=== PATIENT | female | born 1935 | race Caucasian/White ===

== ENCOUNTER → 2016-08-16 | Outpatient (CLI) | payer OTHER, MEDICARE ==
[~2016-08-16] MED LIST: ACT/30 PO; ADVIN10/60 INH; ASPI81TA80 PO; BENZ-57 PO; DXY100 PO; FLEC50TA20 PO; IPRASOL4 INH; LEVO50TA6 PO; LOSA100T2 PO; METF500T PO; PRD20 PO; SIMV40TA2 PO; TMF75 PO; TPRSR/50 PO; TRAM-10 PO
--- NOTE | 2016-08-16 12:32 | MAMMOGRAPHY REPORT ---
BILATERAL DIGITAL SCREENING MAMMOGRAM TOMOSYNTHESIS WITH CAD: 08/16/2016 CLINICAL HISTORY: Asymptomatic. Personal history of breast cancer. TECHNIQUE: Breast tomosynthesis in addition to standard 2D mammography was performed. Current study was also evaluated with a Computer Aided Detection (CAD) system. COMPARISON: Comparison is made to exams dated: 08/12/2015 mammogram, 12/10/2014 ultrasound, 12/10/2014 ma mmogram, 12/05/2013 ultrasound, 12/05/2013 mammogram, and 04/29/2013 mammogram - [facility]. BREAST COMPOSITION: There are scattered areas of fibroglandular density in both breasts. FINDINGS: 3 linear scar markers overlie the left breast. There are stable surgical clips in the 11: 00 posterior left breast. There is left breast skin irregularity and asymmetry of the size of the b reast compared to the right breast. There are rodlike secretory calcifications and benign rim calci fications bilaterally. No new suspicious mass, architectural distortion or cluster of microcalcific ations is seen. IMPRESSION: ACR BI-RADS CATEGORY 1: NEGATIVE There is no mammographic evidence of malignancy. A 1 year screening mammogram is recommended. The p atient will receive written notification of the results. Approximately 10% of breast cancers are not detected with mammography. A negative mammographic repor t should not delay biopsy if a clinically suggestive mass is present. Radha Barnes M.D. ay/:08/16/2016 08:25:18 Wind Turbine Erector: Mary Major, [facility] letter sent: Normal 1/2 BI-RADS Code: ACR BI-RADS Category 1: Negative
== END | disposition home or self-care (01) ==
LOC: C.MAMM 07:13
PROVIDERS: ATTEND Family Medicine
DX: Z12.31 Encounter for screening mammogram for malignant neoplasm of breast (principal); Z85.3 Personal history of malignant neoplasm of breast; Z08 Encounter for follow-up examination after completed treatment for malignant neoplasm

== ENCOUNTER → 2016-12-28 | Outpatient (CLI) | payer OTHER, MEDICARE ==
[~2016-12-28] MED LIST changes: -BENZ-57 PO; +BENZ200C59 PO; +LVQ750 PO
--- NOTE | 2016-12-29 05:33 | PAP/PSG TECHNICIAN REPORT ---
[facility] College And Career Counselor Polysomnogram Report Study name: None Report date: 12/29/2016 Study date: 12/28/2016 Referring Physician: KRISH DWYER DO, DO Name: JESUS MELENDREZRED Interpreting Physician: Krish Dwyer D.O. Date of : 1935 College And Career Counselor: LAZ Long. Sex: Female Age: 81 StudyType: PSG Weight: 294 lbs Height: 81 years, Height 5' 3" Neck Circum:14.25inches BMI: 52.07 Medications: Actos 30mg, Advair 100-50mcg/dose, ASA 81mg, Duoneb, Flecainide Acetate 100mg, Glucophage 500mg, Losartan Potassium -HCTZ 100-25mg, Metoprolol 25mg, Mobic , ProAir, Simvastatin 40mg, Synthroid 50mcg, Tramadol 50mg Patient History Study started on room air with no ETCO2 monitoring in room 36. 81 yr old female here tonight for a possible split psg. She has a history of snoring. She wakes up twice to use the restroom. She had a overnight pulse oximetry done that had abnormal results. Her daughter dropped her off tonight. Her neck circ =14.25inches. Parameters Monitored NPSG: E1-M2, E2-M1, Fp1-M2, Fp2-M1, F3-M2, F4-M2, F4-M1, C3-M2, C4-M2, C4-M1, O1-M2, O2-M2, O2-M1, T3-M2, T4-M1, P3-M2, P4-M1, CHIN1, CHIN2, HR, EKG, Legs, PFLOW, SNOR, FLOW, CFLOW, Tidal Volume, THOR, ABDO, SpO2, PLTH, CPRESS, ETCO2 Wave, ETCO2, pH Sleep Architecture Sleep Stages Time at Lights Off 9:47:09 PM STAGES Time (min.) TST (%) Time at Lights On 5:26:09 AM Wake 119.5 -- Total Recording Time (TRT) 458.00 min. N1 15.5 5 Total Sleep Period (TSP) 426.0 min. N2 176.5 52 Total Sleep Time (TST) 338.5min. N3 93.0 27 Awake Time 119.5 min. REM 53.5 16 Wake after Sleep Onset 87.5 min. Sleep Efficiency (SE) 74 % Sleep Onset Latency (MYRTEL) 33.0 min. Number of Stage 1 Shifts None Awakenings 18 Stage Changes 66 Number of REM periods 3 REM 53.5 16 REM Latency 89.5 min. NREM 285.0 84 Body Position Analysis Supine Right Left Side Prone Vertical Total Sleep Time (min.) 7.8 220.5 118.0 338.50 0.0 0.0 Total Sleep Time (%) 0% 65% 35% 100 0% N/A% Total Sleep Time REM (min.) 0.0 17.0 36.5 None 0.0 0.0 Total Sleep Time NREM (min.) 0.0 203.5 81.5 None 0.0 0.0 Intermittent Wake (min.) 7.8 50.5 61.3 None 0.0 0.0 Total Sleep Period (%) 0% None None None None None Arousals Myoclonus (PLM) * Events Count Index Events Count Index Spontaneous 9 2 Events Awake (PLMW) 40 20.1 Respiratory 1 0.4 Events Asleep w/ Arousal (PLMA) 1 0.2 PLM 1 0 Events Asleep w/o Arousal (PLMS) 71 12.6 Snoring 1 0 Total Asleep 72 12.8 Total 12 2 Total 112 15 Respiratory Analysis * CA OA MA CH H RERA Total Count 0 8 0 0 24 0 32 Index 0.0 1.4 0.0 0 4.3 0 5.7 Mean Duration 0.0 23.9 0.0 0.00 20.5 0.0 21.4 Longest Duration 0.0 55.3 0.0 0.00 0.0 0.0 55.3 Respiratory Event Summary Total Supine ~Supine Right Left Prone REM NREM Apneas Count 8 N/A 8 0 8 N/A 7 1 Index 1.4 N/A 1 0.0 4.1 N/A 8 0 Hypopneas (4% Desat) Count 24 N/A 24 7 17 N/A 24 0 Index 4.3 N/A 4 1.9 8.6 N/A 26.9 0.0 Apneas & All Hypopneas Count 32 N/A 32 7 25 N/A 31 1 Index 5.7 N/A 6 2 13 N/A 34.8 0.2 Respiratory Events (Import/Export Specialist+All Hyp+RERA) Count 32 N/A 32 7 25 N/A 31 1 Index 5.7 N/A 6 1.9 12.7 N/A 34.8 0.2 Respiratory Related Arousal Count 1 N/A 2 0 2 N/A 1 1 Index 0.4 N/A 0 0 1 N/A 1 0 Snoring Analysis Supine Right Left Prone REM NREM Total Snore duration 32.0 min Snores count N/A 948 618 N/A 588 978 1,566 Snore mean duration 1.2 Sec Snores index N/A 258 314 N/A 659.4 205.9 277.6 TST with snoring (%) 9.5% Desaturation Event Summary: Minimum %SpO2 Event Count Mean/Min/Max Duration(sec.) Desaturation Index % Time In Bed > 90 11 32.0 / 14.3 / 49.5 48.5 3.0 86 - 90 25 34.8 / 13.0 / 54.5 4.2 80.0 81 - 85 5 28.3 / 14.3 / 53.5 4.1 16.4 76 - 80 0 N/A 0.0 0.5 71 - 75 0 N/A 0.0 0.0 66 - 70 0 N/A 0.0 0.0 61 - 65 0 N/A 0.0 0.0 56 - 60 0 N/A 0.0 0.0 51 - 55 0 N/A 0.0 0.0 < 50 0 N/A 0.0 0.0 Total REM NREM Awake <50% 0.0 min. 0.0 min. 0.0 min. 0.0 min. 51 - 60% 0.0 min. 0.0 min. 0.0 min. 0.0 min. 61 - 70% 0.0 min. 0.0 min. 0.0 min. 0.0 min. 71 - 80% 2.3 min. 1.7 min. 0.1 min. 0.5 min. 81 - 90% 434.9 min. 49.9 min. 281.4 min. 103.5 min. 91 - 100% 13.6 min. 1.9 min. 3.4 min. 8.3 min. Average 87 86 87 87 Minimum SpO2 76 76 76 76 Desaturation Event Index 3.8 26.9 0.6 1.0 # Desat. Events below 89% 29 24 3 2 Time(%) with Saturation below 89% 83.2 9.6 55.3 18.2 Time(min.) with Saturation below 89% 375.1 43.4 249.5 82.2 Time (mins) REM (mins) NREM (mins) % of TST SpO2 Below 90% 27 24 N3 96.5 SpO2 Below 88% 14 0 0 60 Heart Rate Analysis Min (bpm) Max (bpm) Average (bpm) Awake 56 69 60 NREM 55 65 60 REM 57 68 63 Overall 55 68 60 Supplemental O2 Values Minimum O2 level: None Value Start Time End Time College And Career Counselor Comments Mrs. Melendrez slept in the right and left positions. No cardiac arrhythmia noted. Some leg movements were noted. No bruxism noted. Snoring was noted and scored as a 3 on a scale of 1 through 5. (0=no snoring, 5=snoring loud enough to be heard through a closed door or down the re[address] way) She awoke to use the restroom one time during the night. She stated that she slept a little worse than usual. The final report will be interpreted and signed by a sleep physician. The completed physician report will then be placed in the patient medical record. Therapy (cm H2O) 0 TIB (min.) 458.0 TST (min.) 338.5 Sleep Onset (min.) 33.0 REM Onset From Sleep (min.) 89.5 Sleep Efficiency % 74 Wakefulness (%) 26 Wakefulness (min.) 119.5 NREM 1 (%) 5 NREM 1 (min.) 15.5 NREM 2 (%) 52 NREM 2 (min.) 176.5 NREM 3 (%) 27 NREM 3 (min.) 93.0 REM (%) 16 REM (min.) 53.5 # Arousals 12 Arousal Index 2 # Snore 1,566 Snore Index 277.6 AHI 5.7 AHI Supine N/A AHI Non-Supine 6 NREM AHI 0.2 REM AHI 34.8 RDI 5.7 # Obstructive Apnea 8 # Central Apnea 0 # Mixed Apnea 0 # Hypopneas 24 RERAs 0 Total Respiratory Events 35 Time Below SpO2 89% (min.) 292.9 Mean NREM SpO2 (%) 87 Mean REM SpO2 (%) 86 Mean Sleep SpO2 (%) 87 Min NREM SpO2 (%) 76 Min REM SpO2 (%) 76 Position Supine (min.) 7.8 Position Non-supine (min.) 338.5 LM Index Sleep 12.8 LM Index NREM 13.5 LM Index REM 9.0 Mean Heart Rate (bpm) 60 Min Heart Rate (bpm) 55
--- NOTE | 2017-01-06 07:34 | Sleep Study ---
Sleep Study Report Date of Service: 12/28/2016 Sleep Study Report Clinical data: The patient is a 81-year-old female with a BMI of 52. She has a history of snoring, disturbed nocturnal sleep, daytime tiredness, and nocturnal hypoxia. This study was an in-lab diagnostic polysomnogram. Sleep architecture: The total sleep. Was 426.0 minutes. The total sleep time was 338.5 minutes. The sleep efficiency was moderately reduced to 74 percent. The sleep latency was prolonged to 33 minutes. Wake after sleep onset was elevated at 87.5 minutes. The REM latency was normal at 89.5 minutes. Sleep consisted of stage N1 5 percent, stage N2 52 percent, stage N3 27 percent, and stage REM 16 percent. Arousal data: the patient had a total of 12 arousals including 9 spontaneous arousals, 1 respiratory arousal, 1 PLM arousal, and 1 snoring arousal. The arousal index was 2. PLM data: The patient had a total of 72 periodic limb movements of sleep for an index of 12.8. There was only 1 arousal for a PLM arousal index of 0.2. EKG: The cardiac rates ranged from 55 to 69 beats per minute. The rhythm was normal sinus. Respiratory data: the patient had a total of 32 respiratory events including 8 obstructive apneas and 24 hypopneas. The hypopneas were scored by the 4 percent desaturation rule. The longest apnea was 55.3 seconds. The mean duration of the hypopneas was 20.5 seconds. The apnea-hypopnea index is mildly elevated at 5.7 events per hour. This represents mild sleep apnea. Oximetry data: The average saturation for the night was 87 percent. The minimum saturation was 76 percent. Was a total of 375 minutes with saturations less than 89 percent. Splicing Supervisor comments the patient slept on the right and left positions. No cardiac arrhythmia noted. Some leg movements noted. No bruxism noted. Snoring was noted and scored as a 3 on a scale of 1 through 5. Impressions: 1. obstructive sleep apnea-mild 2. Nocturnal hypoxia Comments: The patient has mild sleep apnea as assessed by the apnea-hypopnea index of 5.7. However she did have an event lasting 55 seconds. She also had significant hypoxemia throughout the night. She also has significant symptoms. Comorbidities include hypertension and chronic asthmatic bronchitis and diabetes mellitus and a history of cardiac arrhythmia. Thus treatment would be advised. Recommendations colon 1. It is advised that the patient be given a trial of nasal CPAP. This could be accomplished by an in-lab sleep study with titration or by auto CPAP. 2. Weight loss is advised in light of the elevation of body mass index at 52. 3. It is advised that the patient avoid sleeping in the supine position as they are typically more respiratory events while supine. Copies To 1: Ermias Rizo M.D.; Krish Saleem,
== END | disposition home or self-care (01) ==
LOC: C.NEUR 21:00
PROVIDERS: ATTEND Internal Medicine Pulmonary Disease
DX: G47.33 Obstructive sleep apnea (adult) (pediatric) (principal); R53.83 Other fatigue

== ENCOUNTER → 2017-02-17 | Outpatient (CLI) | payer OTHER, MEDICARE ==
[~2017-02-17] MED LIST changes: +BENZ-57 PO; -BENZ200C59 PO; -LVQ750 PO
[2017-02-17 09:00] LABS: BASO % 0.7 %; BASO ABS # 0.04 K/uL (0-0.2); COMPLETE YES; EOS % 4.1 %; HEMATOCRIT 40.3 % (37-47); IG% 0.3 %; LYMPH ABS # 1.83 K/uL (1.2-3.4); MEAN CORPUSCULAR HEMOGLOBIN 29.4 pg (25-34); MEAN PLATELET VOLUME 9.5 fL (7.4-10.4); MONO % 7.2 %; NEUT % 57.7 %; PLATELET COUNT 249 K/uL (130-400); RED BLOOD COUNT 4.53 M/uL (4.2-5.4); WHITE BLOOD COUNT 6.11 K/uL (4.8-10.8)
[2017-02-17 09:35] LABS: ALT/SGPT 19 U/L (12-78); AST/SGOT 16 U/L (15-37); BLOOD UREA NITROGEN 27 mg/dl (7-18); BUN/CREATININE RATIO 26.8 (10-20); CALCIUM 9.1 mg/dl (8.5-10.1); CARBON DIOXIDE 30 mmol/L (21-32); CHLORIDE 103 mmol/L (98-107); GLUCOSE 90 mg/dl (70-99); SODIUM 139 mmol/L (136-145)
[2017-02-17 09:38] LABS: ALB/GLOB RATIO 1.1 (0.9-2); ALKALINE PHOSPHATASE 46 U/L (45-117)
== END | disposition home or self-care (01) ==
LOC: C.LAB 07:25
PROVIDERS: ATTEND Internal Medicine Hematology & Oncology
DX: C50.919 Malignant neoplasm of unspecified site of unspecified female breast (principal)

== ENCOUNTER → 2017-03-01 | Outpatient (CLI) | payer OTHER, MEDICARE ==
--- NOTE | 2017-03-02 06:30 | PAP/PSG TECHNICIAN REPORT ---
[facility] Special Events Director Polysomnogram Report Study name: None Report date: 03/02/2017 Study date: 03/01/2017 Referring Physician: KRISH SALEEM DO, DO Name: TAWANNALEX Interpreting Physician: Krish Saleem D.O. Date of : 1935 Special Events Director: Briana Stanford RPS. Sex: Female Age: 82 Study Type: PSG PAP Weight: 294 lbs 14.25 in Height: 82 years, Height 5' 3" Neck Circum: BMI: 52.07 Medications: ACTOS 30 MG, ADVAIR DISKUS 100-50 MCG/DOSE, ASPIRIN 81 MG, CALCIUM, DUONEB SOLN, FLECAINIDE ACETATE 100 MG, GLUCOPHANGE 500 MG, LOSARTAN-HCTZ 100-25 MG, METOPROLOL 25 MG, MOBIC, MULTI VIT, PROAIR HFA, SIMVASTATIN 40 MG, SYNTHROID 50 MCG, TRAMADOL 50 MG Patient History 82 yr-old female here for a new CPAP treatment study. She was found to be positive for KINGSLEY with an AHI of 5.7. Her diagnostic study was on 12/28/16. She chose an Eson nasal mask size small from [employer]. The test was started on room air and 4 CMH2O. ETCO2 testing was not utilized during this study. Room 6 Parameters Monitored NPSG: E1-M2, E2-M1, Fp1-M2, Fp2-M1, F3-M2, F4-M2, F4-M1, C3-M2, C4-M2, C4-M1, O1-M2, O2-M2, O2-M1, T3-M2, T4-M1, P3-M2, P4-M1, CHIN1, CHIN2, HR, EKG, Legs, PFLOW, SNOR, FLOW, CFLOW, Tidal Volume, THOR, ABDO, SpO2, PLTH, CPRESS, ETCO2 Wave, ETCO2, pH Sleep Architecture Sleep Stages Time at Lights Off 10:14:46 PM STAGES Time (min.) TST (%) Time at Lights On 5:39:16 AM Wake 107.0 -- Total Recording Time (TRT) 444.50 min. N1 76.5 23 Total Sleep Period (TSP) 411.5 min. N2 216.5 64 Total Sleep Time (TST) 337.5min. N3 7.5 2 Awake Time 107.0 min. REM 37.0 11 Wake after Sleep Onset 74.0 min. Sleep Efficiency (SE) 76 % Sleep Onset Latency (MYRTLE) 33.0 min. Number of Stage 1 Shifts None Awakenings 46 Stage Changes 143 Number of REM periods 3 REM 37.0 11 REM Latency 150.0 min. NREM 300.5 89 Body Position Analysis Supine Right Left Side Prone Vertical Total Sleep Time (min.) 437.2 0.0 0.0 0.00 0.0 0.2 Total Sleep Time (%) 100% 0% 0% 0 0% N/A% Total Sleep Time REM (min.) 37.0 0.0 0.0 None 0.0 0.0 Total Sleep Time NREM (min.) 300.5 0.0 0.0 None 0.0 0.0 Intermittent Wake (min.) 99.7 7.1 0.0 None 0.0 0.2 Total Sleep Period (%) 100% None None None None None Arousals Myoclonus (PLM) * Events Count Index Events Count Index Spontaneous 88 16 Events Awake (PLMW) 29 16.3 Respiratory 23 4.3 Events Asleep w/ Arousal (PLMA) 0 0.0 PLM 0 0 Events Asleep w/o Arousal (PLMS) 7 1.2 Snoring 13 2 Total Asleep 7 1.2 Total 124 22 Total 36 5 Respiratory Analysis * CA OA MA CH H RERA Total Count 0 1 0 0 38 3 39 Index 0.0 0.2 0.0 0 6.8 1 7.5 Mean Duration 0.0 15.1 0.0 0.00 17.7 16.5 17.6 Longest Duration 0.0 15.1 0.0 0.00 0.0 17.3 26.9 Respiratory Event Summary Total Supine ~Supine Right Left Prone REM NREM Apneas Count 1 1 N/A N/A N/A N/A 0 1 Index 0.2 0 N/A N/A N/A N/A 0 0 Hypopneas (4% Desat) Count 38 38 N/A N/A N/A N/A 3 35 Index 6.8 6.8 N/A N/A N/A N/A 4.9 7.0 Apneas & All Hypopneas Count 39 39 N/A N/A N/A N/A 3 36 Index 6.9 7 N/A N/A N/A N/A 4.9 7.2 Respiratory Events (Manager Van+All Hyp+RERA) Count 39 42 N/A N/A N/A N/A 3 36 Index 7.5 7 N/A N/A N/A N/A 8.1 7.4 Respiratory Related Arousal Count 23 42 N/A N/A N/A N/A 2 22 Index 4.3 4 N/A N/A N/A N/A 3 4 Snoring Analysis Supine Right Left Prone REM NREM Total Snore duration 4.5 min Snores count 242 N/A N/A N/A 29 213 242 Snore mean duration 1.1 Sec Snores index 43 N/A N/A N/A 47.0 42.5 43.0 TST with snoring (%) 1.3% Desaturation Event Summary: Minimum %SpO2 Event Count Mean/Min/Max Duration(sec.) Desaturation Index % Time In Bed > 90 72 29.6 / 11.5 / 60.0 72.5 13.4 86 - 90 45 25.9 / 11.5 / 58.8 8.7 69.7 81 - 85 3 12.4 / 10.0 / 14.3 2.4 16.8 76 - 80 0 N/A 0.0 0.1 71 - 75 0 N/A 0.0 0.0 66 - 70 0 N/A 0.0 0.0 61 - 65 0 N/A 0.0 0.0 56 - 60 0 N/A 0.0 0.0 51 - 55 0 N/A 0.0 0.0 < 50 0 N/A 0.0 0.0 Total REM NREM Awake <50% 0.0 min. 0.0 min. 0.0 min. 0.0 min. 51 - 60% 0.0 min. 0.0 min. 0.0 min. 0.0 min. 61 - 70% 0.0 min. 0.0 min. 0.0 min. 0.0 min. 71 - 80% 0.3 min. 0.0 min. 0.3 min. 0.0 min. 81 - 90% 384.1 min. 36.2 min. 276.0 min. 71.9 min. 91 - 100% 59.6 min. 0.8 min. 24.2 min. 34.6 min. Average 88 87 87 90 Minimum SpO2 80 83 80 83 Desaturation Event Index 12.6 6.5 12.6 17.9 # Desat. Events below 89% 75 4 48 23 Time(%) with Saturation below 89% 71.9 6.7 56.1 9.0 Time(min.) with Saturation below 89% 319.0 29.7 249.2 40.2 Time (mins) REM (mins) NREM (mins) % of TST SpO2 Below 90% 63 4 N59 89.0 SpO2 Below 88% 22 0 0 68 Heart Rate Analysis Min (bpm) Max (bpm) Average (bpm) Awake 54 127 56 NREM 52 61 56 REM 55 60 58 Overall 52 61 56 Supplemental O2 Values Minimum O2 level: None Value Start Time End Time Special Events Director Comments Ms. Melendrez slept in the right and supine positions. No cardiac arrhythmias or PLMs noted. No bruxism noted. CPAP was initiated at +4 CMH2O and up-titrated to a level of +10 CMH2O. An Eson nasal mask size small from [employer] was used during titration She did not wake up to use the restroom during the night. Ms. Melendrez stated that she did not sleep as well as usual. The final report will be interpreted and signed by a sleep physician. The completed physician report will then be placed in the patient medical record. Therapy Event: Therapy (cm H20) 4 5 7 8 9 10 Total Time at Pressure (min.) 158.5 31.4 109.6 46.8 37.6 60.7 TST at Pressure (min.) 122.0 29.9 59.6 44.3 30.1 51.7 # Periods 1 1 1 1 1 1 Sleep Onset (min.) 33.0 0.0 0.0 0.0 0.0 0.0 REM Onset (min.) N/A 24.5 0.6 N/A 5.2 N/A Sleep Efficiency % 77 95 54 94 80 85 Wakefulness (%) 23.0 4.8 45.6 5.3 20.0 14.8 Wakefulness (min.) 36.5 1.5 50.0 2.5 7.5 9.0 NREM 1 (%) 9.1 26.8 17.0 24.6 34.6 17.3 NREM 1 (min.) 14.5 8.4 18.6 11.5 13.0 10.5 NREM 2 (%) 67.8 60.5 14.1 54.0 21.5 67.9 NREM 2 (min.) 107.5 19.0 15.5 25.3 8.1 41.2 NREM 3 (%) 0.0 0.0 0.0 16.0 0.0 0.0 NREM 3 (min.) 0.0 0.0 0.0 7.5 0.0 0.0 REM (%) 0.0 8.0 23.3 0.0 24.0 0.0 REM (min.) 0.0 2.5 25.5 0.0 9.0 0.0 # Arousals 24 9 29 24 20 18 Arousal Index 11.8 18.0 29.2 32.5 39.9 20.9 # Snore 169 21 32 9 7 4 Snore Index 83.1 42.1 32.2 12.2 14.0 4.6 AHI 1.5 10.0 8.1 16.3 12.0 5.8 AHI Supine 1.5 10.0 8.1 16.3 12.0 5.8 AHI Non-Supine N/A N/A N/A N/A N/A N/A NREM AHI 1.5 10.9 8.8 16.3 17.1 5.8 REM AHI N/A 0.0 7.1 N/A 0.0 N/A RDI 1.5 12.0 9.1 17.6 12.0 5.8 # Obstructive 0 1 0 0 0 0 # Central Ap 0 0 0 0 0 0 # Mixed 0 0 0 0 0 0 # Hypopneas 3 4 8 12 6 5 RERAS 0 1 1 1 0 0 Total Respiratory Events 3 6 9 13 6 5 Time Below SpO2 89.00% (min.) 116.2 27.8 39.8 32.7 20.2 42.2 Mean NREM SpO2 (%) 87 87 88 87 89 87 Mean REM SpO2 (%) N/A 86 88 N/A 84 N/A Mean Sleep SpO2 (%) 87 87 88 87 87 87 Min NREM SpO2 (%) 85 80 80 83 82 84 Min REM SpO2 (%) N/A 85 83 N/A 83 N/A Position Supine (min.) 122.0 29.9 59.6 44.3 30.1 51.7 Position Non-supine (min.) 0.0 0.0 0.0 0.0 0.0 0.0 LM Index Sleep 1.0 2.0 3.0 1.4 0.0 0.0 LM Index NREM 1.0 0.0 0.0 1.4 0.0 0.0 LM Index REM N/A 24.0 7.1 N/A 0.0 N/A Mean Heart Rate (bpm) 57 57 56 55 56 54 Min Heart Rate (bpm) 54 55 54 52 53 53 Special Events Director Comments and User Events: Comment/Event Page Number Time of Day PT CALS 92 10:11:12 PM Look Right 93 10:11:33 PM Look Left 93 10:11:34 PM Look Up 93 10:11:43 PM Look Down 93 10:11:45 PM Eyes Closed 94 10:11:57 PM Bite down on Jaw 95 10:12:19 PM Flex foot 95 10:12:25 PM Hold Breath 95 10:12:38 PM Snore sound 96 10:13:02 PM PT IS NOW TRYING TO SLEEP. THE TV IS TURNED OFF 100 10:14:56 PM
--- NOTE | 2017-03-07 16:46 | Sleep Study ---
Sleep Study Report Date of Service: 03/01/2017 Sleep Study Report Clinical data: The patient is an 82-year-old female with symptoms including snoring, disturbed nocturnal sleep, daytime tiredness, and she has nocturnal hypoxia. A diagnostic sleep study was done 12/28/2016. This showed mild sleep apnea with an apnea-hypopnea index of 5.7. However her oxygen saturations were as low as 76 percent and she had a total of 375 minutes with saturations less than 89 percent. She also has a history of chronic asthmatic bronchitis. There is a history of hypertension and hypothyroidism and obesity. [facility]. Her BMI is 52.07. Sleep architecture: The total sleep period was 411.5 minutes. The total sleep time was 337.5 minutes. Sleep efficiency was moderately reduced to 76 percent. The sleep latency was prolonged to 33 minutes. Wake after sleep onset was increased to 74 minutes. REM latency was prolonged to 150 minutes. Sleep consisted of stage N1 23 percent, stage N2 64 percent, stage N3 2 percent , and stage REM 11 percent. Arousal data: The patient had a total of 124 arousals including 88 spontaneous arousals, 23 respiratory arousals, and 13 snoring arousals. The arousal index was 22. PLM data: The patient had a total of 7 periodic limb movements of sleep for an index of 1.2. There were 0 arousals associated with limb movements. EKG: The underlying cardiac rhythm was normal sinus. The cardiac rates ranged from 52 to 61 beats per minute. The average heart rate was 56 beats per minute. Respiratory data: The patient's respiratory events were treated with nasal CPAP up to a final pressure of 10 centimeters. She had a total of 39 respiratory events including 1 obstructive apnea and 38 hypopneas. Hypopneas were scored according to the 4 percent desaturation rule. There were also 3 RERAs. The apnea-hypopnea index was 6.9. At the final pressure of 10 centimeters her apnea-hypopnea index was 5.8. She was at that pressure for 60.7 minutes. Oximetry data: Patient's oxygen saturations averaged 88 percent. The minimum was 80 percent. There was 319 minutes with saturations less than 89 percent. Fire Systems Inspector comments: The patient slept on the right and supine positions. No cardiac arrhythmia is noted. No bruxism noted. CPAP was initiated at 4 centimeters and up titrated to a level of 10 centimeters. An Eson nasal mask size small from [employer] was utilized. The patient reported she did not sleep as well as usual. Impressions: 1. Obstructive sleep apnea 2. Nocturnal hypoxia Comments: The patient was treated with nasal CPAP. She tolerated the CPAP reasonably well. She actually did better in the 1st half of the night than the 2nd half. Her sleep was well consolidated until approximately 2 a.m. and was less well consolidated thereafter. She persisted with respiratory events as noted above. Oxygenation was still abnormal. In light of the above I think it would be appropriate to order an auto CPAP. She also needs an overnight pulse oximetry study done after she is on the CPAP for approximately 1 week. This would be required to arrange for her to have oxygen instilled into the CPAP if appropriate. The hope would be that CPAP treatment would improve her breathing and also improve her daytime alertness. She has comorbidities as noted above. Recommendations: 1. It is advised that the patient be started on auto CPAP with a minimum pressure of 5 and maximum pressure of 15. 2. She should have an overnight pulse oximetry study done with nasal CPAP in place in approximately 1 week. 3. If possible the patient should avoid sleeping in the supine position. 4. The patient has a severe elevation of body mass index at 52.07. A weight reduction program is advised. 5. Patient should be seen in follow-up between day 31 day 90 after receiving CPAP. Copies To 1: Ermias Rizo M.D.; Krish Saleem,
== END | disposition home or self-care (01) ==
LOC: C.NEUR 21:00
PROVIDERS: ATTEND Internal Medicine Pulmonary Disease
DX: G47.33 Obstructive sleep apnea (adult) (pediatric) (principal)

== ENCOUNTER → 2017-03-27 | Outpatient (CLI) | payer OTHER, MEDICARE ==
--- NOTE | 2017-04-11 09:40 | CODING QUERY MEDICAL NECESSITY ---
CQSUPPORTING DIAGNOSIS NEEDED A supporting diagnosis is required for the test/procedure performed on this patient in order for us to be reimbursed by the patient's insurance. Please provide a supporting diagnosis for the following test/procedure listed below next to the test name along with your signature. *If there is no additional diagnosis for this patient that would support the following test/procedure please document that below next to the test/procedure. Test(s)/Procedure(s) that require a supporting diagnosis: DOS 03/27/17 BONE MINERAL DENSITY TEST Provider Signature: Date: Thank you Kamala [facility] Information Management Once completed, please kindly fax back to [phone] For questions please call [phone]
== END | disposition home or self-care (01) ==
LOC: C.MAMM 12:31
PROVIDERS: ATTEND Internal Medicine Hematology & Oncology
DX: Z85.3 Personal history of malignant neoplasm of breast (principal); Z13.820 Encounter for screening for osteoporosis

== ENCOUNTER → 2017-05-05 | Outpatient (CLI) | payer OTHER, MEDICARE ==
[~2017-05-05] MED LIST changes: -BENZ-57 PO; +BENZ200C59 PO
== END | disposition home or self-care (01) ==
LOC: C.RC 05-03 16:05
PROVIDERS: ATTEND Internal Medicine Pulmonary Disease
DX: E66.9 Obesity, unspecified (principal); G47.33 Obstructive sleep apnea (adult) (pediatric); R53.83 Other fatigue

== ENCOUNTER 2017-05-22 21:51 | Inpatient (IN) | payer OTHER, MEDICARE ==
[~2017-05-22] VITALS: Ht 157.5 cm; Wt 141.1 kg
--- NOTE | 2017-05-22 22:22 | EMERGENCY ROOM VISIT NOTE ---
History Report prepared by Ashtynibtrudi: Gayle Snyder Under the Supervision of: Dr. Andrew Baker M.D. First contact with patient: 22:15 Chief Complaint: RESPIRATORY PROBLEMS Stated Complaint: TROUBLE BREATHING, HEART PATIENT History of Present Illness The patient is a 82 year old female who presents to the Emergency Room with complaints of a difficulty breathing beginning yesterday. The patient notes coughing up a small amount of blood, a headache, and a sore throat. She denies any abdominal pain. She has a rescue inhaler and a nebulizer. The patient is on metoprolol and aspirin. The patient has a history of an extra heart beat, diabetes, and breast cancer. Source of History: patient Onset: yesterday Position: other (global) Quality: other (difficulty breathing) Associated Symptoms: + headache, + sorethroat, No abdominal pain Review of Systems See HPI for pertinent positives & negatives. A total of 10 systems reviewed and were otherwise negative. Past Medical & Surgical Medical Problems: (1) Arthritis of foot, left (2) Arthritis of foot, right (3) Benign essential hypertension (4) Bradycardia (5) Breast cancer (6) Cellulitis of breast (7) Community acquired bacterial pneumonia (8) COPD exacerbation (9) Demand ischemia of myocardium (10) Diabetes mellitus type 2 (11) Diabetic neuropathy (12) Hyperlipidemia (13) Influenza A (14) Obstructive sleep apnea (15) Open wound of anterior abdominal wall (16) Restrictive lung disease (17) Sprain of left foot Family History Cancer Diabetes mellitus Heart disease Hypertension Social History Smoking Status: Never Smoker Alcohol Use: none Drug Use: none Marital Status: single Housing Status: lives with family Occupation Status: retired Current/Historical Medications Scheduled Aspirin (Adult Aspirin Ec Low Stre), 81 MG PO 3XWK Flecainide (Tambocor), 100 MG PO AMPM Fluticasone Prop/Salmeterol (Advair Diskus 100/50 60 Dose), 1 PUFF INH BID Levofloxacin (Levofloxacin), 750 MG PO DAILY Levothyroxine Sodium (Levothyroxine Sodium), 50 MCG PO DAILY Losartan Potassium & Hydrochlo (Hyzaar), 1 TAB PO QAM Metformin Hcl (Glucophage), 500 MG PO BID Metoprolol Succinate (Metoprolol Succinate ER), 25 MG PO QAM Pioglitazone Hcl (Actos), 30 MG PO QAM Simvastatin (Zocor), 40 MG PO QPM Scheduled PRN Ipratropium-Albuterol (Duoneb), 1 TREATMENT INH Q6 PRN for cough/wheezing Tramadol (Ultram), 50 MG PO Q4H PRN for Pain Allergies Coded Allergies: Penicillins (Verified Allergy, Intermediate, SEVERE RASH, 05/22/17) SEVERE RASH Sulfa Drugs (Verified Allergy, Unknown, 05/22/17) Physical Exam Vital Signs Date Time Temp Pulse Resp B/P (MAP) Pulse Ox O2 Delivery O2 Flow Rate FiO2 05/22/17 23:36 81 28 154/72 97 Nebulizer 7.0 05/22/17 22:51 98 Room Air 05/22/17 22:39 68 16 98 Room Air 05/22/17 22:22 65 05/22/17 22:18 Room Air 05/22/17 21:58 37.1 69 20 125/64 92 Room Air Physical Exam GENERAL: Patient is a morbidly obese female HEAD: Normocephalic atraumatic EYES: Ocular movements intact pupils equal and react to light OROPHARYNX mucous membranes are moist no exudates present no erythema or edema present NECK: Supple no nuchal rigidity CHEST: Good equal expansion LUNGS: Clear and equal to auscultation CARDIAC: Normal S1 and S2 ABDOMEN: Soft nontender no guarding BACK: No CVA tenderness EXTREMITIES: No pain upon palpation normal muscle strength in all groups no clubbing cyanosis or edema NEURO: Patient is following commands and answering questions appropriately. Alert and oriented x3 Cranial Nerves 2-12 grossly intact Medical Decision & Procedures ER Provider Diagnostic Interpretation: Radiology results as stated below per my review and radiologist interpretation: CHEST ONE VIEW PORTABLE FINDINGS: Atherosclerosis of aortic arch. Prominence of the aortic contour. Cardiac silhouette mildly enlarged, unchanged. Linear opacities in the mid lung bilaterally, not significantly changed from prior. Mildly increased opacity suggested in the right mid to upper lung no large effusion or pneumothorax. Osseous structures normal. Upper abdomen normal. IMPRESSION: 1. Persistent areas of atelectasis and/or scarring with apparent increased opacity in the right mid to upper lung, which raises concern for pneumonia. Electronically signed by: Eugenio Reyes M.D. Laboratory Results Test 05/22/17 22:30 05/22/17 22:56 Influenza Type A Antigen Neg for Influ A (NEG) Influenza Type B Antigen Neg for Influ B (NEG) Prothrombin Time 12.0 SECONDS (9.0-12.0) Prothromb Time International Ratio 1.1 (0.9-1.1) Total Bilirubin 0.7 mg/dl (0.2-1) Aspartate Amino Transf (AST/SGOT) 14 U/L (15-37) Alanine Aminotransferase (ALT/SGPT) 16 U/L (12-78) Alkaline Phosphatase 51 U/L (45-117) Total Creatine Kinase 34 U/L (26-192) Creatine Kinase MB < 0.5 ng/ml (0.5-3.6) Creatine Kinase MB Ratio (0-3.0) Troponin I < 0.015 ng/ml (0-0.045) Pro-B-Type Natriuretic Peptide 1482 pg/ml (0-1800) Total Protein 6.0 gm/dl (6.4-8.2) Albumin 2.9 gm/dl (3.4-5.0) Globulin 3.1 gm/dl (2.5-4.0) Albumin/Globulin Ratio 0.9 (0.9-2) Labs reviewed by ED physician. Medications Administered Medications (Trade) Dose Ordered Sig/Augusto Route Start Time Stop Time Status Last Admin Dose Admin Albuterol/ Ipratropium (Duoneb) 12 ml ONE ONCE INH 05/22/17 22:30 05/22/17 22:31 DC 05/22/17 22:38 12 ML Ketorolac Tromethamine (Toradol Inj) 30 mg NOW STAT IV 05/22/17 22:25 05/22/17 22:27 DC 05/22/17 22:50 30 MG Ondansetron HCl (Zofran Inj) 4 mg NOW STAT IV 05/22/17 22:25 05/22/17 22:27 DC 05/22/17 22:49 4 MG Aztreonam/ Dextrose 2000 mg/ Prmx 100 ml @ 100 mls/hr NOW STAT IV 05/22/17 23:01 05/23/17 00:00 DC 05/22/17 23:34 100 MLS/HR Levofloxacin (Levaquin / D5W) 750 mg NOW STAT IV 05/22/17 23:01 05/22/17 23:03 DC 05/23/17 00:39 750 MG Tramadol HCl (Ultram Tab) 50 mg Q12H PRN PO 05/23/17 00:00 05/24/17 14:59 DC 05/24/17 08:55 50 MG ECG Indication: SOB/dyspnea Rate (beats per minute): 67 Rhythm: sinus rhythm Findings: 1st degree AV block, LBBB, no acute ischemic change, no ectopy ED Course 2215: Past medical records reviewed. The patient was evaluated in room B4B. A complete history and physical examination was performed. 2225: Zofran Inj 4 mg IV, Toradol Inj 30 mg IV. 2230: Duoneb 12 ml INH. 2301: Levofloxacin 750 mg IV, Aztreonam/Dextrose 2000 mg Prmx 100 ml @ 100 mls/ hr IV. 2342: I discussed the patient's case with Dr. Velasco, he has agreed to evaluate the patient for further management and care. Medical Decision Differential diagnosis: Etiologies such as infections, reactive airway disease, pneumonia, pneumothorax , COPD, CHF, cardiac ischemia, pulmonary embolism, musculoskeletal, gastrointestinal, as well as others were entertained. This is an 82-year-old female who presents emergency department complaining of generalized weakness that has been ongoing for the past week. Patient is also complaining of wheezing and is not normally on oxygen at home. She was given an hour-long breathing treatment and appears to have pneumonia on her chest x- ray. She was started on antibiotics and pancultured up. I gave the patient the option of being discharged or staying in the hospital however the patient wishes to stay. I did discuss the case with the hospitalist service who agreed to admit the patient. Patient was in agreement with treatment plan. Blood Pressure Screening Patient's blood pressure: Elevated blood pressure Blood pressure disposition: Referred to PCP (will be evaluated by hopsitalist) Consults Time Called: [id number] Consulting Physician: Dr. Velasco Returned Call: [phone] I discussed the patient's case with Dr. Velasco, he has agreed to evaluate the patient for further management and care. Impression Primary Impression: Pneumonia Scribe Attestation The scribe's documentation has been prepared under my direction and personally reviewed by me in its entirety. I confirm that the note above accurately reflects all work, treatment, procedures, and medical decision making performed by me. Departure Information Dispostion Being Evaluated By Hospitalist Prescriptions Levofloxacin (Levofloxacin) 750 Mg Tab 750 MG PO DAILY, #5 TAB next dose on 05/25 Prov: Oleg Estrada D.O. 05/24/17 Referrals Ermias Rizo M.D. (PCP) Patient Instructions [facility] Problem Qualifiers Primary Impression: Pneumonia Pneumonia type: due to unspecified organism Laterality: unspecified laterality Lung location: unspecified part of lung Qualified Codes: J18.9 - Pneumonia, unspecified organism
[2017-05-22] MEDS ORDERED: ONDANSETRON INJ 2 MG/ML 2 ML VIAL IV STA (22:25)
[2017-05-22] MEDS ORDERED: KETOROLAC TROMETHAMINE 30 MG/ML VIAL IV STA (22:25)
[2017-05-22] MEDS ORDERED: ALBUT/IPRATROP 3MG/0.5MG NEB 3 ML VIAL INH ONE (22:30)
[2017-05-22 22:39] VITALS: PULSE 68; O2SAT 98
--- NOTE | 2017-05-22 22:47 | DIAGNOSTIC IMAGING REPORT ---
CHEST ONE VIEW PORTABLE CLINICAL HISTORY: 82 years-old Female presenting with Pt c/o SOB. TECHNIQUE: Portable upright AP view of the chest was obtained. COMPARISON: 06/26/2016. FINDINGS: Atherosclerosis of aortic arch. Prominence of the aortic contour. Cardiac silhouette mildly enlarged, unchanged. Linear opacities in the mid lung bilaterally, not significantly changed from prior. Mildly increased opacity suggested in the right mid to upper lung no large effusion or pneumothorax. Osseous structures normal. Upper abdomen normal. IMPRESSION: 1. Persistent areas of atelectasis and/or scarring with apparent increased opacity in the right mid to upper lung, which raises concern for pneumonia. Electronically signed by: Eugenio Reyes M.D. 05/22/2017 10:46 PM Dictated Date/Time: 05/22/2017 10:44 PM
[2017-05-22] MEDS ORDERED: PREMIXED IV STA (23:01)
[2017-05-22] MEDS ORDERED: AZTREONAM IV STA (23:01)
[2017-05-22] MEDS ORDERED: LEVAQUIN 750MG / 150ML D5W IV STA (23:01)
[2017-05-22] MEDS ORDERED: D5W IV STA (23:01)
[2017-05-22 23:05] LABS: BASO % 0.4 %; BASO ABS # 0.04 K/uL (0-0.2); COMPLETE YES; EOS % 2.1 %; HEMATOCRIT 37.4 % (37-47); IG% 0.6 %; LYMPH % 11.1 %; LYMPH ABS # 1.21 K/uL (1.2-3.4); MEAN CELL VOLUME 88.8 fL (80-100); MEAN CORPUSCULAR HGB CONC 32.6 g/dl (32-36); MEAN PLATELET VOLUME 9.4 fL (7.4-10.4); MONO % 10.1 %; NEUT % 75.7 %; PLATELET COUNT 175 K/uL (130-400); RED BLOOD COUNT 4.21 M/uL (4.2-5.4); WHITE BLOOD COUNT 10.87 K/uL (4.8-10.8)
[2017-05-22] MEDS ORDERED: IPRASOL4 INH (23:11)
[2017-05-22 23:25] LABS: ALT/SGPT 16 U/L (12-78); BLOOD UREA NITROGEN 25 mg/dl (7-18); BUN/CREATININE RATIO 20.7 (10-20); CALCIUM 8.4 mg/dl (8.5-10.1); CARBON DIOXIDE 28 mmol/L (21-32); CHLORIDE 103 mmol/L (98-107); CREATININE 1.22 mg/dl (0.60-1.20); GLUCOSE 112 mg/dl (70-99); POTASSIUM 4.4 mmol/L (3.5-5.1); SODIUM 138 mmol/L (136-145)
[2017-05-22 23:30] LABS: ALB/GLOB RATIO 0.9 (0.9-2); ALKALINE PHOSPHATASE 51 U/L (45-117); AST/SGOT 14 U/L (15-37)
--- NOTE | 2017-05-22 23:50 | History and Physical ---
History & Physical Date & Time of Service: May 22, 2017 at 23:49 Chief Complaint: Trouble Breathing, Heart Patient Primary Care Physician: Ermias Rizo M.D. History of Present Illness Source: patient, hospital records Mrs. Melendrez is an 82 year old female with obstructive sleep apnea, previous radiation therapy to her breast and COPD who presents to the ER with 2 days of fever, chills, shortness of breath, nasal congestion and cough. She has been getting worse over the past couple of days but has not sought medical attention until tonight. She woke up from her sleep feeling very short of breath and coughing. She was unable to tolerate her home CPAP therefore decided to come to the ER. She also notes coughing up a small amount of blood once this evening. Past Medical/Surgical History Medical Problems: (1) Arthritis of foot, left Status: Chronic (2) Arthritis of foot, right Status: Chronic (3) Benign essential hypertension Status: Chronic (4) Bradycardia Status: Chronic (5) Breast cancer Status: Resolved (6) Cellulitis of breast Status: Resolved (7) Diabetes mellitus type 2 Status: Chronic (8) Diabetic neuropathy Status: Chronic (9) Hyperlipidemia Status: Chronic (10) Open wound of anterior abdominal wall Status: Chronic (11) Restrictive lung disease Status: Chronic (12) Sprain of left foot Status: Resolved Family History Cancer Diabetes mellitus Heart disease Hypertension Social History Smoking Status: Never Smoker (but heavy smoke exposure from ) Smokeless Tobacco Use: No Alcohol Use: none Drug Use: none Marital Status: single Housing status: lives with family (daughter) Occupational Status: retired Immunizations History of Influenza Vaccine: Yes Influenza Vaccine Date: Apr 24, 2012 History of Tetanus Vaccine?: No Tetanus Immunization Date: Jun 14, 2003 History of Pneumococcal: Yes Pneumococcal Date: Jun 25, 2012 History of Hepatitis B Vaccine: No Multi-Drug Resistant Organisms History of MDRO: No Allergies Coded Allergies: Penicillins (Verified Allergy, Intermediate, SEVERE RASH, 05/22/17) SEVERE RASH Sulfa Drugs (Verified Allergy, Unknown, 05/22/17) Home Medications Scheduled Aspirin (Adult Aspirin Ec Low Stre), 81 MG PO 3XWK Flecainide (Tambocor), 100 MG PO AMPM Fluticasone Prop/Salmeterol (Advair Diskus 100/50 60 Dose), 1 PUFF INH BID Levothyroxine Sodium (Levothyroxine Sodium), 50 MCG PO DAILY Losartan Potassium & Hydrochlo (Hyzaar), 1 TAB PO QAM Metformin Hcl (Glucophage), 500 MG PO BID Metoprolol Succinate (Metoprolol Succinate ER), 25 MG PO QAM Pioglitazone Hcl (Actos), 30 MG PO QAM Simvastatin (Zocor), 40 MG PO QPM Scheduled PRN Ipratropium-Albuterol (Duoneb), 1 TREATMENT INH Q6 PRN for cough/wheezing Tramadol (Ultram), 50 MG PO Q4H PRN for Pain Review of Systems Constitutional: + fever, + chills Eyes: No worsening of vision ENT: + sore throat, No hearing loss Respiratory: + cough, + sputum, + shortness of breath, + dyspnea at rest, + hemoptysis, No wheezing Cardiovascular: + chest pain, + orthopnea, No PND, No edema, No claudication, No palpitations Abdomen: + constipation, No pain, No nausea, No vomiting, No diarrhea, No GI bleeding Musculoskeletal: No joint pain, No muscle pain Genitourinary - Female: No dysuria, No urinary frequency, No urinary urgency, No urinary incontinence, No urinary retention, No hematuria Hematologic / Lymphatic: No abnormal bleeding/bruising Integumentary: No rash, No itch Physical Exam Vital Signs Date Time Temp Pulse Resp B/P (MAP) Pulse Ox O2 Delivery O2 Flow Rate FiO2 05/22/17 23:36 81 28 154/72 97 Nebulizer 7.0 05/22/17 22:51 98 Room Air 05/22/17 22:39 68 16 98 Room Air 05/22/17 22:22 65 05/22/17 22:18 Room Air 05/22/17 21:58 37.1 69 20 125/64 92 Room Air General Appearance: no apparent distress, + obese Head: normocephalic, atraumatic Eyes: normal inspection, PERRL, EOMI ENT: normal ENT inspection (external), + pertinent finding (dry mucus membranes ) Neck: supple, no JVD (unable to assess adequately due to neck size) Respiratory/Chest: + decreased breath sounds (throughout), + crackles (coarse, mild bilateral posteriorly, worse midzone on left side) Cardiovascular: regular rate, rhythm (quiet), no murmur, normal peripheral pulses Abdomen/GI: normal bowel sounds, non tender, soft Extremities/Musculoskelatal: no calf tenderness, normal capillary refill, + pedal edema (trace bilaterally) 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 (no facial droop), no motor/sensory deficits (grossly), alert, oriented x 3 Skin: normal color, warm/dry, no rash Diagnostics Laboratory Results Results Past 24 Hours Test 05/22/17 22:30 05/22/17 22:56 Range/Units Influenza Type A Antigen Neg for Influ A NEG Influenza Type B Antigen Neg for Influ B NEG White Blood Count 10.87 4.8-10.8 K/uL Red Blood Count 4.21 4.2-5.4 M/uL Hemoglobin 12.2 12.0-16.0 g/dL Hematocrit 37.4 37-47 % Mean Corpuscular Volume 88.8 80-100 fL Mean Corpuscular Hemoglobin 29.0 25-34 pg Mean Corpuscular Hemoglobin Concent 32.6 32-36 g/dl Platelet Count 175 130-400 K/uL Mean Platelet Volume 9.4 7.4-10.4 fL Neutrophils (%) (Auto) 75.7 % Lymphocytes (%) (Auto) 11.1 % Monocytes (%) (Auto) 10.1 % Eosinophils (%) (Auto) 2.1 % Basophils (%) (Auto) 0.4 % Neutrophils # (Auto) 8.23 1.4-6.5 K/uL Lymphocytes # (Auto) 1.21 1.2-3.4 K/uL Monocytes # (Auto) 1.10 0.11-0.59 K/uL Eosinophils # (Auto) 0.23 0-0.5 K/uL Basophils # (Auto) 0.04 0-0.2 K/uL RDW Standard Deviation 54.7 36.4-46.3 fL RDW Coefficient of Variation 17.0 11.5-14.5 % Immature Granulocyte % (Auto) 0.6 % Immature Granulocyte # (Auto) 0.06 0.00-0.02 K/uL Sodium Level 138 136-145 mmol/L Potassium Level 4.4 3.5-5.1 mmol/L Chloride Level 103 98-107 mmol/L Carbon Dioxide Level 28 21-32 mmol/L Anion Gap 7.0 3-11 mmol/L Blood Urea Nitrogen 25 7-18 mg/dl Creatinine 1.22 0.60-1.20 mg/dl Est Creatinine Clear Calc Drug Dose 52.3 ml/min Estimated GFR () 48.5 Estimated GFR (Non- 41.8 BUN/Creatinine Ratio 20.7 10-20 Random Glucose 112 70-99 mg/dl Calcium Level 8.4 8.5-10.1 mg/dl Total Bilirubin 0.7 0.2-1 mg/dl Aspartate Amino Transf (AST/SGOT) 14 15-37 U/L Alanine Aminotransferase (ALT/SGPT) 16 12-78 U/L Alkaline Phosphatase 51 45-117 U/L Total Creatine Kinase 34 26-192 U/L Creatine Kinase MB < 0.5 0.5-3.6 ng/ml Creatine Kinase MB Ratio 0-3.0 Troponin I < 0.015 0-0.045 ng/ml Pro-B-Type Natriuretic Peptide 1482 0-1800 pg/ml Total Protein 6.0 6.4-8.2 gm/dl Albumin 2.9 3.4-5.0 gm/dl Globulin 3.1 2.5-4.0 gm/dl Albumin/Globulin Ratio 0.9 0.9-2 Microbiology Results 05/22/17 Blood Culture, Received Pending 05/22/17 Blood Culture, Received Pending Diagnostic Radiology CHEST ONE VIEW PORTABLE CLINICAL HISTORY: 82 years-old Female presenting with Pt c/o SOB. TECHNIQUE: Portable upright AP view of the chest was obtained. COMPARISON: 06/26/2016. FINDINGS: Atherosclerosis of aortic arch. Prominence of the aortic contour. Cardiac silhouette mildly enlarged, unchanged. Linear opacities in the mid lung bilaterally, not significantly changed from prior. Mildly increased opacity suggested in the right mid to upper lung no large effusion or pneumothorax. Osseous structures normal. Upper abdomen normal. IMPRESSION: 1. Persistent areas of atelectasis and/or scarring with apparent increased opacity in the right mid to upper lung, which raises concern for pneumonia. Electronically signed by: Eugenio Reyes M.D. 05/22/2017 10:46 PM Dictated Date/Time: 05/22/2017 10:44 PM EKG Sinus rhythm with 1st degree A-V block Rate 67 bpm When compared with ECG of 24-JUN-2016 13:11, T wave inversion no longer evident in Anterior leads Impression Assessment and Plan 82 year old female with KINGSLEY and COPD admission for community acquired pneumonia Community acquired pneumonia - treat with Levaquin IV 750mg daily - incentive spirometry and flutter valve Dehydration - Elevated Cr and BUN - IVF overnight - repeat labs in morning COPD/Asthma - duonebs Q6H CLAUDINE + Q2H PRN - Add Pulmicort BID, given no wheezing and T2DM will initially try to not give systemic steroids - Continue Advair BID KINGSLEY - CPAP Constipation - start Miarlax daily Hypothyroidism - continue 50 mcg levothyroxine Hypertension / unspecified cardiac arrhythmia - hold losartan given elevation in Cr, continue flecainide + metoprolol T2DM - hold metformin and pioglitazone - insulin sliding scale with BSG ACHS Hyperlipidemia - continue simvastatin Attending Addendum: I have physically seen and examined this patient, have directed the resident's medical activities, and agree with the H&P as noted above with the following exceptions as noted. The patient is awake, alert and oriented 3, well-developed and well-nourished , normocephalic and atraumatic, lying in bed and in no acute distress. HEENT--PERRL, EOMI, mucous membranes and oropharynx dry. Neck--supple, no JVD or bruits, thyroid normal, trachea midline, no adenopathy. Heart--normal S1 and S2, no extra beats, no murmurs, rubs or gallops. Lungs--crackles at the bases bilaterally , but overall decreased throughout, no respiratory distress, no accessory muscle use. Abdomen--normal bowel sounds and soft, nontender and nondistended, no hernias or masses, and obese. Extremities--no cyanosis or clubbing. Trace bilateral pretibial and pedal Edema. There are good distal pulses b/l. Dermatologic--normal skin turgor, normal color, warm and dry, no abnormal lymph nodes, no rash. Neurologic--cranial nerves II through XII grossly intact. Rheumatologic--normal range of motion. Psychiatric--normal affect. Assessment and Plan: Bilateral pneumonia/COPD exacerbation/obstructive sleep apnea-- Levaquin 750 mg IV daily. Pulmicort Respules 0.5 mg inhaled twice a day Duonebs every 6 hours while awake and every 2 hours when necessary Guaifenesin extended release 600 mg by mouth twice a day Hold CPAP at bedtime. Hypertension/cardiac dysrhythmia-- Continue flecainide and metoprolol. Hold losartan. Gentle IV fluids overnight. Diabetes mellitus-- Hold metformin and pioglitazone Place on Accu-Cheks before meals and at bedtime with NovoLog coverage per scale. Hyperlipidemia-- continue simvastatin Hypothyroidism-- Continue levothyroxine sodium 50 g daily Level of Care Med/Surg Advanced Directives Existing Advance Directive: No Existing Living Will: No Existing Power of Cma: No Resuscitation Status FULL RESUSCITATION VTE Prophylaxis VTE Risk Assessment Done? Y/N: Yes Risk Level: High Given or contraindicated: Unfractionated heparin SQ, T.E.D. Stockings, SCD's Additional Copies To Ermias Rizo M.D. Resident Tracking Resident Involvement: Resident Care Provided Care Provided: Adult Hospital Medicine
[2017-05-23] VITALS (9 sets, daily range): BP systolic 109–156; BP diastolic 64–81; PULSE 59–78; TEMP 36.6–37.1; O2SAT 92–98; Ht 157.5 cm; Wt 141.1 kg
[2017-05-23] MEDS ORDERED: TRAMADOL HCL 50 MG TAB PO PRN
[2017-05-23] MEDS ORDERED: ONDANSETRON INJ 2 MG/ML 2 ML VIAL IV PRN
[2017-05-23] MEDS ORDERED: ACETAMINOPHEN 325 MG TAB PO PRN
[2017-05-23] MEDS ORDERED: IV FLUIDS COMPLETED PRN (00:30)
[2017-05-23] MEDS ORDERED: BUDESONIDE 0.5 MG/2 ML VIAL (PULMICORT) INH STA (00:36)
[2017-05-23] MEDS ORDERED: DOCUSATE SODIUM 100 MG CAP PO STA (00:40)
[2017-05-23 01:13] LABS: INFLUENZA A PCR Neg for Influ A (NEG); INFLUENZA B PCR Neg for Influ B (NEG)
[2017-05-23] MEDS: LACTATED RINGER'S 1000ML 1,000 ML IV SCH ×3 (02:40→18:16)
[2017-05-23] MEDS: LEVOTHYROXINE 50 MCG TAB PO SCH (06:25)
[2017-05-23 06:54] LABS: BASO % 0.2 %; BASO ABS # 0.02 K/uL (0-0.2); COMPLETE YES; EOS % 0.9 %; HEMATOCRIT 35.5 % (37-47); IG% 0.3 %; LYMPH % 9.3 %; LYMPH ABS # 0.96 K/uL (1.2-3.4); MEAN CELL VOLUME 88.3 fL (80-100); MEAN CORPUSCULAR HEMOGLOBIN 28.9 pg (25-34); MEAN CORPUSCULAR HGB CONC 32.7 g/dl (32-36); MEAN PLATELET VOLUME 9.4 fL (7.4-10.4); MONO % 12.1 %; NEUT % 77.2 %; PLATELET COUNT 182 K/uL (130-400); RED BLOOD COUNT 4.02 M/uL (4.2-5.4); WHITE BLOOD COUNT 10.32 K/uL (4.8-10.8)
[2017-05-23 06:56] LABS: INR 1.1 (0.9-1.1)
[2017-05-23] MEDS ORDERED: GLUCOSE 40% GEL 15 GM TUBE PO PRN (07:00)
[2017-05-23] MEDS ORDERED: GLUCOSE 10 TABS/TUBE PO PRN (07:00)
[2017-05-23] MEDS ORDERED: GLUCAGON FOR INJ 1 MG VIAL SQ PRN (07:00)
[2017-05-23] MEDS ORDERED: DEXTROSE 50% 50 ML SYR IV PRN (07:00)
[2017-05-23] MEDS: ALBUT/IPRATROP 3MG/0.5MG NEB 3 ML VIAL INH SCH ×4 (07:01→19:03)
[2017-05-23] MEDS: BUDESONIDE 0.5 MG/2 ML VIAL (PULMICORT) INH SCH ×2 (07:01→19:03)
[2017-05-23 07:29] LABS: BUN/CREATININE RATIO 22.7 (10-20); CALCIUM 8.2 mg/dl (8.5-10.1); CREATININE 1.28 mg/dl (0.60-1.20); POTASSIUM 4.7 mmol/L (3.5-5.1)
[2017-05-23] MEDS: HEPARIN SOD 5000 UNIT/0.5 ML CARP SQ SCH ×3 (08:30→21:55)
[2017-05-23] MEDS: FLECAINIDE ACETATE 100 MG TAB PO SCH ×2 (08:34→17:36)
[2017-05-23] MEDS: POLYETHYLENE (MIRALAX) 17 GM PACK PO SCH (08:35)
[2017-05-23] MEDS: METOPROLOL SUCC 25MG EXT REL TAB PO SCH (08:35)
[2017-05-23] MEDS: FLUTICASONE/SALMETEROL 100/50 (ADVAIR) 14 PUFF/1 INHALER INH SCH ×2 (08:36→21:54)
[2017-05-23] MEDS ORDERED: ASPIRIN 81 MG ECTAB PO SCH (09:00)
[2017-05-23] MEDS: INSULIN ASPART 100 UNITS/ML 3 ML PEN SC SCH ×3 (12:45→20:41)
--- NOTE | 2017-05-23 19:55 | Progress Note ---
Subjective Date of Service: May 23, 2017. Subjective Pt evaluation today including: conversation w/ patient, physical exam, chart review, lab review feeling better still congested still soemwaht sob but far better no f/c/s doesn' t use O2 at home again overall feeling much improved notes that althoughs he doesn't use O2 at home she was following actively w dr robles about possibly needing O2 in her CPAP - overnight pulse ox reviewed appears that she likely does Problem List Medical Problems: (1) Elevated troponin Status: Acute (2) Hypoxia Status: Acute (3) Pneumonia Status: Acute Review of Systems all other ROS otherwise negative except for as above Objective Vital Signs Date Time Temp Pulse Resp B/P (MAP) Pulse Ox O2 Delivery O2 Flow Rate FiO2 05/23/17 19:04 67 16 98 Nasal Cannula 3.0 05/23/17 15:33 36.6 65 20 109/64 (79) 98 Nasal Cannula 4.0 05/23/17 15:10 59 16 92 Nasal Cannula 4.0 05/23/17 11:15 66 18 94 Nasal Cannula 4.0 05/23/17 08:45 96 Nasal Cannula 4.0 05/23/17 07:11 37.1 68 20 134/81 (98) 96 Nasal Cannula 4.0 05/23/17 07:04 65 15 96 Nasal Cannula 4.0 05/23/17 01:05 36.7 78 20 124/68 94 Nasal Cannula 4.0 05/23/17 00:42 92 Nasal Cannula 5.0 05/23/17 00:40 84 24 92 05/23/17 00:35 89 Nasal Cannula 4.0 05/23/17 00:30 88 Nasal Cannula 2.0 05/22/17 23:36 81 28 154/72 97 Nebulizer 7.0 05/22/17 22:51 98 Room Air 05/22/17 22:39 68 16 98 Room Air 05/22/17 22:22 65 05/22/17 22:18 Room Air 05/22/17 21:58 37.1 69 20 125/64 92 Room Air Physical Exam General Appearance: no apparent distress Eyes: EOMI ENT: hearing grossly normal Neck: trachea midline Respiratory/Chest: no respiratory distress, no accessory muscle use, + rales ( faint on R) Extremities: normal range of motion 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, alert, normal mood/affect Laboratory Results Last 24 Hours Test 05/22/17 22:30 05/22/17 22:56 05/23/17 00:13 05/23/17 06:11 Influenza Type A (RT-PCR) Neg for Influ A Influenza Type A Antigen Neg for Influ A Influenza Type B Antigen Neg for Influ B Influenza Type B (RT-PCR) Neg for Influ B White Blood Count 10.87 K/uL 10.32 K/uL Red Blood Count 4.21 M/uL 4.02 M/uL Hemoglobin 12.2 g/dL 11.6 g/dL Hematocrit 37.4 % 35.5 % Mean Corpuscular Volume 88.8 fL 88.3 fL Mean Corpuscular Hemoglobin 29.0 pg 28.9 pg Mean Corpuscular Hemoglobin Concent 32.6 g/dl 32.7 g/dl Platelet Count 175 K/uL 182 K/uL Mean Platelet Volume 9.4 fL 9.4 fL Neutrophils (%) (Auto) 75.7 % 77.2 % Lymphocytes (%) (Auto) 11.1 % 9.3 % Monocytes (%) (Auto) 10.1 % 12.1 % Eosinophils (%) (Auto) 2.1 % 0.9 % Basophils (%) (Auto) 0.4 % 0.2 % Neutrophils # (Auto) 8.23 K/uL 7.97 K/uL Lymphocytes # (Auto) 1.21 K/uL 0.96 K/uL Monocytes # (Auto) 1.10 K/uL 1.25 K/uL Eosinophils # (Auto) 0.23 K/uL 0.09 K/uL Basophils # (Auto) 0.04 K/uL 0.02 K/uL RDW Standard Deviation 54.7 fL 53.6 fL RDW Coefficient of Variation 17.0 % 16.8 % Immature Granulocyte % (Auto) 0.6 % 0.3 % Immature Granulocyte # (Auto) 0.06 K/uL 0.03 K/uL Prothrombin Time 12.0 SECONDS Prothromb Time International Ratio 1.1 Sodium Level 138 mmol/L 139 mmol/L Potassium Level 4.4 mmol/L 4.7 mmol/L Chloride Level 103 mmol/L 104 mmol/L Carbon Dioxide Level 28 mmol/L 28 mmol/L Anion Gap 7.0 mmol/L 7.0 mmol/L Blood Urea Nitrogen 25 mg/dl 29 mg/dl Creatinine 1.22 mg/dl 1.28 mg/dl Est Creatinine Clear Calc Drug Dose 52.3 ml/min 47.9 ml/min Estimated GFR () 48.5 45.7 Estimated GFR (Non- 41.8 39.4 BUN/Creatinine Ratio 20.7 22.7 Random Glucose 112 mg/dl 83 mg/dl Calcium Level 8.4 mg/dl 8.2 mg/dl Total Bilirubin 0.7 mg/dl Aspartate Amino Transf (AST/SGOT) 14 U/L Alanine Aminotransferase (ALT/SGPT) 16 U/L Alkaline Phosphatase 51 U/L Total Creatine Kinase 34 U/L Creatine Kinase MB < 0.5 ng/ml Creatine Kinase MB Ratio Troponin I < 0.015 ng/ml Pro-B-Type Natriuretic Peptide 1482 pg/ml Total Protein 6.0 gm/dl Albumin 2.9 gm/dl Globulin 3.1 gm/dl Albumin/Globulin Ratio 0.9 Chemistry Specimen Hemolysis Test 05/23/17 07:33 05/23/17 11:17 05/23/17 16:18 Bedside Glucose 81 mg/dl 91 mg/dl 81 mg/dl Assessment and Plan Community acquired pneumonia w acute hypoxic respiratory failure - treat with Levaquin - can transition to PO - incentive spirometry and flutter valve - anticipate that she'll likely need home O2 for a while, and does appear to need w CPAP - order 2step and will ask case management to work towards setting it up Dehydration - Elevated Cr and BUN - improved COPD/Asthma - duonebs Q6H CLAUDINE + Q2H PRN - Added Pulmicort BID, given no wheezing and T2DM will initially try to not give systemic steroids - Continue Advair BID - improving KINGSLEY - CPAP, will need to add O2 Constipation - start Miarlax daily Hypothyroidism - continue 50 mcg levothyroxine Hypertension / unspecified cardiac arrhythmia - hold losartan given elevation in Cr, continue flecainide + metoprolol T2DM - holding metformin and pioglitazone - insulin sliding scale with BSG ACHS Hyperlipidemia - continue simvastatin DVT proph -heparin SQ improving
[2017-05-23] MEDS ORDERED: SIMVASTATIN 40 MG TAB PO SCH (21:00)
[2017-05-24] MEDS ORDERED: LEVOFLOXACIN / D5W 750 MG in PREMIXED IN D5W 150 ML IV SCH (00:30)
[2017-05-24] MEDS: LACTATED RINGER'S 1000ML 1,000 ML IV SCH (02:27)
[2017-05-24] MEDS: LEVOTHYROXINE 50 MCG TAB PO SCH (05:37)
[2017-05-24] MEDS: HEPARIN SOD 5000 UNIT/0.5 ML CARP SQ SCH (05:38)
[2017-05-24 06:49] LABS: BUN/CREATININE RATIO 24.3 (10-20); CALCIUM 8.4 mg/dl (8.5-10.1); CREATININE 1.04 mg/dl (0.60-1.20); POTASSIUM 4.2 mmol/L (3.5-5.1)
[2017-05-24 06:59] VITALS: PULSE 67; O2SAT 95
[2017-05-24] MEDS: BUDESONIDE 0.5 MG/2 ML VIAL (PULMICORT) INH SCH (06:59)
[2017-05-24] MEDS: ALBUT/IPRATROP 3MG/0.5MG NEB 3 ML VIAL INH SCH ×2 (06:59→11:23)
[2017-05-24] MEDS: FLECAINIDE ACETATE 100 MG TAB PO SCH (07:37)
[2017-05-24] MEDS: POLYETHYLENE (MIRALAX) 17 GM PACK PO SCH (07:37)
[2017-05-24] MEDS: FLUTICASONE/SALMETEROL 100/50 (ADVAIR) 14 PUFF/1 INHALER INH SCH (07:38)
[2017-05-24] MEDS: METOPROLOL SUCC 25MG EXT REL TAB PO SCH (07:38)
[2017-05-24 08:09] VITALS: BP 130/70; PULSE 72; TEMP 36.7; O2SAT 95
[2017-05-24] MEDS: INSULIN ASPART 100 UNITS/ML 3 ML PEN SC SCH ×2 (08:37→11:55)
[2017-05-24] MEDS ORDERED: LVQ750 PO (09:32)
--- NOTE | 2017-05-24 09:34 | Discharge Instructions ---
Discharge Instructions Date of Service May 24, 2017. Admission Reason for Admission: Comm. Acquired Bact. Pnx, Copd Exac., Sleep Apnea Discharge Discharge Diagnosis / Problem: pneumonia - improving Discharge Goals Goal(s): Diagnostic testing, Therapeutic intervention Activity Recommendations Activity Limitations: resume your previous activity . Instructions / Follow-Up Instructions / Follow-Up pneumonia -fortunately this is improving really quickly. -we'll just need to have you finish out a course of antibiotic (levofloxacin) once a day for five more doses (next dose on 05/25) - it can sometimes upset your stomach, so take it with food. it also can make you a little more prone to tendonitis or even tendon rupture - so take it easy over the next month or so as far as any heavy lifting, repetitive lifting, etc oxygen -fortunately you don't need any extra oxygen during the day. your numbers were low enough that we'll want you to take it easy and not push if you're feeling short of breath, but fortunately not so low as to need oxygen 24/7. you do appear to need oxygen with your CPAP at night - the team will be working on getting this set up (either through the hospital case management or through Dr Saleem's office) Current Hospital Diet Patient's current hospital diet: AHA Diet (Heart Healthy), Diabetes Type 2 Diet Discharge Diet Recommended Diet: AHA Diet (Heart Healthy), Diabetes Type 2 Diet Pending Studies Studies pending at discharge: no Medical Emergencies . Who to Call and When: Medical Emergencies: If at any time you feel your situation is an emergency, please call 911 immediately. . Non-Emergent Contact Non-Emergency issues call your: Primary Care Provider, [facility] . . "Provider Documentation" section prepared by Oleg Estrada. . VTE Core Measure Inpt VTE Proph given/why not?: Unfractionated heparin SQ, T.E.Paul Farmer, SCD 's
--- NOTE | 2017-05-24 10:18 | Discharge Summary ---
Discharge Summary Date of Service May 24, 2017. Discharge Summary Admission Date: May 23, 2017 at 00:11 Discharge Date: May 24, 2017 Discharge Disposition: Home Principal Diagnosis: community acquired pneumonia Immunizations: Have You Had Influenza Vaccine: Yes Influenza Vaccine Date: Apr 24, 2012 History of Tetanus Vaccine?: No Tetanus Immunization Date: Jun 14, 2003 History of Pneumococcal: Yes Pneumococcal Date: Jun 25, 2012 History of Hepatitis B Vaccine: No Procedures: CHEST ONE VIEW PORTABLE CLINICAL HISTORY: 82 years-old Female presenting with Pt c/o SOB. TECHNIQUE: Portable upright AP view of the chest was obtained. COMPARISON: 06/26/2016. FINDINGS: Atherosclerosis of aortic arch. Prominence of the aortic contour. Cardiac silhouette mildly enlarged, unchanged. Linear opacities in the mid lung bilaterally, not significantly changed from prior. Mildly increased opacity suggested in the right mid to upper lung no large effusion or pneumothorax. Osseous structures normal. Upper abdomen normal. IMPRESSION: 1. Persistent areas of atelectasis and/or scarring with apparent increased opacity in the right mid to upper lung, which raises concern for pneumonia. Electronically signed by: Eugenio Reyes M.D. 05/22/2017 10:46 PM Last Resulted CBC 05/23/17 06:11 Red Blood Count 4.02, Mean Corpuscular Volume 88.3, Mean Corpuscular Hemoglobin 28.9, Mean Corpuscular Hemoglobin Concent 32.7, Mean Platelet Volume 9.4, Neutrophils (%) (Auto) 77.2, Lymphocytes (%) (Auto) 9.3, Monocytes (%) (Auto) 12.1, Eosinophils (%) (Auto) 0.9, Basophils (%) (Auto) 0.2, Neutrophils # (Auto ) 7.97, Lymphocytes # (Auto) 0.96, Monocytes # (Auto) 1.25, Eosinophils # (Auto ) 0.09, Basophils # (Auto) 0.02 Last Resulted BMP 05/24/17 05:33 Medication Reconciliation New Medications: Levofloxacin (Levofloxacin) 750 Mg Tab 750 MG PO DAILY, #5 TAB next dose on 05/25 Continued Medications: Aspirin (Adult Aspirin Ec Low Stre) 81 Mg Tab 81 MG PO [id number] DIEGO,SUNDAY,SUNDAY Flecainide (Tambocor) 50 Mg Tab 100 MG PO AMPM Fluticasone Prop/Salmeterol (Advair Diskus 100/50 60 Dose) 1 Ea Aerp 1 PUFF INH BID Ipratropium-Albuterol (Duoneb) 3 Ml Nebu 1 TREATMENT INH Q6 PRN for cough/wheezing, INHA Levothyroxine Sodium (Levothyroxine Sodium) 50 Mcg Tab 50 MCG PO DAILY Losartan Potassium & Hydrochlo (Hyzaar) 1 Tab Tab 1 TAB PO QAM, 3 Refills LOSARTAN 100 HCTZ 25 Metformin Hcl (Glucophage) 500 Mg Tab 500 MG PO BID Metoprolol Succinate (Metoprolol Succinate ER) 50 Mg Tabcr 25 MG PO QAM Pioglitazone Hcl (Actos) 30 Mg Tab 30 MG PO QAM Simvastatin (Zocor) 40 Mg Tab 40 MG PO QPM, 0 Refills Tramadol (Ultram) 50 Mg Tab 50 MG PO Q4H PRN for Pain Discharge Exam Physical Exam: General Appearance: no apparent distress ENT: hearing grossly normal Neck: trachea midline Respiratory/Chest: no respiratory distress, no accessory muscle use, + decreased breath sounds (at bases, but no r/r/w good effort) 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 finish course of levaquin - incentive spirometry and flutter valve - home nebs as needed Dehydration - Elevated Cr and BUN - improved, outpt f/u COPD/Asthma - d/c home on home meds, sees pulmonary sunday KINGSLEY - CPAP, will need to add O2 based on outpt overnight pulse ox - asked case management to start the process Constipation - Miarlax Hypothyroidism - continue 50 mcg levothyroxine Hypertension / unspecified cardiac arrhythmia - resume home meds at discharge - ARB was held due to sl increase in creatinine which has improved - would check BMP as outpt 1-2 weeks T2DM - discharge on home meds Hyperlipidemia - continue simvastatin DVT proph -heparin SQ utilized during her stay stable for home Total Time Spent: Less than 30 minutes This includes examination of the patient, discharge planning, medication reconciliation, and communication with other providers. Discharge Instructions Please refer to the electronic Patient Visit Report (Discharge Instructions) for additional information. Additional Copies To Ermias Rizo M.D.; Krish Saleem, DO
[2017-05-24] MEDS ORDERED: LEVOFLOXACIN 750 MG TAB PO SCH (11:00)
[2017-05-24 11:14] VITALS: BP 130/70; PULSE 69; TEMP 36.7; O2SAT 90
[2017-05-24 11:23] VITALS: PULSE 71; O2SAT 91
[2017-05-24 11:24] VITALS: BP 130/70; PULSE 71; TEMP 36.7; O2SAT 91
== END 2017-05-24 13:45 | disposition home or self-care (01) | DRG 193 ==
LOC: C.EDB 21:53 → C.4E 05-23 00:11 → EDBEDREQ 05-23 00:16 → ENRESERV 05-23 00:19
PROVIDERS: ADMIT Hospitalist; ATTEND Family Medicine
DX: J18.9 Pneumonia, unspecified organism (principal); J96.91 Respiratory failure, unspecified with hypoxia; J44.0 Chronic obstructive pulmonary disease with (acute) lower respiratory infection; Z77.22 Contact with and (suspected) exposure to environmental tobacco smoke (acute) (chronic); E86.0 Dehydration; G47.33 Obstructive sleep apnea (adult) (pediatric); I10 Essential (primary) hypertension; I49.9 Cardiac arrhythmia, unspecified; E03.9 Hypothyroidism, unspecified; E11.9 Type 2 diabetes mellitus without complications; E78.5 Hyperlipidemia, unspecified; K59.00 Constipation, unspecified; Z88.0 Allergy status to penicillin; Z88.2 Allergy status to sulfonamides; Z79.82 Long term (current) use of aspirin; Z79.84 Long term (current) use of oral hypoglycemic drugs; Z79.899 Other long term (current) drug therapy; Z85.3 Personal history of malignant neoplasm of breast; Z92.3 Personal history of irradiation; Z83.3 Family history of diabetes mellitus; Z82.49 Family history of ischemic heart disease and other diseases of the circulatory system

== ENCOUNTER → 2017-06-04 | Outpatient (CLI) | payer OTHER, MEDICARE ==
[~2017-06-04] MED LIST changes: -BENZ200C59 PO; -DXY100 PO; +LVQ750 PO; -PRD20 PO; -TMF75 PO
--- NOTE | 2017-06-04 09:54 | DIAGNOSTIC IMAGING REPORT ---
CHEST 2 VIEWS ROUTINE CLINICAL HISTORY: J18.9 Community acquired pneumoniaF/U [id number] pneumonitis COMPARISON STUDY: [id number] FINDINGS: Improved exam. Considerable decrease in consolidative change of the focal infiltrate right upper lung. Mild residual thickening right minor fissure. Stable fibrotic/atelectatic change left mid and left basilar region. IMPRESSION: Improving infiltrate right lung. Stable persistent bibasilar/bilateral atelectatic change. The above report was generated using voice recognition software. It may contain grammatical, syntax or spelling errors. Electronically signed by: Doug Ortiz M.D. 06/04/2017 9:53 AM Dictated Date/Time: 06/04/2017 9:52 AM
== END | disposition home or self-care (01) ==
LOC: C.RAD1850 09:25
PROVIDERS: ATTEND Internal Medicine Pulmonary Disease
DX: J18.9 Pneumonia, unspecified organism (principal)

== ENCOUNTER → 2017-08-21 | Outpatient (CLI) | payer OTHER, MEDICARE ==
--- NOTE | 2017-08-22 15:22 | MAMMOGRAPHY REPORT ---
BILATERAL DIGITAL SCREENING MAMMOGRAM TOMOSYNTHESIS WITH CAD: 08/21/2017 CLINICAL HISTORY: Asymptomatic. Personal history of breast cancer. TECHNIQUE: Breast tomosynthesis in addition to standard 2D mammography was performed. Current study was also evaluated with a Computer Aided Detection (CAD) system. COMPARISON: Comparison is made to exams dated: 08/16/2016 mammogram, 08/12/2015 mammogram, 12/10/2014 ultr asound, 12/10/2014 mammogram, 06/09/2014 mammogram, and 12/05/2013 mammogram - [facility]. BREAST COMPOSITION: There are scattered areas of fibroglandular density in both breasts. FINDINGS: There is evidence of prior surgeries in the left breast. There are stable surgical clips i n the 11:00 to 12:00 posterior left breast, from prior remote surgery, and more recent surgery in the 12:00 middle one third of the left breast. The more recent surgical site demonstrates continued sca r retraction. There are benign-appearing calcifications bilaterally. No new suspicious mass, suleiman ectural distortion or cluster of microcalcifications is seen. IMPRESSION: ACR BI-RADS CATEGORY 1: NEGATIVE There is no mammographic evidence of malignancy. A 1 year screening mammogram is recommended. The pa tient will receive written notification of the results. Approximately 10% of breast cancers are not detected with mammography. A negative mammographic report should not delay biopsy if a clinically suggestive mass is present. Radha Barnes M.D. ay/:08/21/2017 15:36:19 Credit Card Associate: Berenice SMITH(Susan)(Erica), [facility] letter sent: Normal 1/2 BI-RADS Code: ACR BI-RADS Category 1: Negative
== END | disposition home or self-care (01) ==
LOC: C.MAMM 07:27
PROVIDERS: ATTEND Family Medicine
DX: Z12.31 Encounter for screening mammogram for malignant neoplasm of breast (principal); Z85.3 Personal history of malignant neoplasm of breast

== ENCOUNTER 2017-09-30 17:17 | Emergency (ER) | payer OTHER, MEDICARE ==
[~2017-09-30] VITALS: Ht 157.5 cm; Wt 145.4 kg
[2017-09-30 17:24] VITALS: TEMP 36.9; Ht 157.5 cm; Wt 145.4 kg
[2017-09-30 17:28] VITALS: O2SAT 94
[2017-09-30] MEDS ORDERED: ASPIRIN 81 MG CHEW PO STA (17:37)
--- NOTE | 2017-09-30 17:37 | EMERGENCY ROOM VISIT NOTE ---
History Report prepared by Kirill: Puneet Arredondo Under the Supervision of: Dr. Andrew Baker M.D. First contact with patient: 17:27 Chief Complaint: CHEST PAIN Stated Complaint: CHEST PAIN Nursing Triage Summary: patient c/o intermittent chest pain that radiates to left lateral chest since 1400. patient c/o SOB with excertion hx COPD, HTN. History of Present Illness The patient is an 82 year old female who presents to the Emergency Room with complaints of intermittent chest pain beginning 3 and a half hours ago. The patient states that her chest pain began after a nap today. She notes that nothing makes her pain better or worse, but reports that it resolves on its own. She reports that her pain is located under her breasts. The patient states that her pain does not last long and feels like a burning. She denies any leg pain. She notes that eating does not seem to do anything for her symptoms. She reports that she has a history of breast cancer, hypertension, and has a leaky valve. Per daughter, the patient is currently on antibiotics for cellulitis. The patient states that she had a stress test done 2 years ago. She notes that she took her morning medication but has not taken her evening medication. Source of History: patient Onset: 3 and a half hours ago Position: chest Quality: burning Timing: intermittent Note: The patient denies any leg pain. Review of Systems See HPI for pertinent positives & negatives. A total of 10 systems reviewed and were otherwise negative. Past Medical & Surgical Medical Problems: (1) Arthritis of foot, left (2) Arthritis of foot, right (3) Benign essential hypertension (4) Bradycardia (5) Breast cancer (6) Cellulitis (7) Cellulitis of breast (8) Community acquired bacterial pneumonia (9) COPD exacerbation (10) Demand ischemia of myocardium (11) Diabetes mellitus type 2 (12) Diabetic neuropathy (13) Hyperlipidemia (14) Hypertension (15) Influenza A (16) Leaky heart valve (17) Obstructive sleep apnea (18) Open wound of anterior abdominal wall (19) Pneumonia (20) Restrictive lung disease (21) Sprain of left foot Family History Cancer Diabetes mellitus Heart disease Hypertension Kidney disease Kidney stones Lung disease Social History Smoking Status: Never Smoker Alcohol Use: none Drug Use: none Marital Status: single Housing Status: lives with family Occupation Status: retired Current/Historical Medications Scheduled Aspirin (Adult Aspirin Ec Low Stre), 81 MG PO 3XWK Calcium/Vitamin D (Os-Robb 500 Plus D), 1 TAB PO BID Cephalexin Monohydrate (Keflex), 500 MG PO TID Famotidine (Pepcid), 40 MG PO HS Flecainide (Tambocor), 100 MG PO AMPM Fluticasone Prop/Salmeterol (Advair Diskus 100/50 60 Dose), 1 PUFF INH BID Levothyroxine Sodium (Levothyroxine Sodium), 1 TAB PO DAILY Losartan Potassium & Hydrochlo (Hyzaar), 1 TAB PO QAM Metformin Hcl (Glucophage), 500 MG PO BID Metoprolol Succinate (Toprol Xl), 12.5 MG PO DAILY Multivitamin (Multivitamin), 1 TAB PO DAILY Pioglitazone Hcl (Actos), 30 MG PO QAM Simvastatin (Zocor), 40 MG PO QPM Scheduled PRN Ipratropium-Albuterol (Duoneb), 1 TREATMENT INH Q6 PRN for cough/wheezing Tramadol (Ultram), 50 MG PO Q4H PRN for Pain Allergies Coded Allergies: Penicillins (Verified Allergy, Intermediate, SEVERE RASH, 09/30/17) SEVERE RASH Sulfa Drugs (Verified Allergy, Unknown, 09/30/17) Physical Exam Vital Signs Date Time Temp Pulse Resp B/P (MAP) Pulse Ox O2 Delivery O2 Flow Rate FiO2 09/30/17 20:14 58 20 186/89 97 09/30/17 19:41 58 20 186/89 97 Room Air 09/30/17 18:09 62 09/30/17 17:53 187/99 09/30/17 17:28 94 Room Air 09/30/17 17:25 95 Room Air 09/30/17 17:24 36.9 62 22 211/100 94 Room Air Physical Exam GENERAL: Awake, alert, well-appearing, in no acute distress, morbidly obese. HENT: Normocephalic, atraumatic. Oropharynx unremarkable. EYES: Normal conjunctiva. Sclera non-icteric. NECK: Supple. No nuchal rigidity. FROM. No JVD. RESPIRATORY: Clear to auscultation. CARDIAC: Regular rate, normal rhythm. Extremities warm and well perfused. Pulses equal. ABDOMEN: Soft, non-distended. No tenderness to palpation. No rebound or guarding. No masses. RECTAL: Deferred. MUSCULOSKELETAL: Tender to palpation in the left breast area. The back is symmetrical on inspection without obvious abnormality. There is no CVA tenderness to palpation. No joint edema. LOWER EXTREMITIES: Calves are equal size bilaterally and non-tender. No edema. No discoloration. NEURO: Normal sensorium. No sensory or motor deficits noted. SKIN: No jaundice noted, yeast rash present beneath breast. Medical Decision & Procedures ER Provider Diagnostic Interpretation: Radiology results as stated below per my review and radiologist interpretation: CHEST ONE VIEW PORTABLE FINDINGS: Atherosclerosis of aortic arch. Cardiac silhouette enlarged. Prominence of the bilateral sammy. Fluid in the minor fissure on the right has resolved. Bandlike opacity in the left mid lung persists. Surgical clips project over the left lung base, likely within the left breast. Osseous structures normal. Hiatal hernia noted. IMPRESSION: 1. Resolution of right pleural fluid and persistent and-like opacity in the left midlung, likely atelectasis or scarring. 2. No convincing evidence of acute cardiopulmonary disease. 3. Persistent prominence of the bilateral sammy may relate to enlarged pulmonary arteries or underlying volume overload. Electronically signed by: Eugenio Reyes M.D. 09/30/2017 6:16 PM Laboratory Results 09/30/17 17:33 Red Blood Count 4.68, Mean Corpuscular Volume 85.3, Mean Corpuscular Hemoglobin 27.1, Mean Corpuscular Hemoglobin Concent 31.8, Mean Platelet Volume 9.1, Neutrophils (%) (Auto) 58.2, Lymphocytes (%) (Auto) 22.3, Monocytes (%) (Auto) 11.4, Eosinophils (%) (Auto) 6.7, Basophils (%) (Auto) 0.8, Neutrophils # (Auto ) 4.53, Lymphocytes # (Auto) 1.74, Monocytes # (Auto) 0.89, Eosinophils # (Auto ) 0.52, Basophils # (Auto) 0.06 09/30/17 17:33 Test 09/30/17 17:33 09/30/17 17:48 09/30/17 19:16 White Blood Count 7.79 K/uL (4.8-10.8) Red Blood Count 4.68 M/uL (4.2-5.4) Hemoglobin 12.7 g/dL (12.0-16.0) Hematocrit 39.9 % (37-47) Mean Corpuscular Volume 85.3 fL (80-100) Mean Corpuscular Hemoglobin 27.1 pg (25-34) Mean Corpuscular Hemoglobin Concent 31.8 g/dl (32-36) Platelet Count 256 K/uL (130-400) Mean Platelet Volume 9.1 fL (7.4-10.4) Neutrophils (%) (Auto) 58.2 % Lymphocytes (%) (Auto) 22.3 % Monocytes (%) (Auto) 11.4 % Eosinophils (%) (Auto) 6.7 % Basophils (%) (Auto) 0.8 % Neutrophils # (Auto) 4.53 K/uL (1.4-6.5) Lymphocytes # (Auto) 1.74 K/uL (1.2-3.4) Monocytes # (Auto) 0.89 K/uL (0.11-0.59) Eosinophils # (Auto) 0.52 K/uL (0-0.5) Basophils # (Auto) 0.06 K/uL (0-0.2) RDW Standard Deviation 54.6 fL (36.4-46.3) RDW Coefficient of Variation 17.5 % (11.5-14.5) Immature Granulocyte % (Auto) 0.6 % Immature Granulocyte # (Auto) 0.05 K/uL (0.00-0.02) D-Dimer 510 ug/L FEU (0-500) Est Creatinine Clear Calc Drug Dose 57.3 ml/min Estimated GFR () 55.5 Estimated GFR (Non- 47.9 BUN/Creatinine Ratio 28.3 (10-20) Calcium Level 8.5 mg/dl (8.5-10.1) Total Bilirubin 0.4 mg/dl (0.2-1) Direct Bilirubin 0.1 mg/dl (0-0.2) Aspartate Amino Transf (AST/SGOT) 17 U/L (15-37) Alanine Aminotransferase (ALT/SGPT) 22 U/L (12-78) Alkaline Phosphatase 53 U/L (45-117) Total Creatine Kinase 41 U/L (26-192) Creatine Kinase MB 0.7 ng/ml (0.5-3.6) Creatine Kinase MB Ratio 1.7 (0-3.0) Troponin I < 0.015 ng/ml (0-0.045) Pro-B-Type Natriuretic Peptide 562 pg/ml (0-1800) Total Protein 6.6 gm/dl (6.4-8.2) Albumin 3.1 gm/dl (3.4-5.0) Lipase 207 U/L (73-393) Bedside Hemoglobin 12.9 g/dl (12.0-16.0) Bedside Hematocrit 38 % (37-47) Bedside Sodium 138 mEq/L (135-144) Bedside Potassium 4.3 mEq/L (3.3-5.0) Bedside Chloride 99 mEq/L (101-112) Bedside Total CO2 30 mEq/l (24-31) Anion Gap 15.0 mmol/L (16-25) Bedside Blood Urea Nitrogen 34 mg/dl (7-18) Bedside Creatinine 1.2 mg/dl (0.6-1.3) Bedside Glucose (other) 91 mg/dl (70-99) Bedside Ionized Calcium (Felisha) 1.16 mmol/l (1.12-1.32) Bedside Troponin I < 0.030 ng/ml (0-0.045) Labs reviewed by ED physician. Medications Administered Medications (Trade) Dose Ordered Sig/Augusto Route Start Time Stop Time Status Last Admin Dose Admin Aspirin (Aspirin Chew) 324 mg NOW STAT PO 09/30/17 17:37 09/30/17 17:39 DC 09/30/17 17:48 324 MG Famotidine (Pepcid Tab) 20 mg NOW STAT PO 09/30/17 17:40 09/30/17 17:41 DC 09/30/17 17:48 20 MG Sucralfate (Carafate Tab) 1 gm NOW STAT PO 09/30/17 17:40 09/30/17 17:41 DC 09/30/17 17:48 1 GM Lidocaine HCl (Viscous Lidocaine 2% Soln) 20 ml STK-MED ONCE .ROUTE 09/30/17 17:46 09/30/17 17:47 DC 09/30/17 17:49 20 ML Al Hydroxide/Mg Hydroxide (Maalox Susp) 30 ml STK-MED ONCE .ROUTE 09/30/17 17:46 09/30/17 17:47 DC 09/30/17 17:49 30 ML Flecainide Acetate (Tambocor Tab) 100 mg NOW STAT PO 09/30/17 17:59 09/30/17 18:01 DC 09/30/17 18:46 100 MG Sodium Chloride 500 ml @ 999 mls/hr Q31M STAT IV 09/30/17 18:17 09/30/17 18:47 DC 09/30/17 18:48 999 MLS/HR Nystatin (Mycostatin Powder) 1 appln NOW STAT EXT 09/30/17 18:42 09/30/17 18:44 DC 09/30/17 19:41 1 APPLN ECG Per My Interpretation Indication: chest pain Rate (beats per minute): 61 Rhythm: sinus rhythm Findings: 1st degree AV block, other (No ST elevation/depression, normal axis) Change: EKG #2: Sinus bradycardia, 58, 1st degree AV block, no ST elevation/depression. ED Course 172: Past medical records reviewed. The patient was evaluated in room C9. A complete history and physical examination was performed. 1737: Aspirin 324mg PO 1740: Sucralfate 1gm PO, Pepcid Tab 20mg PO, GI Cocktail 24ml PO 1759: Tambocor Tab 100mg PO 1817: Sodium Chloride 500 ml @ 999 mls/hr 1842: Nystatin 1 appln EXT Medical Decision Differential diagnosis: Etiologies such as cardiac ischemia, aortic dissection, pulmonary embolism, pneumonia, pneumothorax, musculoskeletal, infections, pericarditis, myocarditis , esophageal rupture, gastrointestinal, as well as others were entertained. This is an 82-year-old female presents to the emergency department complaining of spasms. The patient's chest pain appears related to her left breast where a yeastlike rash is present underneath the breast. In addition the patient has a normal EKG. This was repeated 3 times and did not show any evidence of acute EKG changes. The patient also has a normal CK-MB and troponin level. Serial troponin levels were obtained. The patient was also given a GI cocktail Pepcid and Carafate.. Repeat examination revealed improvement in the patient's symptoms. I suspect based on the patient's CAT scan that the patient is suffering from a hiatal hernia also just based on her story. The patient describes the pain as spasms that come and go. It also appears that she ate a large meal before this pain started. The pain is also improved with a GI cocktail Pepcid and Carafate. Based on this I recommended a clear liquid diet for the next 48 hours along with 5 mL's of Maalox and Pepcid before every meal and at bedtime. I recommended follow-up with cardiology as well as gastroenterology. Patient was in agreement with the treatment plan. Medication Reconcilliation Current Medication List: was personally reviewed by me Blood Pressure Screening Patient's blood pressure: Elevated blood pressure Blood pressure disposition: Referred to PCP Impression Primary Impression: Chest pain Scribe Attestation The scribe's documentation has been prepared under my direction and personally reviewed by me in its entirety. I confirm that the note above accurately reflects all work, treatment, procedures, and medical decision making performed by me. Departure Information Dispostion Home / Self-Care Prescriptions Famotidine (Pepcid) 40 Mg Tab 40 MG PO HS for 30 Days, #30 TAB Prov: Andrew Baker MD 09/30/17 Referrals Ermias Rizo M.D. (PCP) Patient Instructions My [facility] Problem Qualifiers Primary Impression: Chest pain Chest pain type: unspecified Qualified Codes: R07.9 - Chest pain, unspecified
[2017-09-30] MEDS ORDERED: GI COCKTAIL PO STA (17:40)
[2017-09-30] MEDS ORDERED: FAMOTIDINE 20 MG TAB PO STA (17:40)
[2017-09-30] MEDS ORDERED: SUCRALFATE 1 GM TAB PO STA (17:40)
[2017-09-30] MEDS ORDERED: LIDOCAINE HCL 2% VISC SOLN 20 ML UDC ONE (17:46)
[2017-09-30] MEDS ORDERED: ALUMINUM/MAGNESIUM SUSP 30 ML UDC ONE (17:46)
[2017-09-30 17:47] LABS: BASO % 0.8 %; BASO ABS # 0.06 K/uL (0-0.2); EOS % 6.7 %; EOS ABS # 0.52 K/uL (0-0.5); HEMATOCRIT 39.9 % (37-47); HEMOGLOBIN 12.7 g/dL (12.0-16.0); IG# 0.05 K/uL (0.00-0.02); LYMPH % 22.3 %; LYMPH ABS # 1.74 K/uL (1.2-3.4); MEAN CELL VOLUME 85.3 fL (80-100); MEAN CORPUSCULAR HEMOGLOBIN 27.1 pg (25-34); MEAN CORPUSCULAR HGB CONC 31.8 g/dl (32-36); MEAN PLATELET VOLUME 9.1 fL (7.4-10.4); MONO % 11.4 %; MONO ABS # 0.89 K/uL (0.11-0.59); NEUT % 58.2 %; NEUT ABS # 4.53 K/uL (1.4-6.5); PLATELET COUNT 256 K/uL (130-400); RED CELL DISTRIBUTION WIDTH CV 17.5 % (11.5-14.5); RED CELL DISTRIBUTION WIDTH SD 54.6 fL (36.4-46.3); WHITE BLOOD COUNT 7.79 K/uL (4.8-10.8)
[2017-09-30 17:59] LABS: ALBUMIN 3.1 gm/dl (3.4-5.0); ALT/SGPT 22 U/L (12-78); AST/SGOT 17 U/L (15-37); BLOOD UREA NITROGEN 31 mg/dl (7-18); CALCIUM 8.5 mg/dl (8.5-10.1); CARBON DIOXIDE 27 mmol/L (21-32); CREATININE 1.09 mg/dl (0.60-1.20); GLUCOSE 89 mg/dl (70-99); LIPASE 207 U/L (73-393); POTASSIUM 4.2 mmol/L (3.5-5.1); SODIUM 136 mmol/L (136-145)
[2017-09-30] MEDS ORDERED: FLECAINIDE ACETATE 100 MG TAB PO STA (17:59)
[2017-09-30 18:00] LABS: ISTAT CREATININE 1.2 mg/dl (0.6-1.3); ISTAT IONIZED CALCIUM 1.16 mmol/l (1.12-1.32); ISTAT POTASSIUM 4.3 mEq/L (3.3-5.0)
[2017-09-30 18:05] LABS: ALKALINE PHOSPHATASE 53 U/L (45-117); CKMB 0.7 ng/ml (0.5-3.6); TOTAL PROTEIN 6.6 gm/dl (6.4-8.2)
[2017-09-30] MEDS ORDERED: METO25TA4 PO (18:06)
[2017-09-30] MEDS ORDERED: CEPH500C PO (18:08)
[2017-09-30] MEDS ORDERED: LEVO75TA5 PO (18:08)
[2017-09-30] MEDS ORDERED: CALC500C70 PO (18:10)
[2017-09-30] MEDS ORDERED: MULT-506 PO (18:10)
[2017-09-30] MEDS ORDERED: SODIUM CHLORIDE 0.9% 500ML 500 ML IV STA (18:17)
--- NOTE | 2017-09-30 18:17 | DIAGNOSTIC IMAGING REPORT ---
CHEST ONE VIEW PORTABLE CLINICAL HISTORY: 82 years-old Female presenting with CHEST PAIN. TECHNIQUE: Portable upright AP view of the chest was obtained. COMPARISON: 06/04/2017. FINDINGS: Atherosclerosis of aortic arch. Cardiac silhouette enlarged. Prominence of the bilateral sammy. Fluid in the minor fissure on the right has resolved. Bandlike opacity in the left mid lung persists. Surgical clips project over the left lung base, likely within the left breast. Osseous structures normal. Hiatal hernia noted. IMPRESSION: 1. Resolution of right pleural fluid and persistent and-like opacity in the left midlung, likely atelectasis or scarring. 2. No convincing evidence of acute cardiopulmonary disease. 3. Persistent prominence of the bilateral sammy may relate to enlarged pulmonary arteries or underlying volume overload. Electronically signed by: Eugenio Reyes M.D. 09/30/2017 6:16 PM Dictated Date/Time: 09/30/2017 6:15 PM
[2017-09-30] MEDS ORDERED: NYSTATIN POWDER 15GM BTL EXT STA (18:42)
[2017-09-30] MEDS ORDERED: OPTIRAY 320 IV PRN (19:00)
--- NOTE | 2017-09-30 19:47 | DIAGNOSTIC IMAGING REPORT ---
(CHEST FOR PE) ANGIO WITH CLINICAL HISTORY: 82 years-old Female presenting with ^Pt c/o left sided chest pain. TECHNIQUE: Multidetector CT angiography of the chest was performed after administration of intravenous contrast. 3-D volumetric and/or maximum intensity projection (MIP) images were subsequently reconstructed for review. IV contrast: 88 mL of Optiray 320. A dose lowering technique was used consistent with the principles of ALARA (as low as reasonably achievable). COMPARISON: 02/18/2016. CT DOSE (mGy.cm): The estimated cumulative dose is 546.66 mGy.cm. FINDINGS: Rotary Furnace Tender topogram: Unremarkable. Pulmonary vasculature: The study is suboptimal for the assessment of the pulmonary vascular tree secondary to respiratory motion artifact. Allowing for limited image quality, no central filling defect to suggest pulmonary embolus. Main pulmonary artery is not enlarged. No flattening of the interventricular septum. No intracardiac filling defect. No reflux of contrast into the hepatic veins. Remaining chest: On soft tissue windows, architectural distortion of the breast could suggest prior reduction mammoplasty. Surgical clips in the left breast may be related to this would indicate prior lumpectomy or biopsy. Mildly prominent though subcentimeter mediastinal lymph nodes, possibly reactive. Few small hilar lymph nodes also suggested bilaterally. Atherosclerosis of the aorta. Four-vessel aortic arch. Tortuosity of the cervical vessels could suggest chronic hypertension. Left atrial enlargement. Coronary artery, mitral annular, and aortic valve calcification. No pericardial or pleural effusion. Moderate hiatal hernia. On lung windows, extensive mosaic attenuation suggest small airways disease. Minimal bandlike consolidation in the right middle lobe and lingula, likely atelectasis or scarring, unchanged from prior. Evaluation of the lungs is degraded by motion artifact, limiting sensitivity for small nodules. Central airways patent. On bone windows, degenerative changes of the spine. IMPRESSION: 1. Allowing for suboptimal image quality, no evidence of pulmonary embolus. 2. Mosaic attenuation suggest small airways disease. 3. Left atrial enlargement. Electronically signed by: Eugenio Reyes M.D. 09/30/2017 7:45 PM Dictated Date/Time: 09/30/2017 7:36 PM
[2017-09-30] MEDS ORDERED: FAMO40TA6 PO (19:59)
[2017-09-30 20:14] VITALS: BP 186/89; PULSE 58; O2SAT 97
== END 2017-09-30 20:15 | disposition home or self-care (01) ==
LOC: C.EDB 17:17 → C.EDC 20:15
DX: R07.9 Chest pain, unspecified (principal); R21 Rash and other nonspecific skin eruption; I10 Essential (primary) hypertension; I38 Endocarditis, valve unspecified; J44.9 Chronic obstructive pulmonary disease, unspecified; E11.40 Type 2 diabetes mellitus with diabetic neuropathy, unspecified; Z79.82 Long term (current) use of aspirin; Z79.84 Long term (current) use of oral hypoglycemic drugs; Z88.0 Allergy status to penicillin; Z88.2 Allergy status to sulfonamides; Z83.3 Family history of diabetes mellitus; Z82.49 Family history of ischemic heart disease and other diseases of the circulatory system; Z84.1 Family history of disorders of kidney and ureter; Z83.6 Family history of other diseases of the respiratory system

== ENCOUNTER → 2017-10-05 | Outpatient (CLI) | payer OTHER, MEDICARE ==
[~2017-10-05] MED LIST changes: +CALC500C70 PO; +CEPH500C PO; +FAMO40TA6 PO; -LEVO50TA6 PO; +LEVO75TA5 PO; -LVQ750 PO; +METO25TA4 PO; +MULT-506 PO; -TPRSR/50 PO
--- NOTE | 2017-10-05 08:08 | DIAGNOSTIC IMAGING REPORT ---
(BARIUM SWALLOW) ESOPHAGUS CLINICAL HISTORY: R07.89 Atypical chest [id number] COMPARISON STUDY: CT chest 09/30/2017 FLUOROSCOPY TIME: 1.3 minutes. FINDINGS: Patient initiates his swallowing function well. No evidence for aspiration. Moderate generalized esophageal air stability and/or spasm. Hiatal hernia. Moderate gastroesophageal reflux. Patient ingested the barium tablet easily which passed easily to the stomach. IMPRESSION: 1. Moderate hiatal hernia. 2. Generalized esophageal spasm and/or irritability. 3. Gastroesophageal reflux The above report was generated using voice recognition software. It may contain grammatical, syntax or spelling errors. Electronically signed by: Doug Ortiz M.D. 10/05/2017 8:07 AM Dictated Date/Time: 10/05/2017 8:05 AM
== END | disposition home or self-care (01) ==
LOC: C.RAD 07:24
PROVIDERS: ATTEND Internal Medicine
DX: R07.89 Other chest pain (principal); K44.9 Diaphragmatic hernia without obstruction or gangrene; K22.4 Dyskinesia of esophagus; K21.9 Gastro-esophageal reflux disease without esophagitis

== ENCOUNTER → 2017-10-23 | Outpatient (CLI) | payer OTHER, MEDICARE ==
--- NOTE | 2017-10-23 08:04 | DIAGNOSTIC IMAGING REPORT ---
R FOOT MIN 3 VIEWS ROUTINE CLINICAL HISTORY: 82 years-old Female presenting with M79.674 pain and swelling, possible gout. TECHNIQUE: Frontal, oblique, and lateral views of the right foot were obtained. COMPARISON: None. FINDINGS: Osteopenia suspected. Allowing for osteopenia, no displaced fracture or malalignment. No evidence of osseous erosion. Heterogeneous sclerosis of the head of the first metatarsal is nonspecific. Prominent enthesophyte at the insertion of the Achilles tendon and origin of the plantar fascia. Large os peroneum noted. Diminutive accessory navicular suggested. No soft tissue calcification. IMPRESSION: 1. Heterogeneous sclerosis of the head of the first metatarsal, nonspecific and possibly degenerative in etiology or less likely osteonecrosis. No gustavo evidence of erosions to suggest inflammatory arthritis. 2. Allowing for osteopenia, no acute osseous injury. 3. No soft tissue findings suggestive of gout. Electronically signed by: Eugenio Reyes M.D. 10/23/2017 8:03 AM Dictated Date/Time: 10/23/2017 7:55 AM
== END | disposition home or self-care (01) ==
LOC: C.RAD 07:16
PROVIDERS: ATTEND Podiatrist
DX: M10.071 Idiopathic gout, right ankle and foot (principal); M79.674 Pain in right toe(s)

== ENCOUNTER 2019-12-16 16:58 | Inpatient (IN) ==
[2019-12-16 18:01] LABS: Basophils # (auto) 0.03 K/uL (0-0.2); Basophils % (auto) 0.6 %; Eosinophils % (auto) 11.5 %; Hematocrit (blood only) 37.7 % (37-47); Hemoglobin 11.8 g/dL (12.0-16.0); Immature Granulocytes # (auto) 0.03 K/uL (0.00-0.02); Immature Granulocytes % (auto) 0.6 %; Lymphocytes # (auto) 0.65 K/uL (1.2-3.4); Lymphocytes % (auto) 12.5 %; Mean Corpuscular Hemoglobin 28.4 pg (25-34); Mean Corpuscular Hgb Conc 31.3 g/dL (32-36); Mean Corpuscular Volume 90.8 fL (80-100); Mean Platelet Volume 9.6 fL (7.4-10.4); Monocytes # (auto) 0.52 K/uL (0.11-0.59); Neutrophils # (auto) 3.38 K/uL (1.4-6.5); Neutrophils % (auto) 64.8 %; Platelet Count 168 K/uL (130-400); RDW Coefficient of Variation 18.1 % (11.5-14.5); RDW Standard Deviation 59.7 fL (36.4-46.3); Red Blood Count 4.15 M/uL (4.2-5.4); White Blood Count 5.21 K/uL (4.8-10.8)
--- NOTE | 2019-12-16 18:04 | XRay Report ---
XR chest 1V portable HISTORY: Atypical Chest Pain COMPARISON: Chest 09/09/2019. FINDINGS: The heart remains enlarged. Perihilar interstitial and vascular thickening has slightly pro gressed. This consistent with mild congestive change. Linear density within the left midlung zone rem ain stable and favors scarring. No new focal lung consolidations. Moderate hiatus hernia, unchanged. IMPRESSION: Interval progression of the interstitial thickening which favors mild congestive change. Stable cardi omegaly. ACT 112: Negative or not required by law. Electronically signed by: Niko Leroy M.D. 12/16/2019 6:02 PM
[2019-12-16 18:23] LABS: Alanine Aminotransferase 23 U/L (12-78); Albumin Level 3.5 gm/dl (3.4-5.0); Aspartate Aminotransferase 25 U/L (15-37); BUN Creatinine Ratio 20.6 (10-20); Blood Urea Nitrogen 46 mg/dl (7-18); Calcium 9.1 mg/dl (8.5-10.1); Carbon Dioxide 29 mmol/L (21-32); Chloride 102 mmol/L (98-107); Creatinine Clr Calc Pharmacy 27.3 ml/min; Est GFR (African American) 23.2; Glucose 92 mg/dl (70-99); Lipase 60 U/L (73-393); Magnesium 2.2 mg/dl (1.8-2.4); Sodium 138 mmol/L (136-145)
[2019-12-16 18:29] LABS: Base Excess VBG 4.6 mEq/L; HCO3 VBG 30 mmol/L; Oxygen Saturation VBG < 60.0 %; PCO2 VBG 49 mmHg (38-50); PO2 VBG 22 mmHg; pH VBG 7.41 (7.36-7.41)
[2019-12-16 18:34] LABS: Alkaline Phosphatase 49 U/L (45-117); Bilirubin,Total 0.7 mg/dl (0.2-1); Globulin 3.4 gm/dl (2.5-4.0); NT Pro B Type Natriuretic Pept 4301 pg/ml (0-1800); Phosphorus 3.2 mg/dl (2.5-4.9); Total Protein 6.9 gm/dl (6.4-8.2); Troponin I < 0.015 ng/ml (0-0.045)
[2019-12-16 20:01] LABS: INR 1.2 (0.9-1.1); Partial Thromboplastin Time 26.9 Seconds (21.0-31.0); Prothrombin Time 12.4 Seconds (9.0-12.0)
[2019-12-16] MEDS ORDERED: FUROSEMIDE 40 MG/4 ML VIAL IV STA (20:31)
--- NOTE | 2019-12-16 22:35 | History & Physical Report ---
Date of Service December 16, 2019 Assessment & Plan (1) Acute on chronic diastolic CHF (congestive heart failure): Acute on chronic diastolic CHF/frequent ventricular ectopy/hypertension/mild left ear/trace MR/trace TR/LVEF 60 to 65%/mild concentric LVH- The patient will be admitted to telemetry for serial cardiac enzymes, serial EKG's, cardiac rhythm monitoring and a 2-D echocardiogram with Dopplers. Continue aspirin 81 mg 3 times per week, flecainide 100 mg p.o. every 12 hours, and metoprolol succinate 25 mg daily. Hold oral Lasix 20 mg daily and losartan/HCTZ. Patient was given Lasix 20 mg IV in the ED. Placed on Lasix 40 mg IV every morning. Hold pioglitazone and meloxicam. Consult cardiology. Present on Admission?: Yes (2) Diabetes: Hold pioglitazone, in addition may be contributing to CHF. Hold metformin. Placed on Accu-Cheks before meals and at bedtime with NovoLog coverage per scale Present on Admission?: Yes (3) COPD (chronic obstructive pulmonary disease): Continue pro-air HFA, Advair discus, gentamicin sulfate inhaled solution and PRN duo nebs. Present on Admission?: Yes (4) Obstructive sleep apnea: Consult respiratory therapy for CPAP at bedtime. Daughter will bring in her own CPAP use tomorrow night. Present on Admission?: Yes (5) Hypertension: See above Present on Admission?: Yes (6) Acute kidney injury superimposed on chronic kidney disease: Creatinine 2.22 upon admission, with range 1.05-1.68. Follow serial laboratories. Hold lisinopril/HCTZ diuresing with Lasix IV. Present on Admission?: Yes (7) Hypothyroid: Continue levothyroxine sodium 75 mcg daily Present on Admission?: Yes History of Present Illness Chief Complaint: The patient presents to the emergency department with substernal chest discomfort and shortness of breath Primary Care Provider: Ermias Rizo MD The patient is a 84-year-old female with a past medical history including hypothyroidism, ventricular ectopy, diabetes mellitus, COPD, abdominal wall cellulitis, breast cancer, restrictive lung disease, bradycardia, demand ischemia of myocardium, hypertension, obstructive sleep apnea and community- acquired bacterial pneumonia. She reports to the emergency department with the development of substernal chest discomfort and shortness of breath. She has no recent travels or sick exposures. Allergies Allergy/AdvReac Type Severity Reaction Status Date / Time Penicillins Allergy Intermediate SEVERE RASH Verified 12/16/19 18:33 Sulfa (Sulfonamide Allergy Unknown Unknown Verified 12/16/19 18:33 Antibiotics) Home Medications Home Medications Medication Instructions Recorded Confirmed Type albuterol sulfate [ProAir HFA] 2 puff INHALATION Q4 PRN 06/08/18 12/16/19 History aspirin 81 mg PO 3XWK 06/08/18 12/16/19 History famotidine 40 mg PO DAILY 06/08/18 12/16/19 History levothyroxine [Synthroid] 75 mcg PO DAILY 06/08/18 12/16/19 History losartan-hydrochlorothiazide 1 tab PO DAILY 06/08/18 12/16/19 History multivitamin [Multiple Vitamins] 1 tab PO DAILY 06/08/18 12/16/19 History simvastatin 40 mg PO PM 06/08/18 12/16/19 History hydroxyzine HCl 10 mg tablet 10 mg PO DAILY tab 01/29/19 12/16/19 History meloxicam 15 mg tablet 15 mg PO DAILY tab 01/29/19 12/16/19 History pioglitazone 30 mg tablet 30 mg PO DAILY tab 01/29/19 12/16/19 History tramadol 50 mg tablet 50 mg PO DAILY tab 01/29/19 12/16/19 History furosemide 20 mg tablet 20 mg PO QAM 04/21/19 12/16/19 History metformin 500 mg tablet 500 mg PO QPM tab 04/21/19 12/16/19 History fluticasone 250 mcg-salmeterol 50 1 puffs INH Q12H #180 ea 05/15/19 12/16/19 Rx mcg/dose blistr powdr for inhalation flecainide 100 mg tablet 100 mg PO Q12H #14 tab 07/15/19 12/16/19 Rx ipratropium 0.5 mg-albuterol 3 mg 3 ml INHALATION Q4 PRN #540 ml 08/15/19 12/16/19 Rx (2.5 mg base)/3 mL nebulization soln gentamicin sulfate (PF) 60 mg/6 mL 60 mg INHALATION TID #45 ml 08/21/19 12/16/19 Rx intravenous solution Oxygen Home #2 liter 09/16/19 Rx metoprolol succinate 25 mg 12.5 mg PO DAILY #45 tab 11/10/19 12/16/19 Rx tablet,extended release 24 hr calcium carb and citrate-vitD3 1 tab PO DAILY 12/16/19 12/16/19 History Past Med/Surg History Social History Preferred Language: Slovak Communication Ability: Effective Visual Impairment: No Limitations Hearing Ability: Normal Trimming Department Blocker Required: No Beliefs That Will Affect Care: None marital status: / Current Living Situation: Family Other Information That Helps Us Care for You: No Feels Safe at Home: Yes Safety Concerns: Feels Safe At This Time Smoking Status: Never smoker Hx Alcohol Use: No Hx Substance Use: No Review of Systems Review of Systems: The patient denies palpitations, cough, lower extremity swelling, sore throat, fevers, chills, sweats, fatigue, nausea, vomiting, diarrhea , constipation, abdominal pain, pelvic pain, blood in urine or stool, dysuria, urinary frequency or urgency, lightheadedness, dizziness, headache, loss of consciousness, rash, abnormal bruising or bleeding, imbalance, focal weakness, numbness or tingling in arms or legs, generalized arthralgias or myalgias, back or neck pain, or night sweats. Her daughter helps with her HPI and review of systems. The review of systems is otherwise negative other than for that already noted above, and at least 10 systems have been reviewed. Physical Exam Physical Exam: The patient is awake, alert and oriented 3, well developed and well nourished, normocephalic and atraumatic, lying in bed and in no acute distress. HEENT--PERRL, EOMI, mucous membranes and oropharynx dry. Neck--supple. No JVD. No bruits. Thyroid normal, trachea midline, no adenopathy. Heart--normal S1 and S2. No murmurs, rubs or gallops. Lungs--few crackles at the bases bilaterally. No respiratory distress, no accessory muscle use. Abdomen--normal bowel sounds and soft. Nontender. Nondistended. Extremities--no cyanosis or clubbing. 1+ bilateral pretibial pitting edema. Dermatologic--normal skin turgor, normal color, no abnormal lymph nodes, no rash. Neurologic--cranial nerves II through XII grossly intact. Rheumatologic--normal range of motion. Psychiatric--normal affect. Results & Data Results & Data ([facility]) Vital Signs (Past 12 Hours) Vital Signs Temp Pulse Pulse Resp BP BP Pulse Ox 12/16/19 22:01 61 22 97 12/16/19 21:31 64 26 H 94 12/16/19 21:00 66 27 H 94 12/16/19 20:01 63 22 96 12/16/19 20:00 66 30 H 146/75 H 96 12/16/19 19:30 62 24 150/65 H 98 12/16/19 19:00 62 31 H 146/76 H 97 12/16/19 18:30 64 20 150/75 H 96 12/16/19 18:00 65 29 H 145/80 H 96 12/16/19 17:30 63 31 H 156/87 H 95 12/16/19 17:20 60 22 145/64 H 96 12/16/19 17:19 67 26 H 145/64 H 96 12/16/19 17:10 83 L 12/16/19 16:59 98.6 F 62 20 136/81 90 Laboratory Results Laboratory Results WBC 5.21 K/uL (4.8-10.8) 12/16/19 17:47 RBC 4.15 M/uL (4.2-5.4) L 12/16/19 17:47 Hgb 11.8 g/dL (12.0-16.0) L 12/16/19 17:47 Hct 37.7 % (37-47) 12/16/19 17:47 MCV 90.8 fL (80-100) 12/16/19 17:47 MCH 28.4 pg (25-34) 12/16/19 17:47 MCHC 31.3 g/dL (32-36) L 12/16/19 17:47 RDW Std Deviation 59.7 fL (36.4-46.3) H 12/16/19 17:47 RDW Coeff of Mariel 18.1 % (11.5-14.5) H 12/16/19 17:47 Plt Count 168 K/uL (130-400) 12/16/19 17:47 MPV 9.6 fL (7.4-10.4) 12/16/19 17:47 Immature Gran % (Auto) 0.6 % 12/16/19 17:47 Neut % (Auto) 64.8 % 12/16/19 17:47 Lymph % (Auto) 12.5 % 12/16/19 17:47 Weld % (Auto) 10.0 % 12/16/19 17:47 Eos % (Auto) 11.5 % 12/16/19 17:47 Baso % (Auto) 0.6 % 12/16/19 17:47 Immature Gran # (Auto) 0.03 K/uL (0.00-0.02) H 12/16/19 17:47 Neut # (Auto) 3.38 K/uL (1.4-6.5) 12/16/19 17:47 Lymph # (Auto) 0.65 K/uL (1.2-3.4) L 12/16/19 17:47 Weld # (Auto) 0.52 K/uL (0.11-0.59) 12/16/19 17:47 Eos # (Auto) 0.60 K/uL (0-0.5) H 12/16/19 17:47 Baso # (Auto) 0.03 K/uL (0-0.2) 12/16/19 17:47 PT 12.4 Seconds (9.0-12.0) H 12/16/19 19:24 INR 1.2 (0.9-1.1) H 12/16/19 19:24 APTT 26.9 Seconds (21.0-31.0) 12/16/19 19:24 PTT Ratio 1.0 12/16/19 19:24 VBG pH 7.41 (7.36-7.41) 12/16/19 17:46 VBG pCO2 49 mmHg (38-50) 12/16/19 17:46 VBG pO2 22 mmHg 12/16/19 17:46 VBG HCO3 30 mmol/L 12/16/19 17:46 VBG O2 Saturation < 60.0 % 12/16/19 17:46 VBG Base Excess 4.6 mEq/L 12/16/19 17:46 Barometric Pressure 729.4 mm/Hg 12/16/19 17:46 Sodium 138 mmol/L (136-145) 12/16/19 17:47 Potassium 4.0 mmol/L (3.5-5.1) 12/16/19 17:47 Chloride 102 mmol/L (98-107) 12/16/19 17:47 Carbon Dioxide 29 mmol/L (21-32) 12/16/19 17:47 Anion Gap 7.0 (3-11) 12/16/19 17:47 BUN 46 mg/dl (7-18) H 12/16/19 17:47 Creatinine 2.22 mg/dl (0.6-1.2) H 12/16/19 17:47 Est Cr Clr Drug Dosing 27.3 ml/min 12/16/19 17:47 Est GFR ( Amer) 23.2 12/16/19 17:47 Est GFR (Non-Af Amer) 20.0 12/16/19 17:47 BUN/Creatinine Ratio 20.6 (10-20) H 12/16/19 17:47 Glucose 92 mg/dl (70-99) 12/16/19 17:47 POC Glucose 121 mg/dl (70-99) H 12/16/19 21:34 Calcium 9.1 mg/dl (8.5-10.1) 12/16/19 17:47 Phosphorus 3.2 mg/dl (2.5-4.9) 12/16/19 17:47 Magnesium 2.2 mg/dl (1.8-2.4) 12/16/19 17:47 Total Bilirubin 0.7 mg/dl (0.2-1) 12/16/19 17:47 AST 25 U/L (15-37) 12/16/19 17:47 ALT 23 U/L (12-78) 12/16/19 17:47 Alkaline Phosphatase 49 U/L (45-117) 12/16/19 17:47 Troponin I 0.358 ng/ml (0-0.045) H* 12/16/19 23:31 NT-Pro-B Natriuret Pep 4301 pg/ml (0-1800) H 12/16/19 17:47 Total Protein 6.9 gm/dl (6.4-8.2) 12/16/19 17:47 Albumin 3.5 gm/dl (3.4-5.0) 12/16/19 17:47 Globulin 3.4 gm/dl (2.5-4.0) 12/16/19 17:47 Albumin/Globulin Ratio 1.0 (0.9-2) 12/16/19 17:47 Lipase 60 U/L (73-393) L 12/16/19 17:47 TSH 2.190 uIu/ml (0.300-4.500) 12/16/19 17:47 Diagnostic Findings [facility] ADILENE Wadsworth [phone] XRay Report Patient: LEX STACY LAdnely Date: 12/16/19 MR#: [id number] [address] Acct ID:[id number]: Date: [address] Zip: [place] [address] Age: 84Location: ED Sex: F Room/Bed: Att Phy:Diagnosis: CHEST PAIN, HARD TIME BREATHING Pati Phy: Ermias Rizo, JEREMYervice Date: 12/16/19 Fam Phy: Ermias Rizo MDInterpreting Phy: Niko Leroy MD Admit Phy: Ordering Phy: Juan Antonio Turpin M.D. cc: ~ XR chest 1V portable HISTORY: Atypical Chest Pain COMPARISON: Chest 09/09/2019. FINDINGS: The heart remains enlarged. Perihilar interstitial and vascular thickening has slightly progressed. This consistent with mild congestive change. Linear density within the left midlung zone remain stable and favors scarring. No new focal lung consolidations. Moderate hiatus hernia, unchanged. IMPRESSION: Interval progression of the interstitial thickening which favors mild congestive change. Stable cardiomegaly. ACT 112: Negative or not required by law. Electronically signed by: Niko Leroy M.D. 12/16/2019 6:02 PM Dictated: 12/16/191800 Transcribed: 12/16/191800 Code Status & VTE Plan Code Status Full code VTE Prophylaxis Plan VTE Prophylaxis will be ordered: Yes PG Care Time/CCT Total # of Minutes Spent Total Time Spent with Patient: Total time spent is greater than 50% in coordination of care (as documented) at patient's floor/unit and/or counseling patient: Coding Level of Care Code 20774 Initial Inpt Care Lvl 3 Diagnoses Acute on chronic diastolic CHF (congestive heart failure) I50.33 Diabetes E11.628; Z79.4 Diabetes mellitus type: type 2 Diabetes mellitus fpc insulin use: with buttermaker continuous churn use Diabetes mellitus complication status: with skin complications Diabetes mellitus complication detail: with other skin complication COPD (chronic obstructive pulmonary disease) J44.9 COPD type: unspecified COPD Obstructive sleep apnea G47.33 Hypertension I10 Hypertension type: essential hypertension Acute kidney injury superimposed on chronic kidney disease N17.9; N18.9 Hypothyroid E03.9 Hypothyroidism type: acquired (1) Diabetes Diabetes mellitus type: type 2 Diabetes mellitus buttermaker continuous churn insulin use: with fpc use Diabetes mellitus complication status: with skin complications Diabetes mellitus complication detail: with other skin complication Qualified Code(s): E11.628 - Type 2 diabetes mellitus with other skin complications; Z79.4 - computer terminal operator (current) use of insulin (2) COPD (chronic obstructive pulmonary disease) COPD type: unspecified COPD Qualified Code(s): J44.9 - Chronic obstructive pulmonary disease, unspecified (3) Hypertension Hypertension type: essential hypertension Qualified Code(s): I10 - Essential (primary) hypertension (4) Hypothyroid Hypothyroidism type: acquired Qualified Code(s): E03.9 - Hypothyroidism, unspecified
[2019-12-16] MEDS ORDERED: ONDANSETRON INJ 2 MG/ML 2 ML VIAL IV PRN (23:16)
[2019-12-16] MEDS ORDERED: CARBOHYDRATES FOR HYPOGLYCEMIA PO PRN (23:16)
[2019-12-16] MEDS ORDERED: ALUMINUM/MAGNESIUM SUSP 30 ML UDC PO PRN (23:16)
[2019-12-16] MEDS ORDERED: GLUCAGON FOR INJ 1 MG VIAL SQ PRN (23:16)
[2019-12-16] MEDS ORDERED: GLUCOSE 10 TABS/TUBE PO PRN (23:16)
[2019-12-16] MEDS ORDERED: MAGNESIUM HYDROXIDE SUSP 30 ML UDC PO PRN (23:16)
[2019-12-16] MEDS ORDERED: DEXTROSE 50% 50 ML SYRINGE IV PRN (23:16)
[2019-12-16] MEDS ORDERED: GLUCOSE 40% GEL 15 GM TUBE PO PRN (23:16)
[2019-12-16] MEDS ORDERED: ALBUT/IPRATROP 3MG/0.5MG NEB 3 ML VIAL INH PRN (23:16)
[2019-12-16] MEDS ORDERED: ALBUTEROL HFA 8 GM INHALER INH PRN (23:50)
[2019-12-17] MEDS: FLECAINIDE ACETATE 100 MG TABLET PO SCH ×2 (00:16→08:21)
[2019-12-17] MEDS: HEPARIN SOD 5,000 UNIT/0.5 ML VIAL SQ SCH ×4 (00:16→23:40)
--- NOTE | 2019-12-17 00:41 | Emergency Department Note ---
Impression & Plan CHF (congestive heart failure), Shortness of breath, Elevated brain natriuretic peptide (BNP) level, Acute on chronic renal insufficiency ED Provider Note NAME: LEX STACY AGE: 84 SEX: F ARRIVES VIA: Walk-In INFORMANT: Patient, ED PROVIDER(S): Juan Antonio Turpin MD CHIEF COMPLAINT: Shortness of breath. PLAN: Disposition: Admit MEDICAL DECISION MAKING: The patient is a pleasant 84 y/o woman with a pmhx of CKD, COPD, CHF, KINGSLEY on CPAP with nocturnal O2 who presents to the emergency department with worsening shortness of breath over the past several weeks that became acute worse over the past 2 days. She reports feeling increasingly fatigued and sleeping a lot. Denies fevers, n/v/d, urinary sx. She believes her weight has been stable. On arrival the patient is in NAD, AFVSS, on 2L NC. She appears chronically ill and fluid overloaded. Diminished breath sounds at bases. EKG demonstrates LBBB, no overt acute ischemia/No Sgarbossa criteria. 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 CXR with increased interstitial thickening c/w CHF. WBC and platelets wnl. H/H 11.8/37.7 similar to prior range of values. VBG unremarkable. Cr. 2.2 increased from 1.6 in September. Chemistry without acidosis. Electrolytes and LFTs unremarkable. Initial troponin undetectable. BNP 4300, slightly increased from September. Given patient's sx in the setting of acute on chronic renal failure, reasonable to admit for further management of her CHF. Patient givne initial do se of IV lasix. Patient agreeable with plan for admission. Case was discussed with Dr. Bassett, [facility] hospitalist, who will evaluate the patient for admission. Triage Nursing notes reviewed and agree them. Additional history obtained from daughter at bedside. Prior medical records reviewed Vital Signs: reviewed and remarkable for no significant abnormalities Differential diagnosis: Reactive airway disease, pneumonia, pneumothorax, COPD, CHF, infections, cardiac ischemia, pulmonary embolism, musculoskeletal, gastrointestinal, as well as other pathologies. ER treatment provided: See below. Diagnostics interpreted by me: ECG: Sinus rhythm, sinus arrhythmia, 64 bpm, LBBB, no overt acute ischemia/No Sgarbossa criteria. LBBB new from 06/08/2018. Cardiac Monitoring: An order for continuous cardiac monitoring was placed and demonstrated Sinus rhythm, 64 bpm, no ectopy. Laboratory studies: See below Imaging studies: XR chest 1V portable HISTORY: Atypical Chest Pain COMPARISON: Chest 09/09/2019. FINDINGS: The heart remains enlarged. Perihilar interstitial and vascular thickening has slightly progressed. This consistent with mild congestive change. Linear density within the left midlung zone remain stable and favors scarring. No new focal lung consolidations. Moderate hiatus hernia, unchanged. IMPRESSION: Interval progression of the interstitial thickening which favors mild congestive change. Stable cardiomegaly. Consultation(s): Case was discussed with Dr. Bassett, [facility] hospitalist, who will evaluate the patient for admission. HPI: The patient is a pleasant 84 y/o woman with a pmhx of CKD, COPD, CHF, KINGSLEY on CPAP with nocturnal O2 who presents to the emergency department with worsening shortness of breath over the past several weeks that became acute worse over the past 2 days. She reports feeling increasingly fatigued and sleeping a lot. Denies fevers, n/v/d, urinary sx. She believes her weight has been stable. ROS: See above HPI for pertinent positives & negatives. A total of 10 systems reviewed and were otherwise negative. PAST MEDICAL HISTORY:See Below PAST SURGICAL HISTORY:See Below FAMILY HISTORY:See Below SOCIAL HISTORY:See Below HOME MEDICATIONS:See Below ALLERGIES:See Below VITALS:See Below PHYSICAL EXAMINATION: GENERAL: Awake, alert, well-appearing, in no distress HENT: Normocephalic, atraumatic. Oropharynx unremarkable. EYES: Normal conjunctiva. Sclera non-icteric. NECK: Supple. No nuchal rigidity. FROM. No JVD. RESPIRATORY: Diminished breath sounds at bases. CARDIAC: Regular rate, normal rhythm. Extremities warm and well perfused. Pulses equal. ABDOMEN: Soft, non-distended. No tenderness to palpation. No rebound or guarding. No masses. RECTAL: Deferred. MUSCULOSKELETAL: Chest examination reveals no tenderness. The back is symmetrical on inspection without obvious abnormality. There is no CVA tenderness to palpation. No joint edema. LOWER EXTREMITIES: Calves are equal size bilaterally and non-tender. 2+ BLE edema. No discoloration. NEURO: Normal sensorium. No sensory or motor deficits noted. SKIN: No rash or jaundice noted. 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) Restrictive lung disease (Chronic 11/24/11) Family History Father Myocardial infarction Social History Preferred Language: [place] Communication Ability: Effective Visual Impairment: No Limitations Hearing Ability: Normal [employer] Required: No Beliefs That Will Affect Care: None marital status: / Current Living Situation: Family Other Information That Helps Us Care for You: No Feels Safe at Home: Yes Safety Concerns: Feels Safe At This Time Smoking Status: Never smoker Hx Alcohol Use: No Hx Substance Use: No Allergies Allergies Allergy/AdvReac Type Severity Reaction Status Date / Time Penicillins Allergy Intermediate SEVERE RASH Verified 12/16/19 18:33 Sulfa (Sulfonamide Allergy Unknown Unknown Verified 12/16/19 18:33 Antibiotics) Home Meds Home Medications Medication Instructions Recorded Confirmed albuterol sulfate [ProAir HFA] 2 puff INHALATION Q4 PRN 06/08/18 12/16/19 aspirin 81 mg PO 3XWK 06/08/18 12/16/19 famotidine 40 mg PO DAILY 06/08/18 12/16/19 levothyroxine [Synthroid] 75 mcg PO DAILY 06/08/18 12/16/19 losartan-hydrochlorothiazide 1 tab PO DAILY 06/08/18 12/16/19 multivitamin [Multiple Vitamins] 1 tab PO DAILY 06/08/18 12/16/19 simvastatin 40 mg PO PM 06/08/18 12/16/19 hydroxyzine HCl 10 mg tablet 10 mg PO DAILY tab 01/29/19 12/16/19 meloxicam 15 mg tablet 15 mg PO DAILY tab 01/29/19 12/16/19 pioglitazone 30 mg tablet 30 mg PO DAILY tab 01/29/19 12/16/19 tramadol 50 mg tablet 50 mg PO DAILY tab 01/29/19 12/16/19 furosemide 20 mg tablet 20 mg PO QAM 04/21/19 12/16/19 metformin 500 mg tablet 500 mg PO QPM tab 04/21/19 12/16/19 calcium carb and citrate-vitD3 1 tab PO DAILY 12/16/19 12/16/19 Previous Rx's Medication Instructions Recorded fluticasone 250 mcg-salmeterol 50 1 puffs INH Q12H #180 ea 05/15/19 mcg/dose blistr powdr for inhalation flecainide 100 mg tablet 100 mg PO Q12H #14 tab 07/15/19 ipratropium 0.5 mg-albuterol 3 mg 3 ml INHALATION Q4 PRN #540 ml 08/15/19 (2.5 mg base)/3 mL nebulization soln gentamicin sulfate (PF) 60 mg/6 mL 60 mg INHALATION TID #45 ml 08/21/19 intravenous solution Oxygen Home #2 liter 09/16/19 metoprolol succinate 25 mg 12.5 mg PO DAILY #45 tab 11/10/19 tablet,extended release 24 hr Results & Data (ED) Vital Signs Vital Signs - 24 hr 12/16/19 16:59 12/16/19 17:10 12/16/19 17:19 Temperature 37 C Temperature Source Oral Pulse Rate 62 Pulse Rate [Apical] 67 Pulse Rate from SpO2 Sensor Respiratory Rate 20 26 H Respiratory Depth Normal Blood Pressure 136/81 Blood Pressure [Right Arm] 145/64 H Blood Pressure Mean 99 Blood Pressure Mean [Right Arm] 91 Pulse Oximetry 90 83 L 96 Oxygen Delivery Method Room Air Room Air Nasal Cannula Oxygen Flow Rate 2 Sepsis Recent Fever Within 48 Hours No Sepsis Action Taken by Nursing No Action Required Oxygen Flow Rate - Titration 2 Pulse Oximetry Post Tiitration 96 12/16/19 17:20 12/16/19 17:30 12/16/19 18:00 Temperature Temperature Source Pulse Rate 60 63 65 Pulse Rate [Apical] Pulse Rate from SpO2 Sensor 61 64 61 Respiratory Rate 22 31 H 29 H Respiratory Depth Blood Pressure 145/64 H 156/87 H 145/80 H Blood Pressure [Right Arm] Blood Pressure Mean 92 106 89 Blood Pressure Mean [Right Arm] Pulse Oximetry 96 95 96 Oxygen Delivery Method Oxygen Flow Rate Sepsis Recent Fever Within 48 Hours Sepsis Action Taken by Nursing Oxygen Flow Rate - Titration Pulse Oximetry Post Tiitration 12/16/19 18:30 12/16/19 19:00 12/16/19 19:30 Temperature Temperature Source Pulse Rate 64 62 62 Pulse Rate [Apical] Pulse Rate from SpO2 Sensor 62 63 62 Respiratory Rate 20 31 H 24 Respiratory Depth Blood Pressure 150/75 H 146/76 H 150/65 H Blood Pressure [Right Arm] Blood Pressure Mean 105 100 95 Blood Pressure Mean [Right Arm] Pulse Oximetry 96 97 98 Oxygen Delivery Method Oxygen Flow Rate Sepsis Recent Fever Within 48 Hours Sepsis Action Taken by Nursing Oxygen Flow Rate - Titration Pulse Oximetry Post Tiitration 12/16/19 20:00 12/16/19 20:01 12/16/19 21:00 Temperature Temperature Source Pulse Rate 66 63 66 Pulse Rate [Apical] Pulse Rate from SpO2 Sensor 64 63 62 Respiratory Rate 30 H 22 27 H Respiratory Depth Blood Pressure 146/75 H Blood Pressure [Right Arm] Blood Pressure Mean 87 Blood Pressure Mean [Right Arm] Pulse Oximetry 96 96 94 Oxygen Delivery Method Nasal Cannula Nasal Cannula Nasal Cannula Oxygen Flow Rate 2.5 2 2 Sepsis Recent Fever Within 48 Hours Sepsis Action Taken by Nursing Oxygen Flow Rate - Titration Pulse Oximetry Post Tiitration 12/16/19 21:31 12/16/19 22:01 Temperature Temperature Source Pulse Rate 64 61 Pulse Rate [Apical] Pulse Rate from SpO2 Sensor 65 64 Respiratory Rate 26 H 22 Respiratory Depth Blood Pressure Blood Pressure [Right Arm] Blood Pressure Mean Blood Pressure Mean [Right Arm] Pulse Oximetry 94 97 Oxygen Delivery Method Nasal Cannula Nasal Cannula Oxygen Flow Rate 2 2 Sepsis Recent Fever Within 48 Hours Sepsis Action Taken by Nursing Oxygen Flow Rate - Titration Pulse Oximetry Post Tiitration Laboratory Data Attestation: I reviewed the patient's lab results. Result diagrams: 12/16/19 17:47 12/16/19 17:47 Lab Results 12/16/19 12/16/19 12/16/19 Range/Units 17:46 17:47 17:47 WBC 5.21 (4.8-10.8) K/uL RBC 4.15 L (4.2-5.4) M/uL Hgb 11.8 L (12.0-16.0) g/dL Hct 37.7 (37-47) % MCV 90.8 (80-100) fL MCH 28.4 (25-34) pg MCHC 31.3 L (32-36) g/dL RDW Std Deviation 59.7 H (36.4-46.3) fL RDW Coeff of Mariel 18.1 H (11.5-14.5) % Plt Count 168 (130-400) K/uL MPV 9.6 (7.4-10.4) fL Immature Gran % (Auto) 0.6 % Neut % (Auto) 64.8 % Lymph % (Auto) 12.5 % [place] % (Auto) 10.0 % Eos % (Auto) 11.5 % Baso % (Auto) 0.6 % Immature Gran # (Auto) 0.03 H (0.00-0.02) K/uL Neut # (Auto) 3.38 (1.4-6.5) K/uL Lymph # (Auto) 0.65 L (1.2-3.4) K/uL [place] # (Auto) 0.52 (0.11-0.59) K/uL Eos # (Auto) 0.60 H (0-0.5) K/uL Baso # (Auto) 0.03 (0-0.2) K/uL PT Cancelled INR Cancelled APTT Cancelled PTT Ratio Cancelled VBG pH 7.41 (7.36-7.41) VBG pCO2 49 (38-50) mmHg VBG pO2 22 mmHg VBG HCO3 30 mmol/L VBG O2 Saturation < 60.0 % VBG Base Excess 4.6 mEq/L Barometric Pressure 729.4 mm/Hg Sodium (136-145) mmol/L Potassium (3.5-5.1) mmol/L Chloride (98-107) mmol/L Carbon Dioxide (21-32) mmol/L Anion Gap (3-11) BUN (7-18) mg/dl Creatinine (0.6-1.2) mg/dl Est Cr Clr Drug Dosing ml/min Est GFR ( Amer) Est GFR (Non-Af Amer) BUN/Creatinine Ratio (10-20) Glucose (70-99) mg/dl POC Glucose (70-99) mg/dl Calcium (8.5-10.1) mg/dl Phosphorus (2.5-4.9) mg/dl Magnesium (1.8-2.4) mg/dl Total Bilirubin (0.2-1) mg/dl AST (15-37) U/L ALT (12-78) U/L Alkaline Phosphatase (45-117) U/L Troponin I (0-0.045) ng/ml NT-Pro-B Natriuret Pep (0-1800) pg/ml Total Protein (6.4-8.2) gm/dl Albumin (3.4-5.0) gm/dl Globulin (2.5-4.0) gm/dl Albumin/Globulin Ratio (0.9-2) Lipase (73-393) U/L TSH (0.300-4.500) uIu/ml 12/16/19 12/16/19 12/16/19 Range/Units 17:47 19:24 21:34 WBC (4.8-10.8) K/uL RBC (4.2-5.4) M/uL Hgb (12.0-16.0) g/dL Hct (37-47) % MCV (80-100) fL MCH (25-34) pg MCHC (32-36) g/dL RDW Std Deviation (36.4-46.3) fL RDW Coeff of Mariel (11.5-14.5) % Plt Count (130-400) K/uL MPV (7.4-10.4) fL Immature Gran % (Auto) % Neut % (Auto) % Lymph % (Auto) % [place] % (Auto) % Eos % (Auto) % Baso % (Auto) % Immature Gran # (Auto) (0.00-0.02) K/uL Neut # (Auto) (1.4-6.5) K/uL Lymph # (Auto) (1.2-3.4) K/uL [place] # (Auto) (0.11-0.59) K/uL Eos # (Auto) (0-0.5) K/uL Baso # (Auto) (0-0.2) K/uL PT 12.4 H INR 1.2 H APTT 26.9 PTT Ratio 1.0 VBG pH (7.36-7.41) VBG pCO2 (38-50) mmHg VBG pO2 mmHg VBG HCO3 mmol/L VBG O2 Saturation % VBG Base Excess mEq/L Barometric Pressure mm/Hg Sodium 138 (136-145) mmol/L Potassium 4.0 (3.5-5.1) mmol/L Chloride 102 (98-107) mmol/L Carbon Dioxide 29 (21-32) mmol/L Anion Gap 7.0 (3-11) BUN 46 H (7-18) mg/dl Creatinine 2.22 H (0.6-1.2) mg/dl Est Cr Clr Drug Dosing 27.3 ml/min Est GFR ( Amer) 23.2 Est GFR (Non-Af Amer) 20.0 BUN/Creatinine Ratio 20.6 H (10-20) Glucose 92 (70-99) mg/dl POC Glucose 121 H (70-99) mg/dl Calcium 9.1 (8.5-10.1) mg/dl Phosphorus 3.2 (2.5-4.9) mg/dl Magnesium 2.2 (1.8-2.4) mg/dl Total Bilirubin 0.7 (0.2-1) mg/dl AST 25 (15-37) U/L ALT 23 (12-78) U/L Alkaline Phosphatase 49 (45-117) U/L Troponin I < 0.015 (0-0.045) ng/ml NT-Pro-B Natriuret Pep 4301 H (0-1800) pg/ml Total Protein 6.9 (6.4-8.2) gm/dl Albumin 3.5 (3.4-5.0) gm/dl Globulin 3.4 (2.5-4.0) gm/dl Albumin/Globulin Ratio 1.0 (0.9-2) Lipase 60 L (73-393) U/L TSH 2.190 (0.300-4.500) uIu/ml Administered Medications Flecainide Acetate (Tambocor) 100 mg PO Q12 CLAUDINE Stop: 01/15/20 23:15 Last Admin: 12/17/19 00:16 Dose: 100 mg Documented by: [id number] Heparin Sodium (Porcine) (Heparin Sodium (Porcine)) 5,000 units SQ Q8 CLAUDINE Stop: 01/15/20 23:15 Last Admin: 12/17/19 00:16 Dose: 5,000 units Documented by: [id number] Cosigned by: [id number] Fluticasone/Salmeterol (Advair Diskus 250/50) 1 puffs INH Q12 CLAUDINE Stop: 01/15/20 23:15 Last Admin: 12/17/19 02:36 Dose: Not Given Documented by: [id number] Discontinued Medications Furosemide (Lasix) 20 mg IV NOW STA Stop: 12/16/19 20:32 Last Admin: 12/16/19 20:48 Dose: 20 mg Documented by: [id number] Blood Pressure Blood Pressure Findings: Normal blood pressure Discharge Plan Visit Data *Final* Discharge Date/Time: 12/16/19 22:44 Chief Complaint: Chest Pain Stated Complaint: CHEST PAIN, HARD TIME BREATHING ED Provider: Juan Antonio Turpin Discharge Problem: CHF (congestive heart failure), Shortness of breath, Elevated brain natriuretic peptide (BNP) level, Acute on chronic renal insufficiency Patient Disposition: Admitted As Inpatient Discharge Instructions Interventions: ED Discharge Assessment Last Done: 12/16/19 22:44
[2019-12-17] MEDS: FLUTICASONE/SALMETEROL 250/50 (ADVAIR) 14 PUFF/1 INHALER INH SCH ×3 (02:36→20:45)
[2019-12-17] MEDS: LEVOTHYROXINE SODIUM 75 MCG TABLET PO SCH (04:54)
[2019-12-17 07:42] LABS: Basophils # (auto) 0.03 K/uL (0-0.2); Basophils % (auto) 0.5 %; Eosinophils # (auto) 0.57 K/uL (0-0.5); Eosinophils % (auto) 10.4 %; Hemoglobin 11.9 g/dL (12.0-16.0); Immature Granulocytes # (auto) 0.06 K/uL (0.00-0.02); Immature Granulocytes % (auto) 1.1 %; Lymphocytes # (auto) 0.71 K/uL (1.2-3.4); Mean Corpuscular Hemoglobin 28.5 pg (25-34); Mean Corpuscular Hgb Conc 31.3 g/dL (32-36); Mean Corpuscular Volume 90.9 fL (80-100); Mean Platelet Volume 9.6 fL (7.4-10.4); Monocytes # (auto) 0.61 K/uL (0.11-0.59); Monocytes % (auto) 11.2 %; Neutrophils # (auto) 3.48 K/uL (1.4-6.5); Neutrophils % (auto) 63.8 %; Platelet Count 164 K/uL (130-400); RDW Standard Deviation 59.3 fL (36.4-46.3); Red Blood Count 4.18 M/uL (4.2-5.4); White Blood Count 5.46 K/uL (4.8-10.8)
[2019-12-17 07:52] LABS: INR 1.2 (0.9-1.1); Partial Thromboplastin Ratio 0.8; Partial Thromboplastin Time 22.4 Seconds (21.0-31.0); Prothrombin Time 12.2 Seconds (9.0-12.0)
[2019-12-17 08:07] LABS: Albumin Level 3.3 gm/dl (3.4-5.0); BUN Creatinine Ratio 21.9 (10-20); Calcium 9.3 mg/dl (8.5-10.1); Creatinine Clr Calc Pharmacy 30.5 ml/min; Est GFR (African American) 27.4; Est GFR (Non-African American) 23.7; Magnesium 2.1 mg/dl (1.8-2.4); Potassium 3.8 mmol/L (3.5-5.1)
[2019-12-17 08:10] LABS: Bilirubin,Total 0.6 mg/dl (0.2-1); Globulin 3.4 gm/dl (2.5-4.0); Total Protein 6.7 gm/dl (6.4-8.2)
[2019-12-17] MEDS: FUROSEMIDE 40 MG in SYRINGE 0 ML IV SCH (08:20)
[2019-12-17] MEDS: MULTIVITAMIN TAB PO SCH (08:20)
[2019-12-17] MEDS: INSULIN ASPART 100 UNITS/ML 3 ML PEN SC SCH ×4 (08:20→20:38)
[2019-12-17] MEDS: ASPIRIN 81 MG ECTAB PO SCH (08:20)
[2019-12-17] MEDS: hydrOXYzine HCl 10 MG TAB PO SCH (08:21)
[2019-12-17] MEDS: LOSARTAN/HCTZ 50/12.5MG TAB PO SCH (08:21)
[2019-12-17] MEDS: FAMOTIDINE 40 MG TABLET PO SCH (08:21)
[2019-12-17] MEDS: CALCIUM 600MG + VIT D 400 IU TAB PO SCH (08:22)
[2019-12-17] MEDS: TRAMADOL HCL 50 MG TABLET PO SCH (08:23)
[2019-12-17] MEDS ORDERED: FUROSEMIDE 40 MG/4 ML VIAL IV SCH (09:00)
[2019-12-17] MEDS ORDERED: SALINE NASAL 225 SPRAYS, GENTAMICIN SULFATE 60 MG, BARCODE IDENTIFIER 1 EA SCH (09:00)
[2019-12-17] MEDS ORDERED: GENTAMICIN SULFATE INH SCH (09:00)
[2019-12-17] MEDS ORDERED: METOPROLOL SUCC 25MG EXT REL TAB PO SCH (09:00)
[2019-12-17] MEDS ORDERED: NITROGLYCERIN SL 0.4 MG/TAB TAB SL STA ×2 (09:56→10:29)
[2019-12-17] MEDS ORDERED: NITROGLYCERIN SL 0.4 MG/TAB TAB ONE ×2 (09:57→13:20)
--- NOTE | 2019-12-17 10:47 | Cardiology Consultation ---
Date of Consultation December 17, 2019 Assessment & Plan (1) Acute coronary syndrome: (2) Cardiomyopathy: (3) Acute on chronic kidney failure: (4) Hypertension: (5) LBBB (left bundle branch block): (6) Frequent PVCs: ASSESSMENT/PLAN: 1. Acute coronary syndrome: Presentation concerning for acute coronary syndrome given initial troponin of 0 with trending upward and ongoing chest discomfort, newly diagnosed left bundle branch block, and newly diagnosed cardiomyopathy. Nitroglycerin was recommended while at the bedside and her chest discomfort/back pain significantly improved. Further nitroglycerin after blood pressure check was recommended. Heparin drip recommended. Continue aspirin. Recommended cardiac catheterization urgently given ongoing symptoms. Risks and benefits were discussed with her and her daughter via telephone, including increased risk of worsening renal function given baseline and acute worsening of her renal function. They are made aware that CT surgery is not available at this facility. They both requested time to think it over and talk to 1 another. Hopefully with further nitroglycerin, her pain will resolve while they continue to make their decision. They were made aware that if there is ongoing ischemic issues, further myocardial damage could occur. 2. Cardiomyopathy: Unclear if this is new during this presentation or sometime between her last echo a few years ago. Recommended cardiac catheterization as above. Clinically, she does not appear to be significantly hypervolemic. She was treated with IV Lasix yesterday and once again this morning for concern of heart failure. Filling pressures will hopefully be evaluated during cardiac catheterization, if she consents to the procedure. Would recommend titration of metoprolol succinate and consideration of DENIS I vs Entresto if renal function further improved. 3. Acute on chronic kidney failure: Fortunately, creatinine improved today with diuresis yesterday. Continue to monitor closely. 4. Left bundle-branch block: Unclear if this is acute change verses exchange consultant the past 2 years or so with no recent to compare to. Plan as above. 5. Hypertension: Blood pressure currently well controlled but was hypertensiveEarlier during this hospitalization. Continue beta-rivera. 6. Dyslipidemia: On simvastatin but would recommend high-intensity statin therapy. 7. Frequent PVCs: She is on flecainide for PVCs in the past. Given structural abnormalities, flecainide will be discontinued at this time. 8. Disposition: Cardiology will continue to follow. Cardiac catheterization recommended as above, awaiting patient consent. Dr. Hammer, primary hospitalist service, and I discussed patient care and plan. Highly complex medical issues. Thank you for allowing me to participate in the care of your patient. Please call for any other questions or concerns. Sincerely, Francisco Javier Winn M.D. History of Present Illness Reason for Consultation: CHF, acute kidney injury on CKD. Requesting Physician: Dr. Bassett Attending Physician: Stevie Hammer, DO History of Present Illness Ms. Melendrez is a pleasant 84-year-old female with a history significant for CKD, type 2 diabetes, hypertension, dyslipidemia, sleep apnea, COPD using 2 L of supplemental oxygen with activity, breast cancer s/p XRT, and frequent ventricular ectopy on flecainide. She follows with Mr. Raudel Gr for cardiology and has seen Dr. Bueno for electrophysiology needs in the past. In September of 2019, she was diagnosed with acute asthmatic bronchitis exacerbation. She states that since that time, she has never fully recovered from a breathing standpoint and never fell herself. Her daughter, Kristan, was contacted via telephone as per patient request and states that her mother has been struggling with exertion for the past week or so and has been very fat igued. Yesterday, the patient developed substernal chest discomfort radiating to her back associated with shortness of breath. It has been constant since then. She cannot further characterize the pain. There is no other radiation. She denies syncope, near-syncope, palpitations, edema, or bleeding such as melena, hematochezia, or hematuria. She denies fever, chills, nausea, vomiting. She was felt to have a CHF exacerbation by the admitting team and was given intravenous Lasix resulting in 700 mL of urine output According to records. She is no longer short of breath laying in bed, but continued to have the pain in her chest and back during our visit. While at the bedside, an echocardiogram was being performed. It demonstrated significantly reduced LV systolic function with mid to distal and apical wall motion abnormalities. There was non severe mitral regurgitation. Formal review of the echo to follow. Review of systems: As above. Review of systems otherwise negative/unremarkable. Family history: Father at age of 72 from a thrombus. She remembers the term saddle but does not recall other details. Social history: She denies tobacco or alcohol abuse. She lives with her daughter, Kristan.She was unaccompanied in her hospital room. Allergies Allergy/AdvReac Type Severity Reaction Status Date / Time Penicillins Allergy Intermediate SEVERE RASH Verified 12/16/19 18:33 Sulfa (Sulfonamide Allergy Unknown Unknown Verified 12/16/19 18:33 Antibiotics) Home Medications Home Medications Medication Instructions Recorded Confirmed Type albuterol sulfate [ProAir HFA] 2 puff INHALATION Q4 PRN 06/08/18 12/16/19 History aspirin 81 mg PO [id number] 06/08/18 12/16/19 History famotidine 40 mg PO DAILY 06/08/18 12/16/19 History levothyroxine [Synthroid] 75 mcg PO DAILY 06/08/18 12/16/19 History losartan-hydrochlorothiazide 1 tab PO DAILY 06/08/18 12/16/19 History multivitamin [Multiple Vitamins] 1 tab PO DAILY 06/08/18 12/16/19 History simvastatin 40 mg PO PM 06/08/18 12/16/19 History hydroxyzine HCl 10 mg tablet 10 mg PO DAILY tab 01/29/19 12/16/19 History meloxicam 15 mg tablet 15 mg PO DAILY tab 01/29/19 12/16/19 History pioglitazone 30 mg tablet 30 mg PO DAILY tab 01/29/19 12/16/19 History tramadol 50 mg tablet 50 mg PO DAILY tab 01/29/19 12/16/19 History furosemide 20 mg tablet 20 mg PO QAM 04/21/19 12/16/19 History metformin 500 mg tablet 500 mg PO QPM tab 04/21/19 12/16/19 History fluticasone 250 mcg-salmeterol 50 1 puffs INH Q12H #180 ea 05/15/19 12/16/19 Rx mcg/dose blistr powdr for inhalation flecainide 100 mg tablet 100 mg PO Q12H #14 tab 07/15/19 12/16/19 Rx ipratropium 0.5 mg-albuterol 3 mg 3 ml INHALATION Q4 PRN #540 ml 08/15/19 12/16/19 Rx (2.5 mg base)/3 mL nebulization soln gentamicin sulfate (PF) 60 mg/6 mL 60 mg INHALATION TID #45 ml 08/21/19 12/16/19 Rx intravenous solution Oxygen Home #2 liter 09/16/19 Rx metoprolol succinate 25 mg 12.5 mg PO DAILY #45 tab 11/10/19 12/16/19 Rx tablet,extended release 24 hr calcium carb and citrate-vitD3 1 tab PO DAILY 12/16/19 12/16/19 History Patient History Medical History Arthritis of foot, left (Chronic) Arthritis of foot, right (Chronic) Bradycardia (Chronic) Breast cancer (Resolved) Cellulitis COPD exacerbation Frequent PVCs Hypertension Leaky heart valve Obstructive sleep apnea 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 Alert and oriented. HEENT: Anicteric sclera. Neck: Thick neck, cannot appreciate JVD. No bruits. Normal carotid upstrokes bilaterally. Cardiac: PMI was nonpalpable. No ventricular heave. Regula. Normal S1-S2. No murmurs, rubs, or gallops. Pulmonary: Decreased breath sounds bilaterally, but otherwise clear to auscultation bilaterally without wheezes, rales, or rhonchi. Abdomen: Soft, nontender, nondistended, with normoactive bowel sounds. No bruits noted. Extremities: 2+ radial pulses bilaterally. 2+ posterior tibialis pulses bilaterally. No significant pitting edema. No cyanosis. Psychiatric: Affect appears appropriate. Results & Data ([facility]) Vital Signs (Past 12 Hours) Vital Signs Temp Pulse Pulse Pulse Resp BP BP 12/17/19 10:20 131/79 12/17/19 07:56 37.5 C 70 26 H 136/92 12/17/19 04:40 36.7 C 12/17/19 03:26 37.9 C H 60 18 141/70 H 12/16/19 23:50 61 21 12/16/19 23:17 37.2 C 67 22 127/75 Pulse Ox 12/17/19 10:20 12/17/19 07:56 96 12/17/19 04:40 12/17/19 03:26 95 12/16/19 23:50 99 12/16/19 23:17 96 Intake & Output 12/15/19 12/16/19 12/17/19 12/18/19 06:59 06:59 06:59 06:59 Output Total 700 / 700 Balance -700 / -700 Weight 139.8 kg Laboratory Results Laboratory Results - last 24 hr 12/16/19 12/16/19 12/16/19 17:46 17:47 17:47 WBC 5.21 RBC 4.15 L Hgb 11.8 L Hct 37.7 MCV 90.8 MCH 28.4 MCHC 31.3 L RDW Std Deviation 59.7 H RDW Coeff of Mariel 18.1 H Plt Count 168 MPV 9.6 Immature Gran % (Auto) 0.6 Neut % (Auto) 64.8 Lymph % (Auto) 12.5 Sioux % (Auto) 10.0 Eos % (Auto) 11.5 Baso % (Auto) 0.6 Immature Gran # (Auto) 0.03 H Neut # (Auto) 3.38 Lymph # (Auto) 0.65 L [place] # (Auto) 0.52 Eos # (Auto) 0.60 H Baso # (Auto) 0.03 PT Cancelled INR Cancelled APTT Cancelled PTT Ratio Cancelled VBG pH 7.41 VBG pCO2 49 VBG pO2 22 VBG HCO3 30 VBG O2 Saturation < 60.0 VBG Base Excess 4.6 Barometric Pressure 729.4 Sodium Potassium Chloride Carbon Dioxide Anion Gap BUN Creatinine Est Cr Clr Drug Dosing Est GFR ( Amer) Est GFR (Non-Af Amer) BUN/Creatinine Ratio Glucose POC Glucose Estimat Average Glucose Hemoglobin A1c Calcium Phosphorus Magnesium Total Bilirubin AST ALT Alkaline Phosphatase Troponin I NT-Pro-B Natriuret Pep Total Protein Albumin Globulin Albumin/Globulin Ratio Lipase TSH 12/16/19 12/16/19 12/16/19 17:47 19:24 21:34 WBC RBC Hgb Hct MCV MCH MCHC RDW Std Deviation RDW Coeff of Mariel Plt Count MPV Immature Gran % (Auto) Neut % (Auto) Lymph % (Auto) [place]oux % (Auto) Eos % (Auto) Baso % (Auto) Immature Gran # (Auto) Neut # (Auto) Lymph # (Auto) [place] # (Auto) Eos # (Auto) Baso # (Auto) PT 12.4 H INR 1.2 H APTT 26.9 PTT Ratio 1.0 VBG pH VBG pCO2 VBG pO2 VBG HCO3 VBG O2 Saturation VBG Base Excess Barometric Pressure Sodium 138 Potassium 4.0 Chloride 102 Carbon Dioxide 29 Anion Gap 7.0 BUN 46 H Creatinine 2.22 H Est Cr Clr Drug Dosing 27.3 Est GFR ( Amer) 23.2 Est GFR (Non-Af Amer) 20.0 BUN/Creatinine Ratio 20.6 H Glucose 92 POC Glucose 121 H Estimat Average Glucose Hemoglobin A1c Calcium 9.1 Phosphorus 3.2 Magnesium 2.2 Total Bilirubin 0.7 AST 25 ALT 23 Alkaline Phosphatase 49 Troponin I < 0.015 NT-Pro-B Natriuret Pep 4301 H Total Protein 6.9 Albumin 3.5 Globulin 3.4 Albumin/Globulin Ratio 1.0 Lipase 60 L TSH 2.190 12/16/19 12/17/19 12/17/19 23:31 07:19 07:19 WBC 5.46 RBC 4.18 L Hgb 11.9 L Hct 38.0 MCV 90.9 MCH 28.5 MCHC 31.3 L RDW Std Deviation 59.3 H RDW Coeff of Mariel 18.0 H Plt Count 164 MPV 9.6 Immature Gran % (Auto) 1.1 Neut % (Auto) 63.8 Lymph % (Auto) 13.0 Sioux % (Auto) 11.2 Eos % (Auto) 10.4 Baso % (Auto) 0.5 Immature Gran # (Auto) 0.06 H Neut # (Auto) 3.48 Lymph # (Auto) 0.71 L [place] # (Auto) 0.61 H Eos # (Auto) 0.57 H Baso # (Auto) 0.03 PT 12.2 H INR 1.2 H APTT 22.4 PTT Ratio 0.8 VBG pH VBG pCO2 VBG pO2 VBG HCO3 VBG O2 Saturation VBG Base Excess Barometric Pressure Sodium Potassium Chloride Carbon Dioxide Anion Gap BUN Creatinine Est Cr Clr Drug Dosing Est GFR ( Amer) Est GFR (Non-Af Amer) BUN/Creatinine Ratio Glucose POC Glucose Estimat Average Glucose Hemoglobin A1c Calcium Phosphorus Magnesium Total Bilirubin AST ALT Alkaline Phosphatase Troponin I 0.358 H* NT-Pro-B Natriuret Pep Total Protein Albumin Globulin Albumin/Globulin Ratio Lipase TSH 12/17/19 12/17/19 12/17/19 07:19 07:19 07:19 WBC RBC Hgb Hct MCV MCH MCHC RDW Std Deviation RDW Coeff of Mariel Plt Count MPV Immature Gran % (Auto) Neut % (Auto) Lymph % (Auto) [place] % (Auto) Eos % (Auto) Baso % (Auto) Immature Gran # (Auto) Neut # (Auto) Lymph # (Auto) [place] # (Auto) Eos # (Auto) Baso # (Auto) PT INR APTT PTT Ratio VBG pH VBG pCO2 VBG pO2 VBG HCO3 VBG O2 Saturation VBG Base Excess Barometric Pressure Sodium 136 Potassium 3.8 Chloride 101 Carbon Dioxide 29 Anion Gap 6.0 BUN 42 H Creatinine 1.93 H Est Cr Clr Drug Dosing 30.5 Est GFR ( Amer) 27.4 Est GFR (Non-Af Amer) 23.7 BUN/Creatinine Ratio 21.9 H Glucose 87 POC Glucose Estimat Average Glucose Pending Hemoglobin A1c Pending Calcium 9.3 Phosphorus Magnesium 2.1 Total Bilirubin 0.6 AST 23 ALT 22 Alkaline Phosphatase 48 Troponin I 0.379 H* NT-Pro-B Natriuret Pep Total Protein 6.7 Albumin 3.3 L Globulin 3.4 Albumin/Globulin Ratio 1.0 Lipase TSH 12/17/19 07:20 WBC RBC Hgb Hct MCV MCH MCHC RDW Std Deviation RDW Coeff of Mariel Plt Count MPV Immature Gran % (Auto) Neut % (Auto) Lymph % (Auto) [place] % (Auto) Eos % (Auto) Baso % (Auto) Immature Gran # (Auto) Neut # (Auto) Lymph # (Auto) [place] # (Auto) Eos # (Auto) Baso # (Auto) PT INR APTT PTT Ratio VBG pH VBG pCO2 VBG pO2 VBG HCO3 VBG O2 Saturation VBG Base Excess Barometric Pressure Sodium Potassium Chloride Carbon Dioxide Anion Gap BUN Creatinine Est Cr Clr Drug Dosing Est GFR ( Amer) Est GFR (Non-Af Amer) BUN/Creatinine Ratio Glucose POC Glucose 92 Estimat Average Glucose Hemoglobin A1c Calcium Phosphorus Magnesium Total Bilirubin AST ALT Alkaline Phosphatase Troponin I NT-Pro-B Natriuret Pep Total Protein Albumin Globulin Albumin/Globulin Ratio Lipase TSH Diagnostic Findings Telemetry personally reviewed: Sinus rhythm. ECG personally reviewed: ECG 12/16/2019: Sinus rhythm with first-degree AV block. LBBB. LBBB new compared to 06/08/2018 ECG. ECG 12/17/2019: Sinus rhythm first-degree AV block with PAC at 62 bpm. LBBB. Echo 12/17/2019: Images personally reviewed at the bedside and discussed with patient and her daughter. LV systolic function significantly reduced with extensive wall motion abnormalities, appearing to spare the bases. Non severe mitral regurgitation. Formal review to follow. Chest x-ray 12/16/2019: Images personally reviewed: No infiltrate. Hiatal hernia. Per Radiology, interval progression of interstitial thickening. Cardiomegaly. Medications Administered Current Inpatient Medications Acetaminophen (Tylenol) 650 mg PO Q4H PRN PRN Reason: Pain or Fever Stop: 01/15/20 23:15 Al Hydrox/Mg Hydrox/Simethicone (Maalox) 15 ml PO Q4H PRN PRN Reason: Dyspepsia Stop: 01/15/20 23:15 Albuterol (Ventolin Hfa) 2 puffs INH Q4 PRN PRN Reason: Shortness Of Breath Or Wheezing Stop: 01/15/20 23:49 Albuterol (Duoneb) 3 ml INH Q4 PRN PRN Reason: Shortness Of Breath Or Wheezing Stop: 01/15/20 23:15 Aspirin (Ecotrin Ectab) 81 mg PO MoWeFr@0900 CLAUDINE Stop: 01/16/20 08:59 Last Admin: 12/17/19 08:20 Dose: 81 mg Documented by: Aspirin (Ecotrin Ectab) 243 mg PO NOW STA Stop: 12/17/19 10:41 Dextrose (Dextrose 50%) 25 - 50 ml IV UD PRN; Protocol PRN Reason: Hypoglycemia Protocol Stop: 01/15/20 23:15 Famotidine (Pepcid) 40 mg PO DAILY CLAUDINE Stop: 01/16/20 08:59 Last Admin: 12/17/19 08:21 Dose: 40 mg Documented by: Flecainide Acetate (Tambocor) 100 mg PO Q12 CLAUDINE Stop: 01/15/20 23:15 Last Admin: 12/17/19 08:21 Dose: 100 mg Documented by: Glucagon (Glucagen) 1 mg SQ UD PRN; Protocol PRN Reason: Hypoglycemia Protocol Stop: 01/15/20 23:15 Glucose (Dex4 Glucose) 4 - 8 tabs PO UD PRN; Protocol PRN Reason: Hypoglycemia Protocol Stop: 01/15/20 23:15 Glucose (Glucose 40%) 15 - 30 gm PO UD PRN; Protocol PRN Reason: Hypoglycemia Protocol Stop: 01/15/20 23:15 HCTZ/Losartan Potassium (Hyzaar 50/12.5mg) 1 tab PO DAILY CLAUDINE Stop: 01/16/20 08:59 Last Admin: 12/17/19 08:21 Dose: 1 tab Documented by: Heparin Sodium (Porcine) (Heparin Sodium (Porcine)) 5,000 units SQ Q8 CLAUDINE Stop: 01/15/20 23:15 Last Admin: 12/17/19 04:54 Dose: 5,000 units Documented by: Heparin Sodium/Dextrose () 1 ea N/A NOW STA; Protocol Stop: 12/17/19 10:35 Hydroxyzine HCl (Vistaril) 10 mg PO DAILY CLAUDINE Stop: 01/16/20 08:59 Last Admin: 12/17/19 08:21 Dose: 10 mg Documented by: Furosemide 40 mg/ Syringe 4 mls @ 4 mls/min IV QAM CLAUDINE Stop: 01/16/20 08:59 Last Admin: 12/17/19 08:20 Dose: 4 mls/min Documented by: Heparin Sodium/Dextrose (Heparin Sodium/Dextrose) 25,000 units in 500 mls @ 0.02 mls/hr IV .Q24H [facility]; Protocol Stop: 01/16/20 10:44 Insulin Aspart (Novolog Flexpen) 0 units SC ACHS [facility] Stop: 01/16/20 07:29 Last Admin: 12/17/19 08:20 Dose: Not Given Documented by: Levothyroxine Sodium (Synthroid) 75 mcg PO DAILYBB [facility] Stop: 01/16/20 06:29 Last Admin: 12/17/19 04:54 Dose: 75 mcg Documented by: Magnesium Hydroxide (Milk Of Magnesia) 30 ml PO Q12H PRN PRN Reason: Constipation Stop: 01/15/20 23:15 Metoprolol Succinate (Toprol Xl) 12.5 mg PO DAILY CLAUDINE Stop: 01/16/20 08:59 Last Admin: 12/17/19 08:21 Dose: 12.5 mg Documented by: Miscellaneous (Carbohydrates For Hypoglycemia) 15 - 30 gm PO UD PRN PRN Reason: Hypoglycemia Protocol Stop: 01/15/20 23:15 Multivitamins (Multivitamin Tab) 1 tab PO DAILY CLAUDINE Stop: 01/16/20 08:59 Last Admin: 12/17/19 08:20 Dose: 1 tab Documented by: Multivitamins/Minerals (Caltrate Plus) 1 tab PO DAILY CLAUDNIE Stop: 01/16/20 08:59 Last Admin: 12/17/19 08:22 Dose: 1 tab Documented by: Ondansetron HCl (Zofran) 4 mg IV Q6H PRN PRN Reason: Nausea Stop: 01/15/20 23:15 Fluticasone/Salmeterol (Advair Diskus 250/50) 1 puffs INH Q12 CLAUDINE Stop: 01/15/20 23:15 Last Admin: 12/17/19 09:59 Dose: 1 puffs Documented by: Simvastatin (Zocor) 40 mg PO PM CLAUDINE Stop: 01/16/20 20:59 Tramadol HCl (Ultram) 50 mg PO DAILY CLAUDINE Stop: 01/16/20 08:59 Last Admin: 12/17/19 08:23 Dose: 50 mg Documented by: PG Care Time/CCT Total # of Minutes Spent Total Time Spent with Patient: Total time spent is greater than 50% in coordination of care (as documented) at patient's floor/unit and/or counseling patient: Coding Level of Care Code 26426 Initial Inpt Care Lvl 3 Diagnoses Acute coronary syndrome I24.9 Cardiomyopathy I42.9 Acute on chronic kidney failure N17.9; N18.9 Hypertension I10 Hypertension type: essential hypertension LBBB (left bundle branch block) I44.7 Frequent PVCs I49.3 (1) Hypertension Hypertension type: essential hypertension Qualified Code(s): I10 - Essential (primary) hypertension
[2019-12-17] MEDS ORDERED: HEPARIN 25000 UNIT/500 ML D5W IV ONE (10:58)
[2019-12-17] MEDS ORDERED: HEPARIN IV BOLUS 7,000 UNITS in SYRINGE 0 ML IV ONE (11:15)
[2019-12-17] MEDS ORDERED: ASPIRIN 81 MG ECTAB PO ONE (11:15)
--- NOTE | 2019-12-17 11:17 | Hospitalist Progress Note ---
Date of Service December 17, 2019 Assessment & Plan (1) NSTEMI (non-ST elevated myocardial infarction): troponin elevated at 0.3 with symptoms consistent with angina at rest new LBBB and echocardiogram with wall motion abnormality treated with antiplatelet therapy, heparin drip, Nitro SL, Lipitor Toprol increased to 25mg left heart cath on 12/16, showed 50-70% lesion in mid LAD, no other significant disease heparin drip stopped due to hematomas over bilateral wrists (2) Acute on chronic diastolic CHF (congestive heart failure): Acute on chronic diastolic CHF improving with Lasix IV, hold on further dosing this evening due to IV dye with heart cath she is negative for fluid balance today, breathing better Cr down slightly to 1.9 repeat BMP tomorrow, reassess volume status and repeat Lasix IV as needed (3) Diabetes: Hold pioglitazone, in addition may be contributing to CHF. Hold metformin. Placed on Accu-Cheks before meals and at bedtime with NovoLog coverage per scale monitor for hypoglycemia (4) COPD (chronic obstructive pulmonary disease): Continue pro-air HFA, Advair discus, gentamicin sulfate inhaled solution and PRN duo nebs. no wheezing on exam (5) Obstructive sleep apnea: Consult respiratory therapy for CPAP at bedtime. Daughter will bring in her own CPAP use tomorrow night. (6) Hypertension: continue Toprol (7) Acute kidney injury superimposed on chronic kidney disease: Creatinine 2.22 upon admission, with range 1.05-1.68. Follow serial laboratories. Hold lisinopril/HCTZ Cr down to 1.9 today (8) Hypothyroid: Continue levothyroxine sodium 75 mcg daily (9) CKD (chronic kidney disease), stage III: Cr improved to 1.9, not quite at baseline Admission and Anticipated Discharge Date Admission Date: December 16, 2019 Subjective patient doing better this morning after nitro discussed with Dr. Winn, he recommended left heart cath cath was difficult, could not access coronary arteries with catheters but able to get some images early LAD lesion is 50-70%, no role for intervention at this time had some skin tears on wrists after the procedure, skin very thin patient breathing well this morning, no nausea, no abdominal pain Review of Systems Review of Systems: All systems reviewed & are unremarkable except as noted in HPI & below Constitutional: + weakness; no fever, no chills and no sweats Respiratory: + dyspnea on exertion; no cough and no dyspnea Cardiovascular: + chest pain, + chest pain at rest, + dyspnea and + edema; no palpitations and no syncope Gastrointestinal: no abdominal pain, no nausea, no vomiting, no constipation and no diarrhea/loose stools Physical Exam Constitutional: WD/WN, vitals as above + overweight Eyes: PERRL, conjunctivae normal, anicteric sclerae ENMT: external ear and nose normal, oropharynx normal Neck: trachea midline, no thyromegaly Respiratory: normal respiratory effort, lungs clear to auscultation Cardiovascular: Rate/Rhythm: regular rate and regular rhythm Heart Sounds: normal S1 and normal S2; no murmur Vessels: + JVD Extremities: normal capillary refill and + edema Gastrointestinal (Abdomen): normal bowel sounds, soft, nontender, no hepatosplenomegaly Musculoskeletal: no cyanosis or clubbing, extremities motor strength 5/5 Skin: no rashes, warm and dry Neurologic: patellar DTR's 2+ bilat, sensation intact and PERRL, EOMI, accomm odation nl, no face palsy, no dysarthria Psychiatric: A+Ox3, euthymic affect Lymphatic: no cervical or axillary lymphadenopathy Results & Data Results & Data ([facility]) Vital Signs (Past 12 Hours) Vital Signs Temp Pulse Pulse Pulse Resp BP BP 12/17/19 10:20 131/79 12/17/19 07:56 37.5 C 70 26 H 136/92 12/17/19 04:40 36.7 C 12/17/19 03:26 37.9 C H 60 18 141/70 H 12/16/19 23:50 61 21 12/16/19 23:17 37.2 C 67 22 127/75 Pulse Ox 12/17/19 10:20 12/17/19 07:56 96 12/17/19 04:40 12/17/19 03:26 95 12/16/19 23:50 99 12/16/19 23:17 96 Laboratory Results Laboratory Results - last 24 hr 12/16/19 12/16/19 12/16/19 17:46 17:47 17:47 WBC 5.21 RBC 4.15 L Hgb 11.8 L Hct 37.7 MCV 90.8 MCH 28.4 MCHC 31.3 L RDW Std Deviation 59.7 H RDW Coeff of Mariel 18.1 H Plt Count 168 MPV 9.6 Immature Gran % (Auto) 0.6 Neut % (Auto) 64.8 Lymph % (Auto) 12.5 [place] % (Auto) 10.0 Eos % (Auto) 11.5 Baso % (Auto) 0.6 Immature Gran # (Auto) 0.03 H Neut # (Auto) 3.38 Lymph # (Auto) 0.65 L [place] # (Auto) 0.52 Eos # (Auto) 0.60 H Baso # (Auto) 0.03 PT Cancelled INR Cancelled APTT Cancelled PTT Ratio Cancelled VBG pH 7.41 VBG pCO2 49 VBG pO2 22 VBG HCO3 30 VBG O2 Saturation < 60.0 VBG Base Excess 4.6 Barometric Pressure 729.4 Sodium Potassium Chloride Carbon Dioxide Anion Gap BUN Creatinine Est Cr Clr Drug Dosing Est GFR ( Amer) Est GFR (Non-Af Amer) BUN/Creatinine Ratio Glucose POC Glucose Estimat Average Glucose Hemoglobin A1c Calcium Phosphorus Magnesium Total Bilirubin AST ALT Alkaline Phosphatase Troponin I NT-Pro-B Natriuret Pep Total Protein Albumin Globulin Albumin/Globulin Ratio Lipase TSH 12/16/19 12/16/19 12/16/19 17:47 19:24 21:34 WBC RBC Hgb Hct MCV MCH MCHC RDW Std Deviation RDW Coeff of Mariel Plt Count MPV Immature Gran % (Auto) Neut % (Auto) Lymph % (Auto) [place] % (Auto) Eos % (Auto) Baso % (Auto) Immature Gran # (Auto) Neut # (Auto) Lymph # (Auto) [place] # (Auto) Eos # (Auto) Baso # (Auto) PT 12.4 H INR 1.2 H APTT 26.9 PTT Ratio 1.0 VBG pH VBG pCO2 VBG pO2 VBG HCO3 VBG O2 Saturation VBG Base Excess Barometric Pressure Sodium 138 Potassium 4.0 Chloride 102 Carbon Dioxide 29 Anion Gap 7.0 BUN 46 H Creatinine 2.22 H Est Cr Clr Drug Dosing 27.3 Est GFR ( Amer) 23.2 Est GFR (Non-Af Amer) 20.0 BUN/Creatinine Ratio 20.6 H Glucose 92 POC Glucose 121 H Estimat Average Glucose Hemoglobin A1c Calcium 9.1 Phosphorus 3.2 Magnesium 2.2 Total Bilirubin 0.7 AST 25 ALT 23 Alkaline Phosphatase 49 Troponin I < 0.015 NT-Pro-B Natriuret Pep 4301 H Total Protein 6.9 Albumin 3.5 Globulin 3.4 Albumin/Globulin Ratio 1.0 Lipase 60 L TSH 2.190 12/16/19 12/17/19 12/17/19 23:31 07:19 07:19 WBC 5.46 RBC 4.18 L Hgb 11.9 L Hct 38.0 MCV 90.9 MCH 28.5 MCHC 31.3 L RDW Std Deviation 59.3 H RDW Coeff of Mariel 18.0 H Plt Count 164 MPV 9.6 Immature Gran % (Auto) 1.1 Neut % (Auto) 63.8 Lymph % (Auto) 13.0 [place] % (Auto) 11.2 Eos % (Auto) 10.4 Baso % (Auto) 0.5 Immature Gran # (Auto) 0.06 H Neut # (Auto) 3.48 Lymph # (Auto) 0.71 L [place] # (Auto) 0.61 H Eos # (Auto) 0.57 H Baso # (Auto) 0.03 PT 12.2 H INR 1.2 H APTT 22.4 PTT Ratio 0.8 VBG pH VBG pCO2 VBG pO2 VBG HCO3 VBG O2 Saturation VBG Base Excess Barometric Pressure Sodium Potassium Chloride Carbon Dioxide Anion Gap BUN Creatinine Est Cr Clr Drug Dosing Est GFR ( Amer) Est GFR (Non-Af Amer) BUN/Creatinine Ratio Glucose POC Glucose Estimat Average Glucose Hemoglobin A1c Calcium Phosphorus Magnesium Total Bilirubin AST ALT Alkaline Phosphatase Troponin I 0.358 H* NT-Pro-B Natriuret Pep Total Protein Albumin Globulin Albumin/Globulin Ratio Lipase TSH 12/17/19 12/17/19 12/17/19 07:19 07:19 07:19 WBC RBC Hgb Hct MCV MCH MCHC RDW Std Deviation RDW Coeff of Mariel Plt Count MPV Immature Gran % (Auto) Neut % (Auto) Lymph % (Auto) [place] % (Auto) Eos % (Auto) Baso % (Auto) Immature Gran # (Auto) Neut # (Auto) Lymph # (Auto) [place] # (Auto) Eos # (Auto) Baso # (Auto) PT INR APTT PTT Ratio VBG pH VBG pCO2 VBG pO2 VBG HCO3 VBG O2 Saturation VBG Base Excess Barometric Pressure Sodium 136 Potassium 3.8 Chloride 101 Carbon Dioxide 29 Anion Gap 6.0 BUN 42 H Creatinine 1.93 H Est Cr Clr Drug Dosing 30.5 Est GFR ( Amer) 27.4 Est GFR (Non-Af Amer) 23.7 BUN/Creatinine Ratio 21.9 H Glucose 87 POC Glucose Estimat Average Glucose Pending Hemoglobin A1c Pending Calcium 9.3 Phosphorus Magnesium 2.1 Total Bilirubin 0.6 AST 23 ALT 22 Alkaline Phosphatase 48 Troponin I 0.379 H* NT-Pro-B Natriuret Pep Total Protein 6.7 Albumin 3.3 L Globulin 3.4 Albumin/Globulin Ratio 1.0 Lipase TSH 12/17/19 07:20 WBC RBC Hgb Hct MCV MCH MCHC RDW Std Deviation RDW Coeff of Mariel Plt Count MPV Immature Gran % (Auto) Neut % (Auto) Lymph % (Auto) [place] % (Auto) Eos % (Auto) Baso % (Auto) Immature Gran # (Auto) Neut # (Auto) Lymph # (Auto) [place] # (Auto) Eos # (Auto) Baso # (Auto) PT INR APTT PTT Ratio VBG pH VBG pCO2 VBG pO2 VBG HCO3 VBG O2 Saturation VBG Base Excess Barometric Pressure Sodium Potassium Chloride Carbon Dioxide Anion Gap BUN Creatinine Est Cr Clr Drug Dosing Est GFR ( Amer) Est GFR (Non-Af Amer) BUN/Creatinine Ratio Glucose POC Glucose 92 Estimat Average Glucose Hemoglobin A1c Calcium Phosphorus Magnesium Total Bilirubin AST ALT Alkaline Phosphatase Troponin I NT-Pro-B Natriuret Pep Total Protein Albumin Globulin Albumin/Globulin Ratio Lipase TSH Medications Administered Current Inpatient Medications Acetaminophen (Tylenol) 650 mg PO Q4H PRN PRN Reason: Pain or Fever Stop: 01/15/20 23:15 Al Hydrox/Mg Hydrox/Simethicone (Maalox) 15 ml PO Q4H PRN PRN Reason: Dyspepsia Stop: 01/15/20 23:15 Albuterol (Ventolin Hfa) 2 puffs INH Q4 PRN PRN Reason: Shortness Of Breath Or Wheezing Stop: 01/15/20 23:49 Albuterol (Duoneb) 3 ml INH Q4 PRN PRN Reason: Shortness Of Breath Or Wheezing Stop: 01/15/20 23:15 Aspirin (Ecotrin Ectab) 81 mg PO MoWeFr@0900 [facility] Stop: 01/16/20 08:59 Last Admin: 12/17/19 08:20 Dose: 81 mg Documented by: Dextrose (Dextrose 50%) 25 - 50 ml IV UD PRN; Protocol PRN Reason: Hypoglycemia Protocol Stop: 01/15/20 23:15 Famotidine (Pepcid) 40 mg PO DAILY CLAUDINE Stop: 01/16/20 08:59 Last Admin: 12/17/19 08:21 Dose: 40 mg Documented by: Glucagon (Glucagen) 1 mg SQ UD PRN; Protocol PRN Reason: Hypoglycemia Protocol Stop: 01/15/20 23:15 Glucose (Dex4 Glucose) 4 - 8 tabs PO UD PRN; Protocol PRN Reason: Hypoglycemia Protocol Stop: 01/15/20 23:15 Glucose (Glucose 40%) 15 - 30 gm PO UD PRN; Protocol PRN Reason: Hypoglycemia Protocol Stop: 01/15/20 23:15 HCTZ/Losartan Potassium (Hyzaar 50/12.5mg) 1 tab PO DAILY CLAUDINE Stop: 01/16/20 08:59 Last Admin: 12/17/19 08:21 Dose: 1 tab Documented by: Heparin Sodium (Porcine) (Heparin Sodium (Porcine)) 5,000 units SQ Q8 CLAUDINE Stop: 01/15/20 23:15 Last Admin: 12/17/19 04:54 Dose: 5,000 units Documented by: Hydroxyzine HCl (Vistaril) 10 mg PO DAILY CLAUDINE Stop: 01/16/20 08:59 Last Admin: 12/17/19 08:21 Dose: 10 mg Documented by: Furosemide 40 mg/ Syringe 4 mls @ 4 mls/min IV QAM [facility] Stop: 01/16/20 08:59 Last Admin: 12/17/19 08:20 Dose: 4 mls/min Documented by: Heparin Sodium/Dextrose (Heparin Sodium/Dextrose) 25,000 units in 500 mls @ 31 mls/hr IV .Q16H8M [facility]; Protocol Stop: 01/16/20 10:44 Insulin Aspart (Novolog Flexpen) 0 units SC ACHS [facility] Stop: 01/16/20 07:29 Last Admin: 12/17/19 08:20 Dose: Not Given Documented by: Levothyroxine Sodium (Synthroid) 75 mcg PO DAILYBB CLAUDINE Stop: 01/16/20 06:29 Last Admin: 06/10/20 04:54 Dose: 75 mcg Documented by: Magnesium Hydroxide (Milk Of Magnesia) 30 ml PO Q12H PRN PRN Reason: Constipation Stop: 01/15/20 23:15 Metoprolol Succinate (Toprol Xl) 12.5 mg PO DAILY CLAUDINE Stop: 01/16/20 08:59 Last Admin: 12/17/19 08:21 Dose: 12.5 mg Documented by: Miscellaneous (Carbohydrates For Hypoglycemia) 15 - 30 gm PO UD PRN PRN Reason: Hypoglycemia Protocol Stop: 01/15/20 23:15 Multivitamins (Multivitamin Tab) 1 tab PO DAILY CLAUDINE Stop: 01/16/20 08:59 Last Admin: 12/17/19 08:20 Dose: 1 tab Documented by: Multivitamins/Minerals (Caltrate Plus) 1 tab PO DAILY CLAUDINE Stop: 01/16/20 08:59 Last Admin: 12/17/19 08:22 Dose: 1 tab Documented by: Ondansetron HCl (Zofran) 4 mg IV Q6H PRN PRN Reason: Nausea Stop: 01/15/20 23:15 Fluticasone/Salmeterol (Advair Diskus 250/50) 1 puffs INH Q12 CLAUDINE Stop: 01/15/20 23:15 Last Admin: 12/17/19 09:59 Dose: 1 puffs Documented by: Simvastatin (Zocor) 40 mg PO PM CLAUDINE Stop: 01/16/20 20:59 Tramadol HCl (Ultram) 50 mg PO DAILY CLAUDINE Stop: 01/16/20 08:59 Last Admin: 12/17/19 08:23 Dose: 50 mg Documented by: PG Care Time/CCT Total # of Minutes Spent Total Time Spent with Patient: Total time spent is greater than 50% in coordination of care (as documented) at patient's floor/unit and/or counseling patient: Coding Level of Care Code 07791 Subseq Hosp Care Lvl 3 Diagnoses NSTEMI (non-ST elevated myocardial infarction) I21.4 Acute on chronic diastolic CHF (congestive heart failure) I50.33 Diabetes E11.628; Z79.4 Diabetes mellitus complication detail: with other skin complication Diabetes mellitus complication status: with skin complications Diabetes mellitus terminal computer operator insulin use: with usp use Diabetes mellitus type: type 2 COPD (chronic obstructive pulmonary disease) J44.9 COPD type: unspecified COPD Obstructive sleep apnea G47.33 Hypertension I10 Hypertension type: essential hypertension Acute kidney injury superimposed on chronic kidney disease N17.9; N18.9 Hypothyroid E03.9 Hypothyroidism type: acquired CKD (chronic kidney disease), stage III N18.3 (1) Diabetes Diabetes mellitus complication detail: with other skin complication Diabetes mellitus complication status: with skin complications Diabetes mellitus usp insulin use: with terminal computer operator use Diabetes mellitus type: type 2 Qualified Code(s): E11.628 - Type 2 diabetes mellitus with other skin complications; Z79.4 - terminal computer operator (current) use of insulin (2) Hypothyroid Hypothyroidism type: acquired Qualified Code(s): E03.9 - Hypothyroidism, unspecified (3) COPD (chronic obstructive pulmonary disease) COPD type: unspecified COPD Qualified Code(s): J44.9 - Chronic obstructive pulmonary disease, unspecified (4) Hypertension Hypertension type: essential hypertension Qualified Code(s): I10 - Essential (primary) hypertension
[2019-12-17] MEDS: HEPARIN SODIUM/DEXTROSE 25,000 UNITS/500 ML BAG IV SCH (11:32)
[2019-12-17 11:38] LABS: Estimated Average Glucose 97 mg/dl
[2019-12-17] MEDS ORDERED: HEPARIN (PORCINE) 1000 UNIT/ML 10 ML (CATH LAB USE ONLY) ONE (11:48)
[2019-12-17] MEDS ORDERED: MIDAZOLAM HCL 1 MG/ML 2ML VIAL ONE (11:49)
[2019-12-17] MEDS ORDERED: NiCARDipine HCL INJ 2.5 MG/ML 10 ML AMP ONE (11:49)
[2019-12-17] MEDS ORDERED: fentaNYL citrate 100 MCG/2 ML VIAL ONE (11:49)
[2019-12-17] MEDS ORDERED: NITROGLYCERIN/D5W 100MCG/ML 20ML SYR ONE (11:49)
--- NOTE | 2019-12-17 12:46 | Pre Anesthesia Assessment ---
Date of Service December 17, 2019 Pre Sedation Assessment Vital Signs Temp Pulse Pulse Pulse Resp BP BP 12/17/19 11:14 37.1 C 66 19 171/78 H 12/17/19 10:20 131/79 12/17/19 07:56 37.5 C 70 26 H 136/92 12/17/19 04:40 36.7 C 12/17/19 03:26 37.9 C H 60 18 12/16/19 23:50 61 21 12/16/19 23:17 37.2 C 67 22 12/16/19 22:01 61 22 12/16/19 21:31 64 26 H 12/16/19 21:00 66 27 H 12/16/19 20:01 63 22 12/16/19 20:00 66 30 H 146/75 H 12/16/19 19:30 62 24 150/65 H 12/16/19 19:00 62 31 H 146/76 H 12/16/19 18:30 64 20 150/75 H 12/16/19 18:00 65 29 H 145/80 H 12/16/19 17:30 63 31 H 156/87 H 12/16/19 17:20 60 22 145/64 H 12/16/19 17:19 67 26 H 12/16/19 17:10 12/16/19 16:59 37 C 62 20 136/81 BP Pulse Ox 12/17/19 11:14 90 12/17/19 10:20 12/17/19 07:56 96 12/17/19 04:40 12/17/19 03:26 141/70 H 95 12/16/19 23:50 99 12/16/19 23:17 127/75 96 12/16/19 22:01 97 12/16/19 21:31 94 12/16/19 21:00 94 12/16/19 20:01 96 12/16/19 20:00 96 12/16/19 19:30 98 12/16/19 19:00 97 12/16/19 18:30 96 12/16/19 18:00 96 12/16/19 17:30 95 12/16/19 17:20 96 12/16/19 17:19 145/64 H 96 12/16/19 17:10 83 L 12/16/19 16:59 90 Cardiovascular + regular rate Respiratory normal respiratory effort, lungs clear to auscultation Pre-Sedation Airway Assessment Smoking Status: Never smoker Hx Sleep Apnea: Yes Short, Thick Neck: No Thyromental Distance: > or= 3.5 Finger Breadths Oral Cavity: + WNL Mallampati Class: III ASA: ASA3 NPO Status Date of Last Intake of Fluids: 12/17/19 Time of Last Intake of Fluids: 07:00 Date of Last Intake of Solid Food: 12/17/19 Time of Last Intake of Solid Foods: 07:00 Procedure Planning Contraindications for Sedation: none Current Medications Reviewed: Yes Notes The planned sedation has been discussed with the patient. Informed Consent was obtained. I have identified the patient, determined the appropriateness of sedation and have assessed the patient immediately prior to the procedure. All medicine(s) and interventions are by my order.
--- NOTE | 2019-12-17 14:43 | Cardiac Catheterization ---
[facility] Data: [employer] Cardiac Status Clinical evaluation leading to the procedure CAD Presenation: Unstable angina Anginal Classification: CCS IV Heart Failure: NYHA Class: CCS IV Cardiogenic Shock within 24 Hours: No Cardiac Arrest within 24 Hours: No Imaging Studies Past 6 Months: Yes Stress Studies Past 6 Months: No Standard Exercise Test: No Stress Echocardiogram: No Stress Testing w/SPECT MPI: No Cardiac CTA: No Coronary Anatomy Dominant: Right Left Ventricular Angiography EF (%): n/a Diagnostic Physicians Name: Marko Winn MD Closure Device Percutaneous Entry Location: Radial Closure Device: Radial Band Recommendations: Medical Therapy and/or Counseling and Management Recommendatons (as above) Cardiac Cath Procedure Full Procedure Date December 17, 2019 Pre-Procedure Diagnosis Pre-Procedure Diagnosis: Acute Coronary Syndrome and Cardiomyopathy AUC Score AUC Score: 9 Post-Procedure Diagnosis Post-Procedure Diagnosis: Moderate CAD and Elevated Intracardiac Pressures Procedure(s) Performed Procedure(s) Performed: Coronary Angiography and Right Heart Cath Pasteuriser Operator Marko Winn MD Masticator(s) Jeff Howell Estimated Blood Loss Estimated Blood Loss: < 40 ml Medication(s) Medication(s): Fentanyl, Heparin, Lidocaine 1%, Nicardipine, Nitroglycerin and Versed Summary of Findings Procedures: 1. Coronary angiography 2. Right heart catheterization 3. Moderate sedation 4. Coronary angiography of right and left subclavian arteries Procedural details: 1. Right radial artery was cannulated easily and slender sheath was placed. Due to significant tortuosity and difficulty in positioning of the patient, 4 Irish and 6 Irish diagnostic catheters were unable to be successfully advanced into the ascending aorta. 2. Left radial artery was then cannulated, once again with a slender sheath placed. There was again tortuosity which improved with continued repositioning. 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 Diagnostic coronary geography was able to be performed via the left radial artery however could not advance the catheter sufficiently to perform left heart catheterization. 3. Right heart catheterization was performed via the right brachiocephalic vein. Coronary angiography: 1. Left main coronary: LMCA is large in caliber. No significant CAD. 2. Left anterior descending: LAD is a large-caliber vessel that extends to the apex. Early mid LAD 50 to 70%, just distal to the bifurcation of a large D1. ROMY-3 flow. The mid LAD stenosis appeared most significant in the [place] cranial view, appearing less significant in other views. D1 without significant CAD. 3. Circumflex: The circumflex is a large-caliber vessel. It gives rise to a small OM1. No significant CAD within the circumflex system. 4. Right coronary artery: The RCA is very large in caliber. Dominant RCA. RCA, PDA, PL branches without significant CAD. Right Heart Catheterization: 1. Pulmonary capillary wedge pressure: V wave 25 with a mean of 20 mmHg. 2. PA pressure 45/18 with a mean is 27 mmHg. 3. RV pressure 54/6 with RVEDP of 15 mmHg. 4. RA pressure: A wave 12 with a V wave of 16 and a mean of 8 mmHg. 5. Cardiac output 5.17 L/min with a cardiac index of 2.26 L/min/m. 6. PVR 1.35 Wood units. Subclavian artery angiography: 1. Right subclavian artery: Tortuous vessel without significant stenosis noted. TABATHA was patent within the proximal portion. 2. Left subclavian artery: Approximately 50 to 70% stenosis within the left subclavian artery. SANCHEZ patent. Left heart catheterization: 1. Left heart catheterization was attempted. The wire was advanced across the aortic valve, but the diagnostic catheters were unable to be sufficiently advanced across the aortic valve due to vessel tortuosity and spasm, despite sublingual nitroglycerin and several doses of intra-arterial nicardipine throughout the case. Moderate sedation: 1. Sedation start time: 12:46 PM 2. Sedation end time: 2:20 PM Impression: 1. Moderately severe early mid LAD CAD with ROMY-3 flow. 2. Elevated filling pressures. 3. Mild pulmonary hypertension, likely due in part to left heart failure. Plan: 1. There was consideration of further evaluating the mid LAD with FFR or IVUS. However, there was continued difficulty with catheter manipulation despite 2 access sites, and she also has underlying acute on chronic renal insufficiency. It was not felt that the LAD stenosis was responsible for her rest pain given that she had reasonable flow throughout the LAD system. Will consider further evaluation based on symptoms and clinical course, and if further invasive measures are indicated, it will be done in a staged procedure, sparing her k idneys further contrast at this time. 2. Optimize medical therapy. 3. Monitor renal function closely. Hemodynamics Rest Ao:: 94/53 Final Ao: 106/63 LV: n/a Recommendations Recommendations: Medical Therapy and/or Counseling and Management Recommendatons (as above) Specimens Specimens: None Radiation Exposure (mGy) 1937 mGy. Fluoro time 28.2 min. Contrast (mls) 70 ml Procedural Complication(s) None Disposition [employer] Holding/Recovery I attest to the content of the Intraoperative Record and any orders documented therein. Any exceptions are noted below. [facility] Card Cath Procedure Codes Cardiac Catheterization Procedure 1: Cardiovascular Cath Procedures: 99343 Coronaries and RHC Moderate Sedation Procedure 1: Sedation/Anesthesia: 83992 Mod Sedation by the same physician;Init15 Min Child Age 5 & Up Procedure 2: Sedation/Anesthesia: 48181 Mod Sedation by the same physician; Ea [id number] Minutes Procedure 3: Sedation/Anesthesia: 32659 Mod Sedation by the same physician; Ea [id number] Minutes Procedure 4: Sedation/Anesthesia: 86822 Mod Sedation by the same physician; Ea [id number] Minutes Procedure 5: Sedation/Anesthesia: 60619 Mod Sedation by the same physician; Ea [id number] Minutes PG Care Time/CCT Total # of Minutes Spent Total Time Spent with Patient: Total time spent is greater than 50% in coordination of care (as documented) at patient's floor/unit and/or counseling patient:
--- NOTE | 2019-12-17 16:20 | Post Anesthesia Assessment ---
Date of Service December 17, 2019 Post Sedation Assessment Vital Signs Temp Pulse Pulse Pulse Resp BP BP 12/17/19 15:36 36.5 C 79 137/69 12/17/19 15:25 68 18 132/78 12/17/19 15:21 36.5 C 78 20 142/76 H 12/17/19 15:10 63 18 120/68 12/17/19 14:55 63 18 127/71 12/17/19 14:42 63 18 178/88 H 12/17/19 11:14 37.1 C 66 19 171/78 H 12/17/19 10:20 131/79 12/17/19 07:56 37.5 C 70 26 H 136/92 12/17/19 04:40 36.7 C 12/17/19 03:26 37.9 C H 60 18 12/16/19 23:50 61 21 12/16/19 23:17 37.2 C 67 22 12/16/19 22:01 61 22 12/16/19 21:31 64 26 H 12/16/19 21:00 66 27 H 12/16/19 20:01 63 22 12/16/19 20:00 66 30 H 146/75 H 12/16/19 19:30 62 24 150/65 H 12/16/19 19:00 62 31 H 146/76 H 12/16/19 18:30 64 20 150/75 H 12/16/19 18:00 65 29 H 145/80 H 12/16/19 17:30 63 31 H 156/87 H 12/16/19 17:20 60 22 145/64 H 12/16/19 17:19 67 26 H 12/16/19 17:10 12/16/19 16:59 37 C 62 20 136/81 BP Pulse Ox 12/17/19 15:36 96 12/17/19 15:25 95 12/17/19 15:21 95 12/17/19 15:10 95 12/17/19 14:55 95 12/17/19 14:42 95 12/17/19 11:14 90 12/17/19 10:20 12/17/19 07:56 96 12/17/19 04:40 12/17/19 03:26 141/70 H 95 12/16/19 23:50 99 06/09/20 23:17 127/75 96 06/09/20 22:01 97 12/16/19 21:31 94 12/16/19 21:00 94 12/16/19 20:01 96 12/16/19 20:00 96 12/16/19 19:30 98 12/16/19 19:00 97 12/16/19 18:30 96 12/16/19 18:00 96 12/16/19 17:30 95 12/16/19 17:20 96 12/16/19 17:19 145/64 H 96 12/16/19 17:10 83 L 12/16/19 16:59 90 Recovery Score Activity: Moves 4 extremities Respiration: Deep Breath/Cough Circulation: +/-20% PreAnes Value Consciousness: Fully Awake Oxygen Saturation: > 92% On Room Air Post Anesthesia Score: 10 Discharge Sedation Level of Care: Fast Track Phase II Post Sedation Plan On clinical assessment, the patient appears to have tolerated the sedation without complications. Patient is recovering as anticipated. Patient will continue to be monitored by nursing and may be discharged when sedation discharge criteria are met per below protocol. Upon Completions of procedure up to 15 minutes continue every 5 minute vital signs and the P.A.R. score; then discharge to a Phase I or Fast Track to Phase II per the following guidelines: * Discharge Patient to appropriate Phase II area if PAR is 8 or greater or return to pre- procedure baseline. The post - procedure orders will be as directed. * If PAR score is less than 8 or not return to pre-procedure baseline then patient will follow Phase I monitoring till PAR is reached for Phase II. The Phase I may be done in procedure room or may call to secure a Phase I area. * If naloxone or flumazenil are used for reversal, hold in Phase I for cont inued monitoring from when last reversal dose was given for a minimum of 60 minutes or longer pending the nurse and/or physician discretion of patient condition before discharge to Phase II. Please call the Sedation Physician to re-evaluate and complete post-note for discharge to Phase II area. Do NOT discharge from procedure sedation or Phase 1 until post- sedation evaluation note is complete by procedure /sedation MD Sedation Discharge Instructions to be given to the patient at discharge to home.
[2019-12-17] MEDS: ATORVASTATIN 40 MG TAB PO SCH (20:45)
[2019-12-17] MEDS: FLUTICASONE/VILANTEROL 100/25MCG 14 PUFFS/INHALER INH SCH (20:59)
[2019-12-17] MEDS ORDERED: SIMVASTATIN 40 MG TAB PO SCH (21:00)
--- NOTE | 2019-12-17 22:09 | Electrocardiogram Report ---
Test Reason : Blood Pressure : / mmHG Vent. Rate : 064 BPM Atrial Rate : 064 BPM P-R Int : 240 ms QRS Dur : 172 ms QT Int : 484 ms P-R-T Axes : 050 054 055 degrees QTc Int : 499 ms Sinus rhythm with sinus arrhythmia with 1st degree A-V block Left bundle branch block Abnormal ECG When compared with ECG of 08-JUN-2018 04:29, Left bundle branch block is now Present Confirmed by Marko Winn ([id number]) on 12/17/2019 10:08:56 PM Referred By: REFERRED SELF Confirmed By:Marko Winn
[2019-12-18] MEDS: ACETAMINOPHEN 325 MG TAB PO PRN ×3 (04:31→20:45)
--- NOTE | 2019-12-18 05:47 | Electrocardiogram Report ---
Test Reason : Blood Pressure : / mmHG Vent. Rate : 062 BPM Atrial Rate : 062 BPM P-R Int : 278 ms QRS Dur : 176 ms QT Int : 510 ms P-R-T Axes : 070 -10 087 degrees QTc Int : 517 ms Sinus rhythm with 1st degree A-V block with Premature atrial complexes Left bundle branch block Abnormal ECG When compared with ECG of 16-DEC-2019 17:14, Premature atrial complexes are now Present Questionable change in QRS axis Confirmed by Marko Winn ([id number]) on 12/18/2019 5:46:24 AM Referred By: REFERRED SELF Confirmed By:Marko Winn
[2019-12-18] MEDS: LEVOTHYROXINE SODIUM 75 MCG TABLET PO SCH (05:51)
[2019-12-18 07:56] LABS: Basophils # (auto) 0.03 K/uL (0-0.2); Basophils % (auto) 0.6 %; Eosinophils # (auto) 0.44 K/uL (0-0.5); Eosinophils % (auto) 8.4 %; Hematocrit (blood only) 31.7 % (37-47); Immature Granulocytes # (auto) 0.05 K/uL (0.00-0.02); Lymphocytes # (auto) 0.93 K/uL (1.2-3.4); Lymphocytes % (auto) 17.7 %; Mean Corpuscular Hemoglobin 28.1 pg (25-34); Mean Corpuscular Hgb Conc 31.5 g/dL (32-36); Mean Platelet Volume 9.9 fL (7.4-10.4); Monocytes # (auto) 0.54 K/uL (0.11-0.59); Monocytes % (auto) 10.3 %; Neutrophils # (auto) 3.27 K/uL (1.4-6.5); Platelet Count 153 K/uL (130-400); RDW Coefficient of Variation 17.6 % (11.5-14.5); RDW Standard Deviation 57.9 fL (36.4-46.3); Red Blood Count 3.56 M/uL (4.2-5.4); White Blood Count 5.26 K/uL (4.8-10.8)
[2019-12-18] MEDS: LOSARTAN/HCTZ 50/12.5MG TAB PO SCH (08:00)
[2019-12-18] MEDS: hydrOXYzine HCl 10 MG TAB PO SCH (08:00)
[2019-12-18] MEDS: CALCIUM 600MG + VIT D 400 IU TAB PO SCH (08:00)
[2019-12-18] MEDS: FAMOTIDINE 40 MG TABLET PO SCH (08:00)
[2019-12-18] MEDS: INSULIN ASPART 100 UNITS/ML 3 ML PEN SC SCH ×4 (08:00→21:00)
[2019-12-18] MEDS: FUROSEMIDE 40 MG in SYRINGE 0 ML IV SCH (08:00)
[2019-12-18] MEDS: MULTIVITAMIN TAB PO SCH (08:01)
[2019-12-18] MEDS: METOPROLOL SUCC 25MG EXT REL TAB PO SCH (08:01)
[2019-12-18] MEDS: TRAMADOL HCL 50 MG TABLET PO SCH (08:01)
[2019-12-18 08:14] LABS: INR 1.2 (0.9-1.1); Partial Thromboplastin Ratio 1.1; Partial Thromboplastin Time 30.2 Seconds (21.0-31.0); Prothrombin Time 12.9 Seconds (9.0-12.0)
[2019-12-18 08:33] LABS: Albumin Level 2.6 gm/dl (3.4-5.0); BUN Creatinine Ratio 22.2 (10-20); Calcium 8.7 mg/dl (8.5-10.1); Creatinine Clr Calc Pharmacy 27.2 ml/min; Est GFR (African American) 23.6; Est GFR (Non-African American) 20.3; Potassium 3.3 mmol/L (3.5-5.1)
[2019-12-18 08:39] LABS: Albumin Globulin Ratio 0.9 (0.9-2); Bilirubin,Total 0.7 mg/dl (0.2-1); Globulin 2.9 gm/dl (2.5-4.0); Total Protein 5.5 gm/dl (6.4-8.2)
[2019-12-18] MEDS: HEPARIN SODIUM/DEXTROSE 25,000 UNITS/500 ML BAG IV SCH (09:07)
--- NOTE | 2019-12-18 10:45 | XCELERA ---
[id number]
--- NOTE | 2019-12-18 14:39 | Cardiology Progress Note ---
Date of Service December 18, 2019 Assessment & Plan (1) Acute coronary syndrome: (2) Cardiomyopathy: (3) Acute on chronic kidney failure: (4) Hypertension: (5) LBBB (left bundle branch block): (6) Frequent PVCs: ASSESSMENT/PLAN: 1. Acute systolic CHF: Filling pressures were elevated at her breathing had improved with diuresis. Can continue current dose of diuretic with hopes of achieving a mild/gentle diuresis with 500-1000 mL net negative fluid balance today. Monitor renal function and electrolytes carefully. Replete potassium as appropriate. Low-sodium diet, daily weights, strict I&Os. 2. Cardiomyopathy: Etiology uncertain but possibly myocarditis as she was ill in September. She did have CAD but no definite severe CAD and non that would account for her degree of wall motion abnormalities. Cannot further titrate metoprolol succinate given bradycardia. If renal function improves, will consider DENIS I vs Entresto. 3. Acute on chronic kidney failure: Renal function similar to presentation. Continue to monitor. 4. CAD: Mid LAD stenosis noted on cardiac catheterization, felt to be moderate. Continue aspirin 81 mg. Consider high-intensity statin therapy. No further chest pain. Continue beta-rivera. 5. Left bundle-branch block: Left bundle-branch block has resolved. 6. Hypertension: She has been mildly hypotensive today but asymptomatic. Continue current plan. 7. Dyslipidemia: Consider high-intensity statin therapy. 8. Frequent PVCs: Flecainide has been discontinued given structural abnormalities. 9. Fever: As per primary service. 10. Disposition: Plan of care discussed with Dr. Hammer of the primary hospitalist service. Cardiology will continue to follow. (Primary cyber engineer is Mr. Raudel Gr and Dr. Bueno). Admission and Anticipated Discharge Date Admission Date: December 16, 2019 Subjective She denies chest pain. She has had a fever at 3:44 a.m. of 38 C. she denies shortness of breath but remains on 2 L of supplemental oxygen via nasal cannula. She denies syncope, palpitations, melena, hematochezia, or hematuria. She has had some oozing from her left forearm skin tear, which is being managed by nursing staff. Review of systems: As above. Physical Exam Physical Exam: Gen.: No acute distress. Alert. HEENT: Anicteric sclera. Neck: Thick neck. No appreciable JVD. Hepatic jugular reflux was noted however. Cardiac: Regular. Normal S1-S2. No murmurs, rubs, or gallops. Pulmonary: Decreased breath sounds bilaterally, but otherwise clear to auscultation bilaterally without wheezes, rales, or rhonchi. Abdomen: Soft, nontender, nondistended, with normoactive bowel sounds. No bruits noted. Extremities: Right radial cath site is clean, dry, and intact without erythema or discharge. Left radial cath site is currently dressed due to skin tears. No hematoma. Bilateral upper extremity ecchymoses noted. No significant pitting edema. No cyanosis. Psychiatric: Affect appears appropriate. Results & Data ([facility]) Vital Signs (Past 12 Hours) Vital Signs Temp Pulse Pulse Resp BP BP Pulse Ox 12/18/19 12:00 36.6 C 54 L 22 118/74 99 12/18/19 08:00 36.5 C 55 L 12/18/19 07:35 37.0 C 63 18 99/64 L 93 12/18/19 03:44 38 C H 65 20 100/56 L 98 12/18/19 03:20 66 16 92 Intake & Output 12/16/19 12/17/19 12/18/19 12/19/19 06:59 06:59 06:59 06:59 Intake Total 300 / 300 Output Total 700 / 700 450 / 450 Balance -700 / -700 -150 / -150 Weight 139.8 kg 142 kg Laboratory Results Laboratory Results - last 24 hr 12/17/19 12/17/19 12/17/19 16:18 16:38 20:18 WBC RBC Hgb Hct MCV MCH MCHC RDW Std Deviation RDW Coeff of Mariel Plt Count MPV Immature Gran % (Auto) Neut % (Auto) Lymph % (Auto) [place] % (Auto) Eos % (Auto) Baso % (Auto) Immature Gran # (Auto) Neut # (Auto) Lymph # (Auto) [place] # (Auto) Eos # (Auto) Baso # (Auto) PT INR APTT PTT Ratio Sodium Potassium Chloride Carbon Dioxide Anion Gap BUN Creatinine Est Cr Clr Drug Dosing Est GFR ( Amer) Est GFR (Non-Af Amer) BUN/Creatinine Ratio Glucose POC Glucose 138 H 123 H Calcium Magnesium Total Bilirubin AST ALT Alkaline Phosphatase Troponin I 0.266 H* Total Protein Albumin Globulin Albumin/Globulin Ratio 12/18/19 12/18/19 12/18/19 07:01 07:25 07:25 WBC 5.26 RBC 3.56 L Hgb 10.0 L Hct 31.7 L MCV 89.0 MCH 28.1 MCHC 31.5 L RDW Std Deviation 57.9 H RDW Coeff of Mariel 17.6 H Plt Count 153 MPV 9.9 Immature Gran % (Auto) 1.0 Neut % (Auto) 62.0 Lymph % (Auto) 17.7 [place] % (Auto) 10.3 Eos % (Auto) 8.4 Baso % (Auto) 0.6 Immature Gran # (Auto) 0.05 H Neut # (Auto) 3.27 Lymph # (Auto) 0.93 L [place] # (Auto) 0.54 Eos # (Auto) 0.44 Baso # (Auto) 0.03 PT 12.9 H INR 1.2 H APTT 30.2 PTT Ratio 1.1 Sodium Potassium Chloride Carbon Dioxide Anion Gap BUN Creatinine Est Cr Clr Drug Dosing Est GFR ( Amer) Est GFR (Non-Af Amer) BUN/Creatinine Ratio Glucose POC Glucose 96 Calcium Magnesium Total Bilirubin AST ALT Alkaline Phosphatase Troponin I Total Protein Albumin Globulin Albumin/Globulin Ratio 12/18/19 12/18/19 07:25 11:28 WBC RBC Hgb Hct MCV MCH MCHC RDW Std Deviation RDW Coeff of Mariel Plt Count MPV Immature Gran % (Auto) Neut % (Auto) Lymph % (Auto) [place] % (Auto) Eos % (Auto) Baso % (Auto) Immature Gran # (Auto) Neut # (Auto) Lymph # (Auto) [place] # (Auto) Eos # (Auto) Baso # (Auto) PT INR APTT PTT Ratio Sodium 135 L Potassium 3.3 L Chloride 101 Carbon Dioxide 28 Anion Gap 7.0 BUN 49 H Creatinine 2.19 H Est Cr Clr Drug Dosing 27.2 Est GFR ( Amer) 23.6 Est GFR (Non-Af Amer) 20.3 BUN/Creatinine Ratio 22.2 H Glucose 80 POC Glucose 98 Calcium 8.7 Magnesium 2.0 Total Bilirubin 0.7 AST 23 ALT 21 Alkaline Phosphatase 40 L Troponin I Total Protein 5.5 L Albumin 2.6 L Globulin 2.9 Albumin/Globulin Ratio 0.9 Diagnostic Findings Telemetry personally reviewed: Sinus bradycardia. Cardiac catheterization report reviewed from 12/17/2019: Coronary angiography: 1. Left main coronary: LMCA is large in caliber. No significant CAD. 2. Left anterior descending: LAD is a large-caliber vessel that extends to the apex. Early mid LAD 50 to 70%, just distal to the bifurcation of a large D1. ROMY-3 flow. The mid LAD stenosis appeared most significant in the LUIS ANGEL cranial view, appearing less significant in other views. D1 without significant CAD. 3. Circumflex: The circumflex is a large-caliber vessel. It gives rise to a small OM1. No significant CAD within the circumflex system. 4. Right coronary artery: The RCA is very large in caliber. Dominant RCA. RCA, PDA, PL branches without significant CAD. Right Heart Catheterization: 1. Pulmonary capillary wedge pressure: V wave 25 with a mean of 20 mmHg. 2. PA pressure 45/18 with a mean is 27 mmHg. 3. RV pressure 54/6 with RVEDP of 15 mmHg. 4. RA pressure: A wave 12 with a V wave of 16 and a mean of 8 mmHg. 5. Cardiac output 5.17 L/min with a cardiac index of 2.26 L/min/m. 6. PVR 1.35 Wood units. Medications Administered Current Inpatient Medications Acetaminophen (Tylenol) 650 mg PO Q4H PRN PRN Reason: Pain or Fever Stop: 01/15/20 23:15 Last Admin: 12/18/19 04:31 Dose: 650 mg Documented by: Al Hydrox/Mg Hydrox/Simethicone (Maalox) 15 ml PO Q4H PRN PRN Reason: Dyspepsia Stop: 01/15/20 23:15 Albuterol (Ventolin Hfa) 2 puffs INH Q4 PRN PRN Reason: Shortness Of Breath Or Wheezing Stop: 01/15/20 23:49 Albuterol (Duoneb) 3 ml INH Q4 PRN PRN Reason: Shortness Of Breath Or Wheezing Stop: 01/15/20 23:15 Aspirin (Ecotrin Ectab) 81 mg PO [id number]@[id number] [facility] Stop: 01/16/20 08:59 Last Admin: 12/17/19 08:20 Dose: 81 mg Documented by: Atorvastatin Calcium (Lipitor) 40 mg PO [facility] Stop: 01/16/20 20:59 Last Admin: 12/17/19 20:45 Dose: 40 mg Documented by: Dextrose (Dextrose 50%) 25 - 50 ml IV UD PRN; Protocol PRN Reason: Hypoglycemia Protocol Stop: 01/15/20 23:15 Famotidine (Pepcid) 40 mg PO DAILY [facility] Stop: 01/16/20 08:59 Last Admin: 12/18/19 08:00 Dose: 40 mg Documented by: Fluticasone/Vilanterol (Breo Ellipta 100/25 Mcg Inh) 1 puffs INH DAILY@HS [facility] Stop: 01/16/20 20:59 Last Admin: 12/17/19 20:59 Dose: 1 puffs Documented by: Glucagon (Glucagen) 1 mg SQ UD PRN; Protocol PRN Reason: Hypoglycemia Protocol Stop: 01/15/20 23:15 Glucose (Dex4 Glucose) 4 - 8 tabs PO UD PRN; Protocol PRN Reason: Hypoglycemia Protocol Stop: 01/15/20 23:15 Glucose (Glucose 40%) 15 - 30 gm PO UD PRN; Protocol PRN Reason: Hypoglycemia Protocol Stop: 01/15/20 23:15 HCTZ/Losartan Potassium (Hyzaar 50/12.5mg) 1 tab PO DAILY [facility] Stop: 01/16/20 08:59 Last Admin: 12/18/19 08:00 Dose: 1 tab Documented by: Hydroxyzine HCl (Vistaril) 10 mg PO DAILY [facility] Stop: 01/16/20 08:59 Last Admin: 12/18/19 08:00 Dose: 10 mg Documented by: Furosemide 40 mg/ Syringe 4 mls @ 4 mls/min IV QAM [facility] Stop: 01/16/20 08:59 Last Admin: 12/18/19 08:00 Dose: 4 mls/min Documented by: Insulin Aspart (Novolog Flexpen) 0 units SC ACHS [facility] Stop: 01/16/20 07:29 Last Admin: 12/18/19 12:27 Dose: 4 units Documented by: Levothyroxine Sodium (Synthroid) 75 mcg PO DAILYBB [facility] Stop: 01/16/20 06:29 Last Admin: 12/18/19 05:51 Dose: 75 mcg Documented by: Magnesium Hydroxide (Milk Of Magnesia) 30 ml PO Q12H PRN PRN Reason: Constipation Stop: 01/15/20 23:15 Metoprolol Succinate (Toprol Xl) 25 mg PO DAILY [facility] Stop: 01/17/20 08:59 Last Admin: 12/18/19 08:01 Dose: 25 mg Documented by: Miscellaneous (Carbohydrates For Hypoglycemia) 15 - 30 gm PO UD PRN PRN Reason: Hypoglycemia Protocol Stop: 01/15/20 23:15 Multivitamins (Multivitamin Tab) 1 tab PO DAILY [facility]UD[facility] Stop: 01/16/20 08:59 Last Admin: 12/18/19 08:01 Dose: 1 tab Documented by: Multivitamins/Minerals (Caltrate Plus) 1 tab PO DAILY [facility] Stop: 01/16/20 08:59 Last Admin: 12/18/19 08:00 Dose: 1 tab Documented by: Ondansetron HCl (Zofran) 4 mg IV Q6H PRN PRN Reason: Nausea Stop: 01/15/20 23:15 Tramadol HCl (Ultram) 50 mg PO DAILY [facility] Stop: 01/16/20 08:59 Last Admin: 12/18/19 08:01 Dose: 50 mg Documented by: PG Care Time/CCT Total # of Minutes Spent Total Time Spent with Patient: Total time spent is greater than 50% in coordination of care (as documented) at patient's floor/unit and/or counseling patient: Coding Level of Care Code 59976 Subseq Hosp Care Lvl 3 Diagnoses Acute coronary syndrome I24.9 Cardiomyopathy I42.9 Acute on chronic kidney failure N17.9; N18.9 Hypertension I10 Hypertension type: essential hypertension LBBB (left bundle branch block) I44.7 Frequent PVCs I49.3 (1) Hypertension Hypertension type: essential hypertension Qualified Code(s): I10 - Essential (primary) hypertension
[2019-12-18 14:48] LABS: Appearance Urine Clear (Clear); Bacteria Urine Automated 1+ (Negative); Bilirubin Urine Negative (Negative); Blood Urine Trace (Negative); Color Urine Yellow; Glucose Urine UA Negative (Negative); Ketones Urine Negative (Negative); Leukocyte Esterase Urine 1+ (Negative); Nitrite Urine Negative (Negative); Protein Urine Negative (Negative); Specific Gravity Urine 1.019 (1.000-1.030); Urobilinogen Urine Negative (Negative)
--- NOTE | 2019-12-18 16:18 | Hospitalist Progress Note ---
Date of Service December 18, 2019 Assessment & Plan (1) NSTEMI (non-ST elevated myocardial infarction): troponin elevated at 0.3 with symptoms consistent with angina at rest new LBBB and echocardiogram with wall motion abnormality treated with antiplatelet therapy, heparin drip, Nitro SL, Lipitor Toprol increased to 25mg left heart cath on 12/16, showed 50-70% lesion in mid LAD, no other significant disease heparin drip stopped due to hematomas over bilateral wrists continue on aspirin, Lipitor, no room to increase Metoprolol with HR in the 50's no chest pain today (2) Acute on chronic diastolic CHF (congestive heart failure): Acute on chronic diastolic CHF improving with Lasix IV, received second dose today, 40mg IV she is negative for fluid balance, breathing better Cr up slightly at 2.1 repeat BMP tomorrow, reassess volume status and repeat Lasix IV as needed (3) UTI (urinary tract infection): fever, rigors, chills today WBC is normal at 5k checked UA: >30 WBC, will send for culture start on Rocephin, renally dosed (4) Diabetes: Hold pioglitazone, in addition may be contributing to CHF. Hold metformin. Placed on Accu-Cheks before meals and at bedtime with NovoLog coverage per scale monitor for hypoglycemia, no episodes today (5) COPD (chronic obstructive pulmonary disease): Continue pro-air HFA, Advair discus, gentamicin sulfate inhaled solution and PRN duo nebs. no wheezing on exam (6) Obstructive sleep apnea: Consult respiratory therapy for CPAP at bedtime. Daughter will bring in her own CPAP use tomorrow night. (7) Hypertension: continue Toprol (8) Acute kidney injury superimposed on chronic kidney disease: Creatinine 2.22 upon admission, with range 1.05-1.68. Follow serial laboratories. Hold lisinopril/HCTZ Cr down to 1.9 today (9) Hypothyroid: Continue levothyroxine sodium 75 mcg daily (10) CKD (chronic kidney disease), stage III: Cr improved to 1.9, not quite at baseline (11) Hypokalemia: low at 3.3, due to diuresis, will replace Admission and Anticipated Discharge Date Admission Date: December 16, 2019 Subjective patient feeling better, breathing easier, no chest pain still with edema, examines volume overloaded tolerated Lasix 40mg IV, making a lot of urine via rosenthal running low grade temperature, checked UA from rosenthal, > 30WBC, will start Rocephin and send urine culture PT/OT consulted discussed with Dr. Winn today, he would like to gently diurese patient over next 24-48 hours she is eating well main complaint is chills and rigors associated with the low grade fevers Review of Systems Review of Systems: All systems reviewed & are unremarkable except as noted in HPI & below Constitutional: + fever, + chills, + fatigue, + malaise and + weakness; no body aches Respiratory: + dyspnea on exertion Cardiovascular: + edema; no chest pain Physical Exam Constitutional: WD/WN, vitals as above + overweight Eyes: PERRL, conjunctivae normal, anicteric sclerae ENMT: external ear and nose normal, oropharynx normal Neck: trachea midline, no thyromegaly Respiratory: normal respiratory effort, lungs clear to auscultation Cardiovascular: Rate/Rhythm: regular rate and regular rhythm Heart Sounds: normal S1 and normal S2; no murmur Vessels: + JVD Extremities: normal capillary refill and + edema Gastrointestinal (Abdomen): normal bowel sounds, soft, nontender, no hepatosplenomegaly Musculoskeletal: no cyanosis or clubbing, extremities motor strength 5/5 Skin: no rashes, warm and dry Neurologic: patellar DTR's 2+ bilat, sensation intact and PERRL, EOMI, accommodation nl, no face palsy, no dysarthria Psychiatric: A+Ox3, euthymic affect Lymphatic: no cervical or axillary lymphadenopathy Results & Data Results & Data ([facility]) Vital Signs (Past 12 Hours) Vital Signs Temp Pulse Resp BP Pulse Ox 12/18/19 12:00 36.6 C 54 L 22 118/74 99 12/18/19 08:00 36.5 C 55 L 12/18/19 07:35 37.0 C 63 18 99/64 L 93 Laboratory Results Laboratory Results - last 24 hr 12/17/19 12/17/19 12/17/19 16:18 16:38 20:18 WBC RBC Hgb Hct MCV MCH MCHC RDW Std Deviation RDW Coeff of Mariel Plt Count MPV Immature Gran % (Auto) Neut % (Auto) Lymph % (Auto) Morrison % (Auto) Eos % (Auto) Baso % (Auto) Immature Gran # (Auto) Neut # (Auto) Lymph # (Auto) Morrison # (Auto) Eos # (Auto) Baso # (Auto) PT INR APTT PTT Ratio Sodium Potassium Chloride Carbon Dioxide Anion Gap BUN Creatinine Est Cr Clr Drug Dosing Est GFR ( Amer) Est GFR (Non-Af Amer) BUN/Creatinine Ratio Glucose POC Glucose 138 H 123 H Calcium Magnesium Total Bilirubin AST ALT Alkaline Phosphatase Troponin I 0.266 H* Total Protein Albumin Globulin Albumin/Globulin Ratio Urine Color Urine Appearance Urine pH Ur Specific Harper Urine Protein Urine Glucose (UA) Urine Ketones Urine Blood Urine Nitrite Urine Bilirubin Urine Urobilinogen Ur Leukocyte Esterase Urine WBC (Auto) Urine RBC (Auto) U Hyaline Cast (Auto) U Epithel Cells (Auto) Urine Bacteria (Auto) 12/18/19 12/18/19 12/18/19 07:01 07:25 07:25 WBC 5.26 RBC 3.56 L Hgb 10.0 L Hct 31.7 L MCV 89.0 MCH 28.1 MCHC 31.5 L RDW Std Deviation 57.9 H RDW Coeff of Mariel 17.6 H Plt Count 153 MPV 9.9 Immature Gran % (Auto) 1.0 Neut % (Auto) 62.0 Lymph % (Auto) 17.7 Morrison % (Auto) 10.3 Eos % (Auto) 8.4 Baso % (Auto) 0.6 Immature Gran # (Auto) 0.05 H Neut # (Auto) 3.27 Lymph # (Auto) 0.93 L Morrison # (Auto) 0.54 Eos # (Auto) 0.44 Baso # (Auto) 0.03 PT 12.9 H INR 1.2 H APTT 30.2 PTT Ratio 1.1 Sodium Potassium Chloride Carbon Dioxide Anion Gap BUN Creatinine Est Cr Clr Drug Dosing Est GFR ( Amer) Est GFR (Non-Af Amer) BUN/Creatinine Ratio Glucose POC Glucose 96 Calcium Magnesium Total Bilirubin AST ALT Alkaline Phosphatase Troponin I Total Protein Albumin Globulin Albumin/Globulin Ratio Urine Color Urine Appearance Urine pH Ur Specific Harper Urine Protein Urine Glucose (UA) Urine Ketones Urine Blood Urine Nitrite Urine Bilirubin Urine Urobilinogen Ur Leukocyte Esterase Urine WBC (Auto) Urine RBC (Auto) U Hyaline Cast (Auto) U Epithel Cells (Auto) Urine Bacteria (Auto) 12/18/19 12/18/1920 07:25 11:28 14:35 WBC RBC Hgb Hct MCV MCH MCHC RDW Std Deviation RDW Coeff of Mariel Plt Count MPV Immature Gran % (Auto) Neut % (Auto) Lymph % (Auto) Morrison % (Auto) Eos % (Auto) Baso % (Auto) Immature Gran # (Auto) Neut # (Auto) Lymph # (Auto) Morrison # (Auto) Eos # (Auto) Baso # (Auto) PT INR APTT PTT Ratio Sodium 135 L Potassium 3.3 L Chloride 101 Carbon Dioxide 28 Anion Gap 7.0 BUN 49 H Creatinine 2.19 H Est Cr Clr Drug Dosing 27.2 Est GFR ( Amer) 23.6 Est GFR (Non-Af Amer) 20.3 BUN/Creatinine Ratio 22.2 H Glucose 80 POC Glucose 98 Calcium 8.7 Magnesium 2.0 Total Bilirubin 0.7 AST 23 ALT 21 Alkaline Phosphatase 40 L Troponin I Total Protein 5.5 L Albumin 2.6 L Globulin 2.9 Albumin/Globulin Ratio 0.9 Urine Color Yellow Urine Appearance Clear Urine pH 5.0 Ur Specific Harper 1.019 Urine Protein Negative Urine Glucose (UA) Negative Urine Ketones Negative Urine Blood Trace H Urine Nitrite Negative Urine Bilirubin Negative Urine Urobilinogen Negative Ur Leukocyte Esterase 1+ H Urine WBC (Auto) 10-30 H Urine RBC (Auto) 5-10 H U Hyaline Cast (Auto) 1-5 U Epithel Cells (Auto) 10-20 H Urine Bacteria (Auto) 1+ H Medications Administered Current Inpatient Medications Acetaminophen (Tylenol) 650 mg PO Q4H PRN PRN Reason: Pain or Fever Stop: 01/15/20 23:15 Last Admin: 12/18/19 16:03 Dose: 650 mg Documented by: Al Hydrox/Mg Hydrox/Simethicone (Maalox) 15 ml PO Q4H PRN PRN Reason: Dyspepsia Stop: 01/15/20 23:15 Albuterol (Ventolin Hfa) 2 puffs INH Q4 PRN PRN Reason: Shortness Of Breath Or Wheezing Stop: 01/15/20 23:49 Albuterol (Duoneb) 3 ml INH Q4 PRN PRN Reason: Shortness Of Breath Or Wheezing Stop: 01/15/20 23:15 Aspirin (Ecotrin Ectab) 81 mg PO MoWeFr@0900 CLAUDINE Stop: 01/16/20 08:59 Last Admin: 12/17/19 08:20 Dose: 81 mg Documented by: Atorvastatin Calcium (Lipitor) 40 mg PO HS [facility] [place] Stop: 01/16/20 20:59 Last Admin: 12/17/19 20:45 Dose: 40 mg Documented by: Dextrose (Dextrose 50%) 25 - 50 ml IV UD PRN; Protocol PRN Reason: Hypoglycemia Protocol Stop: 01/15/20 23:15 Famotidine (Pepcid) 40 mg PO DAILY [facility] [place] Stop: 01/16/20 08:59 Last Admin: 12/18/19 08:00 Dose: 40 mg Documented by: Fluticasone/Vilanterol (Breo Ellipta 100/25 Mcg Inh) 1 puffs INH DAILY@[facility] Stop: 01/16/20 20:59 Last Admin: 12/17/19 20:59 Dose: 1 puffs Documented by: Glucagon (Glucagen) 1 mg SQ UD PRN; Protocol PRN Reason: Hypoglycemia Protocol Stop: 01/15/20 23:15 Glucose (Dex4 Glucose) 4 - 8 tabs PO UD PRN; Protocol PRN Reason: Hypoglycemia Protocol Stop: 01/15/20 23:15 Glucose (Glucose 40%) 15 - 30 gm PO UD PRN; Protocol PRN Reason: Hypoglycemia Protocol Stop: 01/15/20 23:15 HCTZ/Losartan Potassium (Hyzaar 50/12.5mg) 1 tab PO DAILY [facility] [place] Stop: 01/16/20 08:59 Last Admin: 12/18/19 08:00 Dose: 1 tab Documented by: Hydroxyzine HCl (Vistaril) 10 mg PO DAILY [facility] [place] Stop: 01/16/20 08:59 Last Admin: 12/18/19 08:00 Dose: 10 mg Documented by: Furosemide 40 mg/ Syringe 4 mls @ 4 mls/min IV QAM [facility] Stop: 01/16/20 08:59 Last Admin: 12/18/19 08:00 Dose: 4 mls/min Documented by: Ceftriaxone Sodium 2,000 mg/ (Dextrose) 70 mls @ 100 mls/hr IV DAILY@1630 [facility]; Protocol Stop: 12/28/19 16:29 Insulin Aspart (Novolog Flexpen) 0 units SC ACHS [facility] [place] Stop: 01/16/20 07:29 Last Admin: 12/18/19 12:27 Dose: 4 units Documented by: Levothyroxine Sodium (Synthroid) 75 mcg PO DAILYBB [facility] [place] Stop: 01/16/20 06:29 Last Admin: 12/18/19 05:51 Dose: 75 mcg Documented by: Magnesium Hydroxide (Milk Of Magnesia) 30 ml PO Q12H PRN PRN Reason: Constipation Stop: 01/15/20 23:15 Metoprolol Succinate (Toprol Xl) 25 mg PO DAILY [facility] Stop: 01/17/20 08:59 Last Admin: 12/18/19 08:01 Dose: 25 mg Documented by: Miscellaneous (Carbohydrates For Hypoglycemia) 15 - 30 gm PO UD PRN PRN Reason: Hypoglycemia Protocol Stop: 01/15/20 23:15 Multivitamins (Multivitamin Tab) 1 tab PO DAILY [facility] Stop: 01/16/20 08:59 Last Admin: 12/18/19 08:01 Dose: 1 tab Documented by: Multivitamins/Minerals (Caltrate Plus) 1 tab PO DAILY [facility] [place] Stop: 01/16/20 08:59 Last Admin: 12/18/19 08:00 Dose: 1 tab Documented by: Ondansetron HCl (Zofran) 4 mg IV Q6H PRN PRN Reason: Nausea Stop: 01/15/20 23:15 Tramadol HCl (Ultram) 50 mg PO DAILY [facility] [place] Stop: 01/16/20 08:59 Last Admin: 12/18/19 08:01 Dose: 50 mg Documented by: PG Care Time/CCT Total # of Minutes Spent Total Time Spent with Patient: Total time spent is greater than 50% in coordination of care (as documented) at patient's floor/unit and/or counseling patient: Coding Level of Care Code 66756 Subseq Hosp Care Lvl 3 Diagnoses NSTEMI (non-ST elevated myocardial infarction) I21.4 Acute on chronic diastolic CHF (congestive heart failure) I50.33 UTI (urinary tract infection) N39.0 Diabetes E11.628; Z79.4 Diabetes mellitus complication detail: with other skin complication Diabetes mellitus complication status: with skin complications Diabetes mellitus intermodal dispatcher insulin use: with intermodal dispatcher use Diabetes mellitus type: type 2 COPD (chronic obstructive pulmonary disease) J44.9 COPD type: unspecified COPD Obstructive sleep apnea G47.33 Hypertension I10 Hypertension type: essential hypertension Acute kidney injury superimposed on chronic kidney disease N17.9; N18.9 Hypothyroid E03.9 Hypothyroidism type: acquired CKD (chronic kidney disease), stage III N18.3 Hypokalemia E87.6 (1) Diabetes Diabetes mellitus complication detail: with other skin complication Diabetes mellitus complication status: with skin complications Diabetes mellitus intermodal dispatcher insulin use: with custodial use Diabetes mellitus type: type 2 Qualified Code(s): E11.628 - Type 2 diabetes mellitus with other skin complications; Z79.4 - senior care (current) use of insulin (2) Hypothyroid Hypothyroidism type: acquired Qualified Code(s): E03.9 - Hypothyroidism, unspecified (3) COPD (chronic obstructive pulmonary disease) COPD type: unspecified COPD Qualified Code(s): J44.9 - Chronic obstructive pulmonary disease, unspecified (4) Hypertension Hypertension type: essential hypertension Qualified Code(s): I10 - Essential (primary) hypertension
[2019-12-18] MEDS: cefTRIAXone SODIUM 2,000 MG in DEXTROSE 5% 50 ML IV SCH (17:14)
[2019-12-18] MEDS: FLUTICASONE/VILANTEROL 100/25MCG 14 PUFFS/INHALER INH SCH (20:44)
[2019-12-18] MEDS: ATORVASTATIN 40 MG TAB PO SCH (20:45)
--- NOTE | 2019-12-18 23:05 | Electrocardiogram Report ---
Test Reason : Blood Pressure : / mmHG Vent. Rate : 060 BPM Atrial Rate : 060 BPM P-R Int : 254 ms QRS Dur : 124 ms QT Int : 652 ms P-R-T Axes : 056 078 201 degrees QTc Int : 652 ms Sinus rhythm with 1st degree A-V block Non-specific intra-ventricular conduction delay Prolonged QT Abnormal ECG When compared with ECG of 17-DEC-2019 06:57, Premature atrial complexes are no longer Present Non-specific intra-ventricular conduction delay has replaced Left bundle branch block QT has lengthened Confirmed by Marko Winn ([id number]) on 12/18/2019 11:05:38 PM Referred By: REFERRED SELF Confirmed By:Marko Winn
--- NOTE | 2019-12-18 23:33 | Electrocardiogram Report ---
Test Reason : Blood Pressure : / mmHG Vent. Rate : 056 BPM Atrial Rate : 056 BPM P-R Int : 264 ms QRS Dur : 128 ms QT Int : 640 ms P-R-T Axes : 049 063 198 degrees QTc Int : 618 ms Sinus bradycardia with 1st degree A-V block Non-specific intra-ventricular conduction block Prolonged QT Abnormal ECG When compared with ECG of 18-DEC-2019 06:54, No significant change Confirmed by Marko Winn ([id number] on 12/18/2019 11:33:34 PM Referred By: REFERRED SELF Confirmed By:Marko Winn
[2019-12-19] MEDS: LEVOTHYROXINE SODIUM 75 MCG TABLET PO SCH (06:23)
[2019-12-19 07:05] LABS: Basophils # (auto) 0.02 K/uL (0-0.2); Basophils % (auto) 0.5 %; Eosinophils # (auto) 0.48 K/uL (0-0.5); Eosinophils % (auto) 10.8 %; Hematocrit (blood only) 31.3 % (37-47); Immature Granulocytes # (auto) 0.02 K/uL (0.00-0.02); Immature Granulocytes % (auto) 0.5 %; Mean Corpuscular Hemoglobin 28.3 pg (25-34); Mean Corpuscular Hgb Conc 31.9 g/dL (32-36); Mean Corpuscular Volume 88.7 fL (80-100); Mean Platelet Volume 10.2 fL (7.4-10.4); Monocytes # (auto) 0.37 K/uL (0.11-0.59); Monocytes % (auto) 8.3 %; Neutrophils # (auto) 2.75 K/uL (1.4-6.5); Neutrophils % (auto) 61.9 %; Platelet Count 149 K/uL (130-400); RDW Coefficient of Variation 17.7 % (11.5-14.5); RDW Standard Deviation 56.8 fL (36.4-46.3); Red Blood Count 3.53 M/uL (4.2-5.4); White Blood Count 4.44 K/uL (4.8-10.8)
[2019-12-19 07:07] LABS: INR 1.2 (0.9-1.1); Partial Thromboplastin Ratio 1.1; Partial Thromboplastin Time 29.9 Seconds (21.0-31.0); Prothrombin Time 12.6 Seconds (9.0-12.0)
[2019-12-19 07:27] LABS: Albumin Level 2.5 gm/dl (3.4-5.0); BUN Creatinine Ratio 27.9 (10-20); Calcium 8.7 mg/dl (8.5-10.1); Creatinine Clr Calc Pharmacy 28.3 ml/min; Est GFR (African American) 24.9; Est GFR (Non-African American) 21.5; Potassium 3.4 mmol/L (3.5-5.1)
[2019-12-19 07:30] LABS: Albumin Globulin Ratio 0.9 (0.9-2); Bilirubin,Total 0.6 mg/dl (0.2-1); Globulin 2.8 gm/dl (2.5-4.0); Total Protein 5.3 gm/dl (6.4-8.2)
[2019-12-19] MEDS: TRAMADOL HCL 50 MG TABLET PO SCH (08:00)
[2019-12-19] MEDS: POTASSIUM CHLORIDE 20 MEQ TABCR PO SCH ×3 (08:00→20:14)
[2019-12-19] MEDS: hydrOXYzine HCl 10 MG TAB PO SCH (08:00)
[2019-12-19] MEDS: LOSARTAN/HCTZ 50/12.5MG TAB PO SCH (08:00)
[2019-12-19] MEDS: FUROSEMIDE 40 MG in SYRINGE 0 ML IV SCH (08:00)
[2019-12-19] MEDS: FAMOTIDINE 40 MG TABLET PO SCH (08:01)
[2019-12-19] MEDS: CALCIUM 600MG + VIT D 400 IU TAB PO SCH (08:01)
[2019-12-19] MEDS: INSULIN ASPART 100 UNITS/ML 3 ML PEN SC SCH ×4 (08:01→20:38)
[2019-12-19] MEDS: MULTIVITAMIN TAB PO SCH (08:01)
[2019-12-19] MEDS: ASPIRIN 81 MG ECTAB PO SCH (08:01)
[2019-12-19] MEDS: METOPROLOL SUCC 25MG EXT REL TAB PO SCH (08:01)
--- NOTE | 2019-12-19 10:57 | Cardiology Progress Note ---
Date of Service December 19, 2019 Assessment & Plan (1) Acute coronary syndrome: (2) Cardiomyopathy: (3) Acute on chronic kidney failure: (4) Hypertension: (5) LBBB (left bundle branch block): (6) Frequent PVCs: ASSESSMENT/PLAN: 1. Acute systolic CHF: She does not appear to be significantly hypervolemic today. BUN has increased, suggesting possible azotemia. Will discontinue Lasix at this time. Reassess tomorrow, including renal function, and if appropriate, can initiate oral Lasix. Monitor renal function and electrolytes carefully. Replete potassium as appropriate. Low-sodium diet, daily weights, strict I&Os. 2. Cardiomyopathy: Etiology uncertain but possibly myocarditis as she was ill in September. She did have CAD but no definite severe CAD and non that would account for her degree of wall motion abnormalities. She has had some bradycardia while here so therefore metoprolol will not be titrated at this time but if her heart rate remains in the 60s, could increase metoprolol succinate in the future. She is on ARB. If renal function improves, will consider Entresto in place of ARB. 3. Acute on chronic kidney failure: Renal function similar to presentation. Continue to monitor. She is being treated for UTI as well as urine culture is pending. 4. CAD: Mid LAD stenosis noted on cardiac catheterization, felt to be moderate. Continue aspirin 81 mg. Consider high-intensity statin therapy. No further chest pain. Continue beta-rivera. 5. Left bundle-branch block: Left bundle-branch block is now intermittent on telemetry. 6. Hypertension: Mostly normotensive today with occasional hypertension. Continue current plan. 7. Dyslipidemia: Continue high-intensity statin therapy. 8. Frequent PVCs: Flecainide has been discontinued given structural abnormalities. 9. Fever: As per primary service. Being worked up for UTI. Urine culture pen ding. No fever now. 10. Disposition: Plan of care discussed with Dr. Hammer of the primary hospitalist service. Dr. Paiz will be covering cardiology over the weekend. Please call him with any questions or concerns. (Primary school business manager is Mr. Raudel Gr and Dr. Bueno). Admission and Anticipated Discharge Date Admission Date: December 16, 2019 Subjective She is feeling well today. She is laying completely flat with some supplemental oxygen but denies orthopnea. She denies any shortness of breath or chest pain. She denies melena, hematochezia, or hematuria. She denies syncope. She is hoping to go home soon. Review of systems: As above. Physical Exam Physical Exam: Gen.: No acute distress. Alert. HEENT: Anicteric sclera. Neck: Thick neck. No appreciable JVD. Cardiac: Regular. Normal S1-S2. 1/6 systolic murmur. No rubs, or gallops. Pulmonary: Decreased breath sounds bilaterally, but otherwise clear to auscultation bilaterally without wheezes, rales, or rhonchi. Abdomen: Soft, nontender, nondistended, with normoactive bowel sounds. No bruits noted. Extremities: Right radial cath site is clean, dry, and intact without erythema or discharge. Left radial cath site is currently dressed due to skin tears. No hematoma. Bilateral upper extremity ecchymoses noted. No significant pitting edema. No cyanosis. Psychiatric: Affect appears appropriate. Results & Data ([facility]) Vital Signs (Past 12 Hours) Vital Signs Temp Pulse Pulse Resp BP Pulse Ox 12/19/19 08:00 64 12/19/19 07:55 37.3 C 64 20 163/85 H 92 12/19/19 03:21 36.6 C 66 19 121/71 93 12/19/19 00:00 64 12/18/19 23:41 37.0 C 68 19 114/70 93 Intake & Output 12/17/19 12/18/19 12/19/19 12/20/19 06:59 06:59 06:59 06:59 Intake Total 300 / 300 1218 / 1218 Output Total 700 / 700 450 / 450 900 / 900 Balance -700 / -700 -150 / -150 318 / 318 Weight 139.8 kg 142 kg 140.9 kg Laboratory Results Laboratory Results - last 24 hr 12/18/19 12/18/19 12/18/19 11:28 14:35 16:27 WBC RBC Hgb Hct MCV MCH MCHC RDW Std Deviation RDW Coeff of Mariel Plt Count MPV Immature Gran % (Auto) Neut % (Auto) Lymph % (Auto) Person % (Auto) Eos % (Auto) Baso % (Auto) Immature Gran # (Auto) Neut # (Auto) Lymph # (Auto) Person # (Auto) Eos # (Auto) Baso # (Auto) PT INR APTT PTT Ratio Sodium Potassium Chloride Carbon Dioxide Anion Gap BUN Creatinine Est Cr Clr Drug Dosing Est GFR ( Amer) Est GFR (Non-Af Amer) BUN/Creatinine Ratio Glucose POC Glucose 98 80 Calcium Magnesium Total Bilirubin AST ALT Alkaline Phosphatase Total Protein Albumin Globulin Albumin/Globulin Ratio Urine Color Yellow Urine Appearance Clear Urine pH 5.0 Ur Specific [place] 1.019 Urine Protein Negative Urine Glucose (UA) Negative Urine Ketones Negative Urine Blood Trace H Urine Nitrite Negative Urine Bilirubin Negative Urine Urobilinogen Negative Ur Leukocyte Esterase 1+ H Urine WBC (Auto) 10-30 H Urine RBC (Auto) 5-10 H U Hyaline Cast (Auto) 1-5 U Epithel Cells (Auto) 10-20 H Urine Bacteria (Auto) 1+ H 12/18/19 12/19/19 12/19/19 20:26 06:29 06:29 WBC 4.44 L RBC 3.53 L Hgb 10.0 L Hct 31.3 L MCV 88.7 MCH 28.3 MCHC 31.9 L RDW Std Deviation 56.8 H RDW Coeff of Mariel 17.7 H Plt Count 149 MPV 10.2 Immature Gran % (Auto) 0.5 Neut % (Auto) 61.9 Lymph % (Auto) 18.0 Person % (Auto) 8.3 Eos % (Auto) 10.8 Baso % (Auto) 0.5 Immature Gran # (Auto) 0.02 Neut # (Auto) 2.75 Lymph # (Auto) 0.80 L Person # (Auto) 0.37 Eos # (Auto) 0.48 Baso # (Auto) 0.02 PT 12.6 H INR 1.2 H APTT 29.9 PTT Ratio 1.1 Sodium Potassium Chloride Carbon Dioxide Anion Gap BUN Creatinine Est Cr Clr Drug Dosing Est GFR ( Amer) Est GFR (Non-Af Amer) BUN/Creatinine Ratio Glucose POC Glucose 93 Calcium Magnesium Total Bilirubin AST ALT Alkaline Phosphatase Total Protein Albumin Globulin Albumin/Globulin Ratio Urine Color Urine Appearance Urine pH Ur Specific [place] Urine Protein Urine Glucose (UA) Urine Ketones Urine Blood Urine Nitrite Urine Bilirubin Urine Urobilinogen Ur Leukocyte Esterase Urine WBC (Auto) Urine RBC (Auto) U Hyaline Cast (Auto) U Epithel Cells (Auto) Urine Bacteria (Auto) 12/19/19 12/19/19 06:29 07:07 WBC RBC Hgb Hct MCV MCH MCHC RDW Std Deviation RDW Coeff of Mariel Plt Count MPV Immature Gran % (Auto) Neut % (Auto) Lymph % (Auto) Person % (Auto) Eos % (Auto) Baso % (Auto) Immature Gran # (Auto) Neut # (Auto) Lymph # (Auto) Person # (Auto) Eos # (Auto) Baso # (Auto) PT INR APTT PTT Ratio Sodium 135 L Potassium 3.4 L Chloride 101 Carbon Dioxide 27 Anion Gap 7.0 BUN 58 H Creatinine 2.09 H Est Cr Clr Drug Dosing 28.3 Est GFR ( Amer) 24.9 Est GFR (Non-Af Amer) 21.5 BUN/Creatinine Ratio 27.9 H Glucose 73 POC Glucose 83 Calcium 8.7 Magnesium 2.0 Total Bilirubin 0.6 AST 27 ALT 24 Alkaline Phosphatase 38 L Total Protein 5.3 L Albumin 2.5 L Globulin 2.8 Albumin/Globulin Ratio 0.9 Urine Color Urine Appearance Urine pH Ur Specific [place] Urine Protein Urine Glucose (UA) Urine Ketones Urine Blood Urine Nitrite Urine Bilirubin Urine Urobilinogen Ur Leukocyte Esterase Urine WBC (Auto) Urine RBC (Auto) U Hyaline Cast (Auto) U Epithel Cells (Auto) Urine Bacteria (Auto) Diagnostic Findings Telemetry personally reviewed: Sinus rhythm. Intermittent bundle-branch block. Medications Administered Current Inpatient Medications Acetaminophen (Tylenol) 650 mg PO Q4H PRN PRN Reason: Pain or Fever Stop: 01/15/20 23:15 Last Admin: 12/18/19 20:45 Dose: 650 mg Documented by: Al Hydrox/Mg Hydrox/Simethicone (Maalox) 15 ml PO Q4H PRN PRN Reason: Dyspepsia Stop: 01/15/20 23:15 Albuterol (Ventolin Hfa) 2 puffs INH Q4 PRN PRN Reason: Shortness Of Breath Or Wheezing Stop: 01/15/20 23:49 Albuterol (Duoneb) 3 ml INH Q4 PRN PRN Reason: Shortness Of Breath Or Wheezing Stop: 01/15/20 23:15 Aspirin (Ecotrin Ectab) 81 mg PO MoWeFr@0900 [facility] Stop: 01/16/20 08:59 Last Admin: 12/19/19 08:01 Dose: 81 mg Documented by: Atorvastatin Calcium (Lipitor) 40 mg PO [facility] Stop: 01/16/20 20:59 Last Admin: 12/18/19 20:45 Dose: 40 mg Documented by: Dextrose (Dextrose 50%) 25 - 50 ml IV UD PRN; Protocol PRN Reason: Hypoglycemia Protocol Stop: 01/15/20 23:15 Famotidine (Pepcid) 40 mg PO DAILY [facility] Stop: 01/16/20 08:59 Last Admin: 12/19/19 08:01 Dose: 40 mg Documented by: Fluticasone/Vilanterol (Breo Ellipta 100/25 Mcg Inh) 1 puffs INH DAILY@[facility] Stop: 01/16/20 20:59 Last Admin: 12/18/19 20:44 Dose: 1 puffs Documented by: Glucagon (Glucagen) 1 mg SQ UD PRN; Protocol PRN Reason: Hypoglycemia Protocol Stop: 01/15/20 23:15 Glucose (Dex4 Glucose) 4 - 8 tabs PO UD PRN; Protocol PRN Reason: Hypoglycemia Protocol Stop: 01/15/20 23:15 Glucose (Glucose 40%) 15 - 30 gm PO UD PRN; Protocol PRN Reason: Hypoglycemia Protocol Stop: 01/15/20 23:15 HCTZ/Losartan Potassium (Hyzaar 50/12.5mg) 1 tab PO DAILY [facility] Stop: 01/16/20 08:59 Last Admin: 12/19/19 08:00 Dose: 1 tab Documented by: Hydroxyzine HCl (Vistaril) 10 mg PO DAILY [facility] Stop: 01/16/20 08:59 Last Admin: 12/19/19 08:00 Dose: 10 mg Documented by: Ceftriaxone Sodium 2,000 mg/ (Dextrose) 70 mls @ 100 mls/hr IV DAILY@1630 [facility]; Protocol Stop: 12/28/19 16:29 Last Infusion: 12/18/19 18:01 Dose: Infused Documented by: Insulin Aspart (Novolog Flexpen) 0 units SC ACHS [facility] Stop: 01/16/20 07:29 Last Admin: 12/19/19 08:01 Dose: Not Given Documented by: Levothyroxine Sodium (Synthroid) 75 mcg PO DAILYBB [facility] Stop: 01/16/20 06:29 Last Admin: 12/19/19 06:23 Dose: 75 mcg Documented by: Magnesium Hydroxide (Milk Of Magnesia) 30 ml PO Q12H PRN PRN Reason: Constipation Stop: 01/15/20 23:15 Metoprolol Succinate (Toprol Xl) 25 mg PO DAILY [facility] Stop: 01/17/20 08:59 Last Admin: 12/19/19 08:01 Dose: 25 mg Documented by: Miscellaneous (Carbohydrates For Hypoglycemia) 15 - 30 gm PO UD PRN PRN Reason: Hypoglycemia Protocol Stop: 01/15/20 23:15 Multivitamins (Multivitamin Tab) 1 tab PO DAILY [facility] Stop: 01/16/20 08:59 Last Admin: 12/19/19 08:01 Dose: 1 tab Documented by: Multivitamins/Minerals (Caltrate Plus) 1 tab PO DAILY [facility] Stop: 01/16/20 08:59 Last Admin: 12/19/19 08:01 Dose: 1 tab Documented by: Ondansetron HCl (Zofran) 4 mg IV Q6H PRN PRN Reason: Nausea Stop: 01/15/20 23:15 Potassium Chloride (Klor-Con M20) 20 meq PO TID [facility] Stop: 01/18/20 08:59 Last Admin: 12/19/19 08:00 Dose: 20 meq Documented by: Tramadol HCl (Ultram) 50 mg PO DAILY [facility] Stop: 01/16/20 08:59 Last Admin: 12/19/19 08:00 Dose: 50 mg Documented by: PG Care Time/CCT Total # of Minutes Spent Total Time Spent with Patient: Total time spent is greater than 50% in coordination of care (as documented) at patient's floor/unit and/or counseling patient: Coding Level of Care Code 57749 Subseq Hosp Care Lvl 3 Diagnoses Acute coronary syndrome I24.9 Cardiomyopathy I42.9 Acute on chronic kidney failure N17.9; N18.9 Hypertension I10 Hypertension type: essential hypertension LBBB (left bundle branch block) I44.7 Frequent PVCs I49.3 (1) Hypertension Hypertension type: essential hypertension Qualified Code(s): I10 - Essential (primary) hypertension
--- NOTE | 2019-12-19 16:10 | Hospitalist Progress Note ---
Date of Service December 19, 2019 Assessment & Plan (1) NSTEMI (non-ST elevated myocardial infarction): troponin elevated at 0.3 with symptoms consistent with angina at rest new LBBB and echocardiogram with wall motion abnormality treated with antiplatelet therapy, heparin drip, Nitro SL, Lipitor Toprol increased to 25mg left heart cath on 12/16, showed 50-70% lesion in mid LAD, no other significant disease heparin drip stopped due to hematomas over bilateral wrists continue on aspirin, Lipitor, no room to increase Metoprolol with HR in the 50's no chest pain today (2) Acute on chronic diastolic CHF (congestive heart failure): Acute on chronic diastolic CHF improving with Lasix IV, received second dose on 12/17, 40mg IV she is negative for fluid balance, breathing better Cr up slightly at 2.0 repeat BMP tomorrow, hold on further Lasix today due to renal function, cannot start on Entresto at this time will follow up closely with cardiology for further medical management (3) UTI (urinary tract infection): fever, rigors, chills 12/17 WBC is low at 4.4 checked UA: >30 WBC, will send for culture -- growing E coli continue Rocephin, no further fevers change to PO antibiotics based on sensitivities (4) Diabetes: Hold pioglitazone, in addition may be contributing to CHF. Hold metformin. Placed on Accu-Cheks before meals and at bedtime with NovoLog coverage per scale monitor for hypoglycemia, no episodes today (5) COPD (chronic obstructive pulmonary disease): Continue pro-air HFA, Advair discus, gentamicin sulfate inhaled solution and PRN duo nebs. no wheezing on exam (6) Obstructive sleep apnea: Consult respiratory therapy for CPAP at bedtime. Daughter will bring in her own CPAP use tomorrow night. (7) Hypertension: continue Toprol (8) Acute kidney injury superimposed on chronic kidney disease: Creatinine 2.22 upon admission, with range 1.05-1.68. Follow serial laboratories. Hold lisinopril/HCTZ Cr is still elevated at 2.0, check tomorrow after holding Lasix (9) Hypothyroid: Continue levothyroxine sodium 75 mcg daily (10) CKD (chronic kidney disease), stage III: Cr up slightly at 2.0, not quite at baseline (11) Hypokalemia: low at 3.4, due to diuresis, will replace with TID check tomorrow Admission and Anticipated Discharge Date Admission Date: December 16, 2019 Anticipated date of discharge: 12/20/19 Subjective patient doing well, was OOB in chair for several hours today PT/OT ordered to make sure she is strong enough to go home tomorrow breathing well, examines euvolemic d/w Dr. Winn, hold off on Lasix today, can likely give PO Lasix tomorrow urine culture growing E coli, sensitivities pending, no fever since starting Rocephin she is eating well, had a BM yesterday reviewed labs today, Cr is 2.09, K is 3.4, WBC 4.4, Hb 10 Review of Systems Review of Systems: All systems reviewed & are unremarkable except as noted in HPI & below Physical Exam Constitutional: WD/WN, vitals as above + overweight Eyes: PERRL, conjunctivae normal, anicteric sclerae ENMT: external ear and nose normal, oropharynx normal Neck: trachea midline, no thyromegaly Respiratory: normal respiratory effort, lungs clear to auscultation Cardiovascular: Rate/Rhythm: regular rate and regular rhythm Heart Sounds: normal S1 and normal S2; no murmur Vessels: + JVD Extremities: normal capillary refill and + edema Gastrointestinal (Abdomen): normal bowel sounds, soft, nontender, no hepatosplenomegaly Musculoskeletal: no cyanosis or clubbing, extremities motor strength 5/5 Skin: no rashes, warm and dry (extensive brusing over wrists from cath) Neurologic: patellar DTR's 2+ bilat, sensation intact and PERRL, EOMI, accommodation nl, no face palsy, no dysarthria Psychiatric: A+Ox3, euthymic affect Lymphatic: no cervical or axillary lymphadenopathy Results & Data Results & Data ([facility]) Vital Signs (Past 12 Hours) Vital Signs Temp Pulse Pulse Pulse Resp BP Pulse Ox 12/19/19 11:23 37.1 C 56 L 18 130/77 95 12/19/19 08:00 64 12/19/19 07:55 37.3 C 64 20 163/85 H 92 Laboratory Results Laboratory Results - last 24 hr 12/18/19 12/18/19 12/19/19 16:27 20:26 06:29 WBC 4.44 L RBC 3.53 L Hgb 10.0 L Hct 31.3 L MCV 88.7 MCH 28.3 MCHC 31.9 L RDW Std Deviation 56.8 H RDW Coeff of Mariel 17.7 H Plt Count 149 MPV 10.2 Immature Gran % (Auto) 0.5 Neut % (Auto) 61.9 Lymph % (Auto) 18.0 Howard % (Auto) 8.3 Eos % (Auto) 10.8 Baso % (Auto) 0.5 Immature Gran # (Auto) 0.02 Neut # (Auto) 2.75 Lymph # (Auto) 0.80 L Howard # (Auto) 0.37 Eos # (Auto) 0.48 Baso # (Auto) 0.02 PT INR APTT PTT Ratio Sodium Potassium Chloride Carbon Dioxide Anion Gap BUN Creatinine Est Cr Clr Drug Dosing Est GFR ( Amer) Est GFR (Non-Af Amer) BUN/Creatinine Ratio Glucose POC Glucose 80 93 Calcium Magnesium Total Bilirubin AST ALT Alkaline Phosphatase Total Protein Albumin Globulin Albumin/Globulin Ratio 12/19/19 12/19/19 12/19/19 06:29 06:29 07:07 WBC RBC Hgb Hct MCV MCH MCHC RDW Std Deviation RDW Coeff of Mariel Plt Count MPV Immature Gran % (Auto) Neut % (Auto) Lymph % (Auto) Howard % (Auto) Eos % (Auto) Baso % (Auto) Immature Gran # (Auto) Neut # (Auto) Lymph # (Auto) Howard # (Auto) Eos # (Auto) Baso # (Auto) PT 12.6 H INR 1.2 H APTT 29.9 PTT Ratio 1.1 Sodium 135 L Potassium 3.4 L Chloride 101 Carbon Dioxide 27 Anion Gap 7.0 BUN 58 H Creatinine 2.09 H Est Cr Clr Drug Dosing 28.3 Est GFR ( Amer) 24.9 Est GFR (Non-Af Amer) 21.5 BUN/Creatinine Ratio 27.9 H Glucose 73 POC Glucose 83 Calcium 8.7 Magnesium 2.0 Total Bilirubin 0.6 AST 27 ALT 24 Alkaline Phosphatase 38 L Total Protein 5.3 L Albumin 2.5 L Globulin 2.8 Albumin/Globulin Ratio 0.9 12/19/19 11:36 WBC RBC Hgb Hct MCV MCH MCHC RDW Std Deviation RDW Coeff of Mariel Plt Count MPV Immature Gran % (Auto) Neut % (Auto) Lymph % (Auto) Howard % (Auto) Eos % (Auto) Baso % (Auto) Immature Gran # (Auto) Neut # (Auto) Lymph # (Auto) Howard # (Auto) Eos # (Auto) Baso # (Auto) PT INR APTT PTT Ratio Sodium Potassium Chloride Carbon Dioxide Anion Gap BUN Creatinine Est Cr Clr Drug Dosing Est GFR ( Amer) Est GFR (Non-Af Amer) BUN/Creatinine Ratio Glucose POC Glucose 86 Calcium Magnesium Total Bilirubin AST ALT Alkaline Phosphatase Total Protein Albumin Globulin Albumin/Globulin Ratio Medications Administered Current Inpatient Medications Acetaminophen (Tylenol) 650 mg PO Q4H PRN PRN Reason: Pain or Fever Stop: 01/15/20 23:15 Last Admin: 12/18/19 20:45 Dose: 650 mg Documented by: Al Hydrox/Mg Hydrox/Simethicone (Maalox) 15 ml PO Q4H PRN PRN Reason: Dyspepsia Stop: 01/15/20 23:15 Albuterol (Ventolin Hfa) 2 puffs INH Q4 PRN PRN Reason: Shortness Of Breath Or Wheezing Stop: 01/15/20 23:49 Albuterol (Duoneb) 3 ml INH Q4 PRN PRN Reason: Shortness Of Breath Or Wheezing Stop: 01/15/20 23:15 Aspirin (Ecotrin Ectab) 81 mg PO MoWeFr@0900 [facility] Stop: 01/16/20 08:59 Last Admin: 12/19/19 08:01 Dose: 81 mg Documented by: Atorvastatin Calcium (Lipitor) 40 mg PO [facility] Stop: 01/16/20 20:59 Last Admin: 12/18/19 20:45 Dose: 40 mg Documented by: Dextrose (Dextrose 50%) 25 - 50 ml IV UD PRN; Protocol PRN Reason: Hypoglycemia Protocol Stop: 01/15/20 23:15 Famotidine (Pepcid) 40 mg PO DAILY [facility] Stop: 01/16/20 08:59 Last Admin: 12/19/19 08:01 Dose: 40 mg Documented by: Fluticasone/Vilanterol (Breo Ellipta 100/25 Mcg Inh) 1 puffs INH DAILY@[facility] Stop: 01/16/20 20:59 Last Admin: 12/18/19 20:44 Dose: 1 puffs Documented by: Glucagon (Glucagen) 1 mg SQ UD PRN; Protocol PRN Reason: Hypoglycemia Protocol Stop: 01/15/20 23:15 Glucose (Dex4 Glucose) 4 - 8 tabs PO UD PRN; Protocol PRN Reason: Hypoglycemia Protocol Stop: 01/15/20 23:15 Glucose (Glucose 40%) 15 - 30 gm PO UD PRN; Protocol PRN Reason: Hypoglycemia Protocol Stop: 01/15/20 23:15 HCTZ/Losartan Potassium (Hyzaar 50/12.5mg) 1 tab PO DAILY [facility] Stop: 01/16/20 08:59 Last Admin: 12/19/19 08:00 Dose: 1 tab Documented by: Hydroxyzine HCl (Vistaril) 10 mg PO DAILY [facility] Stop: 01/16/20 08:59 Last Admin: 12/19/19 08:00 Dose: 10 mg Documented by: Ceftriaxone Sodium 2,000 mg/ (Dextrose) 70 mls @ 100 mls/hr IV DAILY@1630 [facility]; Protocol Stop: 12/28/19 16:29 Last Infusion: 12/18/19 18:01 Dose: Infused Documented by: Insulin Aspart (Novolog Flexpen) 0 units SC ACHS [facility] Stop: 01/16/20 07:29 Last Admin: 12/19/19 12:25 Dose: Not Given Documented by: Levothyroxine Sodium (Synthroid) 75 mcg PO DAILYBB [facility] Stop: 01/16/20 06:29 Last Admin: 12/19/19 06:23 Dose: 75 mcg Documented by: Magnesium Hydroxide (Milk Of Magnesia) 30 ml PO Q12H PRN PRN Reason: Constipation Stop: 01/15/20 23:15 Metoprolol Succinate (Toprol Xl) 25 mg PO DAILY [facility] Stop: 01/17/20 08:59 Last Admin: 12/19/19 08:01 Dose: 25 mg Documented by: Miscellaneous (Carbohydrates For Hypoglycemia) 15 - 30 gm PO UD PRN PRN Reason: Hypoglycemia Protocol Stop: 01/15/20 23:15 Multivitamins (Multivitamin Tab) 1 tab PO DAILY [facility] Stop: 01/16/20 08:59 Last Admin: 12/19/19 08:01 Dose: 1 tab Documented by: Multivitamins/Minerals (Caltrate Plus) 1 tab PO DAILY [facility] Stop: 01/16/20 08:59 Last Admin: 12/19/19 08:01 Dose: 1 tab Documented by: Ondansetron HCl (Zofran) 4 mg IV Q6H PRN PRN Reason: Nausea Stop: 01/15/20 23:15 Potassium Chloride (Klor-Con M20) 20 meq PO TID [facility] Stop: 01/18/20 08:59 Last Admin: 12/19/19 14:15 Dose: 20 meq Documented by: Tramadol HCl (Ultram) 50 mg PO DAILY [facility] Stop: 01/16/20 08:59 Last Admin: 12/19/19 08:00 Dose: 50 mg Documented by: PG Care Time/CCT Total # of Minutes Spent Total Time Spent with Patient: Total time spent is greater than 50% in coordination of care (as documented) at patient's floor/unit and/or counseling patient: Coding Level of Care Code 09472 Subseq Hosp Care Lvl 3 Diagnoses NSTEMI (non-ST elevated myocardial infarction) I21.4 Acute on chronic diastolic CHF (congestive heart failure) I50.33 UTI (urinary tract infection) N39.0 Diabetes E11.628; Z79.4 Diabetes mellitus type: type 2 Diabetes mellitus long term care administrator insulin use: with m[facility]p use Diabetes mellitus complication status: with skin complications Diabetes mellitus complication detail: with other skin complication COPD (chronic obstructive pulmonary disease) J44.9 COPD type: unspecified COPD Obstructive sleep apnea G47.33 Hypertension I10 Hypertension type: essential hypertension Acute kidney injury superimposed on chronic kidney disease N17.9; N18.9 Hypothyroid E03.9 Hypothyroidism type: acquired CKD (chronic kidney disease), stage III N18.3 Hypokalemia E87.6 (1) Diabetes Diabetes mellitus type: type 2 Diabetes mellitus m[facility]p insulin use: with long term care administrator use Diabetes mellitus complication status: with skin complications Diabetes mellitus complication detail: with other skin complication Qualified Code(s): E11.628 - Type 2 diabetes mellitus with other skin complications; Z79.4 - director long term care (current) use of insulin (2) COPD (chronic obstructive pulmonary disease) COPD type: unspecified COPD Qualified Code(s): J44.9 - Chronic obstructive pulmonary disease, unspecified (3) Hypertension Hypertension type: essential hypertension Qualified Code(s): I10 - Essential (primary) hypertension (4) Hypothyroid Hypothyroidism type: acquired Qualified Code(s): E03.9 - Hypothyroidism, unspecified
[2019-12-19] MEDS: cefTRIAXone SODIUM 2,000 MG in DEXTROSE 5% 50 ML IV SCH (17:00)
[2019-12-19] MEDS: ACETAMINOPHEN 325 MG TAB PO PRN (20:12)
[2019-12-19] MEDS: FLUTICASONE/VILANTEROL 100/25MCG 14 PUFFS/INHALER INH SCH (20:13)
[2019-12-19] MEDS: ATORVASTATIN 40 MG TAB PO SCH (20:14)
[2019-12-20] MEDS: LEVOTHYROXINE SODIUM 75 MCG TABLET PO SCH (05:51)
[2019-12-20 07:56] LABS: Hematocrit (blood only) 33.2 % (37-47); Hemoglobin 10.3 g/dL (12.0-16.0); Mean Corpuscular Hemoglobin 28.1 pg (25-34); Mean Corpuscular Volume 90.7 fL (80-100); Mean Platelet Volume 10.1 fL (7.4-10.4); Platelet Count 142 K/uL (130-400); RDW Coefficient of Variation 17.5 % (11.5-14.5); RDW Standard Deviation 57.5 fL (36.4-46.3); Red Blood Count 3.66 M/uL (4.2-5.4); White Blood Count 3.97 K/uL (4.8-10.8)
[2019-12-20] MEDS: INSULIN ASPART 100 UNITS/ML 3 ML PEN SC SCH ×2 (07:59→11:51)
[2019-12-20] MEDS: CALCIUM 600MG + VIT D 400 IU TAB PO SCH (08:00)
[2019-12-20] MEDS: POTASSIUM CHLORIDE 20 MEQ TABCR PO SCH ×2 (08:00→13:55)
[2019-12-20] MEDS: MULTIVITAMIN TAB PO SCH (08:00)
[2019-12-20] MEDS: FAMOTIDINE 40 MG TABLET PO SCH (08:00)
[2019-12-20] MEDS: LOSARTAN/HCTZ 50/12.5MG TAB PO SCH (08:00)
[2019-12-20] MEDS: hydrOXYzine HCl 10 MG TAB PO SCH (08:00)
[2019-12-20] MEDS: METOPROLOL SUCC 25MG EXT REL TAB PO SCH (08:08)
[2019-12-20] MEDS: TRAMADOL HCL 50 MG TABLET PO SCH (08:08)
[2019-12-20 08:25] LABS: BUN Creatinine Ratio 29.1 (10-20); Calcium 8.4 mg/dl (8.5-10.1); Creatinine Clr Calc Pharmacy 30.4 ml/min; Est GFR (African American) 26.9; Est GFR (Non-African American) 23.2; Potassium 3.6 mmol/L (3.5-5.1)
[2019-12-20] MEDS: cefTRIAXone SODIUM 2,000 MG in DEXTROSE 5% 50 ML IV SCH (13:55)
--- NOTE | 2019-12-20 13:58 | Discharge Summary ---
Date of Service December 20, 2019 Admission HPI Per Admitting Provider The patient is a 84-year-old female with a past medical history including hypothyroidism, ventricular ectopy, diabetes mellitus, COPD, abdominal wall cellulitis, breast cancer, restrictive lung disease, bradycardia, demand ischemia of myocardium, hypertension, obstructive sleep apnea and community- acquired bacterial pneumonia. She reports to the emergency department with the development of substernal chest discomfort and shortness of breath. She has no recent travels or sick exposures. Principal Diagnosis Acute systolic heart failure Discharge Exam Constitutional WD/WN, vitals as above + overweight Eyes PERRL, conjunctivae normal, anicteric sclerae ENMT external ear and nose normal, oropharynx normal Neck trachea midline, no thyromegaly Respiratory normal respiratory effort, lungs clear to auscultation Cardiovascular Rate/Rhythm: regular rate and regular rhythm Heart Sounds: normal S1 and normal S2; no murmur Extremities: normal capillary refill; no edema Gastrointestinal (Abdomen) normal bowel sounds, soft, nontender, no hepatosplenomegaly Musculoskeletal no cyanosis or clubbing, extremities motor strength 5/5 Skin no rashes, warm and dry (extensive brusing over wrists from cath) Neurologic patellar DTR's 2+ bilat, sensation intact and PERRL, EOMI, accommodation nl, no face palsy, no dysarthria Psychiatric A+Ox3, euthymic affect Lymphatic no cervical or axillary lymphadenopathy Discharge Data Allergies Allergy/AdvReac Type Severity Reaction Status Date / Time Penicillins Allergy Intermediate SEVERE RASH Verified 12/16/19 18:33 Sulfa (Sulfonamide Allergy Unknown Unknown Verified 12/16/19 18:33 Antibiotics) Consultations 12/16/19 21:22 ED Decision to Admit Stat 12/16/19 23:16 Consult Cardiology Routine Consult Case Management - Discharge Planning Routine 12/17/19 15:27 Consult Cardiac Rehabilitation Routine Procedures Performed Operation Date: 12/17/19 12:00 Actual Procedures p Cath, Right and Left Heart - Marko Winn MD s Cineradiography w/Routine Exam - Marko Winn MD Ordered Studies 12/17/19 12:22 CL Cath Imgs for PACS use only Routine Hospital Course (1) Cardiomyopathy: global hypokinesis to akinesis EF 30%, this is new finding compared to prior echo heart cath with single lesion in LAD of 50-70% stenosis, not severe certainly no evidence of severe CAD that would explain cardiomyopathy she was sick a few weeks ago, could be myocarditis? she is euvolemic will treat with Losartan, Toprol, Lasix 40mg daily follow up with heart failure clinic, Raudel Gr in two weeks heart failure discharge instructions provided (2) Acute systolic heart failure: see above acute component resolved with Lasix IV x 2 days examines euvolemic plan is to use Lasix 40mg PO daily would try to use Entresto but her renal function does not allow at this time (3) NSTEMI (non-ST elevated myocardial infarction): troponin elevated at 0.3 with symptoms consistent with angina at rest new LBBB and echocardiogram with wall motion abnormality, EF of 30% treated with antiplatelet therapy, heparin drip, Nitro SL, Lipitor Toprol increased to 25mg left heart cath on 12/16, showed 50-70% lesion in mid LAD, no other significant disease heparin drip stopped due to hematomas over bilateral wrists continue on aspirin, Lipitor, no room to increase Metoprolol with HR in the 50's no chest pain for three days (4) Acute on chronic diastolic CHF (congestive heart failure): Acute on chronic diastolic CHF resolved with Lasix IV, received second dose on 12/17, 40mg IV she is negative for fluid balance, breathing better Cr down a little at 1.9 due to renal function, cannot start on Entresto at this time will follow up closely with cardiology for further medical management (5) UTI (urinary tract infection): fever, rigors, chills 12/17 WBC is low at 3 checked UA: >30 WBC, will send for culture -- growing E coli, whitley sensitive treated with Rocephin, no further fevers d/c home on Keflex 500mg BID x 5 more days (6) Diabetes: stop pioglitazone, in addition may be contributing to CHF. resume Metformin Placed on Accu-Cheks before meals and at bedtime with NovoLog coverage per scale (7) COPD (chronic obstructive pulmonary disease): Continue pro-air HFA, Advair discus, gentamicin sulfate inhaled solution and PRN duo nebs. no wheezing on exam (8) Obstructive sleep apnea: Consult respiratory therapy for CPAP at bedtime. Daughter will bring in her own CPAP use tomorrow night. (9) Hypertension: continue Toprol 25mg daily, Losartan 100mg daily increase Lasix to 40mg daily will stop the HCTZ 25mg daily as we are increasing her Lasix to 40mg (10) Acute kidney injury superimposed on chronic kidney disease: Creatinine 2.22 upon admission, with range 1.05-1.68 previously as outpatient Cr down to 1.9, safe to continue Losartan hold Lasix tomorrow but can resume on Thursday 12/21 electrolytes stable (11) Hypothyroid: Continue levothyroxine sodium 75 mcg daily (12) CKD (chronic kidney disease), stage III: Cr up slightly at 2.0, not quite at baseline (13) Hypokalemia: low at 3.4, due to diuresis, will replace with TID K up to 3.5 will prescribe Potassium 20mEq daily with the Lasix Total Time Total Time Spent Total Time Spent (In Minutes): 39 minutes Total Time Includes: Examination of the Patient, Discharge Planning, Medication Reconciliation, Communication With Other Providers (Dr. Winn) and Other (talked with her daughter over the phone) Discharge Plan Discharge Items Patient Disposition: Home - Home Health Services Reason For Visit: CHF,EVANGELINA ON CKD Discharge Diagnosis: Acute systolic heart failure UTI, e coli Left heart cath, no severe disease CKD stage IV Condition on Discharge: Good Goals: improve strength and mobility follow up closely with Raudel Gr, cardiology check labs next week Activity: Resume your previous activity Weightbearing: Full weightbearing Non-emergency contact: Primary Care Provider Call non-emergency contact if: you have any medication questions and your symptoms worsen Follow-up/Referrals: Raudel Gr PA-C [Physician Estate Planning Counselor] - (2 weeks, call for appt) Jesus Bueno MD [Physician] - 01/13/20 11:30 am Ermias Rizo MD [Primary Care Provider] - (one week) Letty Sood PA-C [Physician Estate Planning Counselor] - (one week) Diet: Carb Consistent or DM2 and Heart Healthy Fluids: 1800ml (7 cups) Addtl Attending Provider Instructions: Medications: please note the following changes - TOPROL: dose increased from 12.5mg to 25mg daily - LOSARTAN: continue on 100mg daily, please note that the 25mg of HCTZ has been stopped, no longer take the combination pill, new script sent - LASIX: dose increased to 40mg daily, please hold this weekend, can start on Thursday 12/21 - POTASSIUM: take 20mEq daily with the lasix - KEFLEX: 500mg twice a day, start tomorrow morning, take for 5 days total - ATORVASTATIN: 40mg daily, replaces simvastatin - FLECAINIDE: stop this medication - MOBIC: stop taking this medication because renal function is poor - PIOGLITAZONE: stop this due to heart failure - SIMVASTATIN: stop this, replaced with Lipitor Acute systolic heart failure resolved with Lasix 40mg IV twice a day, held the Lasix the past two days because volume status is acceptable echo with reduced ejection fraction, new finding left heart cath showed 50-70% lesion in one vessel, other vessels normal, would not explain reduced ejection fraction Dr Winn increased Toprol to 25mg, continue Losartan 100mg daily, would want to add Entresto but renal function does not allow this recommend taking Lasix 40mg daily need to follow a fluid restriction to 1800mL/day, follow a low sodium diet, less than 2gm a day please weigh yourself when you get home today, record this weight as a baseline please weight yourself every morning, after you urinate and prior to eating/drinking if your weight goes up by 2-3 lbs then contact Letty Sood with heart fail ure program UTI, E coli, sensitive to cephalosporins treated with Rocephin for three days convert to Keflex, complete 5 more days on discharge Acute kidney injury on CKD stage III, may be progressing to stage IV kidney disease stop taking Mobic as NSAIDs worsen renal function recommend repeat BMP this week, follow up with Dr. Rizo Skin tear left arm: RN placed optifoam dressing, this can stay in place for up to 7 days home nursing checks arranged, they can change the dressing in a few days okay to shower today, do not soak in tub Pending Studies at Discharge: No Stand-Alone Forms: My [employer], Smoking Cessation Medications and DC Order Prescriptions: New atorvastatin 40 mg Tablet 40 mg PO HS 30 Days Qty: 30 RF: 3 potassium chloride [Klor-Con M20] 20 mEq Tablet,Er Particles/Crystals 20 meq PO DAILY 30 Days Qty: 30 RF: 3 metoprolol succinate 25 mg Tablet Extended Release 24 Hr 25 mg PO DAILY 30 Days Qty: 30 RF: 3 furosemide 40 mg tablet 40 mg PO DAILY Qty: 30 RF: 3 losartan 100 mg tablet 100 mg PO DAILY Qty: 30 RF: 3 cephalexin [Keflex] 500 mg capsule 500 mg PO BID 5 Days Qty: 10 RF: 0 Continued fluticasone propion-salmeterol [Wixela Inhub] 250-50 mcg/dose blister with device 1 puffs INH Q12H Qty: 180 RF: 3 ipratropium-albuterol 0.5 mg-3 mg(2.5 mg base)/3 mL solution for nebulization 3 ml INHALATION Q4 PRN (Reason: Shortness Of Breath Or Wheezing) Qty: 540 RF: 11 (DME) Oxygen Home Liters Per Minute See Rx Instructions .ROUTE .MEDSUPPLY Qty: 2 RF: 0 gentamicin sulfate (PF) 60 mg/6 mL solution 60 mg inhalation TID Qty: 45 RF: 0 hydroxyzine HCl 10 mg tablet 10 mg PO DAILY RF: 0 tramadol 50 mg tablet 50 mg PO DAILY RF: 0 multivitamin [Multiple Vitamins] Tablet 1 tab PO DAILY RF: 0 famotidine 40 mg Tablet 40 mg PO DAILY RF: 0 aspirin 81 mg Tablet,Delayed Release (Dr/Ec) 81 mg PO 3XWK RF: 0 levothyroxine [Synthroid] 75 mcg Tablet 75 mcg PO DAILY RF: 0 albuterol sulfate [ProAir HFA] 90 mcg/actuation Hfa Aerosol Inhaler 2 puff INHALATION Q4 PRN (Reason: Shortness Of Breath Or Wheezing) RF: 0 metformin [Glucophage] 500 mg tablet 500 mg PO QPM RF: 0 calcium carb and citrate-vitD3 600 mg calcium- 500 unit Tablet Extended Release 1 tab PO DAILY RF: 0 Discontinued flecainide 100 mg tablet 100 mg PO Q12H Qty: 14 RF: 0 metoprolol succinate 25 mg tablet extended release 24 hr 12.5 mg PO DAILY Qty: 45 RF: 3 pioglitazone 30 mg tablet 30 mg PO DAILY RF: 0 meloxicam [Mobic] 15 mg tablet 15 mg PO DAILY RF: 0 furosemide 20 mg tablet 20 mg PO QAM RF: 0 simvastatin 40 mg Tablet 40 mg PO PM RF: 0 losartan-hydrochlorothiazide 100-25 mg Tablet 1 tab PO DAILY RF: 0 Discharge Orders: Discharge Order (Routine); Ordered 12/20/19 Ordered By: Stevie Tejeda/Other Patient Handouts: UTIs Female, Hypokalemia Dc, Transradial Cardiac Cath Admission Data Admit Date/Time: 12/16/19 22:06 Attending Provider: Stevie Hammer Admit Provider: Sabino Bassett Primary Care Provider: Ermias Rizo Other Providers: Sabino Bassett ; Marko Winn. Other Interventions: Discharge Summary Assessment (RN) Last Done: 12/20/19 14:09 DC Date/Time DO NOT enter until pt leaves facility: 12/20/19 15:40 Coding Level of Care Code D/C Day Management >30 mins Diagnoses Cardiomyopathy I42.9 Acute systolic heart failure I50.21 NSTEMI (non-ST elevated myocardial infarction) I21.4 Acute on chronic diastolic CHF (congestive heart failure) I50.33 UTI (urinary tract infection) N39.0 Diabetes E11.628; Z79.4 Diabetes mellitus complication detail: with other skin complication Diabetes mellitus complication status: with skin complications Diabetes mellitus mcfp insulin use: with long term care administrator use Diabetes mellitus type: type 2 COPD (chronic obstructive pulmonary disease) J44.9 COPD type: unspecified COPD Obstructive sleep apnea G47.33 Hypertension I10 Hypertension type: essential hypertension Acute kidney injury superimposed on chronic kidney disease N17.9; N18.9 Hypothyroid E03.9 Hypothyroidism type: acquired CKD (chronic kidney disease), stage III N18.3 Hypokalemia E87.6
== END 2019-12-20 15:40 | disposition home health service (06) | DRG 280 ==
LOC: ED 16:58 → 2S 22:06 → SUATTDRO 22:06 → 2S 22:44

== ENCOUNTER 2023-05-08 10:35 | Inpatient (IN) ==
[2023-05-08] MEDS ORDERED: SODIUM CHLORIDE 0.9% 500 ML IV STA (11:00)
--- NOTE | 2023-05-08 11:10 | Emergency Department Note ---
Impression & Plan Hypoxia ADMIT ED Provider Note HPI: History obtained from patient and daughter at bedside. The patient is a 88-year-old female with history of cardiomyopathy with mildly reduced ejection fraction, COPD, presents emergency department with a chief complaint of dry heaving and low blood pressure. Patient presents with her daughter at the bedside who states that the patient received a flu shot yesterday. She states that since the patient received her flu shot she has had some nausea, she has had some dry heaving. Patient's daughter took the patient's blood pressure this morning and it was in the 80s systolic. She therefore brought her mother to the ER to be assessed. On arrival here to the ED the patient's only complaint is "weakness". She was noted to be hypotensive in triage and 79/58, initially was saturating well on room air however became hypoxic shortly after being roomed to 89% was placed on nasal cannula oxygen with good improvement. Patient denies any chest pain, denies any abdominal pain. Repeat blood pressure in the room is 106/56. ROS: - Per HPI Differential Diagnosis: Acute on chronic CHF exacerbation, COPD exacerbation, acute coronary syndrome, pulmonary embolism, pneumonia, viral upper respiratory infection, amongst other potential pathologies. *Outpatient medications and allergy history reviewed. *Pertinent external medical records reviewed PE: General: Alert, morbidly obese HEENT: Normocephalic, trachea midline Eyes: Extraocular eye movement is intact, no scleral erythema Pulmonary: Diminished breath sounds bilaterally without wheezing or crackles Cardio: Regular rate and rhythm GI: Abdomen is soft to palpation : No suprapubic tenderness MSK: No evidence of trauma or malformation of the extremities, no edema Skin: No evidence of rash Neuro: Alert, no focal deficits Psychiatric: Cooperative INDEPENDENT INTERPRETATIONS: press washer: (As interpreted by myself): - An order was placed for continuous cardiac monitoring - Patient was noted to be in sinus rhythm with a rate of 73 EKG: (As interpreted by myself): Rate: 74 Rhythm: Normal sinus rhythm Intervals: Within normal limits ST changes: No ST elevation Time: 1103 Interventions provided in ED: -IV fluid bolus, IV Lasix, supplemental oxygen Medical Decision Making: IV was established lab work obtained, patient was placed on cardiac catheterization technician, found to be hypoxic to 89% and therefore was placed on nasal cannula oxygen with good improvement. Lab work shows no leukocytosis, hemoglobin is normal, platelet count is normal, venous blood gas shows pH slightly high at 7.5, PCO2 slightly low at 34, CMP shows mild hyponatremia 132, creatinine near baseline at 1.37, high-sensitivity troponin is mildly elevated at 17.8, BNP is elevated at 419 in comparison to 125 just 4 days ago. Chest x-ray shows cardiomegaly without any obvious pneumonia. Testing was obtained and is negative. Given the patient's hypoxia and generalized weakness, I do feel she is appropriate for admission. She was initially given a sodium chloride bolus of 500 cc for hypotension however this did quickly improve and following the resu lts of the above lab work she was given IV Lasix for diuresis as I do suspect that her shortness of breath is secondary to CHF given her elevated BNP. Her VBG is not suggestive of COPD exacerbation. Patient is in agreement for admission, case was discussed with the on-call hospitalist, Dr. Zhou, the patient was placed for admission in stable condition. Consultants/Discussions held with other healthcare providers: -Hospitalist, Dr. Zhou Disposition discussion held by myself with: -Patient and daughter at bedside * CRITICAL CARE TIME: ( 45 ) minutes -Stabilization of hypoxia with oxygen saturation less than 90% on room air requiring supplemental oxygen for correction, interpretation of EKG and other diagnostic studies, time spent at the bedside, discussion with other physicians and arrangement of admission Diagnosis: 1. Hypoxia, acute 2. Elevated BNP 3. Elevated high-sensitivity troponin level 4. Hyponatremia, acute, mild Disposition: Admission Advised outpatient follow up that was discussed with the patient: -Return to the ED immediately with any new or worsening symptoms -Follow up with a PCP in 2-3 Days Doug Olvera DO Emergency Medicine Past Med/Surg History Medical History Active asthma Arthritis of foot, left Arthritis of foot, right Bradycardia Breast cancer Cellulitis Chronic systolic CHF (congestive heart failure) Exertional dyspnea Frequent PVCs History of asthma History of cellulitis History of ecchymosis History of edema History of osteoarthritis History of tinea corporis History of weight disorder Hypertension Hypokalemia Leaky heart valve Morbid obesity NSTEMI (non-ST elevated myocardial infarction) Obstructive sleep apnea Open wound of anterior abdominal wall (11/24/11) KINGSLEY on CPAP Restrictive lung disease (11/24/11) Sprain of left foot Surgical History History of colonoscopy History of mastectomy History of tonsillectomy Family History Father Myocardial infarction Social History Smoking Status: Never smoker Hx Alcohol Use: Yes Alcohol type: wine Hx Substance Use: No Preferred Language: Slovenian Communication Ability: Effective Visual Impairment: No Limitations Hearing Ability: Normal Pet Adoption Counselor Required: No Beliefs That Will Affect Care: None marital status: / Current Living Situation: Family How many Children do You have: 1 Other Information That Helps Us Care for You: No Feels Safe at Home: Yes Safety Concerns: Feels Safe At This Time Assistive Devices: Walker Allergies Allergies Allergy/AdvReac Type Severity Reaction Status Date / Time Penicillins Allergy Intermediate SEVERE RASH Verified 05/07/23 11:19 cephalexin [From Keflex] Allergy Unknown Unknown Verified 05/07/23 11:19 Sulfa (Sulfonamide Allergy Unknown Unknown Verified 05/07/23 11:19 Antibiotics) Home Meds Home Medications Medication Instructions Recorded Confirmed aspirin 81 mg tablet,delayed 81 mg PO 3XWK 06/08/18 05/08/23 release multivitamin (Multiple Vitamins 1 tab PO DAILY 06/08/18 05/08/23 tablet) tramadol 50 mg tablet 50 mg PO Q4 PRN Pain 01/29/19 05/08/23 metformin 500 mg tablet 500 mg PO QPM 04/21/19 05/08/23 (Glucophage) allopurinol 300 mg tablet 300 mg PO DAILY 01/08/20 05/08/23 calcium carb,cit ER 600 mg-vit D3 1 tab PO AMHS 02/19/20 05/08/23 12.5 mcg (500 unit) tablet,ext.rel hydroxyzine HCl 10 mg tablet 20 mg PO QID PRN Anxiety 02/19/20 05/08/23 nystatin 100,000 unit/gram topical 1 applic topical TID PRN Other 12/28/20 05/08/23 powder levothyroxine 75 mcg tablet 88 mcg PO DAILY 12/13/21 05/08/23 (Synthroid) doxycycline hyclate 100 mg PO BID cat scratch 05/07/23 05/08/23 clotrimazole 1 % topical cream 1 applic topical BID PRN skin 05/08/23 05/08/23 itching Previous Rx's Medication Instructions Recorded Oxygen Home #2 L 09/16/19 famotidine 40 mg tablet 40 mg PO DAILY #90 tabs 12/10/20 CPAP Supplies #1 ea 09/01/21 potassium chloride 20 mEq 20 meq PO DAILY 30 days #90 tabs 12/06/21 tablet,extended release(part/cryst) (Klor-Con M) metoprolol succinate 25 mg 50 mg PO DAILY #180 tabs 05/02/22 tablet,extended release 24 hr fluticasone 250 mcg-salmeterol 50 1 inh inhalation Q12H #180 ea 10/16/22 mcg/dose blistr powdr for inhalation (Wixela Inhub) levalbuterol HCl 0.63 mg/3 mL 0.63 mg (3 mL) inhalation TID PRN 12/29/22 solution for nebulization shortness of breath or wheezing #270 mL albuterol sulfate 90 mcg/actuation 2 puff inhalation Q4 PRN Shortness 01/10/23 aerosol inhaler (ProAir HFA) Of Breath Or Wheezing #18 grams atorvastatin 40 mg tablet 40 mg PO HS 90 days #90 tabs 05/07/23 furosemide 40 mg tablet 40 mg PO DAILY #110 tabs 05/07/23 sacubitril 24 mg-valsartan 26 mg 1 tab PO BID #180 tabs 05/07/23 tablet (Entresto) Results & Data (ED) Vital Signs Vital Signs - 24 hr 05/08/23 10:39 05/08/23 11:13 05/08/23 11:13 Temperature 36.9 C Temperature Source Oral Pulse Rate 78 Pulse Rate [Apical] 71 Pulse Rate from SpO2 Sensor Respiratory Rate 20 16 Respiratory Depth Normal Blood Pressure 79/58 L Blood Pressure [Left Arm] 101/74 Blood Pressure Mean 65 Blood Pressure Mean [Left Arm] 83 Blood Pressure Position Sitting Pulse Oximetry 95 94 91 Oxygen Delivery Method Room Air Nasal Cannula Nasal Cannula Oxygen Flow Rate 2 2 Sepsis Recent Fever Within 48 Hours No Sepsis New/Unexplained Change in Mental Status No Sepsis Action Taken by Nursing No Action Required 05/08/23 11:15 05/08/23 11:01 05/08/23 11:10 Temperature Temperature Source Pulse Rate 77 76 71 Pulse Rate [Apical] Pulse Rate from SpO2 Sensor 71 Respiratory Rate 21 21 Respiratory Depth Blood Pressure Blood Pressure [Left Arm] Blood Pressure Mean Blood Pressure Mean [Left Arm] Blood Pressure Position Pulse Oximetry 92 93 Oxygen Delivery Method Nasal Cannula Oxygen Flow Rate 2 Sepsis Recent Fever Within 48 Hours Sepsis New/Unexplained Change in Mental Status Sepsis Action Taken by Nursing 05/08/23 11:15 05/08/23 11:15 05/08/23 11:20 Temperature Temperature Source Pulse Rate 71 71 Pulse Rate [Apical] Pulse Rate from SpO2 Sensor 71 71 Respiratory Rate 27 H 28 H Respiratory Depth Blood Pressure 117/59 L Blood Pressure [Left Arm] Blood Pressure Mean 67 Blood Pressure Mean [Left Arm] Blood Pressure Position Pulse Oximetry 92 92 Oxygen Delivery Method Oxygen Flow Rate Sepsis Recent Fever Within 48 Hours Sepsis New/Unexplained Change in Mental Status Sepsis Action Taken by Nursing 05/08/23 11:30 05/08/23 11:30 05/08/23 11:55 Temperature Temperature Source Pulse Rate 70 70 Pulse Rate [Apical] Pulse Rate from SpO2 Sensor 70 Respiratory Rate 27 H Respiratory Depth Blood Pressure 111/61 Blood Pressure [Left Arm] Blood Pressure Mean 72 Blood Pressure Mean [Left Arm] Blood Pressure Position Pulse Oximetry 92 Oxygen Delivery Method Oxygen Flow Rate Sepsis Recent Fever Within 48 Hours Sepsis New/Unexplained Change in Mental Status Sepsis Action Taken by Nursing 05/08/23 11:40 05/08/23 11:45 05/08/23 11:45 Temperature Temperature Source Pulse Rate 70 69 Pulse Rate [Apical] Pulse Rate from SpO2 Sensor 70 69 Respiratory Rate 28 H 26 H Respiratory Depth Blood Pressure 106/54 L Blood Pressure [Left Arm] Blood Pressure Mean 72 Blood Pressure Mean [Left Arm] Blood Pressure Position Pulse Oximetry 93 96 Oxygen Delivery Method Oxygen Flow Rate Sepsis Recent Fever Within 48 Hours Sepsis New/Unexplained Change in Mental Status Sepsis Action Taken by Nursing 05/08/23 11:50 05/08/23 12:00 05/08/23 12:10 Temperature Temperature Source Pulse Rate 71 69 70 Pulse Rate [Apical] Pulse Rate from SpO2 Sensor 71 69 70 Respiratory Rate 24 28 H 27 H Respiratory Depth Blood Pressure Blood Pressure [Left Arm] Blood Pressure Mean Blood Pressure Mean [Left Arm] Blood Pressure Position Pulse Oximetry 93 93 92 Oxygen Delivery Method Oxygen Flow Rate Sepsis Recent Fever Within 48 Hours Sepsis New/Unexplained Change in Mental Status Sepsis Action Taken by Nursing 05/08/23 12:20 05/08/23 12:30 05/08/23 12:39 Temperature Temperature Source Pulse Rate 70 68 Pulse Rate [Apical] Pulse Rate from SpO2 Sensor 69 68 Respiratory Rate 26 H 28 H Respiratory Depth Blood Pressure 92/58 L Blood Pressure [Left Arm] Blood Pressure Mean 67 Blood Pressure Mean [Left Arm] Blood Pressure Position Pulse Oximetry 92 94 Oxygen Delivery Method Oxygen Flow Rate Sepsis Recent Fever Within 48 Hours Sepsis New/Unexplained Change in Mental Status Sepsis Action Taken by Nursing 05/08/23 12:39 05/08/23 12:40 05/08/23 12:50 Temperature Temperature Source Pulse Rate 69 67 67 Pulse Rate [Apical] Pulse Rate from SpO2 Sensor 69 67 68 Respiratory Rate 23 25 H 23 Respiratory Depth Blood Pressure Blood Pressure [Left Arm] Blood Pressure Mean Blood Pressure Mean [Left Arm] Blood Pressure Position Pulse Oximetry 95 94 93 Oxygen Delivery Method Oxygen Flow Rate Sepsis Recent Fever Within 48 Hours Sepsis New/Unexplained Change in Mental Status Sepsis Action Taken by Nursing 05/08/23 13:00 05/08/23 13:01 05/08/23 13:01 Temperature Temperature Source Pulse Rate 66 68 Pulse Rate [Apical] Pulse Rate from SpO2 Sensor 68 Respiratory Rate 25 H 22 Respiratory Depth Blood Pressure 99/58 L Blood Pressure [Left Arm] Blood Pressure Mean 60 Blood Pressure Mean [Left Arm] Blood Pressure Position Pulse Oximetry 94 Oxygen Delivery Method Oxygen Flow Rate Sepsis Recent Fever Within 48 Hours Sepsis New/Unexplained Change in Mental Status Sepsis Action Taken by Nursing 05/08/23 13:04 05/08/23 13:04 05/08/23 13:10 Temperature Temperature Source Pulse Rate 65 66 Pulse Rate [Apical] Pulse Rate from SpO2 Sensor 65 66 Respiratory Rate 22 21 Respiratory Depth Blood Pressure 97/49 L Blood Pressure [Left Arm] Blood Pressure Mean 60 Blood Pressure Mean [Left Arm] Blood Pressure Position Pulse Oximetry 95 93 Oxygen Delivery Method Oxygen Flow Rate Sepsis Recent Fever Within 48 Hours Sepsis New/Unexplained Change in Mental Status Sepsis Action Taken by Nursing 05/08/23 13:20 Temperature Temperature Source Pulse Rate 78 Pulse Rate [Apical] Pulse Rate from SpO2 Sensor 67 Respiratory Rate 27 H Respiratory Depth Blood Pressure Blood Pressure [Left Arm] Blood Pressure Mean Blood Pressure Mean [Left Arm] Blood Pressure Position Pulse Oximetry 94 Oxygen Delivery Method Oxygen Flow Rate Sepsis Recent Fever Within 48 Hours Sepsis New/Unexplained Change in Mental Status Sepsis Action Taken by Nursing Laboratory Data 05/08/23 11:00 05/08/23 11:00 Lab Results 05/08/23 05/08/23 05/08/23 Range/Units 11:00 11:00 11:00 WBC 9.06 (4.8-10.8) K/ul RBC 4.82 (4.20-5.40) M/uL Hgb 13.9 (12.0-16.0) g/dl Hct 41.6 (37.0-47.0) % MCV 86.3 (80.0-100.0) fL MCH 28.8 (25.0-34.0) pg MCHC 33.4 (32.0-36.0) g/dL RDW Std Deviation 52.3 H (36.4-46.3) fL RDW Coeff of Mariel 16.7 H (11.5-14.5) % Plt Count 172 (130-400) K/uL MPV 9.9 (9.4-12.4) fL Immature Gran % (Auto) 0.8 % Neut % (Auto) 82.9 % Lymph % (Auto) 8.1 % [place] % (Auto) 5.7 % Eos % (Auto) 1.5 % Baso % (Auto) 1.0 % Neut # (Auto) 7.51 H (1.40-6.50) K/uL Lymph # (Auto) 0.73 L (1.20-3.40) K/uL [place] # (Auto) 0.52 (0.11-0.59) K/uL Eos # (Auto) 0.14 (0.00-0.50) K/uL Baso # (Auto) 0.09 (0.00-0.20) K/uL Immature Gran # (Auto) 0.07 (0.01-0.20) K/uL PT 13.3 H (9.0-12.0) Seconds INR 1.2 H (0.9-1.1) VBG pH (7.36-7.41) VBG pCO2 (38-50) mmHg VBG pO2 mmHg VBG HCO3 mmol/L VBG O2 Saturation % VBG Base Excess mEq/L Sodium 132 L (136-145) mmol/L Potassium 4.3 (3.5-5.1) mmol/L Chloride 100 (98-107) mmol/L Carbon Dioxide 25 (21-32) mmol/L Anion Gap 7 (3-11) BUN 32 H (6-23) mg/dl Creatinine 1.37 H (0.6-1.2) mg/dl Est Cr Clr Drug Dosing 35.8 ml/min Est GFR ( Amer) 40.4 ml/min Est GFR (Non-Af Amer) 34.8 ml/min BUN/Creatinine Ratio 23.4 H (10-20) Glucose 105 H (70-99(Fasting)) mg/dl Calcium 8.9 (8.6-10.3) mg/dl Total Bilirubin 1.1 H (0.2-1.0) mg/dl AST 34 (13-39) U/L ALT 19 (7-52) U/L Alkaline Phosphatase 56 (34-104) U/L Troponin I High Sens 17.8 H (0-14) pg/ml B-Natriuretic Peptide (0-100) pg/ml Total Protein 5.8 L (6.0-8.3) gm/dl Albumin 3.5 (3.4-5.0) gm/dl Globulin 2.3 L (2.5-4.0) gm/dl Albumin/Globulin Ratio 1.5 (0.9-2) Lipase 32 (11-82) U/L Procalcitonin (0-0.5) ng/ml 05/08/23 05/08/23 05/08/23 Range/Units 11:00 11:07 11:07 WBC (4.8-10.8) K/ul RBC (4.20-5.40) M/uL Hgb (12.0-16.0) g/dl Hct (37.0-47.0) % MCV (80.0-100.0) fL MCH (25.0-34.0) pg MCHC (32.0-36.0) g/dL RDW Std Deviation (36.4-46.3) fL RDW Coeff of Mariel (11.5-14.5) % Plt Count (130-400) K/uL MPV (9.4-12.4) fL Immature Gran % (Auto) % Neut % (Auto) % Lymph % (Auto) % [place] % (Auto) % Eos % (Auto) % Baso % (Auto) % Neut # (Auto) (1.40-6.50) K/uL Lymph # (Auto) (1.20-3.40) K/uL [place] # (Auto) (0.11-0.59) K/uL Eos # (Auto) (0.00-0.50) K/uL Baso # (Auto) (0.00-0.20) K/uL Immature Gran # (Auto) (0.01-0.20) K/uL PT (9.0-12.0) Seconds INR (0.9-1.1) VBG pH 7.50 H (7.36-7.41) VBG pCO2 34 L (38-50) mmHg VBG pO2 40 mmHg VBG HCO3 27 mmol/L VBG O2 Saturation 75.9 % VBG Base Excess 3.6 mEq/L Sodium (136-145) mmol/L Potassium (3.5-5.1) mmol/L Chloride (98-107) mmol/L Carbon Dioxide (21-32) mmol/L Anion Gap (3-11) BUN (6-23) mg/dl Creatinine (0.6-1.2) mg/dl Est Cr Clr Drug Dosing ml/min Est GFR ( Amer) ml/min Est GFR (Non-Af Amer) ml/min BUN/Creatinine Ratio (10-20) Glucose (70-99(Fasting)) mg/dl Calcium (8.6-10.3) mg/dl Total Bilirubin (0.2-1.0) mg/dl AST (13-39) U/L ALT (7-52) U/L Alkaline Phosphatase (34-104) U/L Troponin I High Sens (0-14) pg/ml B-Natriuretic Peptide 419 H (0-100) pg/ml Total Protein (6.0-8.3) gm/dl Albumin (3.4-5.0) gm/dl Globulin (2.5-4.0) gm/dl Albumin/Globulin Ratio (0.9-2) Lipase (11-82) U/L Procalcitonin 1.78 H (0-0.5) ng/ml Administered Medications Heparin Sodium (Porcine) (Heparin Sod 5,000 Unit/0.5 Ml Vial) 5,000 units SQ Q8 CLAUDINE Stop: 06/07/23 13:59 Last Admin: 05/08/23 16:01 Dose: 5,000 units Documented By: DC Insulin Aspart (Insulin Aspart Per Unit Charge) 0 units SC ACHS CLAUDINE Stop: 06/07/23 16:29 Last Admin: 05/08/23 17:14 Dose: Not Given Documented By: DC Discontinued Medications Furosemide (Furosemide 40 Mg/4 Ml Vial) 40 mg IV ONE ONE Stop: 05/08/23 12:21 Last Admin: 05/08/23 12:36 Dose: 40 mg Documented By: ROYER Sodium Chloride (Nss) 500 mls @ 999 mls/hr IV .Q31M STA Stop: 05/08/23 11:30 Last Infusion: 05/08/23 12:31 Dose: 0 mls/hr Documented By: Admin: 05/08/23 11:28 Dose: 999 mls/hr Documented By: MICHELLE Parenteral Electrolytes (Plasma-Lyte A Ph 7.4) 1,000 mls @ 125 mls/hr IV .Q8H CLAUDINE Stop: 05/08/23 21:29 Last Admin: 05/08/23 16:39 Dose: Not Given Documented By: DC Azithromycin 500 mg/ Dextrose 255 mls @ 125 mls/hr IV ONE ONE Stop: 05/08/23 18:02 Last Admin: 05/08/23 17:18 Dose: 125 mls/hr Documented By: DC Imaging Data Radiologist's Impression: Chest X-Ray 05/08/23 11:00 SINGLE VIEW CHEST CLINICAL HISTORY: Atypical chest pain. FINDINGS: An AP, portable, upright chest radiograph is compared to chest x-ray and chest CT dated 08/30/2022. A moderate hiatal hernia is observed. The heart is enlarged noting atherosclerotic calcification of the thoracic aorta. The pulmonary vasculature is noncongested. Chronic interstitial thickening is simila r to previous. Foci of linear atelectasis/scarring are seen throughout both lungs. No airspace consolidation or large pleural effusion is identified. No pneumothorax is seen. The skeletal structures are osteopenic. The bony thorax is grossly intact. Advanced arthritic change is seen in the right shoulder. Surgical clips are noted in the left breast. IMPRESSION: 1. Cardiomegaly with no acute cardiopulmonary abnormality identified. 2. Hiatal hernia. ACT 112: Negative or not required by law. Electronically signed by: Ede Nails M.D. 05/08/2023 12:14 PM Discharge Plan Visit Data Chief Complaint: Hypotension Stated Complaint: LOW BLOOD PRESSURE; VOMTING AFER FLU SHOT ED Provider: Doug Olvera Discharge Problem: Hypoxia Patient Disposition: Admitted As Inpatient Discharge Instructions Interventions: ED Discharge Assessment Last Done: 05/08/23 14:42
[2023-05-08 11:18] LABS: Base Excess VBG 3.6 mEq/L; HCO3 VBG 27 mmol/L; Oxygen Saturation VBG 75.9 %; PCO2 VBG 34 mmHg (38-50); PO2 VBG 40 mmHg
[2023-05-08 11:24] LABS: Basophils # (auto) 0.09 K/uL (0.00-0.20); Eosinophils # (auto) 0.14 K/uL (0.00-0.50); Eosinophils % (auto) 1.5 %; Hematocrit (blood only) 41.6 % (37.0-47.0); Hemoglobin 13.9 g/dl (12.0-16.0); Immature Granulocytes # (auto) 0.07 K/uL (0.01-0.20); Immature Granulocytes % (auto) 0.8 %; Lymphocytes # (auto) 0.73 K/uL (1.20-3.40); Lymphocytes % (auto) 8.1 %; Mean Corpuscular Hemoglobin 28.8 pg (25.0-34.0); Mean Corpuscular Hgb Conc 33.4 g/dL (32.0-36.0); Mean Corpuscular Volume 86.3 fL (80.0-100.0); Mean Platelet Volume 9.9 fL (9.4-12.4); Monocytes # (auto) 0.52 K/uL (0.11-0.59); Monocytes % (auto) 5.7 %; Neutrophils # (auto) 7.51 K/uL (1.40-6.50); Neutrophils % (auto) 82.9 %; Platelet Count 172 K/uL (130-400); RDW Coefficient of Variation 16.7 % (11.5-14.5); RDW Standard Deviation 52.3 fL (36.4-46.3); Red Blood Count 4.82 M/uL (4.20-5.40); White Blood Count 9.06 K/ul (4.8-10.8)
[2023-05-08 11:49] LABS: INR 1.2 (0.9-1.1); Prothrombin Time 13.3 Seconds (9.0-12.0)
[2023-05-08 11:52] LABS: Albumin Globulin Ratio 1.5 (0.9-2); Albumin Level 3.5 gm/dl (3.4-5.0); BUN Creatinine Ratio 23.4 (10-20); Bilirubin,Total 1.1 mg/dl (0.2-1.0); Calcium 8.9 mg/dl (8.6-10.3); Creatinine Clr Calc Pharmacy 35.8 ml/min; Est GFR (African American) 40.4 ml/min; Est GFR (Non-African American) 34.8 ml/min; Globulin 2.3 gm/dl (2.5-4.0); Potassium 4.3 mmol/L (3.5-5.1); Total Protein 5.8 gm/dl (6.0-8.3)
[2023-05-08 11:58] LABS: Troponin I High Sensitivity 17.8 pg/ml (0-14)
[2023-05-08 12:09] LABS: Adenovirus PCR Not Detected (NotDetected); Bordetella parapertussis PCR Not Detected (NotDetected); Bordetella pertussis PCR Not Detected (NotDetected); Chlamydia pneumoniae PCR Not Detected (NotDetected); Coronavirus 229E PCR Not Detected (NotDetected); Coronavirus CoV-2 (COVID19)PCR Not Detected (NotDetected); Coronavirus HKU1 PCR Not Detected (NotDetected); Coronavirus NL63 PCR Not Detected (NotDetected); Coronavirus OC43PCR Not Detected (NotDetected); Human Metapneumovirus PCR Not Detected (NotDetected); Influenza A PCR Not Detected (NotDetected); Influenza B PCR Not Detected (NotDetected); Mycoplasma pneumoniae PCR Not Detected (NotDetected); Parainfluenza Virus 1 PCR Not Detected (NotDetected); Parainfluenza Virus 2 PCR Not Detected (NotDetected); Parainfluenza Virus 3 PCR Not Detected (NotDetected); Parainfluenza Virus 4 PCR Not Detected (NotDetected); Respiratory Syncytial VirusPCR Not Detected (NotDetected); Rhinovirus/Enterovirus PCR Not Detected (NotDetected)
--- NOTE | 2023-05-08 12:15 | XRay Report ---
SINGLE VIEW CHEST CLINICAL HISTORY: Atypical chest pain. FINDINGS: An AP, portable, upright chest radiograph is compared to chest x-ray and chest CT dated 08/10. A moderate hiatal hernia is observed. The heart is enlarged noting atherosclerotic calcificat ion of the thoracic aorta. The pulmonary vasculature is noncongested. Chronic interstitial thickening is similar to previous. Foci of linear atelectasis/scarring are seen throughout both lungs. No airsp nati consolidation or large pleural effusion is identified. No pneumothorax is seen. The skeletal stru ctures are osteopenic. The bony thorax is grossly intact. Advanced arthritic change is seen in the ri ght shoulder. Surgical clips are noted in the left breast. IMPRESSION: 1. Cardiomegaly with no acute cardiopulmonary abnormality identified. 2. Hiatal hernia. ACT 112: Negative or not required by law. Electronically signed by: Ede Nails M.D. 05/08/2023 12:14 PM
[2023-05-08] MEDS ORDERED: FUROSEMIDE 40 MG/4 ML VIAL IV ONE (12:20)
--- NOTE | 2023-05-08 12:47 | History & Physical Report ---
Date of Service May 08, 2023 Assessment & Plan (1) Acute respiratory failure with hypoxia: Plan: Acute hypoxic respiratory failure, fever, fatigue Patient received flu shot yesterday, subsequently began to feel unwell [place] [id number] in the setting of having received the flu shot Poor p.o. intake, urinating less than normal despite taking her normal Lasix. She remains at her dry weight Hypotensive on admission. Initially thought to be volume overloaded due to elevated BNP, received Lasix in the ER. She does not show evidence of CHF on x- ray. On reassessment has improved with normotension, will encourage p.o. and defer additional fluid/Lasix to clinical reassess Procalcitonin is slightly elevated, patient was transiently hypotensive but did not appear toxic. Given fever, acute hypoxic respiratory failure, and shortness of breath without overt evidence of CHF will treat with empiric antibiotics; DDx does include poor p.o. intake and fever due to vaccination. Entresto, MTP held for hypotension. Patient did not receive extra doses of these Patient is with allergies to multiple antibiotics including cephalosporins, penicillin, and sulfa. No clear lobar pneumonia on x-ray. Does have a history of COPD and is with some wheezing on admission. We will treat with azithromycin for COPD and atypical coverage with wheezing consistent with COPD exacerbation. Clinically improving on reassessment, will defer CT. If recurrent hypotension or persistent fever --> Ct-C - Tylenol PRN for fever (2) Heart failure with mid-range ejection fraction (HFmEF): Plan: Entresto, metoprolol held for hypotension. Resume metoprolol first when blood pressure permitting Initially treated for suspected CHF in the ER due to hypoxia and elevated BNP; no overload noted on chest x-ray and patient feels dry and is at/slightly below her normal dry weight Strict ins and outs, standing weights daily (3) COPD (chronic obstructive pulmonary disease): Plan: Azithromycin as noted, continue inhalers, incentive spirometer (4) CKD (chronic kidney disease), stage III: Plan: Trend daily, Baseline creatinine around 1.3-1.4, admitting creatinine 1.37 BMP daily (5) Diabetes: Plan: Type II DM diet Metformin held on admission Conservative sliding scale (6) KINGSLEY on CPAP: Plan: CPAP nightly as needed Plan DVT prophylaxis: heparin every 8 hours Diet: DM 2, heart healthy CODE STATUS: Full code Disposition: PCU for hypotension with concerns for volume overload History of Present Illness Primary Care Provider: Refugio Soto Rosemary is an 88-year-old female with a past medical history of CKD 3, CAD, KINGSLEY on CPAP, COPD, midrange EF Per ER: Flu shot yesterday, feeling unwell through the afternoon, weak, and low BP at home. Dry heaves at home with orthopnea. No pain. +dyspnea this morning. No chest pain or chest pressure. BP initially 79 systolic, improved on recheck to 100s. BNP acutely elevated. PRocal is 1.78. No fever. Patient was not felt to have infection, Pro-Robb was suspected to be due to transient hypotension with fluid overload. Patient blood pressure improved following Lasix with brisk diuresis. Carola reprots she got a flu shot yesterday. Was shivering and had chills last night into this morning. Finally started to get warm this morning. Temp 99-100*F at home.Has a cough sometimes, not increased and no new cough. No productive cough in the last day. After getting the flu shot was nauseas, had a few dry heaves with some foamy white material, most just 'clear foam.'. No blood/melena. No adbominal pain No dysuria. Has not peed yet today, took a fluid pill this morning. Normally kicks in within an hour, but doesn't seem to have done anything today. 'Mostly just so tired all I want to do is sleep.' Feels very thirsty. Did have half a chick-nahum-a sandwhich after her appointment yesterday, denies other salty foods and hasn't eaten anything since then She took all of her medicines this morning except for antibiotics Legs swell sometimes, no swelling today Swa Kip cy yesterday. BP was 100-105, normally 115-120s. Was not overloaded Dry weightnormally 257. PT is 257lbs on admit, at her dry weight Medical History: Reviewed Medications: Reviewed Surgical History: Reviewed Family history: Reviewed Allergies: Reviewed Social History: Reviewed Code Status: Full Code Allergies Allergy/AdvReac Type Severity Reaction Status Date / Time Penicillins Allergy Intermediate SEVERE RASH Verified 05/07/23 11:19 cephalexin [From Keflex] Allergy Unknown Unknown Verified 05/07/23 11:19 Sulfa (Sulfonamide Allergy Unknown Unknown Verified 05/07/23 11:19 Antibiotics) Home Medications Medication Instructions Recorded Confirmed Type aspirin 81 mg tablet,delayed 81 mg PO 3XWK 06/08/18 05/08/23 History release multivitamin (Multiple Vitamins 1 tab PO DAILY 06/08/18 05/08/23 History tablet) tramadol 50 mg tablet 50 mg PO Q4 PRN Pain 01/29/19 05/08/23 History metformin 500 mg tablet 500 mg PO QPM 04/21/19 05/08/23 History (Glucophage) Oxygen Home #2 L 09/16/19 05/07/23 Rx allopurinol 300 mg tablet 300 mg PO DAILY 01/08/20 05/08/23 History calcium carb,cit ER 600 mg-vit D3 1 tab PO AMHS 02/19/20 05/08/23 History 12.5 mcg (500 unit) tablet,ext.rel hydroxyzine HCl 10 mg tablet 20 mg PO QID PRN Anxiety 02/19/20 05/08/23 History famotidine 40 mg tablet 40 mg PO DAILY #90 tabs 12/10/20 05/08/23 Rx nystatin 100,000 unit/gram topical 1 applic topical TID PRN Other 12/28/20 05/08/23 History powder CPAP Supplies #1 ea 09/01/21 05/07/23 Rx potassium chloride 20 mEq 20 meq PO DAILY 30 days #90 tabs 12/06/21 05/08/23 Rx tablet,extended release(part/cryst) (Klor-Con M) levothyroxine 75 mcg tablet 88 mcg PO DAILY 12/13/21 05/08/23 History (Synthroid) metoprolol succinate 25 mg 50 mg PO DAILY #180 tabs 05/02/22 05/08/23 Rx tablet,extended release 24 hr fluticasone 250 mcg-salmeterol 50 1 inh inhalation Q12H #180 ea 10/16/22 05/08/23 Rx mcg/dose blistr powdr for inhalation (Wixela Inhub) levalbuterol HCl 0.63 mg/3 mL 0.63 mg (3 mL) inhalation TID PRN 12/29/22 05/08/23 Rx solution for nebulization shortness of breath or wheezing #270 mL albuterol sulfate 90 mcg/actuation 2 puff inhalation Q4 PRN Shortness 01/10/23 05/08/23 Rx aerosol inhaler (ProAir HFA) Of Breath Or Wheezing #18 grams atorvastatin 40 mg tablet 40 mg PO HS 90 days #90 tabs 05/07/23 05/08/23 Rx doxycycline hyclate 100 mg PO BID cat scratch 05/07/23 05/08/23 History furosemide 40 mg tablet 40 mg PO DAILY #110 tabs 05/07/23 05/08/23 Rx sacubitril 24 mg-valsartan 26 mg 1 tab PO BID #180 tabs 05/07/23 05/08/23 Rx tablet (Entresto) clotrimazole 1 % topical cream 1 applic topical BID PRN skin 05/08/23 05/08/23 History itching Past Med/Surg History Medical History Active asthma Arthritis of foot, left Arthritis of foot, right Bradycardia Breast cancer Cellulitis Chronic systolic CHF (congestive heart failure) Exertional dyspnea Frequent PVCs History of asthma History of cellulitis History of ecchymosis History of edema History of osteoarthritis History of tinea corporis History of weight disorder Hypertension Hypokalemia Leaky heart valve Morbid obesity NSTEMI (non-ST elevated myocardial infarction) Obstructive sleep apnea Open wound of anterior abdominal wall (11/24/11) KINGSLEY on CPAP Restrictive lung disease (11/24/11) Sprain of left foot Surgical History History of colonoscopy History of mastectomy History of tonsillectomy Family History Father Myocardial infarction Social History Smoking Status: Never smoker Hx Alcohol Use: No Hx Substance Use: No Preferred Language: [place] Communication Ability: Effective Visual Impairment: No Limitations Hearing Ability: Normal Delivery Driver Assistant Required: No Beliefs That Will Affect Care: None marital status: / Current Living Situation: Family How many Children do You have: 1 Feels Safe at Home: Yes Assistive Devices: Oxygen - at Night Review of Systems Review of Systems: All systems reviewed & are unremarkable except as noted in HPI & below Physical Exam Physical Exam: General: A&Ox3. NAD. Cooperative. HEENT: Atraumatic, normocephalic. Mucous membranes are dry Pulm: Diminished with scattered end exp wheezing, bilaterally without rales/crackles/rhonchi symmetrical chest rise. No increased work of breathing. No respiratory distress. Cardiac: RRR, soft SM. Radial pulses intact and symmetrical. Abdominal: Nontender, nondistended, soft. BS present. Extremities: Warm, dry. No pitting edema noted Results & Data Results & Data Vital Signs (Past 12 Hours) Vital Signs Temp Pulse Pulse Resp BP BP Pulse Ox 05/08/23 11:55 70 05/08/23 11:30 70 27 H 92 05/08/23 11:30 111/61 05/08/23 11:20 71 28 H 92 05/08/23 11:15 71 27 H 92 05/08/23 11:15 117/59 L 05/08/23 11:10 71 21 93 05/08/23 11:01 76 21 05/08/23 11:15 77 92 05/08/23 11:13 71 16 101/74 91 05/08/23 11:13 94 05/08/23 10:39 36.9 C 78 20 79/58 L 95 O2 Del Method O2 Flow Rate 05/08/23 11:55 05/08/23 11:30 05/08/23 11:30 05/08/23 11:20 05/08/23 11:15 05/08/23 11:15 05/08/23 11:10 05/08/23 11:01 05/08/23 11:15 Nasal Cannula 2 05/08/23 11:13 Nasal Cannula 2 05/08/23 11:13 Nasal Cannula 2 05/08/23 10:39 Room Air PG Care Time/CCT Total # of Minutes Spent Total Time Spent with Patient: Total time spent is greater than 50% in coordination of care (as documented) at patient's floor/unit and/or counseling patient: Coding Level of Care Code 92638 INT INP/OBS CARE MIN Diagnoses Acute respiratory failure with hypoxia J96.01 Heart failure with mid-range ejection fraction (HFmEF) I50.22 COPD (chronic obstructive pulmonary disease) J44.9 COPD type: unspecified COPD CKD (chronic kidney disease), stage III N18.3 Diabetes E11.628; Z79.4 Diabetes mellitus type: type 2 Diabetes mellitus intermediate insulin use: with long term care social worker use Diabetes mellitus complication status: with skin complications Diabetes mellitus complication detail: with other skin complication KINGSLEY on CPAP G47.33; Z99.89 (3) COPD (chronic obstructive pulmonary disease) COPD type: unspecified COPD Qualified Code(s): J44.9 - Chronic obstructive pulmonary disease, unspecified (5) Diabetes Diabetes mellitus type: type 2 Diabetes mellitus intermediate insulin use: with intermediate use Diabetes mellitus complication status: with skin complications Diabetes mellitus complication detail: with other skin complication Qualified Code(s): E11.628 - Type 2 diabetes mellitus with other skin complications; Z79.4 - intermediate (current) use of insulin
[2023-05-08] MEDS ORDERED: PLASMA-LYTE A 1,000 ML IV SCH (13:30)
[2023-05-08] MEDS ORDERED: CARBOHYDRATES FOR HYPOGLYCEMIA PO PRN (13:37)
[2023-05-08] MEDS ORDERED: GLUCOSE 10 TAB/TUBE PO PRN (13:37)
[2023-05-08] MEDS ORDERED: GLUCAGON FOR INJ 1 MG VIAL SQ PRN (13:37)
[2023-05-08] MEDS ORDERED: GLUCOSE 40% GEL 15 GM TUBE PO PRN (13:37)
[2023-05-08] MEDS ORDERED: DEXTROSE 50% 50 ML SYRINGE IV PRN (13:37)
[2023-05-08 14:52] LABS: C Reactive Protein 8.37 mg/dl (0-0.5)
[2023-05-08 15:01] LABS: Troponin I High Sensitivity 16.6 pg/ml (0-14)
[2023-05-08] MEDS ORDERED: LEVALBUTEROL HCL 0.63 MG/3 ML NEB INH PRN (15:46)
[2023-05-08] MEDS ORDERED: hydrOXYzine HCl 10 MG TAB PO PRN (15:46)
[2023-05-08] MEDS ORDERED: ACETAMINOPHEN 325 MG TAB PO PRN (15:46)
[2023-05-08] MEDS ORDERED: ALBUTEROL HFA 8 GM INHALER INH PRN (15:46)
[2023-05-08] MEDS ORDERED: traMADol HCL 50 MG TABLET PO PRN (15:46)
[2023-05-08] MEDS ORDERED: AZITHROMYCIN 500 MG in DEXTROSE 5% 250 ML IV ONE (16:00)
[2023-05-08] MEDS: HEPARIN SOD 5,000 UNIT/0.5 ML VIAL SQ SCH ×2 (16:01→19:54)
--- NOTE | 2023-05-08 17:13 | Electrocardiogram Report ---
Test Reason : Blood Pressure : / mmHG Vent. Rate : 074 BPM Atrial Rate : 074 BPM P-R Int : 198 ms QRS Dur : 082 ms QT Int : 400 ms P-R-T Axes : 021 085 053 degrees QTc Int : 444 ms Normal sinus rhythm Normal ECG When compared with ECG of 30-AUG-2022 10:23, No significant change was found Confirmed by Erasmo Navarro ([id number]) on 05/08/2023 5:12:34 PM Referred By: REFERRED SELF Confirmed By:Daniel Navarro
[2023-05-08] MEDS: INSULIN ASPART PER UNIT CHARGE SC SCH ×2 (17:14→20:11)
[2023-05-08] MEDS ORDERED: ATORVASTATIN 40 MG TAB PO SCH (21:00)
[2023-05-09 04:45] LABS: Basophils # (auto) 0.05 K/uL (0.00-0.20); Eosinophils # (auto) 0.66 K/uL (0.00-0.50); Eosinophils % (auto) 12.9 %; Hematocrit (blood only) 36.4 % (37.0-47.0); Immature Granulocytes # (auto) 0.02 K/uL (0.01-0.20); Immature Granulocytes % (auto) 0.4 %; Lymphocytes # (auto) 1.29 K/uL (1.20-3.40); Lymphocytes % (auto) 25.3 %; Mean Corpuscular Hemoglobin 28.9 pg (25.0-34.0); Mean Corpuscular Volume 87.7 fL (80.0-100.0); Monocytes # (auto) 0.57 K/uL (0.11-0.59); Monocytes % (auto) 11.2 %; Neutrophils # (auto) 2.51 K/uL (1.40-6.50); Neutrophils % (auto) 49.2 %; Platelet Count 130 K/uL (130-400); RDW Coefficient of Variation 16.7 % (11.5-14.5); RDW Standard Deviation 53.4 fL (36.4-46.3); Red Blood Count 4.15 M/uL (4.20-5.40)
[2023-05-09 04:59] LABS: BUN Creatinine Ratio 27.1 (10-20); C Reactive Protein 7.96 mg/dl (0-0.5); Calcium 8.2 mg/dl (8.6-10.3); Creatinine Clr Calc Pharmacy 36.9 ml/min; Est GFR (African American) 41.8 ml/min; Est GFR (Non-African American) 36.1 ml/min; Potassium 3.6 mmol/L (3.5-5.1)
[2023-05-09] MEDS: HEPARIN SOD 5,000 UNIT/0.5 ML VIAL SQ SCH (05:17)
[2023-05-09] MEDS ORDERED: LEVOTHYROXINE SODIUM 88 MCG TABLET PO SCH (06:30)
[2023-05-09] MEDS: INSULIN ASPART PER UNIT CHARGE SC SCH ×2 (07:51→11:35)
[2023-05-09] MEDS ORDERED: ALBUT/IPRATROP 3MG/0.5MG NEB 3 ML VIAL NEB PRN (08:13)
[2023-05-09] MEDS ORDERED: METOPROLOL SUCC 50MG EXT REL TAB PO SCH (09:00)
[2023-05-09] MEDS ORDERED: allopurinoL 300 MG TAB PO SCH (09:00)
[2023-05-09] MEDS ORDERED: ASPIRIN 81 MG ECTAB PO SCH (09:00)
[2023-05-09] MEDS ORDERED: FLUTICASONE/VILANTEROL 100/25MCG 14 PUFFS/INHALER INH SCH (09:00)
[2023-05-09] MEDS ORDERED: FAMOTIDINE 40 MG TABLET PO SCH (09:00)
[2023-05-09] MEDS ORDERED: POTASSIUM CHLORIDE CRTAB 20 MEQ TABCR PO SCH (09:00)
[2023-05-09] MEDS ORDERED: ALBUT/IPRATROP 3MG/0.5MG NEB 3 ML VIAL NEB SCH (11:00)
--- NOTE | 2023-05-09 12:12 | Discharge Summary ---
Date of Service May 09, 2023 Admission HPI Per Admitting Provider Rosemary is an 88-year-old female with a past medical history of CKD 3, CAD, KINGSLEY on CPAP, COPD, midrange EF Per ER: Flu shot yesterday, feeling unwell through the afternoon, weak, and low BP at home. Dry heaves at home with orthopnea. No pain. +dyspnea this morning. No chest pain or chest pressure. BP initially 79 systolic, improved on recheck to 100s. BNP acutely elevated. PRocal is 1.78. No fever. Patient was not felt to have infection, Pro-Robb was suspected to be due to transient hypotension with fluid overload. Patient blood pressure improved following Lasix with brisk diuresis. Carola reprots she got a flu shot yesterday. Was shivering and had chills last night into this morning. Finally started to get warm this morning. Temp 99-100*F at home.Has a cough sometimes, not increased and no new cough. No productive cough in the last day. After getting the flu shot was nauseas, had a few dry heaves with some foamy white material, most just 'clear foam.'. No blood/melena. No adbominal pain No dysuria. Has not peed yet today, took a fluid pill this morning. Normally kicks in within an hour, but doesn't seem to have done anything today. 'Mostly just so tired all I want to do is sleep.' Feels very thirsty. Did have half a chick-nahum-a sandwhich after her appointment yesterday, denies other salty foods and hasn't eaten anything since then She took all of her medicines this morning except for antibiotics Legs swell sometimes, no swelling today Swa Kip cy yesterday. BP was 100-105, normally 115-120s. Was not overloaded Dry weightnormally 257. PT is 257lbs on admit, at her dry weight Medical History: Reviewed Medications: Reviewed Surgical History: Reviewed Family history: Reviewed Allergies: Reviewed Social History: Reviewed Code Status: Full Code Principal Diagnosis Possible side effect from influenza vaccine, transient hypoxia, transient hypotension Discharge Exam General-alert and oriented x3, no fevers, no chills. Morbidly obese HEENT-head atraumatic and normocephalic, pupils equal and reactive to light, extraocular muscles intact Neck-no lymphadenopathy or thyromegaly, trachea midline Chest-clear to auscultation percussion. No rales wheezing or rhonchi Cardiac-regular rate and rhythm, normal S1 and S2 Abdomen-normal bowel sounds, nontender, no hepatosplenomegaly Extremities-no cyanosis, clubbing, or edema Neuro-cranial nerves II through XII intact, motor and sensory function within normal limits, strength symmetrical, no focal deficits Psych-normal affect, normal mood Discharge Data Allergies Allergy/AdvReac Type Severity Reaction Status Date / Time Penicillins Allergy Intermediate SEVERE RASH Verified 05/07/23 11:19 cephalexin [From Keflex] Allergy Unknown Unknown Verified 05/07/23 11:19 Sulfa (Sulfonamide Allergy Unknown Unknown Verified 05/07/23 11:19 Antibiotics) Consultations 05/08/23 12:33 ED Decision to Admit Stat Hospital Course (1) Acute respiratory failure with hypoxia: She had transient hypoxia upon admission. This has resolved. I suspect she may have had an adverse reaction from the flu vaccine producing rigors and transient hypoxia. This has resolved (2) Heart failure with mid-range ejection fraction (HFmEF): Currently stable. Entresto and metoprolol were held on admission due to transient hypotension. This has been restarted. She is at her baseline. No overt evidence of CHF at this time. Monitor intake and output while hospitalized. (3) COPD (chronic obstructive pulmonary disease): Stable. No sputum production. No indication for antibiotics at this time. Continue current medical management (4) CKD (chronic kidney disease), stage III: Stable. Monitor intake and output. Serial labs (5) Diabetes: ADA diet. Sliding scale coverage as needed. Metformin held on admission. This will be restarted at discharge. (6) KINGSLEY on CPAP: Stable. CPAP nightly as needed Plan Home today, May 09 Total Time Total Time Spent Total Time Spent (In Minutes): 45-minute Discharge Plan Discharge Items Patient Disposition: Home - Self-Care Reason For Visit: HYPOTENSION, HX CHF Discharge Diagnosis: Suspected adverse reaction from influenza vaccine, transient hypoxia, transient hypotension Activity: Resume your previous activity Non-emergency contact: Primary Care Provider Call non-emergency contact if: your symptoms worsen Follow-up/Referrals: Refugio Soto [Primary Care Provider] - Diet: Carb Consistent or DM2 and Heart Healthy Addtl Attending Provider Instructions: All medications remain the same Pending Studies at Discharge: No Stand-Alone Forms: My [facility], Smoking Cessation Medications and DC Order Prescriptions: Continued (DME) Oxygen Home Liters Per Minute See Rx Instructions .ROUTE .MEDSUPPLY Qty: 2 0RF Rx Instructions: Provide humidification for oxygen 2LPM: DME=T&B famotidine 40 mg tablet 40 mg PO DAILY Qty: 90 3RF (DME) CPAP Supplies Misc See Rx Instructions .Route Qty: 1 1RF Rx Instructions: CPAP supplies,mask,tubing,filters ect. LON99 potassium chloride [Klor-Con M20] 20 mEq tablet,ER particles/crystals 20 meq PO DAILY 30 Days Qty: 90 3RF fluticasone propion-salmeterol [Wixela Inhub] 250-50 mcg/dose blister with device 1 inh INH Q12H Qty: 180 3RF levalbuterol HCl 0.63 mg/3 mL solution for nebulization 0.63 mg inhalation TID PRN (Reason: shortness of breath or wheezing) Qty: 270 11RF metoprolol succinate 25 mg tablet extended release 24 hr 50 mg PO DAILY Qty: 180 3RF albuterol sulfate [ProAir HFA] 90 mcg/actuation HFA aerosol inhaler 2 puff INHALATION Q4 PRN (Reason: Shortness Of Breath Or Wheezing) Qty: 18 3RF doxycycline hyclate 100 mg PO BID Rx Instructions: 5 day course done on 05/08/23 furosemide 40 mg tablet 40 mg PO DAILY Qty: 110 3RF atorvastatin 40 mg tablet 40 mg PO HS 90 Days Qty: 90 3RF Entresto 24-26 mg tablet 1 tab PO BID Qty: 180 3RF tramadol 50 mg tablet 50 mg PO Q4 PRN (Reason: Pain) hydroxyzine HCl 10 mg tablet 20 mg PO QID PRN (Reason: Anxiety) allopurinol 300 mg tablet 300 mg PO DAILY multivitamin [Multiple Vitamins] Tablet 1 tab PO DAILY aspirin 81 mg Tablet,Delayed Release (Dr/Ec) 81 mg PO 3XWK Rx Instructions: TAKE DAILY ON MON/WED/FRI metformin [Glucophage] 500 mg tablet 500 mg PO QPM levothyroxine [Synthroid] 75 mcg tablet 88 mcg PO DAILY calcium carb and citrate-vitD3 600 mg calcium- 500 unit tablet extended release 1 tab PO AMHS nystatin 100,000 unit/gram powder 1 applic TOPICAL TID PRN (Reason: Other) Rx Instructions: apply to affected area clotrimazole 1 % cream 1 applic TOPICAL BID PRN (Reason: skin itching) Discharge Orders: Discharge Order (Routine); Ordered 05/09/23 Ordered By: Willy Frausto Admission Data Admit Date/Time: 05/08/23 13:28 Attending Provider: Willy Frausto Admit Provider: Eugenio Zhou Primary Care Provider: Refugio Soto Other Providers: Eugenio Zhou Coding Level of Care Code 90712 INP/OBS DISCH >30 MIN Diagnoses Acute respiratory failure with hypoxia J96.01 Heart failure with mid-range ejection fraction (HFmEF) I50.22 COPD (chronic obstructive pulmonary disease) J44.9 COPD type: unspecified COPD CKD (chronic kidney disease), stage III N18.3 Diabetes E11.628; Z79.4 Diabetes mellitus type: type 2 Diabetes mellitus superintendent terminal insulin use: with senior living use Diabetes mellitus complication status: with skin complications Diabetes mellitus complication detail: with other skin complication KINGSLEY on CPAP G47.33; Z99.89
[2023-05-09] MEDS ORDERED: methylPREDNISolone 40 MG in SYRINGE 0 ML IV SCH (14:00)
[2023-05-09] MEDS ORDERED: AZITHROMYCIN 250 MG in DEXTROSE 5% 250 ML IV SCH (16:00)
[2023-05-09] MEDS ORDERED: HEPARIN SOD 5,000 UNIT/0.5 ML VIAL SQ SCH (18:00)
--- OUTSIDE RECORDS SUMMARY | 2023-05-28 22:22 | External Medical Summary | Continuity of Care Document ---
Author Name Unknown Organization [facility] [address] Address [address] [place], [place] [id number] Care Team Providers Care Business Process Engineer Name Role Phone Luis Soto Primary Care Physician [phone] [id number] Date(s): 05/21/23 - 05/21/23 [facility] [address] [facility] [address], [facility] [address] [place], [place] [phone] Encounter Diagnosis Type 2 diabetes mellitus with diabetic neuropathy, unspecified(Final) - Essential (primary) hypertension(Final) - Chronic kidney disease, stage 3a(Final) - Discharge Disposition: Home or Self Care Attending Physician: MD Soto Ravishankar E Referring Physician: MD Soto Ravishankar E Allergies, Adverse Reactions, Alerts Substance Reaction Severity Status penicillins Active sulfa drugs Active Keflex rash Active Immunizations Given and Recorded Vaccine Date Status Refusal Reason tetanus/diphtheria/pertuss, acel (Tdap) 05/04/23 G iven influenza virus vaccine, inactivated 05/02/22 Efrain rded influenza virus vaccine, inactivated 04/28/21 Efrain rded influenza virus vaccine, inactivated 04/21/20 Efrain rded influenza virus vaccine, inactivated 04/17/17 Give n influenza virus vaccine, inactivated 04/18/16 Give n SARS-CoV-2 (COVID-19) mRNA BNT-162b2 vax 1 09/17/20 Recorded SARS-CoV-2 (COVID-19) mRNA BNT-162b2 vax 2 08/27/20 Recorded pneumococcal 13-valent vaccine 05/04/16 Recorded tetanus toxoids-diphtheria, Td (Adult) 04/18/16 Gi brenden pneumococcal 23-valent vaccine 3 05/23/14 Recorded pneumococcal 23-valent vaccine 4 06/23/12 Recorded pneumococcal 23-valent vaccine 06/07/12 Recorded zoster vaccine live 07/09/09 Recorded 1Result Comment: 2021-05-03: Historical information-source unspecified 2Result Comment: 2021-05-03: Historical information-source unspecified 3Result Comment: 2021-05-03: Historical information-source unspecified 4Result Comment: 2021-05-03: Historical information-source unspecified Medications Accu-Check Shayna Glucose Monitor Start: 07/21/19 7:30:00 EST, See Instructions, Disp# 1 unit, Refills: 0, Check glucose level three times a day, Note to Pharmacy: submit to Plan [employer]; DX E11.620, Pharmacy: [id number] Start Date: 07/21/19 Status: Ordered Accu-Chek Guide Test Strips Start: 08/23/21 17:16:00 EST, See Instructions, Disp# 300 strip, Refills: 3, Test blood glucose 3x/day, Note to Pharmacy: Submit to medicare Plan B; Each box to include 100 test strip; DX E11.8, Brand Medically Necessary, Pharmacy: [facility] Start Date: 08/23/21 Status: Ordered Accu-Chek Softclix (28G) Lancets Start: 08/25/19 12:49:00 EST, See Instructions, Disp# 100 unit, Refills: 3, test blood sugar 3x/day, Note to Pharmacy: Submit to Medicare Plan B; Each box to include 100 lancets; DX E11.8, Brand Medically Necessary, Pharmacy: [facility]... Start Date: 08/25/19 Status: Ordered Advair Diskus 500 mcg-50 mcg Start: 07/28/13 10:44:44, 1 puff, PO, bid, Disp# 3 each, Refills: 3, Pharmacy: [id number], 1 puff PO bid Start Date: 07/28/13 Status: Ordered albuterol-ipratropium 2.5 mg-0.5 mg/3 mL inhalation solution Start: 09/10/14 17:00:09, 3 mL, inhaled, q6h, Disp# 90 mL, Refills: 0, PRN: as needed for shortnessof breath or wheezing, Pharmacy: [id number], 3 mL inhaled q6h,PRN:as needed for shortness of breath or wheezing Start Date: 09/10/14 Status: Ordered allopurinol 300 mg oral tablet Start: 07/31/22 13:09:00 EST, See Instructions, Disp# 90 tab, Refills: 3, TAKE 1 TABLET BY MOUTH DAILY, Pharmacy: [facility] ([facility]) Start Date: 07/31/22 Status: Ordered aspirin 81 mg oral tablet Start: 07/18/13 8:51:00, 1 tab, PO, qMonWedFri Start Date: 07/18/13 Status: Ordered atorvastatin 40 mg oral tablet Start: 07/22/20 8:47:00 EST, 1 tab, qhs Start Date: 07/22/20 Status: Ordered calcium-vitamin D extended release Start: 11/10/14 10:27:00, 1 tab, PO, bid Start Date: 11/10/14 Status: Ordered clotrimazole 1% topical cream Start: 07/10/22 8:15:00 EST, 1 appl, topical, bid, Disp# 30 g, Refills: 3, Mix equal parts of 2.5% hydrocortisone and clotrimazole 1% - apply topically to affected areas BID, Note to Pharmacy: Mix equal parts of 2.5% hydrocortisone and clotrimazole 1%... Start Date: 07/10/22 Status: Ordered doxycycline hyclate 100 mg oral capsule Start: 05/04/23 10:08:00 EDT, 1 cap, PO, bid, Disp# 10 cap, Pharmacy: [id number] Start Date: 05/04/23 Stop Date: 05/09/23 Status: Ordered Entresto 24 mg-26 mg oral tablet Start: 01/02/20 8:05:00 EDT, 1 tab, PO, bid Start Date: 01/02/20 Status: Ordered famotidine 40 mg oral tablet Start: 07/10/22 8:33:00 EST, 1 tab, PO, Daily, Disp# 90 tab, Refills: 3, Pharmacy: [facility] ([facility] ) Start Date: 07/10/22 Status: Ordered furosemide 40 mg oral tablet Start: 11/13/19 15:22:00 EDT, See Instructions, Disp# 180 tab, 1-2 tab PO Daily 90 day, Pharmacy: [id number] Start Date: 11/13/19 Status: Ordered hydrocortisone 2.5% topical cream Start: 07/10/22 8:15:00 EST, 1 appl, topical, bid, Disp# 30 g, Refills: 3, Mix equal parts of 2.5% hydrocortisone and clotrimazole 1% - apply topically to affected areas BID, Note to Pharmacy: Mix equal parts of 2.5% hydrocortisone and clotrimazole 1%... Start Date: 07/10/22 Status: Ordered hydrOXYzine hydrochloride 10 mg oral tablet Start: 01/22/23 15:24:00 EDT, See Instructions, Disp# 100 tab, Refills: 5, TAKE 2 TABLETS BY MOUTH 4 TIMES DAILY NEEDED FOR ITCHING, Pharmacy: [facility] ([facility] Start Date: 01/22/23 Status: Ordered levothyroxine 88 mcg (0.088 mg) oral tablet Start: 11/23/22 17:02:00 EDT, See Instructions, Disp# 90 tab, Refills: 3, TAKE 1 TABLET BY MOUTH DAILY, Pharmacy: [facility] ([facility]) Start Date: 11/23/22 Status: Ordered metFORMIN 500 mg oral tablet Start: 12/13/22 8:47:00 EDT, 1 tab, PO, Daily, Disp# 90 tab, Refills: 3, other Start Date: 12/13/22 Stop Date: 12/08/23 Status: Ordered Metoprolol Succinate ER 25 mg oral tablet, extended release TAKE 2 TABLETS BY MOUTH EVERY DAY Start Date: 07/10/22 Status: Ordered multivitamin Start: 01/02/20 8:03:00 EDT, 1 tab, PO, Daily Start Date: 01/02/20 Status: Ordered Nyamyc 100,000 units/g topical powder Start: 02/12/23 8:20:00 EDT, See Instructions, Disp# 120 g, Refills: 3, APPLY TO AFFECTED AREA(S) TOPICALLY 3 TIMES DAILY, Pharmacy: [facility] ([facility] Start Date: 02/12/23 Status: Ordered nystatin 100,000 units/g topical ointment Start: 03/08/23 13:55:00 EDT, 1 appl, topical, tid, Disp# 30 g, Refills: 1, Pharmacy: [id number] Start Date: 03/08/23 Status: Ordered Potassium Chloride (Mvk-Otpl-Nlu M20) 20 mEq oral tablet, extended release Start: 04/02/23 13:03:00 EDT, 1 tab, PO, Daily, Disp# 90 tab, Refills: 3, TAKE 1 TABLET BY MOUTH EVERY DAY, Pharmacy: [facility] Start Date: 04/02/23 Stop Date: 03/27/24 Status: Ordered pro air inhaler Start: 01/02/20 8:04:00 EDT, pro air inhaler Start Date: 01/02/20 Status: Ordered traMADol 50 mg oral tablet Start: 05/15/23 16:07:00 EST, 1 tab, PO, q4h, Disp# 90 tab, Refills: 0, May use up to three times aday, Note to Pharmacy: PDMP verified,, PRN: as needed for pain, Pharmacy: [id number] Start Date: 05/15/23 Status: Ordered Problem List Condition Confirmation Course Effective Dates Status H ealth Status Informant Stage 3a chronic kidney disease (CKD) Confirmed Active Diabetes mellitus with neuropathy Confirmed Active Diabetes mellitus type 2 Confirmed Active Lipid disorder Confirmed Active Gout Confirmed Active Hypertension Confirmed Active Hypothyroidism Confirmed Active Moderate persistent asthma Confirmed Active Osteoarthritis Confirmed Active Tinea corporis Confirmed Active Weight disorder Confirmed Active Procedures Procedure Date Related Diagnosis Body Site Status Diabetic retinal eye exam 1 04/01/20 Completed Pathology biopsy report- left breast 2 09/18/18 Completed Barium swallow 3 10/05/[address] angiography 4 09/30/17 Co mpleted Chest x-ray 5 09/30/17 Completed Mammogram - screening 6 08/21/17 C ompleted Chest X-ray 7 05/22/17 Completed Mammogram 8 08/16/16 Completed Mammogram 9 08/12/15 Completed Eye examination 10 03/18/15 Comple daniela Unilateral mammography 11, 12 12/10/14 Completed Colonoscopy 2013 Completed CXR - Chest X-ray 13 Comp leted Mammogram 14 Completed Mammography 15 Completed Mastectomy Completed Tonsil Completed 1IMPRESSION: Diabetic by history with no evidence of diabetic retinopathy. Return in 1 year. 2BREAST, LEFT 12 O'CLOCK, STEROTACTIC-GUIDED BIOPSIES: 1. Benign breast tissue. 2. Microcalcification associated with benign stromal elements. 3. Negative for DCIS and invasive carcinoma. 31. Generalized esophageal spasm and/or irritability. 2. Gastroesophageal reflux. 41. Allowing for suboptimal image quality, no evidence of pulmonary embolus. 2. Mosaic attenuation suggest small airways disease 3. Left atrial enlargement. 51. Resolution of right pleural fluid and persistent and-like opacity in the left midlung, likely atelectasis or scarring. 2. No convincing evidence of acute cardiopulmonary disease. 3. Persistent prominence of the bilateral sammy may relate to enlarged pulmonary arteries or underlying volume overload. 6There is no mammographic evidence of malignancy. A 1 year screening mammogram is recommended. 7Persistent areas of atelectasis and /or scarring with apparent increased opacity on the right mid upper lung, which raise concern for pneumonia. 8There is no ammographic evidence of malignancy. A 1 year screening mammogram is recommended. 9bilateral digital screening mammogram with CAD 10No retinopathy. Glaucoma suspect, ocular hypertension pictures taken. 11F/u at next yearly exam due Jun 2015 12Unilateral beft diagnostic mammo and ultrasound. 13Stable mild cardiomegaly. Otherwise, no acute process within the chest 14Bilateral Diagnostic: Increased density in the left breast at approximately 12:00, likely postsurgical changes after benign excisional biopsy. Recommend follow-up diagnostic mammograms of the left breast in 6 months to confirm stability. 15impression: ACR BI-RADS CATEGORY 1: NEGATIVE there is no mammographic evidence of malignancy, within the limitations of the examination. a 1 year screening mammogram is recommended (09/02/2020) the patient will receive written notifiction of the results Results Laboratory List Name Date Basic Metabolic Panel (BASIC METAB PANEL ) 05/21/23 Hemoglobin A1C (HEMOGLOBIN, A1C) 3 Most recent to oldest [Reference Range]: 1 eGFR CKD-EPI [>60 mL/min/1.73 m2] 39 mL/ min/1.73 m2 1 *LOW* (05/21/23 7:04 AM) Estimated Average Glucose 100 mg/dL 2 (05/21/23 7:04 AM) Estimated CrCl 37.09 mL/min (05/21/23 7:54 AM) Anion Gap [5-14 mmol/L] 4 mmol/L *LOW* (05/21/23 7:04 AM) BUN [7-20 mg/dL] 34 mg/dL *HI* (05/21/23 7:04 AM) Ca [8.4-10.2 mg/dL] 9.4 mg/dL (05/21/23 7:04 AM) Cl- [96-107 mmol/L] 104 mmol/L (05/21/23 7:04 AM) HCO3 [22-30 mmol/L] 29 mmol/L (05/21/23 7:04 AM) Cret [0.60-1.00 mg/dL] 1.33 mg/dL *HI* (05/21/23 7:04 AM) HbA1c [4.0-6.0 %] 5.1 % (05/21/23 7:04 AM) Glu [74-106 mg/dL] 106 mg/dL (05/21/23 7:04 AM) K [3.5-5.1 mmol/L] 4.3 mmol/L (05/21/23 7:04 AM) Na [137-145 mmol/L] 137 mmol/L (05/21/23 7:04 AM) 1Result Comment: Testing Performed By: Dept of Pathology [facility] Nicholas Srivastava, [address] [place] [id number] 2Result Comment: Testing Performed By: Dept of Pathology [facility] Nicholas Srivastava, [address] [place] [address] Social History Social History Type Response Smoking Status Never smoked cigaret soni Sex Female Patient Care team information Care Team Personnel Name: DO Joya Kristen M Position: Physician - Family Med Member Role: Lifetime Relationship Address: Address: [address] [place] [id number] [place] Name: MD Soto Ravishankar E Position: Physician Member Role: Primary Care Provider Address: Address: [address] [place] [id number] [place] Care Team Related Persons Name: GUILLERMINA MCADAMSE Address: home [address] [place] [phone]
--- OUTSIDE RECORDS SUMMARY | 2023-05-28 22:22 | External Medical Summary | Continuity of Care Document ---
Author Name Unknown Organization [facility] [address] [address] [place] [address] [phone] Care Team Providers Care Group Exercise Instructor Name Role Phone Luis Soto Primary Care Physician [phone] [id number] Date(s): 05/04/23 - 05/04/23 [facility] [address] [facility] [address] [facility] [address] [place] [address] [phone] Encounter Diagnosis Cat scratch(Discharge Diagnosis) - 05/04/23 Discharge Disposition: Home or Self Care Attending Physician: MONIQUE Wade Kimberly A Referring Physician: MONIQUE Wade Kimberly A Allergies, Adverse Reactions, Alerts Substance Reaction Severity Status penicillins Active sulfa drugs Active Keflex rash Active Assessment and Plan Extracted from: Title:Office Visit Note-Student Author:Joni Rodriguez Date:05/04/23 1. Animal bite, animal scrat ch (cat) Acute, uncomplicated illness/injury -cat drug tooth across as well as scratched right hand and forearm -Cat is patient's pet and is UTD with all vaccines -states hand reduced redness and swelling today -She has not been using any type of antibiotic ointment or cleansing routine -Has occurred several times in the past but not maliciously -Denies any fevers, chills, bleeding, numbness or tingling -Review of her chart shows her last Tdap in 2016. Goal:Resolution Data:H&P Plan: _ Update Tetanus today - last 2015 Doxycycline 100 mg BID X 5 days Gently cleanse with soap and water RTO if worsening or change in symptoms Time spent on pre-visit plannin min Face to face time spent w/ patient:14 min Time spent documenting pertinent clinical information into the EMR:5 min Total time: 22 min Immunizations Given and Recorded Vaccine Date Status [...] submit to Plan B; DX E11.620, Pharmacy: [id number] Start Date: 07/21/19 Status: Ordered Accu-Chek Guide Test Strips Start: 08/23/21 17:16:00 EST, See Instructions, Disp# 300 strip, Refills: 3, Test blood glucose 3x/day, Note to Pharmacy: Submit to medicare Plan B; Each box to include 100 test strip; DX E11.8, Brand Medically Necessary, Pharmacy: [facility]... Start Date: 08/23/21 Status: Ordered Accu-Chek Softclix (28G) Lancets Start: 08/25/19 12:49:00 EST, See Instructions, Disp# 100 unit, Refills: 3, test blood sugar 3x/day, Note to Pharmacy: Submit to Medicare Plan B; Each box to include 100 lancets; DX E11.8, Brand Medically Necessary, Pharmacy: [facility] Start Date: 08/25/19 Status: Ordered Advair Diskus 500 mcg-50 mcg Start: 07/28/13 10:44:44, 1 puff, PO, bid, Disp# 3 each, Refills: 3, Pharmacy: [id number], 1 puff PO bid Start Date: 07/28/13 Status: Ordered albuterol-ipratropium 2.5 mg-0.5 mg/3 mL inhalation solution Start: 09/10/14 17:00:09, 3 mL, inhaled, q6h, Disp# 90 mL, Refills: 0, PRN: as needed for shortnessof breath or wheezing, Pharmacy: [id number], 3 mL inhaled q6h,PRN:as [...] cap, PO, bid, Disp# 10 cap, Pharmacy: [id number] Start Date: 05/04/23 Stop [...] 1-2 tab PO Daily 90 day, Pharmacy: [id number] Start Date: 11/13/19 Status: [...] NEEDED FOR ITCHING, Pharmacy: [facility] ([facility] Start Date: 01/22/23 Status: [...] 3 TIMES DAILY, Pharmacy: [facility] ([facility] ) Start Date: 02/12/23 Status: Ordered nystatin 100,000 units/g topical ointment Start: 03/08/23 13:55:00 EDT, 1 appl, topical, tid, Disp# 30 g, Refills: 1, Pharmacy: [id number] Start Date: 03/08/23 Status: Ordered Potassium Chloride (Zcl-Pcss-Pah M20) 20 mEq oral tablet, extended release Start: 04/02/23 13:03:00 EDT, 1 tab, PO, Daily, Disp# 90 tab, Refills: 3, TAKE 1 TABLET BY MOUTH EVERY DAY, Pharmacy: [facility] Start Date: 04/02/23 Stop Date: 03/27/24 Status: Ordered pro air inhaler Start: 01/02/20 8:04:00 EDT, pro air inhaler Start Date: 01/02/20 Status: Ordered traMADol 50 mg oral tablet Start: 02/12/23 13:27:00 EDT, 1 tab, PO, q4h, Disp# 90 tab, Refills: 0, May use up to three times aday, Note to Pharmacy: PDMP verified,, PRN: as needed for pain, Pharmacy: [id number] Start Date: 02/12/23 Status: Ordered Mental Status 05/04/23 Barriers to Learning one year None evide nt Mandatory Health Literacy Documentation Yes Health Literacy Communication Barriers N ever Primary Language Romansh Problem List Condition Confirmation Course Effective Dates Status H ealth Status Informant Stage 3a chronic kidney disease (CKD) Confirmed Active Diabetes mellitus with neuropathy Confirmed Active Diabetes mellitus type 2 Confirmed Active Lipid disorder Confirmed Active Gout Confirmed Active Hypertension Confirmed Active Hypothyroidism Confirmed Active Moderate persistent asthma Confirmed Active Osteoarthritis Confirmed Active Tinea corporis Confirmed Active Weight disorder Confirmed Active Diagnosis Diagnosis Type Effective Dates Health Status Clini zaira Service Informant Cat scratch Discharge Diagnosis 05/04/23 Non-Specified Procedures Procedure Date Related Diagnosis Body Site [...] Colonoscopy 2013 Completed CXR - Chest X-ray Comp leted Mammogram 14 Completed Mammography 15 [...] will receive written notifiction of the results Vital Signs Most recent to oldest [Reference Range]: 1 Patient Weight 117.6 kg (05/04/23 9:42 AM) Heart Rate 72 bpm (05/04/23 9:42 AM) Respiratory Rate 16 br/min (05/04/23 9:42 AM) Blood Pressure 100/70mmHg (05/04/23 9:42 AM) BP Location # 1 Left Arm (05/04/23 9:42 AM) Social History Social History Type Response Smoking Status Never smoked cigaret soni Sex Female FCM Outpt Note * MONIQUE Wade Kimberly A: MODIFY MONIQUE Wade Kimberly A: MODIFY Event Display: FCM Outpt Note Authored Date: [id number] Chief Complaint pt's cat scratched/bit her right hand wrist. cat is up to date on shots. area is red and swollen. History of Present Illness 88 year old female presents today with cat bite Sunday morning 3 am - -cat drug tooth across as well as scratched right hand and forearm -Cat is patient's pet and is UTD with all vaccines -states hand reduced redness and swelling today -She has not been using any type of antibiotic ointment or cleansing routine -Has occurred several times in the past but not maliciously -Denies any fevers, chills, bleeding, numbness or tingling -Review of her chart shows her last Tdap in 2016. Review of Systems Constitutional: No fever, No chills, No fatigue._ Cardiovascular: no lightheadedness/presyncope, No chest pain, No palpitations._ Respiratory: No shortness of breath, No cough, No wheezing. _ Skin: per HPI Physical Exam Vitals & Measurements HR:72(Monitored) RR:16 BP:100/70 SpO2:96% WT:117.6kg WT:117.600kg(Dosing) PHQ2 Data(Data Documented on:05/04/2023 09:42) Emotional health assessment NEGATIVE General: _Alert and oriented, No acute distress Cardiovascular:RRR, 1/6 GRISELDA, no extra sounds Respiratory: _Lungs are clear to auscultation, Respirations are non-labored, Breath sounds are equal Musculoskeletal: Normal strength, normal ROM RUE Integumentary:Right dorsal hand below thumb has approx1 cm superficial laceration with surrounding erythema, skin iscool totouch. Right dorsal forearm 5 cm below wrist with 1 cm transversesuperficiallaceration with surrounding mild erythema. No drainage Assessment/Plan 1. Animal bite, animal scratch (cat) Acute, uncomplicated illness/injury -cat drug tooth across as well as scratched right hand and forearm -Cat is patient's pet and is UTD with all vaccines -states hand reduced redness and swelling today -She has not been using any type of antibiotic ointment or cleansing routine -Has occurred several times in the past but not maliciously -Denies any fevers, chills, bleeding, numbness or tingling -Review of her chart shows her last Tdap in 2015. Goal:Resolution Data:H&P Plan: _ Update Tetanus today - last 2015 Doxycycline 100 mg BID X 5 days Gently cleanse with soap and water RTO if worsening or change in symptoms Time spent on pre-visit plannin min Face to face time spent w/ patient:14 min Time spent documenting pertinent clinical information into the EMR:5 min Total time: 22 min Attestation Student NPnote reviewed. Patient's case reviewed in detail PA-S, agree with detail of history andphysical as documented above. Plan reviewed in detail. Problem List/Past Medical History Ongoing Diabetes mellitus type 2 Diabetes mellitus with neuropathy Gout Hypertension Hypothyroidism Lipid disorder Moderate persistent asthma Osteoarthritis Stage 3a chronic kidney disease (CKD) Tinea corporis Weight disorder Historical Acute URI Cat scratch Cellulitis Dermatitis Ecchymosis Edema leg Procedure/Surgical History Diabetic retinal eye exam (04/01/2020)Pathology biopsy report- left breast (09/18/2018)Barium swallow (10/05/2017)Chest x-ray (09/30/2017)Chest CT angiography (09/30/2017)Mammogram - screening (08/21/2017)Chest X-ray (05/22/2017)Mammogram (08/16/2016)Mammogram (08/12/2015)Eye examination (03/18/2015)Unilateral mammography (12/10/2014)Colonoscopy (2013)CXR - Chest X-rayMammogramTonsilMastectomyMammography Medications albuterol-ipratropium(albuterol-ipratropium 2.5 mg-0.5 mg/3 mL inhalation solution), 3 mL, inhaled,q6h, PRN allopurinol(allopurinol 300 mg oral tablet), See Instructions aspirin(aspirin 81 mg oral tablet), 81 mg= 1 tab, PO, qMonWedFri atorvastatin(atorvastatin 40 mg oral tablet), 40 mg= 1 tab, qhs calcium-vitamin D(calcium-vitamin D extended release), 1 tab, PO, bid clotrimazole topical(clotrimazole 1% topical cream), 1 appl, topical, bid, 3 refills diabetes supplies(Accu-Chek Guide Test Strips), See Instructions, 3 refills diabetic supplies(Accu-Check Shayna Glucose Monitor), See Instructions diabetic supplies(Accu-Chek Softclix (28G) Lancets), See Instructions, 3 refills doxycycline(doxycycline hyclate 100 mg oral capsule), 100 mg= 1 cap, PO, bid famotidine(famotidine 40 mg oral tablet), 40 mg= 1 tab, PO, Daily, 3 refills fluticasone-salmeterol(Advair Diskus 500 mcg-50 mcg), 1 puff, PO, bid, 3 refills furosemide(furosemide 40 mg oral tablet), See Instructions hydrocortisone topical(hydrocortisone 2.5% topical cream), 1 appl, topical, bid, 3 refills hydrOXYzine(hydrOXYzine hydrochloride 10 mg oral tablet), See Instructions, 5 refills levothyroxine(levothyroxine 88 mcg (0.088 mg) oral tablet), See Instructions metFORMIN(metFORMIN 500 mg oral tablet), 500 mg= 1 tab, PO, Daily, 3 refills metoprolol(Metoprolol Succinate ER 25 mg oral tablet, extended release) multivitamin, 1 tab, PO, Daily nystatin topical(nystatin 100,000 units/g topical ointment), 1 appl, topical, tid, 1 refills nystatin topical(Nyamyc 100,000 units/g topical powder), See Instructions, 3 refills potassium chloride(Potassium Chloride (Vkb-Neup-Nke M20) 20 mEq oral tablet, extended release), 20 mEq= 1 tab, PO, Daily, 3 refills sacubitril-valsartan(Entresto 24 mg-26 mg oral tablet), 1 tab, PO, bid traMADol(traMADol 50 mg oral tablet), 50 mg= 1 tab, PO, q4h, PRN unknown medication(pro air inhaler) Allergies Keflexrash penicillins sulfa drugs Social History Smoking Status Never smoked cigarettes Tobacco - Denies Tobacco Use Use:Never smoker Family History Asthma: Sister. Health Status Family Member(s) Immunizations Vaccine Date Status tetanus/diphtheria/pertuss, acel (Tdap) 05/04/2023 Given influenza virus vaccine, inactivated 05/02/2022 Recorded influenza virus vaccine, inactivated 04/28/2021 Recorded SARS-CoV-2 (COVID-19) mRNA BNT-162b2 vax 09/17/2020 Recorded Comments : 2021-05-03: Historical information-source unspecified SARS-CoV-2 (COVID-19) mRNA BNT-162b2 vax 08/27/2020 Recorded Comments : 2021-05-03: Historical information-source unspecified influenza virus vaccine, inactivated 04/21/2020 Recorded influenza virus vaccine, inactivated 04/17/2017 Given pneumococcal 13-valent vaccine 05/04/2016 Recorded influenza virus vaccine, inactivated 04/18/2016 Given tetanus toxoids-diphtheria, Td (Adult) 04/18/2016 Given pneumococcal 23-valent vaccine 05/23/2014 Recorded Comments : 2021-05-03: Historical information-source unspecified pneumococcal 23-valent vaccine 06/23/2012 Recorded Comments : 2021-05-03: Historical information-source unspecified pneumococcal 23-valent vaccine 06/07/2012 Recorded zoster vaccine live 07/09/2009 Recorded Recommendations Health Maintenance Pending(in the next year) OverDue Medicare Annual Wellness Visit due04/17/18and every 1year Adult Influenza Vaccine due01/06/23and every 1year Due Diabetic Eye Exam due03/26/23and every 731day Adult COVID-19 Vaccination due05/04/23Unknown Frequency Shingles Vaccine due05/04/23One-time only Due In Future Diabetes Management A1c not due until11/14/23and every 366day Body Mass Index not due until05/03/24and every 1year Satisfied(in the past 1 year) Satisfied Adult Tdap/Td Vaccine on05/04/23.Satisfied by TAI Johansen, Katiana Body Mass Index on03/08/23.Satisfied by DORIS Mendoza Kiara Breast Cancer Screening on09/13/22.Satisfied by TAI Callahan Sara Diabetes Management A1c on11/13/22.Satisfied by Contributor_system, [email or web address] Diabetes Nephropathy Management on06/12/22.Satisfied by Contributor_system, [email or web address] Lipid Screening on06/12/22.Satisfied by Contributor_system, [email or web address] Electronic Signature on File Electronically Reviewed/Signed by: Adriana Rodriguez Author Signature Dt/Tm:05/04/2023 11:43 AM Student, Nurse Practitioner Electronically Reviewed/Signed by: MONIQUE Lopez Signature Dt/Tm: 05/04/2023 12:23 PM Department of Family Medicine Electronically Reviewed/Signed by: Donavon Izaguirre MD Cosigner Signature Dt/Tm: 05/06/2023 11:43 PM Department of Family Medicine DT Patient Care team information Care Team Personnel Name: MD Soto Ravishankar E Position: Physician Member Role: Primary Care Provider Address: Address: [address] [place] [address], [place] [address] Care Team Related Persons Name: TANYA MCADAMS Address: home [address] [place] [address] ADILENE CHINO [phone]
--- OUTSIDE RECORDS SUMMARY | 2023-05-28 22:22 | External Medical Summary | Continuity of Care Document ---
Author Name Unknown Organization [address] [place] [phone] Care Team Providers Care Household Worker Name Role Phone Luis Soto Primary Care Physician [phone] [id number] Date(s): 03/08/23 - 03/08/23 [facility] [address] [facility] [address] [place] [address] [phone] Encounter Diagnosis Body mass index [BMI] 45.0-49.9, adult(Discharge Diagnosis) - 03/08/23 COPD mixed type(Discharge Diagnosis) - 03/08/23 Middle ear effusion(Discharge Diagnosis) - 03/08/23 Discharge Disposition: Home or Self Care Attending Physician: MD Blake Joseph P Referring Physician: MD Blake Joseph P Allergies, Adverse Reactions, Alerts Substance Reaction Severity Status penicillins Active sulfa drugs Active Keflex rash Active Assessment and Plan Extracted from: Title:Office Visit Note Author:MD Blake Jos eph P Date:03/08/23 1.COPD mixed type Chronic, stable and sees Pulmonology 2.Middle ear effusion Patient education - will try Tylenol as directed on the bottle and try Flonase 2 sprays each nostril twice a day. I have personally spent 20 minutes performing savz-dw-fuwi and inq-qujv-og-face activities on this date of service. My activities included reviewing past records priorto the encounter, reviewed past lab results, with extensive counseling. Immunizations Given and Recorded Vaccine Date Status Refusal Reason influenza virus vaccine, inactivated 05/02/22 Efrain rded [...] submit to Plan B; DX E11.620, Pharmacy: [id number] Start Date: 07/21/19 Status: Ordered Accu-Chek Guide Test Strips Start: 08/23/21 17:16:00 EST, See Instructions, Disp# 300 strip, Refills: 3, Test blood glucose 3x/day, Note to Pharmacy: Submit to medicare Plan B; Each box to include 100 test strip; DX E11.8, Brand Medically Necessary, Pharmacy: [facility]... Start Date: 08/23/21 Status: Ordered Accu-Chek Softclix (28G) Lancets Start: 08/25/19 12:49:00 EST, See Instructions, Disp# 100 unit, Refills: 3, test blood sugar 3x/day, Note to Pharmacy: Submit to Medicare Plan B; Each box to include 100 lancets; DX E11.8, Brand Medically Necessary, Pharmacy: [facility] Start Date: 08/25/19 Status: Ordered Advair Diskus 500 mcg-50 mcg Start: 07/28/13 10:44:44, 1 puff, PO, bid, Disp# 3 each, Refills: 3, Pharmacy: [id number], 1 puff PO bid Start Date: 07/28/13 Status: Ordered albuterol-ipratropium 2.5 mg-0.5 mg/3 mL inhalation solution Start: 09/10/14 17:00:09, 3 mL, inhaled, q6h, Disp# 90 mL, Refills: 0, PRN: as needed for shortnessof breath or wheezing, Pharmacy: [id number], 3 mL inhaled q6h,PRN:as needed for shortness of breath or wheezing Start Date: 09/10/14 Status: Ordered allopurinol 300 mg oral tablet Start: 07/31/22 13:09:00 EST, See Instructions, Disp# 90 tab, Refills: 3, TAKE 1 TABLET BY MOUTH DAILY, [facility] Start Date: 07/31/22 Status: Ordered [...] clotrimazole 1%... Start Date: 07/10/22 Status: Ordered Entresto 24 mg-26 mg oral [...] 1-2 tab PO Daily 90 day, Pharmacy: [id number] Start Date: 11/13/19 Status: [...] 3 TIMES DAILY, Pharmacy: [facility] Start Date: 02/12/23 Status: Ordered nystatin 100,000 units/g topical ointment Start: 03/08/23 13:55:00 EDT, 1 appl, topical, tid, Disp# 30 g, Refills: 1, Pharmacy: [id number] Start Date: 03/08/23 Status: Ordered Potassium Chloride (Wpq-Ugla-Czx M20) 20 mEq oral tablet, extended release Start: 03/01/22 11:49:00 EDT, 1 tab, PO, Daily, Disp# 90 tab, Refills: 3, TAKE 1 TABLET BY MOUTH EVERY DAY, Pharmacy: [id number]) Start Date: 03/01/22 Stop Date: 02/24/23 Status: Ordered pro air inhaler Start: 01/02/20 8:04:00 EDT, pro air inhaler Start Date: 01/02/20 Status: Ordered traMADol 50 mg oral tablet Start: 02/12/23 13:27:00 EDT, 1 tab, PO, q4h, Disp# 90 tab, Refills: 0, May use up to three times aday, Note to Pharmacy: PDMP verified,, PRN: as needed for pain, Pharmacy: [id number] Start Date: 02/12/23 Status: Ordered Mental Status 03/08/23 Barriers to Learning one year None evide nt Mandatory Health Literacy Documentation Yes Health Literacy Communication Barriers N ever Primary Language North Korean Problem List Condition Confirmation Course Effective Dates [...] Diagnosis Diagnosis Type Effective Dates Health Status Cl inical Service Informant Body mass index [BMI] 45.0-49.9, adult Discharge Diagnosis 03/08/23 Non-Specified COPD mixed type Discharge Diagnosis 03/08/23 Middle ear effusion Discharge Diagnosis 03/08/23 Procedures Procedure Date Related Diagnosis Body Site [...] examination 10 03/18/15 Comple daniela Unilateral mammography , 12 12/10/14 Completed Colonoscopy 2013 Completed CXR [...] Most recent to oldest [Reference Range]: 1 Height 158 cm (03/08/23 1:20 PM) Patient Weight 119.2 kg (03/08/23 1:20 PM) Body Mass Index 47.75 kg/m2 (03/08/23 1:20 PM) Temperature [36.5-37.9 DegC] 36.3 DegC *LOW* (03/08/23 1:20 PM) Blood Pressure 120/74mmHg (03/08/23 1:20 PM) BP Location # 1 Left Arm (03/08/23 1:20 PM) Social History Social History Type Response Smoking Status Never smoked cigaret soni Sex Female FCM Outpt Note * MD Lou, Krish Kimble: PERFORM Event Display: FCM Outpt Note Authored Date: [id number] Chief Complaint pt here with L ear ache x 1 week on and off with headaches History of Present Illness for 4 days, took Mucinex, but had stuff in back of throat. Today left ear is better. Congestion is still running in throat. Pain in face if pushes on face on left. [place] puffy yesterday. Hurt above eyebrow. Also hurt in left ear and took Tylenol. This helped. Hurt inside ear with pain. No aggrevating factors. Used saline nasal and albuterol nebs for COPD. Physical Exam Vitals & Measurements T:36.3C BP:120/74 SpO2:98% HT:158cm WT:119.2kg WT:119.200kg(Dosing) BMI:47.75 PHQ2 Data(Data Documented on:03/08/2023 13:16) Emotional health assessment NEGATIVE Gen - No acute distress TMs - left with effusion, right with minimal effusion Assessment/Plan 1.COPD mixed type Chronic, stable and sees Pulmonology 2.Middle ear effusion Patient education - will try Tylenol as directed on the bottle and try Flonase 2 sprays each nostril twice a day. I have personally spent 20 minutes performing pihm-jp-jjue and fpz-vpid-ev-face activities on this date of service. My activities included reviewing past records priorto the encounter, reviewed past lab results, with extensive counseling. Problem List/Past Medical History Ongoing Diabetes mellitus [...] Softclix (28G) Lancets), See Instructions, 3 refills famotidine(famotidine 40 mg oral tablet), 40 mg= [...] See Instructions, 3 refills potassium chloride(Potassium Chloride (Ptf-Tljw-Bzg M20) 20 mEq oral tablet, extended release), [...] Status Family Member(s) Immunizations Vaccine Date Status influenza virus vaccine, inactivated 05/02/2022 Recorded influenza [...] Adult Influenza Vaccine due01/06/23and every 1year Due Adult COVID-19 Vaccination due03/08/23Unknown Frequency Shingles Vaccine due03/08/23One-time only Due In Future Diabetic Eye Exam not due until03/25/23and every 2year Diabetes Management A1c not due until11/13/23and every 1year Body Mass Index not due until03/07/24and every 1year Satisfied(in the past 1 year) Satisfied Adult Influenza Vaccine on05/02/22.Satisfied by MD Charles, Luis Frye Body Mass Index on03/08/23.Satisfied by DORIS Mendoza Kiara Breast Cancer Screening on09/13/22.Satisfied by TAI Callahan Sara Diabetes Management A1c on11/13/22.Satisfied by Contributor_system, [email or web address] Diabetes Nephropathy Management on06/12/22.Satisfied by Contributor_system, [email or web address] Lipid Screening on06/12/22.Satisfied by Contributor_system, [email or web address] Electronic Signature on File Electronically Reviewed/Signed by: Krish Blake MD Author Signature Dt/Tm:03/08/2023 01:56 PM Department of Family Medicine JP[facility] Patient Care team information Care Team Personnel Name: MD Soto Ravishankar E Position: Physician Member Role: Primary Care Provider Address: Address: [address] [address] Care Team Related Persons Name: TANYA MCADAMS Address: home [address] [place], [place] [address] [phone]
== END 2023-05-09 13:16 | disposition home or self-care (01) | DRG 190 ==
LOC: ED 10:35 → SUATTDRO 13:28 → OBSVTOIN 13:28 → INTOOBSV 13:28 → 2E 13:28

== ENCOUNTER 2024-02-02 19:55 | Observation (INO) ==
--- OUTSIDE RECORDS SUMMARY | 2024-02-02 20:13 | External Medical Summary | Continuity of Care Document ---
Author Name Unknown Organization [facility] [id number] [place] [phone] Care Team Providers Care Louver Door Assembler Name Role Phone Luis Soto Primary Care Physician [phone] Encounter [facility] [id number] Date(s): 01/29/24 - 01/29/24 [facility] 0 [facility] [address] [address] [phone] Encounter Diagnosis Increased urinary frequency(Discharge Diagnosis) - 01/29/24 Frequency of micturition(Final) - Discharge Disposition: Home or Self Care Attending Physician: DO Lilly Stephanie Marie Referring Physician: DO Lilly Stephanie Marie Allergies, Adverse Reactions, Alerts Substance Criticality Severity Reaction Reaction Severity Status penicillins Active sulfa drugs Active Keflex rash Active influenza virus vaccine, inactivated fever shortness of breath dizziness dry heaving vomiting hypotension Active Assessment and Plan Extracted from: Title:Office Visit Note Author:DO Lilly Steph anie Marie Date:01/29/24 1.Increased urinary freque ncy Acute condition Goal: resolution Data: UA in office with small LE but otherwise negative (negative blood, negative nitrite) urine cxordered Plan: Patient asymptomatic at this time. Questions if she is waking up overnight due to increased fluid intake during the day secondary to increased outside temperature. Will defer abx therapy at this time but may start abx pending urine cx. Return precautions provided including worsening nocturia or other new urinary symptoms. Inclusive of time spent reviewing the medical record, jlru-[id number] time with the patient, and time spent in documentation, the total time spent on this encounter today was 21 minutes. Immunizations Given and Recorded Vaccine Date Status [...] Accu-Check Shayna Glucose Monitor Start: 07/21/19 7:30:00 AM EST, See Instructions, Disp# 1 unit, Refills: 0, Check glucose level three times a day, Note to Pharmacy: submit to Plan B; DX E11.620, Pharmacy: [id number] Start Date: 07/21/19 Status: Ordered Accu-Chek Guide Test Strips Start: 08/30/23 9:24:00 AM EST, See Instructions, Disp# 100 strip, Refills: 3, Test blood glucose daily, Note to Pharmacy: Submit to medicare Plan B; Each box to include 100 test strip; DX E11.8, Brand Medically Necessary, Pharmacy: [id number] Start Date: 08/30/23 Status: Ordered Accu-Chek Softclix (28G) Lancets Start: 08/25/19 12:49:00 PM EST, See Instructions, Disp# 100 unit, Refills: 3, test blood sugar 3x/day, Note to Pharmacy: Submit to Medicare Plan B; Each box to include 100 lancets; DX E11.8, Brand Medically Necessary, Pharmacy: [id number] Start Date: 08/25/19 Status: Ordered Advair Diskus 500 mcg-50 mcg Start: 07/28/13 10:44:44 AM EST, 1 puff, PO, bid, Disp# 3 each, Refills: 3, Pharmacy: [id number] Start Date: 07/28/13 Status: Ordered albuterol-ipratropium 2.5 mg-0.5 mg/3 mL inhalation solution Start: 09/10/14 5:00:09 PM EST, 3 mL, inhaled, q6h, Disp# 90 mL, Refills: 0, PRN: as needed for shortness of breath or wheezing, Pharmacy: [id number] Start Date: 09/10/14 Status: Ordered allopurinol 300 mg oral tablet Start: 08/29/23 11:29:00 AM EST, See Instructions, Disp# 90 tab, Refills: 3, TAKE 1 TABLET BY MOUTH DAILY, Pharmacy: [facility] Start Date: 08/29/23 Status: Ordered aspirin 81 mg oral tablet Start: 07/18/13 8:51:00 AM EST, 1 tab, PO, qMonWedFri Start Date: 07/18/13 Status: Ordered atorvastatin 40 mg oral tablet Start: 07/22/20 8:47:00 AM EST, 1 tab, qhs Start Date: 07/22/20 Status: Ordered calcium-vitamin D extended release Start: 11/10/14 10:27:00 AM EDT, 1 tab, PO, bid Start Date: 11/10/14 Status: Ordered Entresto 24 mg-26 mg oral tablet Start: 01/02/20 8:05:00 AM EDT, 1 tab, PO, bid Start Date: 01/02/20 Status: Ordered famotidine 40 mg oral tablet Start: 07/10/22 8:33:00 AM EST, 1 tab, PO, Daily, Disp# 90 tab, Refills: 3, Pharmacy: [facility] ([facility] ) Start Date: 07/10/22 Status: Ordered furosemide 40 mg oral tablet Start: 11/13/19 3:22:00 PM EDT, See Instructions, Disp# 180 tab, 1-2 tab PO Daily 90 day, Pharmacy: [id number] Start Date: 11/13/19 Status: Ordered hydrocortisone 2.5% topical cream Start: 05/28/23 10:57:00 AM EST, 1 appl, topical, bid, Disp# 30 g, Refills: 3, Mix equal parts of 2.5% hydrocortisone and clotrimazole 1% - apply topically to affected areas BID, Note to Pharmacy: Mix equal parts of 2.5% hydrocortisone and clotrimazole 1% - apply topically to affected areas BID, Pharmacy: [id number] Start Date: 05/28/23 Status: Ordered hydrOXYzine hydrochloride 10 mg oral tablet Start: 08/29/23 11:29:00 AM EST, See Instructions, Disp# 30 tab, Refills: 3, TAKE 2 TABLETS BY MOUTH4 TIMES DAILY NEEDED FOR ITCHING, Pharmacy: [facility] Start Date: 08/29/23 Status: Ordered levothyroxine 88 mcg (0.088 mg) oral tablet Start: 08/29/23 11:29:00 AM EST, See Instructions, Disp# 90 tab, Refills: 3, TAKE 1 TABLET BY MOUTH DAILY, Pharmacy: [facility] Start Date: 08/29/23 Status: Ordered Macrobid 100 mg oral capsule Start: 01/31/24 5:16:00 PM EDT, 1 cap, PO, bid, Disp# 10 cap, Pharmacy: [id number] Start Date: 01/31/24 Stop Date: 02/05/24 Status: Ordered Metoprolol Succinate ER 25 mg oral tablet, extended release TAKE 2 TABLETS BY MOUTH EVERY DAY Start Date: 07/10/22 Status: Ordered multivitamin Start: 01/02/20 8:03:00 AM EDT, 1 tab, PO, Daily Start Date: 01/02/20 Status: Ordered nystatin 100,000 units/g topical ointment Start: 12/28/23 10:21:00 AM EDT, 1 appl, topical, tid, Disp# 30 g, Refills: 1, Pharmacy: [id number] Start Date: 12/28/23 Stop Date: 01/11/24 Status: Ordered nystatin 100,000 units/g topical powder Start: 01/03/24 10:49:00 AM EDT, See Instructions, Disp# 120 g, Refills: 3, APPLY TO AFFECTED AREA(S) THREE TIMES DAILY, Pharmacy: [id number] Start Date: 01/03/24 Status: Ordered Potassium Chloride (Buu-Okxm-Lhh M20) 20 mEq oral tablet, extended release Start: 08/29/23 11:29:00 AM EST, 1 tab, PO, Daily, Disp# 90 tab, Refills: 3, TAKE 1 TABLET BY MOUTH EVERY DAY, Pharmacy: [facility] ([facility]) Start Date: 08/29/23 Status: Ordered pro air inhaler Start: 01/02/20 8:04:00 AM EDT, pro air inhaler Start Date: 01/02/20 Status: Ordered Tessalon Perles 100 mg oral capsule Start: 07/16/23 12:04:00 PM EST, 1 cap, PO, tid, Disp# 30 cap, Pharmacy: [id number] Start Date: 07/16/23 Stop Date: 07/26/23 Status: Ordered traMADol 50 mg oral tablet Start: 01/28/24 2:15:00 PM EDT, 1 tab, PO, q4h, Disp# 90 tab, Refills: 0, May use up to three times a day, Note to Pharmacy: PDMP verified,, PRN: as needed for pain, Pharmacy: [id number] Start Date: 01/28/24 Status: Ordered Mental Status 01/29/24 Barriers to Learning one year None evide nt Mandatory Health Literacy Documentation Yes Health Literacy Communication Barriers N ever Primary Language Greenlandic Problem List Condition Confirmation Course Effective Dates [...] Dates Health Status Cl inical Service Informant Increased urinary frequency Discharge Diagnosis 01/29/24 Non-Specified Procedures Procedure Date Related Diagnosis Body Site Status Mammogram 3/14/24 Completed Diabetic retinal eye exam 1 04/01/20 Completed [...] the results Results Laboratory List Name Date Urine Chemstick POC Outpt. (Urinalysis C hemstick POC Outpt.) 01/29/24 Most recent to oldest [Reference Range]: 1 Glucose Urine Dipstick Ref Range [negati ve] (01/29/24 2:44 PM) Bilirubin Urine Dipstick Ref Range [nega tive] (01/29/24 2:44 PM) Specific [place] Urine Ref Range [No Nor mal Defined] (01/29/24 2:44 PM) Protein Urine Dipstick Ref Range [negati ve] (01/29/24 2:44 PM) pH Urine Dipstick Ref Range [4.5 - 8.0] (01/29/24 2:44 PM) Ketones Urine Dipstick Ref Range [negati ve] (01/29/24 2:44 PM) Blood Urine Dipstick Ref Range [negative ] (01/29/24 2:44 PM) Urobilinogen Urine Dipstick Ref Range [0 .2 - 1.0 mg/dL] (01/29/24 2:44 PM) Nitrites Urine Dipstick Ref Range [negat keegan] (01/29/24 2:44 PM) Leukocytes Urine Dipstick Ref Range [neg ative] (01/29/24 2:44 PM) U Leuk Est Small (01/29/24 2:44 PM) U Nitrite Negative (01/29/24 2:44 PM) U Urobilinogen 0.2 mg/dl (01/29/24 2:44 PM) U Protein Negative (01/29/24 2:44 PM) U pH 6.5 (01/29/24 2:44 PM) U Blood Negative (01/29/24 2:44 PM) U Spec Grav 1.015 1 (01/29/24 2:44 PM) U Ketones Negative (01/29/24 2:44 PM) U Bili Negative (01/29/24 2:44 PM) U Gluc Negative (01/29/24 2:44 PM) U Appear Clear (01/29/24 2:44 PM) Urine color urine dipstick Yellow (01/29/24 2:44 PM) 1Result Comment: Performed at: [facility], [address], [address], [place] [address] Orders for Microbiology Reports Name Date Urine Culture (CULTURE, URINE) 01/29/24 Microbiology Reports TEST:Urine.Cx STATUS:Auth (Verified) BODY SITE: SOURCE:Urine COLLECTED DATE/TIME:01/29/24 2:39 PM Status FINAL 01/31/2024 ORGANISM:Escherichia coli Susceptibilty: Escherichia coli Tested Drug Broth RAVIN Dilution Broth Interpr etation Trimeth-Sulfamethoxazole <=0.5/9.5 Suscept . Tetracycline <=4 Suscept. Nitrofurantoin <=32 Suscept. Levofloxacin <=0.5 Suscept. Gentamicin <=2 Suscept. Ciprofloxacin <=0.25 Suscept. Cefazolin <=2 Suscept. Ampicillin <=8 Suscept. Vital Signs Most recent to oldest [Reference Range]: 1 Patient Weight 118.3 kg (01/29/24 1:35 PM) Heart Rate 68 bpm (01/29/24 1:35 PM) Respiratory Rate 18 br/min (01/29/24 1:35 PM) Blood Pressure 120/64mmHg (01/29/24 1:35 PM) Cuff Pulse Pressure 56 mmHg (01/29/24 1:35 PM) Social History Social History Type Response Smoking Status Never smoked cigaret soni Sex Female Sex Representation Female (finding) FCM Outpt Note * DO Lilly Stephanie Marie: PERFORM Event Display: FCM Outpt Note Authored Date: [id number] Chief Complaint Has been getting up in the middle of the night to void for about 2 weeks which isn't normal, urine looks dark. Back pain in the morning. History of Present Illness Patient is an 88 year oldfemalepresenting to the office, accompanied by her daughter,with concern for nocturia. drinking more because hot out waking up in the middle of the night to void has been waking up 2-3x overnight to wake up to urinate back pain in AM after waking up; resolves by 8am sleeps on back with CPAP and oxygen no dysuria, no hematuria, no urinary retention "sometimes feels funny at the end" when urinating in the middle of the night patient ? urine color darker ? drinking too much homemade lemonade since the weather has gotten warm urinary frequency but noted to be associated with lasix use has had many UTIs in the past Physical Exam Vitals & Measurements HR:68(Monitored) RR:18 BP:120/64 SpO2:94% WT:118.300kg(Dosing) WT:118.3kg PHQ2 Data(Data Documented on:01/29/2024 13:33) Emotional health assessment NEGATIVE GENERAL: No acute distress. Well developed and well nourished. Vital signs reviewed as above. EYES: EOMI. Anicteric sclerae. HENT: Moist mucous membranes. RESPIRATORY: Clear to auscultation bilaterally.No wheezing, rales, orrhonchi. CARDIOVASCULAR: Regularrate and rhythm.No murmurs. ABDOMEN: Soft,qyd-cdsqqxnxurlr-qfhuvpbsw. Normal bowel sounds. No flank TTP. EXTREMITIES: No gross deformities. SKIN: Warm, dry. NEUROLOGIC: Alert and oriented. Normal speech. No gross focal neurological deficits. PSYCHIATRIC: Cooperative. Appropriate mood and affect. Assessment/Plan 1.Increased urinary frequency Acute condition Goal: resolution Data: UA in office with small LE but otherwise negative (negative blood, negative nitrite) urine cxordered Plan: Patient asymptomatic at this time. Questions if she is waking up overnight due to increased fluid intake during the day secondary to increased outside temperature. Will defer abx therapy at this time but may start abx pending urine cx. Return precautions provided including worsening nocturia or other new urinary symptoms. Inclusive of time spent reviewing the medical record, aqdz-ix-ohzb time with the patient, and time spent in documentation, the total time spent on this encounter today was 21 minutes. Problem List/Past Medical History Ongoing Diabetes mellitus type 2 Diabetes mellitus with neuropathy Gout Hypertension Hypothyroidism Lipid disorder Moderate persistent asthma Osteoarthritis Stage 3a chronic kidney disease (CKD) Tinea corporis Weight disorder Resolved Acute URI Cat scratch Cellulitis Dermatitis Ecchymosis Edema leg Procedure/Surgical History Mammogram| Service Date: 4Diabetic retinal eye exam| Service Date: 04/01/2020Pathology biopsy report- left breast| Service Date: 09/18/2018Barium swallow| Service Date: 10/05/2017Chest x-ray| Service Date: 09/30/2017Chest CT angiography| Service Date: 09/30/2017Mammogram - screening| Service Date: 08/21/2017Chest X-ray| Service Date: 05/22/2017Mammogram| Service Date: 08/16/2016Mammogram| Service Date: 08/12/2015Eye examination| Service Date: 03/18/2015Unilateral mammography| Service Date: 12/10/2014Colonoscopy| Service Date: 2013CXR - Chest X -rayMammogramTonsilMastectomyMammography Medications albuterol-ipratropium(albuterol-ipratropium 2.5 mg-0.5 mg/3 mL inhalation solution), 3 mL, inhaled,q6h, PRN allopurinol(allopurinol 300 mg oral tablet), See Instructions, 3 refills aspirin(aspirin 81 mg oral tablet), 81 mg= 1 tab, PO, qMonWedFri atorvastatin(atorvastatin 40 mg oral tablet), 40 mg= 1 tab, qhs benzonatate(Tessalon Perles 100 mg oral capsule), 100 mg= 1 cap, PO, tid calcium-vitamin D(calcium-vitamin D extended release), 1 tab, PO, bid diabetes supplies(Accu-Chek Guide Test Strips), See Instructions, [...] hydrochloride 10 mg oral tablet), See Instructions, 3 refills levothyroxine(levothyroxine 88 mcg (0.088 mg) oral tablet), See Instructions, 3 refills metoprolol(Metoprolol Succinate ER 25 mg oral tablet, extended release) multivitamin, 1 tab, PO, Daily nystatin topical(nystatin 100,000 units/g topical ointment), 1 appl, topical, tid, 1 refills nystatin topical(nystatin 100,000 units/g topical powder), See Instructions, 3 refills potassium chloride(Potassium Chloride (Ihh-Ojny-Wyx M20) 20 mEq oral tablet, extended release), 20 mEq= 1 tab, PO, Daily, 3 refills sacubitril-valsartan(Entresto 24 mg-26 mg oral tablet), 1 tab, PO, bid traMADol(traMADol 50 mg oral tablet), 50 mg= 1 tab, PO, q4h, PRN unknown medication(pro air inhaler) Allergies Keflexrash influenza virus vaccine, inactivatedfever, shortness of breath, dizziness, dry heaving, vomiting,hypotension penicillins sulfa drugs Social History Smoking Status [...] Medicare Annual Wellness Visit due04/17/18and every 1year Due Adult COVID-19 Vaccination due01/30/24Unknown Frequency Adult Social Determinants of Health Screening due01/30/24Unknown Frequency Shingles Vaccine due01/30/24One-time only Due In Future Diabetes Management A1c not due until12/28/24and every day Satisfied(in the past 1 year) Satisfied Adult Tdap/Td Vaccine on05/04/23.Satisfied by TAI Johansen Cassidy Body Mass Index on10/01/23.Satisfied by DORIS Cintron, Ayanna Breast Cancer Screening on09/20/23.Satisfied by TAI Jefferson Lori Diabetes Management A1c on12/28/23.Satisfied by Contributor_system, [employer] Diabetes Nephropathy Management on09/03/23.Satisfied by Contributor_system, [id number] Diabetic Eye Exam on08/02/23.Satisfied by TAI Villasenor Lynnae Lipid Screening on09/03/23.Satisfied by Contributor_system, [email or web address] Electronic Signature on File Electronically Reviewed/Signed by: Azra Lilly DO Author Signature Dt/Tm:01/30/2024 11:57 PM Department of Family Medicine [facility] Patient Care team information Care Team Personnel Name: DO Joya Kristen M Position: Physician - Family Med Member Role: Lifetime Relationship Address: [address] [place] [address] [place] Name: CUAUHTEMOC Jefferson Katy Marie Position: Nurse Pract - Family Med Member Role: Lifetime Relationship Address: [address] [place] [address] [place] Name: MD Soto Ravishankar E Position: Physician Member Role: Primary Care Provider Address: [address] [place] [address] Care Team Related Persons Name: TANYA MCADAMS
[2024-02-02 21:10] LABS: Alanine Aminotransferase 236 U/L (7-52); Albumin Globulin Ratio 1.7 (0.9-2); Albumin Level 3.6 gm/dl (3.4-5.0); Alkaline Phosphatase 131 U/L (34-104); Anion Gap 6 (3-11); Aspartate Aminotransferase 291 U/L (13-39); BUN Creatinine Ratio 33.7 (10-20); Bilirubin,Total 1.2 mg/dl (0.2-1.0); Blood Urea Nitrogen 32 mg/dl (6-23); Calcium 8.9 mg/dl (8.6-10.3); Carbon Dioxide 26 mmol/L (21-32); Chloride 104 mmol/L (98-107); Est GFR (African American) 62.9 ml/min; Est GFR (Non-African American) 54.2 ml/min; Globulin 2.1 gm/dl (2.5-4.0); Glucose 124 mg/dl (70-99(Fasting)); Magnesium 1.8 mg/dl (1.7-2.4); Potassium 4.1 mmol/L (3.5-5.1); Sodium 136 mmol/L (136-145); Total Protein 5.7 gm/dl (6.0-8.3)
[2024-02-02 21:17] LABS: Troponin I High Sensitivity 9.3 pg/ml (0-14)
[2024-02-02 21:21] LABS: INR 1.1 (0.9-1.1); Partial Thromboplastin Time 27 Seconds (21-31); Prothrombin Time 11.8 Seconds (9.0-12.0)
[2024-02-02 21:24] LABS: Basophils # (auto) 0.06 K/uL (0.00-0.20); Basophils % (auto) 0.9 %; Eosinophils # (auto) 0.44 K/uL (0.00-0.50); Eosinophils % (auto) 6.9 %; Hematocrit (blood only) 40.9 % (37.0-47.0); Hemoglobin 13.6 g/dl (12.0-16.0); Immature Granulocytes # (auto) 0.02 K/uL (0.01-0.20); Immature Granulocytes % (auto) 0.3 %; Lymphocytes # (auto) 0.95 K/uL (1.20-3.40); Lymphocytes % (auto) 14.9 %; Mean Corpuscular Hemoglobin 28.9 pg (25.0-34.0); Mean Corpuscular Hgb Conc 33.3 g/dL (32.0-36.0); Mean Platelet Volume 10.4 fL (9.4-12.4); Monocytes # (auto) 0.57 K/uL (0.11-0.59); Monocytes % (auto) 8.9 %; Neutrophils # (auto) 4.33 K/uL (1.40-6.50); Neutrophils % (auto) 68.1 %; Platelet Count 171 K/uL (130-400); RDW Standard Deviation 51.1 fL (36.4-46.3); White Blood Count 6.37 K/ul (4.8-10.8)
[2024-02-02 22:55] LABS: Appearance Urine Clear (Clear); Bacteria Urine Automated None Seen (None Seen); Bilirubin Urine Negative (Negative); Blood Urine Negative (Negative); Cast Urine Automated 0-2 /lpf (0-2); Color Urine Dark Yellow; Epithelial Cell Urine Auto 0-2 /hpf (0-2); Glucose Urine UA Negative (Negative); Ketones Urine 1+ (Negative); Leukocyte Esterase Urine Negative (Negative); Nitrite Urine Negative (Negative); Protein Urine 1+ (Negative); RBC Urine Automated 0-2 /hpf (0-2); Specific Gravity Urine 1.018 (1.000-1.030); Urobilinogen Urine Negative (Negative); WBC Urine Automated 0-5 /hpf (0-5)
[2024-02-02] MEDS: cefTRIAXone SODIUM 2,000 MG/50 ML BAG IV STA (22:55)
--- NOTE | 2024-02-02 23:37 | CT Scan Report ---
Exam(s): CT ABDOMEN + PELVIS Without Contrast EXAM: CT Abdomen and Pelvis Without Intravenous Contrast CLINICAL HISTORY: Reason for exam: vomiting. TECHNIQUE: Axial computed tomography images of the abdomen and pelvis without intravenous contrast. CTDI is 28 mGy and DLP is 1548.33 mGy-cm. Automated exposure control was utilized for the study. A dose lowering technique was utilized adhering to the principles of ALARA. COMPARISON: 06/11/2018 FINDINGS: Lung bases: Unremarkable. No mass. No consolidation. Heart: Coronary artery calcifications. Mitral valvular calcifications. Mediastinum: Moderate sized esophageal hiatal hernia. ABDOMEN: Liver: Unremarkable. Gallbladder and bile ducts: Cholelithiasis without evidence of acute cholecystitis. No ductal dilation. Pancreas: Unremarkable. No ductal dilation. Spleen: Splenomegaly. Adrenals: Unremarkable. No mass. Kidneys and ureters: Unremarkable. No obstructing stones. No hydronephrosis. Stomach and bowel: Unremarkable. No obstruction. No mucosal thickening. PELVIS: Appendix: No findings to suggest acute appendicitis. Bladder: Unremarkable. No stones. Reproductive: Uterus is surgically absent. ABDOMEN and PELVIS: Intraperitoneal space: free air or intestinal obstruction. No significant fluid collection. Bones/joints: No acute fracture. No dislocation. Soft tissues: Unremarkable. Vasculature: See above. Lymph nodes: Unremarkable. No enlarged lymph nodes. IMPRESSION: Splenomegaly unchanged since 2017 Electronically signed by: Oleg Harmon MD 02/02/24 23:36 PM
--- NOTE | 2024-02-02 23:41 | Emergency Department Note ---
History of Present Illness General Chief complaint: Illness Stated complaint: VOMIT, SOB, HEART MEDICINE, LETHARGIC Time Seen by Provider: 02/02/24 21:49 Source: patient, family (Family ember who is at the bedside), RN notes reviewed and old records reviewed (05/08/23-discharge summary for when she was hospitalized for reaction from flu vaccine) Mode of arrival: ambulatory Limitations: no limitations History of Present Illness Maximum Pain Intensity: 5 This patient 88-year-old female who has history of congestive heart failure among other medical problems, comes in after vomiting since yesterday she vomited multiple times between 3:00 and 10:00 she had just started Macrobid for UTI. She felt hot and cold she does feel somewhat short of breath no chest pain .no significant abdominal pain. No dysuria. No fall or trauma Home Medications Medication Instructions Recorded Confirmed Type aspirin 81 mg tablet,delayed 81 mg PO 3XWK 06/08/18 02/03/24 History release multivitamin (Multiple Vitamins 1 tab PO DAILY 06/08/18 02/03/24 History tablet) tramadol 50 mg tablet 50 mg PO Q4 PRN Pain 01/29/19 02/03/24 History Oxygen Home #2 L 09/16/19 02/03/24 Rx allopurinol 300 mg tablet 300 mg PO DAILY 01/08/20 02/03/24 History calcium carb,cit ER 600 mg-vit D3 1 tab PO AMHS 02/19/20 02/03/24 History 12.5 mcg (500 unit) tablet,ext.rel hydroxyzine HCl 10 mg tablet 20 mg PO QID PRN Anxiety 02/19/20 02/03/24 History famotidine 40 mg tablet 40 mg PO DAILY #90 tabs 12/10/20 02/03/24 Rx nystatin 100,000 unit/gram topical 1 applic topical TID PRN Other 12/28/20 02/03/24 History powder CPAP Supplies #1 ea 09/01/21 02/03/24 Rx potassium chloride 20 mEq 20 meq PO DAILY 30 days #90 tabs 12/06/21 02/03/24 Rx tablet,extended release(part/cryst) (Klor-Con M) fluticasone 250 mcg-salmeterol 50 1 inh inhalation Q12H #180 ea 10/16/22 02/03/24 Rx mcg/dose blistr powdr for inhalation (Wixela Inhub) atorvastatin 40 mg tablet 40 mg PO HS 90 days #90 tabs 05/07/23 02/03/24 Rx furosemide 40 mg tablet 40 mg PO DAILY #110 tabs 05/07/23 02/03/24 Rx sacubitril 24 mg-valsartan 26 mg 1 tab PO BID #180 tabs 05/07/23 02/03/24 Rx tablet (Entresto) metoprolol succinate 25 mg 50 mg (2 x 25 mg) PO DAILY #180 05/30/23 02/03/24 Rx tablet,extended release 24 hr tabs levalbuterol HCl 0.63 mg/3 mL 0.63 mg (3 mL) inhalation TID PRN 01/14/24 02/03/24 Rx solution for nebulization shortness of breath or wheezing #270 mL Allergies Allergy/AdvReac Type Severity Reaction Status Date / Time Penicillins Allergy Intermediate SEVERE RASH Verified 01/24/24 09:50 cephalexin [From Keflex] Allergy Unknown Unknown Verified 01/24/24 09:50 Sulfa (Sulfonamide Allergy Unknown Unknown Verified 01/24/24 09:50 Antibiotics) Past Med/Surg History Problem List (Updated 02/03/24 @ 01:35 by Oswaldo Marques MD) Abnormal LFTs (liver function tests) (Acute) SOB (shortness of breath) (Acute) Hx of chronic heart failure (Acute) Sepsis (Acute) Drug-induced hepatitis Asthma Hypoxia (Acute) Acute respiratory failure with hypoxia Heart failure with mid-range ejection fraction (HFmEF) Exertional dyspnea KINGSLEY on CPAP CAD (coronary artery disease) Morbid obesity Active asthma Right knee DJD Left knee DJD CKD (chronic kidney disease), stage III Frequent PVCs LBBB (left bundle branch block) Anemia Hypothyroid Ventricular ectopy Diabetes COPD (chronic obstructive pulmonary disease) Arthritis of foot, left (Chronic) Arthritis of foot, right (Chronic) Restrictive lung disease (Chronic 11/24/11) Hypertension Leaky heart valve Obstructive sleep apnea Medical History History of osteoarthritis History of weight disorder History of edema History of asthma History of ecchymosis History of cellulitis History of tinea corporis Chronic systolic CHF (congestive heart failure) Hypokalemia NSTEMI (non-ST elevated myocardial infarction) Cellulitis Sprain of left foot Bradycardia Open wound of anterior abdominal wall (11/24/11) Surgical History History of tonsillectomy History of mastectomy History of colonoscopy Family History Father Myocardial infarction Social History Smoking Status: Never smoker Hx Alcohol Use: Yes Alcohol type: wine Hx Substance Use: No Preferred Language: Setswana Communication Ability: Effective Visual Impairment: No Limitations Hearing Ability: Normal Plant Electrical Engineer Required: No Beliefs That Will Affect Care: None marital status: / Current Living Situation: Family How many Children do You have: 1 Feels Safe at Home: Yes Assistive Devices: Walker Review of Systems A total of 10 systems reviewed and were otherwise negative Physical Exam Vital Signs Vital Signs - 24 hr 02/02/24 19:58 02/02/24 20:39 02/02/24 21:56 Temperature 38.3 C H Temperature Source Oral Pulse Rate 70 65 Pulse Rate [Apical] 69 Pulse Rhythm Regular Pulse Rhythm [Apical] Regular Respiratory Rate 18 22 Respiratory Effort / Characteristics Non-Labored Spontaneous Non-Labored Spontaneous Respiratory Depth Normal Normal Respiratory Pattern Regular Regular Blood Pressure 132/79 Blood Pressure [Right Arm] Blood Pressure Mean 96 Blood Pressure Mean [Right Arm] Pulse Oximetry 92 92 Oxygen Delivery Method Room Air Room Air Oxygen Flow Rate Sepsis Recent Fever Within 48 Hours Yes Sepsis New/Unexplained Change in Mental Status No Sepsis Action Taken by Nursing No Action Required Oxygen Flow Rate - Titration Pulse Oximetry Post Tiitration 02/02/24 22:27 02/02/24 22:49 02/02/24 23:00 Temperature Temperature Source Pulse Rate 68 Pulse Rate [Apical] 68 Pulse Rhythm Regular Pulse Rhythm [Apical] Respiratory Rate 20 21 Respiratory Effort / Characteristics Non-Labored Spontaneous Respiratory Depth Normal Respiratory Pattern Regular Blood Pressure Blood Pressure [Right Arm] 107/63 Blood Pressure Mean Blood Pressure Mean [Right Arm] 77 Pulse Oximetry 92 91 89 L Oxygen Delivery Method Room Air Room Air Nasal Cannula Oxygen Flow Rate 0 Sepsis Recent Fever Within 48 Hours Sepsis New/Unexplained Change in Mental Status Sepsis Action Taken by Nursing Oxygen Flow Rate - Titration 2 Pulse Oximetry Post Tiitration 94 02/03/24 00:48 02/03/24 01:06 Temperature Temperature Source Pulse Rate 65 65 Pulse Rate [Apical] Pulse Rhythm Pulse Rhythm [Apical] Respiratory Rate 19 Respiratory Effort / Characteristics Non-Labored Spontaneous Respiratory Depth Normal Respiratory Pattern Regular Blood Pressure Blood Pressure [Right Arm] Blood Pressure Mean Blood Pressure Mean [Right Arm] Pulse Oximetry 94 Oxygen Delivery Method Oxygen Flow Rate 2 Sepsis Recent Fever Within 48 Hours Sepsis New/Unexplained Change in Mental Status Sepsis Action Taken by Nursing Oxygen Flow Rate - Titration Pulse Oximetry Post Tiitration General: Well developed well nourished older female who appears in no acute distress, breathing comfortably on room air. Normal speech HEENT: Normal cephalic atraumatic. Pupils are equal round and reactive to light. Extraocular movements are intact. Oropharynx is pink with moist mucous membranes. No swelling of the mouth lips or tongue. Neck: Supple with a midline trachea. No meningeal signs or stiffness, no JVD or bruits. No Stridor. Chest: Clear to auscultation bilaterally. No wheezes or rhonchi. No increased work of breathing. Heart: Regular rate and rhythm without murmurs or gallops. Abdomen: Soft nontender, nondistended without rebound guarding or rigidity. Extremities: No cyanosis clubbing or edema. No calf tenderness or assymetry Spine/Back. Non tender to palpation. No CVA tenderness Skin: Good turgor without rashes. Neurologic exam: Cranial nerves two through 12 are intact. Motor and sensation are intact and symmetrical throughout. Course Administered Medications Sodium Chloride (Nss) 1,000 mls @ 60 mls/hr IV .[id number] STA Stop: 02/03/24 17:36 Last Admin: 02/03/24 01:10 Dose: 60 mls/hr Documented By: FREDERICK Discontinued Medications Ceftriaxone Sodium (Rocephin) 2,000 mg in 50 mls @ 100 mls/hr IV NOW STA Stop: 02/02/24 22:39 Last Infusion: 02/02/24 23:25 Dose: Infused Documented By: Admin: 02/02/24 22:55 Dose: 100 mls/hr Documented By: FREDERICK Medical Decision Making Differential Diagnosis CHF, UTI, sepsis, urosepsis, intra-abdominal process, gallbladder disease, pancreatitis, pneumonia Medical Records Attestation: I reviewed the patient's medical records. Home Medications Current Medication List: was personally reviewed by me Laboratory Data Attestation: I reviewed the patient's lab results. 02/02/24 20:25 02/02/24 20:25 Lab Results 02/02/24 02/02/24 Range/Units 20:25 22:32 WBC 6.37 (4.8-10.8) K/ul RBC 4.70 (4.20-5.40) M/uL Hgb 13.6 (12.0-16.0) g/dl Hct 40.9 (37.0-47.0) % MCV 87.0 (80.0-100.0) fL MCH 28.9 (25.0-34.0) pg MCHC 33.3 (32.0-36.0) g/dL RDW Std Deviation 51.1 H (36.4-46.3) fL RDW Coeff of Mariel 16.0 H (11.5-14.5) % Plt Count 171 (130-400) K/uL MPV 10.4 (9.4-12.4) fL Immature Gran % (Auto) 0.3 % Neut % (Auto) 68.1 % Lymph % (Auto) 14.9 % [place] % (Auto) 8.9 % Eos % (Auto) 6.9 % Baso % (Auto) 0.9 % Neut # (Auto) 4.33 (1.40-6.50) K/uL Lymph # (Auto) 0.95 L (1.20-3.40) K/uL [place] # (Auto) 0.57 (0.11-0.59) K/uL Eos # (Auto) 0.44 (0.00-0.50) K/uL Baso # (Auto) 0.06 (0.00-0.20) K/uL Immature Gran # (Auto) 0.02 (0.01-0.20) K/uL PT 11.8 (9.0-12.0) Seconds INR 1.1 (0.9-1.1) APTT 27 (21-31) Seconds PTT Ratio 1.0 Sodium 136 (136-145) mmol/L Potassium 4.1 (3.5-5.1) mmol/L Chloride 104 (98-107) mmol/L Carbon Dioxide 26 (21-32) mmol/L Anion Gap 6 (3-11) BUN 32 H (6-23) mg/dl Creatinine 0.95 (0.6-1.2) mg/dl Est Cr Clr Drug Dosing Not Reportable Est GFR ( Amer) 62.9 ml/min Est GFR (Non-Af Amer) 54.2 ml/min BUN/Creatinine Ratio 33.7 H (10-20) Glucose 124 H (70-99(Fasting)) mg/dl Lactate 1.2 (0.4-2.0) mmol/L Calcium 8.9 (8.6-10.3) mg/dl Magnesium 1.8 (1.7-2.4) mg/dl Total Bilirubin 1.2 H (0.2-1.0) mg/dl AST 291 H (13-39) U/L ALT 236 H (7-52) U/L Alkaline Phosphatase 131 H (34-104) U/L Troponin I High Sens 9.3 (0-14) pg/ml B-Natriuretic Peptide 204 H (0-100) pg/ml Total Protein 5.7 L (6.0-8.3) gm/dl Albumin 3.6 (3.4-5.0) gm/dl Globulin 2.1 L (2.5-4.0) gm/dl Albumin/Globulin Ratio 1.7 (0.9-2) Procalcitonin 0.20 (0-0.5) ng/ml Urine Color Dark Yellow Urine Appearance Clear (Clear) Urine pH 6.0 (4.5-7.5) Ur Specific Graham 1.018 (1.000-1.030) Urine Protein 1+ H (Negative) Urine Glucose (UA) Negative (Negative) Urine Ketones 1+ H (Negative) Urine Blood Negative (Negative) Urine Nitrite Negative (Negative) Urine Bilirubin Negative (Negative) Urine Urobilinogen Negative (Negative) Ur Leukocyte Esterase Negative (Negative) Urine WBC (Auto) 0-5 (0-5) /hpf Urine RBC (Auto) 0-2 (0-2) /hpf U Hyaline Cast (Auto) 0-2 (0-2) /lpf U Epithel Cells (Auto) 0-2 (0-2) /hpf Urine Bacteria (Auto) None Seen (None Seen) Imaging Data Attestation: I personally reviewed and interpreted this imaging study as follows: My Impression: Chest x-raycardiomegaly but no acute infiltrate, failure, pneumothorax there is scarring in the left mid lung. It is unchanged compared to the old chest x-ray from 07-18-2023 Radiologist's Impression: Abdomen/Pelvis CT 02/02/24 21:59 Exam(s): CT ABDOMEN + PELVIS Without Contrast EXAM: CT Abdomen and Pelvis Without Intravenous Contrast CLINICAL HISTORY: Reason for exam: vomiting. TECHNIQUE: Axial computed tomography images of the abdomen and pelvis without intravenous contrast. CTDI is 28 mGy and DLP is 1548.33 mGy-cm. Automated exposure control was utilized for the study. A dose lowering technique was utilized adhering to the principles of ALARA. COMPARISON: 06/11/2018 FINDINGS: Lung bases: Unremarkable. No mass. No consolidation. Heart: Coronary artery calcifications. Mitral valvular calcifications. Mediastinum: Moderate sized esophageal hiatal hernia. ABDOMEN: Liver: Unremarkable. Gallbladder and bile ducts: Cholelithiasis without evidence of acute cholecystitis. No ductal dilation. Pancreas: Unremarkable. No ductal dilation. Spleen: Splenomegaly. Adrenals: Unremarkable. No mass. Kidneys and ureters: Unremarkable. No obstructing stones. No hydronephrosis. Stomach and bowel: Unremarkable. No obstruction. No mucosal thickening. PELVIS: Appendix: No findings to suggest acute appendicitis. Bladder: Unremarkable. No stones. Reproductive: Uterus is surgically absent. ABDOMEN and PELVIS: Intraperitoneal space: free air or intestinal obstruction. No significant fluid collection. Bones/joints: No acute fracture. No dislocation. Soft tissues: Unremarkable. Vasculature: See above. Lymph nodes: Unremarkable. No enlarged lymph nodes. IMPRESSION: Splenomegaly unchanged since 2017 Electronically signed by: Oleg Harmon MD 02/02/24 23:36 PM ECG Data Attestation: I personally reviewed and interpreted this ECG as follows: Indication: + vomiting Rate (beats per minute): 72 Rhythm: + normal sinus ECG Intervals/blocks: + Normal QRS, + Normal QT, + Normal CO and + Normal QT-c ECG Lebeau: + Normal ECG ST segments: + Normal ST segments ECG Findings: + Other (Low voltage); no PACs or no PVCs Comparison ECG Date: from (05/08/2023) Change: no significant change MDM Narrative This patient comes in with nausea or vomiting, she is being treated for UTI with Macrobid she started Sunday evening. She does have a fever here. A full sepsis type workup was obtained given the fact that she has significant CHF, I did not give her any fluids initially as her blood pressure was stable. Her lactic acid was also normal as was her white count. Her liver functions did come back elevated to do a CAT scan to look at this and also obstructive uropathy potential. She was given IV antibiotics in the meantime. Blood cultures have been obtained. I gave her Rocephin 2 g IV. She was listed allergic to cephalexin. I had our pharmacist at the hospital investigate this I talked to Jose, the pharmacist, and he reviewed the records and she has Rocephin before without any difficulties here. In fact the Keflex allergy has been in EMR many years before she received the Rocephin. I talked to the patient at this about this at length. She did well with the IV Rocephin. CAT scan of her abdomen was unremarkable. Chest x-ray shows chronic changes but no overt CHF. This may have been related to her Macrobid her urine does not look infected so far I do think she needs to come in the hospital given her significant CHF and her normal lactic acid she was not given sepsis IV fluids. I did discuss case in consultation with Dr. Feliciano, he was going to admit the patient for further treatment and evaluation. Continuous cardiac monitoring: Orders were placed in the EMR for continuous cardiac monitoring: Upon my evaluation patient noted to be in normal sinus rhythm rate of 70 Impression & Plan Sepsis, Hx of chronic heart failure, SOB (shortness of breath), Abnormal LFTs (liver function tests) Discharge Plan Visit Data Chief Complaint: Illness Stated Complaint: VOMIT, SOB, HEART MEDICINE, LETHARGIC ED Provider: Oswaldo Marques Discharge Problem: Sepsis, Hx of chronic heart failure, SOB (shortness of breath), Abnormal LFTs (liver function tests) Forms Stand Alone Forms: My [facility] [employer] Prescriptions Prescriptions: No Action (DME) Oxygen Home Liters Per Minute See Rx Instructions .ROUTE .MEDSUPPLY Qty: 2 0RF Rx Instructions: Provide humidification for oxygen 2LPM: DME=T&B famotidine 40 mg tablet 40 mg PO DAILY Qty: 90 3RF (DME) CPAP Supplies Misc See Rx Instructions .Route Qty: 1 1RF Rx Instructions: CPAP supplies,mask,tubing,filters ect. LON99 potassium chloride [Klor-Con M20] 20 mEq tablet,ER particles/crystals 20 meq PO DAILY 30 Days Qty: 90 3RF fluticasone propion-salmeterol [Wixela Inhub] 250-50 mcg/dose blister with device 1 inh INH Q12H Qty: 180 3RF metoprolol succinate 25 mg tablet extended release 24 hr 50 mg PO DAILY Qty: 180 3RF levalbuterol HCl 0.63 mg/3 mL solution for nebulization 0.63 mg inhalation TID PRN (Reason: shortness of breath or wheezing) Qty: 270 11RF furosemide 40 mg tablet 40 mg PO DAILY Qty: 110 3RF atorvastatin 40 mg tablet 40 mg PO HS 90 Days Qty: 90 3RF Entresto 24-26 mg tablet 1 tab PO BID Qty: 180 3RF tramadol 50 mg tablet 50 mg PO Q4 PRN (Reason: Pain) hydroxyzine HCl 10 mg tablet 20 mg PO QID PRN (Reason: Anxiety) allopurinol 300 mg tablet 300 mg PO DAILY multivitamin [Multiple Vitamins] Tablet 1 tab PO DAILY aspirin 81 mg Tablet,Delayed Release (Dr/Ec) 81 mg PO 3XWK Rx Instructions: TAKE DAILY ON MON/WED/FRI calcium carb and citrate-vitD3 600 mg calcium- 500 unit tablet extended release 1 tab PO AMHS nystatin 100,000 unit/gram powder 1 applic TOPICAL TID PRN (Reason: Other) Rx Instructions: apply to affected area Referrals Referrals: Refugio Soto MD [Primary Care Provider] - Discharge Problem: Sepsis Qualifiers: Sepsis type: sepsis due to unspecified organism Sepsis acute organ dysfunction status: unspecified Qualified Code(s): A41.9 - Sepsis, unspecified organism
--- NOTE | 2024-02-03 00:43 | History & Physical Report ---
Date of Service February 03, 2024 Assessment & Plan (1) Drug-induced hepatitis: (2) Acute respiratory failure with hypoxia: (3) Heart failure with mid-range ejection fraction (HFmEF): (4) Asthma: (5) KINGSLEY on CPAP: (6) CAD (coronary artery disease): (7) CKD (chronic kidney disease), stage III: (8) Cardiomyopathy: (9) Hypertension: Plan Drug-induced hepatitis/adverse effect of Macrobid- AST 291, ALT 236, alkaline phosphatase 131, total bilirubin 1.2, INR 1.0, PT 11.8 Symptoms of chills, then severe nausea and vomiting, and then added on with generalized fatigue, severe weakness and feeling wiped out. She feels dehydrated, and asked for something to drink. In the differential also is CHF with hepatic congestion, however, patient looks more toward the dehydrated state, and this diagnosis is unlikely. Repeat laboratories in a.m. NSS at 60 mL/h x 1 L Hold Macrobid Pantoprazole 40 mg IV daily Zofran 4 mg IV every 6 hours as needed Consult gastroenterology HFmrEF/CAD/hypertension/cardiomyopathy/LBBB/ventricular ectopy- Hold aspirin, furosemide, metoprolol succinate for now. Resume metoprolol succinate first if BP increase and/or ectopy occurs Most recent echocardiogram showed EF 45-50% in 2021 Asthma/KINGSLEY on CPAP / acute on chronic respiratory failure with hypoxia- Continue CPAP at bedtime Continue Advair discus Continue leave albuterol nebulizer 3 times daily as needed Likely an element of obesity hypoventilation syndrome as well She did receive a single dose of ceftriaxone 2 g IV in the ED, hold on additional antibiotics and reassess in the a.m. History of Present Illness Chief Complaint: The patient presents to the emergency department with progressively worsening fatigue, generalized weakness, with nausea and vomiting. The patient reports that she began taking Macrobid for urinary tract infection on the evening of 01/30. She woke up on the morning of 01/31 around 3 AM with chills. Later on in the day on 01/31 she developed severe nausea and vomiting about 3:00 PM-10:00 PM. She remained with progressively worsening fatigue and generalized weakness through 02/01, and thus presents to the ED the evening of 02/01 for assessment. She reports her mouth feels very dry, and has continued to use her CPAP at bedtime and nebulizer treatment in the morning with no significant change in shortness of breath. Primary Care Provider: Refugio Soto MD The patient is a 88-year-old female with a past medical history including KINGSLEY on CPAP, CAD, morbid obesity, asthma, CKD stage III, frequent PVCs, LBBB, c ardiomyopathy, hypothyroidism, COPD, breast cancer, restrictive lung disease and hypertension. She presents to the emergency department with symptoms as noted above. In the emergency department, her pulse ox was as low as 89% on room air, which improved to 94 to 95% on 2 L nasal cannula oxygen. Allergies Allergy/AdvReac Type Severity Reaction Status Date / Time Penicillins Allergy Intermediate SEVERE RASH Verified 01/24/24 09:50 cephalexin [From Keflex] Allergy Unknown Unknown Verified 01/24/24 09:50 Sulfa (Sulfonamide Allergy Unknown Unknown Verified 01/24/24 09:50 Antibiotics) Home Medications Medication Instructions Recorded Confirmed Type aspirin 81 mg tablet,delayed 81 mg PO 3XWK 06/08/18 02/03/24 History release multivitamin (Multiple Vitamins 1 tab PO DAILY 06/08/18 02/03/24 History tablet) tramadol 50 mg tablet 50 mg PO Q4 PRN Pain 01/29/19 02/03/24 History Oxygen Home #2 L 09/16/19 02/03/24 Rx allopurinol 300 mg tablet 300 mg PO DAILY 01/08/20 02/03/24 History calcium carb,cit ER 600 mg-vit D3 1 tab PO AMHS 02/19/20 02/03/24 History 12.5 mcg (500 unit) tablet,ext.rel hydroxyzine HCl 10 mg tablet 20 mg PO QID PRN Anxiety 02/19/20 02/03/24 History famotidine 40 mg tablet 40 mg PO DAILY #90 tabs 12/10/20 02/03/24 Rx nystatin 100,000 unit/gram topical 1 applic topical TID PRN Other 12/28/20 02/03/24 History powder CPAP Supplies #1 ea 09/01/21 02/03/24 Rx potassium chloride 20 mEq 20 meq PO DAILY 30 days #90 tabs 12/06/21 02/03/24 Rx tablet,extended release(part/cryst) (Klor-Con M) fluticasone 250 mcg-salmeterol 50 1 inh inhalation Q12H #180 ea 10/16/22 02/03/24 Rx mcg/dose blistr powdr for inhalation (Wixela Inhub) atorvastatin 40 mg tablet 40 mg PO HS 90 days #90 tabs 05/07/23 02/03/24 Rx furosemide 40 mg tablet 40 mg PO DAILY #110 tabs 05/07/23 02/03/24 Rx sacubitril 24 mg-valsartan 26 mg 1 tab PO BID #180 tabs 05/07/23 02/03/24 Rx tablet (Entresto) metoprolol succinate 25 mg 50 mg (2 x 25 mg) PO DAILY #180 05/30/23 02/03/24 Rx tablet,extended release 24 hr tabs levalbuterol HCl 0.63 mg/3 mL 0.63 mg (3 mL) inhalation TID PRN 01/14/24 02/03/24 Rx solution for nebulization shortness of breath or wheezing #270 mL Past Med/Surg History Problem List (Updated 02/03/24 @ 01:12 by Sabino Bassett MD) Drug-induced hepatitis Asthma Hypoxia (Acute) Acute respiratory failure with hypoxia Heart failure with mid-range ejection fraction (HFmEF) Exertional dyspnea KINGSLEY on CPAP CAD (coronary artery disease) Morbid obesity Active asthma Right knee DJD Left knee DJD CKD (chronic kidney disease), stage III Frequent PVCs LBBB (left bundle branch block) Anemia Hypothyroid Ventricular ectopy Diabetes COPD (chronic obstructive pulmonary disease) Arthritis of foot, left (Chronic) Arthritis of foot, right (Chronic) Restrictive lung disease (Chronic 11/24/11) Hypertension Leaky heart valve Obstructive sleep apnea Medical History History of osteoarthritis History of weight disorder History of edema History of asthma History of ecchymosis History of cellulitis History of tinea corporis Chronic systolic CHF (congestive heart failure) Hypokalemia NSTEMI (non-ST elevated myocardial infarction) Cellulitis Sprain of left foot Bradycardia Open wound of anterior abdominal wall (11/24/11) Surgical History History of tonsillectomy History of mastectomy History of colonoscopy Family History Father Myocardial infarction Social History Smoking Status: Never smoker Hx Alcohol Use: Yes Alcohol type: wine Hx Substance Use: No Preferred Language: Kitt[place] Communication Ability: Effective Visual Impairment: No Limitations Hearing Ability: Normal Nursing Service Director Required: No Beliefs That Will Affect Care: None marital status: / Current Living Situation: Family How many Children do You have: 1 Feels Safe at Home: Yes Assistive Devices: Walker Review of Systems Review of Systems: The patient denies chest pain, palpitations, sore throat, sweats, blood in urine or stool, dysuria, urinary frequency or urgency, lightheadedness, dizziness, headache, memory loss, loss of consciousness, rash, abnormal bruising or bleeding, imbalance, focal weakness, numbness or tingling in arms or legs, generalized arthralgias or myalgias, back or neck pain, or night sweats. The review of systems is otherwise negative other than for that already noted above, and at least 10 systems have been reviewed. Physical Exam Physical Exam: The patient is awake, alert and oriented 3, well developed and well nourished, normocephalic and atraumatic, lying in bed and in no acute distress. HEENT--PERRL, EOMI, mucous membranes and oropharynx dry. Neck--supple. No JVD. No bruits. Thyroid normal, trachea midline, no adenopathy. Heart--normal S1 and S2. No murmurs, rubs or gallops. Lungs--few crackles at the bases bilaterally. No respiratory distress, no accessory muscle use. Abdomen--normal bowel sounds and soft. Nontender. Nondistended. Obese. Extremities-- Trace to 1+ bilateral pretibial pitting edema. Dermatologic--normal skin turgor, normal color, no abnormal lymph nodes, no rash. Neurologic--cranial nerves II through XII grossly intact. Rheumatologic--normal range of motion. Psychiatric--normal affect. Results & Data Results & Data Vital Signs (Past 12 Hours) Vital Signs Temp Pulse Pulse Resp BP BP Pulse Ox 02/02/24 23:00 89 L 02/02/24 22:49 68 21 107/63 91 02/02/24 22:27 68 20 92 02/02/24 21:56 69 22 92 02/02/24 20:39 65 02/02/24 19:58 38.3 C H 70 18 132/79 92 O2 Del Method O2 Flow Rate 02/02/24 23:00 Nasal Cannula 0 02/02/24 22:49 Room Air 02/02/24 22:27 Room Air 02/02/24 21:56 Room Air 02/02/24 20:39 02/02/24 19:58 Room Air Laboratory Results Laboratory Results WBC 6.37 K/ul (4.8-10.8) 02/02/24 20:25 RBC 4.70 M/uL (4.20-5.40) 02/02/24 20:25 Hgb 13.6 g/dl (12.0-16.0) 02/02/24 20:25 Hct 40.9 % (37.0-47.0) 02/02/24 20:25 MCV 87.0 fL (80.0-100.0) 02/02/24 20:25 MCH 28.9 pg (25.0-34.0) 02/02/24 20: MCHC 33.3 g/dL (32.0-36.0) 02/02/24 20:25 RDW Std Deviation 51.1 fL (36.4-46.3) H 02/02/24 20:25 RDW Coeff of Mariel 16.0 % (11.5-14.5) H 02/02/24 20:25 Plt Count 171 K/uL (130-400) 02/02/24 20:25 MPV 10.4 fL (9.4-12.4) 02/02/24 20:25 Immature Gran % (Auto) 0.3 % 02/02/24 20:25 Neut % (Auto) 68.1 % 02/02/24 20:25 Lymph % (Auto) 14.9 % 02/02/24 20:25 [place] % (Auto) 8.9 % 02/02/24 20:25 Eos % (Auto) 6.9 % 02/02/24 20:25 Baso % (Auto) 0.9 % 02/02/24 20:25 Neut # (Auto) 4.33 K/uL (1.40-6.50) 02/02/24 20:25 Lymph # (Auto) 0.95 K/uL (1.20-3.40) L 02/02/24 20:25 [place] # (Auto) 0.57 K/uL (0.11-0.59) 02/02/24 20:25 Eos # (Auto) 0.44 K/uL (0.00-0.50) 02/02/24 20:25 Baso # (Auto) 0.06 K/uL (0.00-0.20) 02/02/24 20:25 Immature Gran # (Auto) 0.02 K/uL (0.01-0.20) 02/02/24 20:25 PT 11.8 Seconds (9.0-12.0) 02/02/24 20:25 INR 1.1 (0.9-1.1) 02/02/24 20:25 APTT 27 Seconds (21-31) 02/02/24 20:25 PTT Ratio 1.0 02/02/24 20:25 Sodium 136 mmol/L (136-145) 02/02/24 20:25 Potassium 4.1 mmol/L (3.5-5.1) 02/02/24 20:25 Chloride 104 mmol/L (98-107) 02/02/24 20:25 Carbon Dioxide 26 mmol/L (21-32) 02/02/24 20:25 Anion Gap 6 (3-11) 02/02/24 20:25 BUN 32 mg/dl (6-23) H 02/02/24 20:25 Creatinine 0.95 mg/dl (0.6-1.2) 02/02/24 20:25 Est Cr Clr Drug Dosing Not Reportable 02/02/24 20:25 Est GFR ( Amer) 62.9 ml/min 02/02/24 20:25 Est GFR (Non-Af Amer) 54.2 ml/min 02/02/24 20:25 BUN/Creatinine Ratio 33.7 (10-20) H 02/02/24 20:25 Glucose 124 mg/dl (70-99(Fasting)) H 02/02/24 20:25 Lactate 1.2 mmol/L (0.4-2.0) 02/02/24 20:25 Calcium 8.9 mg/dl (8.6-10.3) 02/02/24 20:25 Magnesium 1.8 mg/dl (1.7-2.4) 02/02/24 20:25 Total Bilirubin 1.2 mg/dl (0.2-1.0) H 02/02/24 20:25 AST 291 U/L (13-39) H 02/02/24 20:25 ALT 236 U/L (7-52) H 02/02/24 20:25 Alkaline Phosphatase 131 U/L (34-104) H 02/02/24 20:25 Troponin I High Sens 9.3 pg/ml (0-14) 02/02/24 20:25 B-Natriuretic Peptide 204 pg/ml (0-100) H 02/02/24 20:25 Total Protein 5.7 gm/dl (6.0-8.3) L 02/02/24 20:25 Albumin 3.6 gm/dl (3.4-5.0) 02/02/24 20: Globulin 2.1 gm/dl (2.5-4.0) L 02/02/24 20:25 Albumin/Globulin Ratio 1.7 (0.9-2) 02/02/24 20: Procalcitonin 0.20 ng/ml (0-0.5) 02/02/24 20:25 Urine Color Dark Yellow 02/02/24 22: Urine Appearance Clear (Clear) 02/02/24 22: Urine pH 6.0 (4.5-7.5) 02/02/24 22:32 Ur Specific [place] 1.018 (1.000-1.030) 02/02/24 22:32 Urine Protein 1+ (Negative) H 02/02/24 22:32 Urine Glucose (UA) Negative (Negative) 02/02/24 22: Urine Ketones 1+ (Negative) H 02/02/24 22: Urine Blood Negative (Negative) 02/02/24 22: Urine Nitrite Negative (Negative) 02/02/24 22: Urine Bilirubin Negative (Negative) 02/02/24 22: Urine Urobilinogen Negative (Negative) 02/02/24 22:32 Ur Leukocyte Esterase Negative (Negative) 02/02/24 22:32 Urine WBC (Auto) 0-5 /hpf (0-5) 02/02/24 22:32 Urine RBC (Auto) 0-2 /hpf (0-2) 02/02/24 22:32 U Hyaline Cast (Auto) 0-2 /lpf (0-2) 02/02/24 22:32 U Epithel Cells (Auto) 0-2 /hpf (0-2) 02/02/24 22:32 Urine Bacteria (Auto) None Seen (None Seen) 02/02/24 22:32 Impressions Abdomen/Pelvis CT 02/02/24 21:59 Exam(s): CT ABDOMEN + PELVIS Without Contrast EXAM: CT Abdomen and Pelvis Without Intravenous Contrast CLINICAL HISTORY: Reason for exam: vomiting. TECHNIQUE: Axial computed tomography images of the abdomen and pelvis without intravenous contrast. CTDI is 28 mGy and DLP is 1548.33 mGy-cm. Automated exposure control was utilized for the study. A dose lowering technique was utilized adhering to the principles of ALARA. COMPARISON: 06/11/2018 FINDINGS: Lung bases: Unremarkable. No mass. No consolidation. Heart: Coronary artery calcifications. Mitral valvular calcifications. Mediastinum: Moderate sized esophageal hiatal hernia. ABDOMEN: Liver: Unremarkable. Gallbladder and bile ducts: Cholelithiasis without evidence of acute cholecystitis. No ductal dilation. Pancreas: Unremarkable. No ductal dilation. Spleen: Splenomegaly. Adrenals: Unremarkable. No mass. Kidneys and ureters: Unremarkable. No obstructing stones. No hydronephrosis. Stomach and bowel: Unremarkable. No obstruction. No mucosal thickening. PELVIS: Appendix: No findings to suggest acute appendicitis. Bladder: Unremarkable. No stones. Reproductive: Uterus is surgically absent. ABDOMEN and PELVIS: Intraperitoneal space: free air or intestinal obstruction. No significant fluid collection. Bones/joints: No acute fracture. No dislocation. Soft tissues: Unremarkable. Vasculature: See above. Lymph nodes: Unremarkable. No enlarged lymph nodes. IMPRESSION: Splenomegaly unchanged since 2018 Electronically signed by: Oleg Harmon MD 02/02/24 23:36 PM Code Status & VTE Plan Code Status Full code VTE Prophylaxis Plan VTE Prophylaxis will be ordered: Yes PG Care Time/CCT Total # of Minutes Spent Total Time Spent with Patient: Total time spent is greater than 50% in coordination of care (as documented) at patient's floor/unit and/or counseling patient: Coding Level of Care Code 81805 INT INP/OBS CARE 3/75MIN Diagnoses Drug-induced hepatitis K71.6; T50.905A Acute respiratory failure with hypoxia J96.01 Heart failure with mid-range ejection fraction (HFmEF) I50.22 Asthma, unspecified asthma severity, unspecified whether complicated, unspecified whether persistent J45.909 Asthma complication type: unspecified Asthma persistence: unspecified Asthma severity: unspecified severity KINGSLEY on CPAP G47.33; Z99.89 Coronary artery disease involving [place] coronary artery of [place] heart without angina pectoris I25.10 Associated angina: without angina Coronary Disease-Associated Artery/Lesion type: [place] artery [place] vs. transplanted heart: [place] heart CKD (chronic kidney disease), stage III N18.3 Cardiomyopathy, unspecified type I42.9 Cardiomyopathy type: unspecified Essential hypertension I10 Hypertension type: essential hypertension (4) Asthma Asthma complication type: unspecified Asthma persistence: unspecified Asthma severity: unspecified severity Qualified Code(s): J45.909 - Unspecified asthma, uncomplicated (6) CAD (coronary artery disease) Associated angina: without angina Coronary Disease-Associated Artery/Lesion type: [place] artery [place] vs. transplanted heart: [place] heart Qualified Code(s): I25.10 - Atherosclerotic heart disease of [place] coronary artery without angina pectoris (8) Cardiomyopathy Cardiomyopathy type: unspecified Qualified Code(s): I42.9 - Cardiomyopathy, unspecified (9) Hypertension Hypertension type: essential hypertension Qualified Code(s): I10 - Essential (primary) hypertension
[2024-02-03] MEDS: SODIUM CHLORIDE 0.9% 1,000 ML IV STA (01:10)
[2024-02-03] MEDS: PANTOprazole 40 MG in SYRINGE 0 ML IV STA (02:15)
[2024-02-03] MEDS ORDERED: LEVALBUTEROL HCL 0.63 MG/3 ML NEB INH PRN (03:06)
[2024-02-03] MEDS ORDERED: ONDANSETRON INJ 2 MG/ML 2 ML VIAL IV PRN (03:06)
[2024-02-03 04:33] LABS: Basophils # (auto) 0.05 K/uL (0.00-0.20); Basophils % (auto) 0.9 %; Eosinophils # (auto) 0.36 K/uL (0.00-0.50); Eosinophils % (auto) 6.4 %; Hematocrit (blood only) 38.5 % (37.0-47.0); Hemoglobin 12.5 g/dl (12.0-16.0); Immature Granulocytes # (auto) 0.03 K/uL (0.01-0.20); Immature Granulocytes % (auto) 0.5 %; Lymphocytes # (auto) 1.05 K/uL (1.20-3.40); Lymphocytes % (auto) 18.6 %; Mean Corpuscular Hemoglobin 28.8 pg (25.0-34.0); Mean Corpuscular Hgb Conc 32.5 g/dL (32.0-36.0); Mean Corpuscular Volume 88.7 fL (80.0-100.0); Mean Platelet Volume 10.5 fL (9.4-12.4); Monocytes % (auto) 10.6 %; Neutrophils # (auto) 3.57 K/uL (1.40-6.50); Platelet Count 126 K/uL (130-400); RDW Standard Deviation 52.1 fL (36.4-46.3); Red Blood Count 4.34 M/uL (4.20-5.40); White Blood Count 5.66 K/ul (4.8-10.8)
[2024-02-03 04:52] LABS: Albumin Globulin Ratio 1.6 (0.9-2); Albumin Level 3.2 gm/dl (3.4-5.0); BUN Creatinine Ratio 29.5 (10-20); Bilirubin,Total 0.9 mg/dl (0.2-1.0); Calcium 8.5 mg/dl (8.6-10.3); Creatinine Clr Calc Pharmacy 51.5 ml/min; Est GFR (African American) 62.9 ml/min; Est GFR (Non-African American) 54.2 ml/min; Potassium 3.6 mmol/L (3.5-5.1); Total Protein 5.2 gm/dl (6.0-8.3)
[2024-02-03 05:48] LABS: INR 1.1 (0.9-1.1)
--- NOTE | 2024-02-03 07:39 | Hospitalist Progress Note ---
Date of Service February 03, 2024 Assessment & Plan (1) Drug-induced hepatitis: (2) Acute respiratory failure with hypoxia: (3) Heart failure with mid-range ejection fraction (HFmEF): (4) Asthma: (5) KINGSLEY on CPAP: (6) CAD (coronary artery disease): (7) CKD (chronic kidney disease), stage III: (8) Cardiomyopathy: (9) Hypertension: Plan 1. Drug-induced hepatitis/adverse effect of Macrobid- AST dropped to 197 from 291, ALT 194 from 236, alkaline phosphatase is 111 from 131, total bilirubin is 0.9 from 1.2, Minimal change with coagulation: INR is 1.1 from 1.0, PT is 12.0 from 11.8 Pt is reporting symptoms of chills, but nausea and vomiting has stopped. GI recommends no further testing for LFTs as they are trending down and CT was mook -Stopped IVF -Ordered diabetic, heart health diet -Continue holding Macrobid -Continue Pantoprazole 40 mg IV daily -Continue Zofran 4 mg IV every 6 hours as needed 2. Acute on chronic respiratory failure with hypoxia/Asthma/KINGSLEY on CPAP She did receive a single dose of ceftriaxone 2 g IV in the ED. Pt is afebrile, WBC is normal today. Likely an element of obesity hypoventilation syndrome as well -Continue CPAP at bedtime -Continue Advair discus -Continue albuterol nebulizer 3 times daily PRN 3. HFmrEF/CAD/hypertension/cardiomyopathy/LBBB/ventricular ectopy- Pt has had a weight gain of 6 lbs from 01/21 until 02/02. Chest x-ray report states pulmonary edema/effusion. Concern for increased volume. Most recent echocardiogram showed EF 45-50% in 2021 -Stopped IVF -Started home med of furosemide 40mg qd, metoprolol succinate 50mg qd 4. CKD Stage 3 Creatinine is holding at 0.95 and electrolytes are within normal at this time. -Will continue to monitor with CMP Admission and Anticipated Discharge Date Admission Date: February 03, 2024 Supervising Physician Co-Signing Physician Notes Attending Physician Supervision Note: I independently interviewed and examined the patient and verified the aggarwal history and physical, reviewed labs and image studies and agree with findings and care plan noted above. Intractable nausea/vomiting/transaminitis- likely viral gastroenteritis. symptoms resolved. -resume diet and d/c IVF Acute on chronic HFmrEF - On daily lasix. Has had 6lb weight gain. -If GI symptom stay stable in am - consider IV dose of lasix. Daughter reports adherence to medicine. -Transaminitis could be from fluid overload but they are improving without diuresis. -Resume home dose lasix. No infectious process at this time - No abx indicated. Heparin (noted platelet count of 126). Subjective Pt is a 88 yo female with PMedHx of HFrEF, CAD, asthma/COPD/KINGSLEY, restrictive lung disease, CKD stage 3, hypothyroidism, DM2, and HTN who presented to ED with chills, nausea, vomiting and generalized fatigued. She was recently diagnosed with UTI and taking Marcobid x 2 days. Feeling better this morning. Nausea and vomiting has stopped. Feeling cold. Physical Exam Physical Exam: The patient is awake, alert and oriented 3, well developed and well nourished, normocephalic and atraumatic, lying in bed and in no acute distress. HEENT--PERRL, EOMI, mucous membranes and oropharynx dry. Neck--supple. JVD noted. Heart--normal S1 and S2. No murmurs, rubs or gallops. Lungs-- No respiratory distress, no accessory muscle use. Abdomen--normal bowel sounds and soft. Nontender. Nondistended. Obese. Extremities-- Bilateral lower extremity non-pitting edema. Dermatologic--normal skin turgor, normal color, no abnormal lymph nodes, no rash. Neurologic--cranial nerves II through XII grossly intact. Rheumatologic--normal range of motion. Psychiatric--normal affect. Results & Data Results & Data Vital Signs (Past 12 Hours) Vital Signs Temp Pulse Pulse Resp BP BP Pulse Ox 02/03/24 06:00 63 18 110/63 100 02/03/24 02:29 61 21 108/63 91 02/03/24 02:15 89 L 02/03/24 01:15 65 22 110/65 93 02/03/24 01:06 65 19 94 02/03/24 00:48 65 02/02/24 23:00 89 L 02/02/24 22:49 68 21 107/63 91 02/02/24 22:27 68 20 92 02/02/24 21:56 69 22 92 02/02/24 20:39 65 02/02/24 19:58 38.3 C H 70 18 132/79 92 O2 Del Method O2 Flow Rate 02/03/24 06:00 CPAP 02/03/24 02:29 CPAP 3 02/03/24 02:15 CPAP 2 02/03/24 01:15 CPAP 2 02/03/24 01:06 2 02/03/24 00:48 02/02/24 23:00 Nasal Cannula 0 02/02/24 22:49 Room Air 02/02/24 22:27 Room Air 02/02/24 21:56 Room Air 02/02/24 20:39 02/02/24 19:58 Room Air Laboratory Results 02/03/24 02/03/24 02/02/24 Range/Units 04:45 03:46 22:32 WBC 5.66 (4.8-10.8) K/ul RBC 4.34 (4.20-5.40) M/uL Hgb 12.5 (12.0-16.0) g/dl Hct 38.5 (37.0-47.0) % MCV 88.7 (80.0-100.0) fL MCH 28.8 (25.0-34.0) pg MCHC 32.5 (32.0-36.0) g/dL RDW Std Deviation 52.1 H (36.4-46.3) fL RDW Coeff of Mariel 16.0 H (11.5-14.5) % Plt Count 126 L (130-400) K/uL MPV 10.5 (9.4-12.4) fL Immature Gran % (Auto) 0.5 % Neut % (Auto) 63.0 % Lymph % (Auto) 18.6 % [place] % (Auto) 10.6 % Eos % (Auto) 6.4 % Baso % (Auto) 0.9 % Neut # (Auto) 3.57 (1.40-6.50) K/uL Lymph # (Auto) 1.05 L (1.20-3.40) K/uL [place] # (Auto) 0.60 H (0.11-0.59) K/uL Eos # (Auto) 0.36 (0.00-0.50) K/uL Baso # (Auto) 0.05 (0.00-0.20) K/uL Immature Gran # (Auto) 0.03 (0.01-0.20) K/uL ESR 10 (0-30) mm/hr PT 12.0 (9.0-12.0) Seconds INR 1.1 (0.9-1.1) APTT (21-31) Seconds PTT Ratio Sodium 137 (136-145) mmol/L Potassium 3.6 (3.5-5.1) mmol/L Chloride 106 (98-107) mmol/L Carbon Dioxide 26 (21-32) mmol/L Anion Gap 5 (3-11) BUN 28 H (6-23) mg/dl Creatinine 0.95 (0.6-1.2) mg/dl Est Cr Clr Drug Dosing 51.5 Est GFR ( Amer) 62.9 ml/min Est GFR (Non-Af Amer) 54.2 ml/min BUN/Creatinine Ratio 29.5 H (10-20) Glucose 90 (70-99(Fasting)) mg/dl Lactate (0.4-2.0) mmol/L Calcium 8.5 L (8.6-10.3) mg/dl Magnesium (1.7-2.4) mg/dl Total Bilirubin 0.9 (0.2-1.0) mg/dl AST 197 H (13-39) U/L ALT 194 H (7-52) U/L Alkaline Phosphatase 119 H (34-104) U/L Troponin I High Sens (0-14) pg/ml B-Natriuretic Peptide (0-100) pg/ml Total Protein 5.2 L (6.0-8.3) gm/dl Albumin 3.2 L (3.4-5.0) gm/dl Globulin 2.0 L (2.5-4.0) gm/dl Albumin/Globulin Ratio 1.6 (0.9-2) Procalcitonin (0-0.5) ng/ml Urine Color Dark Yellow Urine Appearance Clear (Clear) Urine pH 6.0 (4.5-7.5) Ur Specific [place] 1.018 (1.000-1.030) Urine Protein 1+ H (Negative) Urine Glucose (UA) Negative (Negative) Urine Ketones 1+ H (Negative) Urine Blood Negative (Negative) Urine Nitrite Negative (Negative) Urine Bilirubin Negative (Negative) Urine Urobilinogen Negative (Negative) Ur Leukocyte Esterase Negative (Negative) Urine WBC (Auto) 0-5 (0-5) /hpf Urine RBC (Auto) 0-2 (0-2) /hpf U Hyaline Cast (Auto) 0-2 (0-2) /lpf U Epithel Cells (Auto) 0-2 (0-2) /hpf Urine Bacteria (Auto) None Seen (None Seen) 02/02/24 Range/Units 20:25 WBC 6.37 (4.8-10.8) K/ul RBC 4.70 (4.20-5.40) M/uL Hgb 13.6 (12.0-16.0) g/dl Hct 40.9 (37.0-47.0) % MCV 87.0 (80.0-100.0) fL MCH 28.9 (25.0-34.0) pg MCHC 33.3 (32.0-36.0) g/dL RDW Std Deviation 51.1 H (36.4-46.3) fL RDW Coeff of Mariel 16.0 H (11.5-14.5) % Plt Count 171 (130-400) K/uL MPV 10.4 (9.4-12.4) fL Immature Gran % (Auto) 0.3 % Neut % (Auto) 68.1 % Lymph % (Auto) 14.9 % [place] % (Auto) 8.9 % Eos % (Auto) 6.9 % Baso % (Auto) 0.9 % Neut # (Auto) 4.33 (1.40-6.50) K/uL Lymph # (Auto) 0.95 L (1.20-3.40) K/uL [place] # (Auto) 0.57 (0.11-0.59) K/uL Eos # (Auto) 0.44 (0.00-0.50) K/uL Baso # (Auto) 0.06 (0.00-0.20) K/uL Immature Gran # (Auto) 0.02 (0.01-0.20) K/uL ESR (0-30) mm/hr PT 11.8 (9.0-12.0) Seconds INR 1.1 (0.9-1.1) APTT 27 (21-31) Seconds PTT Ratio 1.0 Sodium 136 (136-145) mmol/L Potassium 4.1 (3.5-5.1) mmol/L Chloride 104 (98-107) mmol/L Carbon Dioxide 26 (21-32) mmol/L Anion Gap 6 (3-11) BUN 32 H (6-23) mg/dl Creatinine 0.95 (0.6-1.2) mg/dl Est Cr Clr Drug Dosing Not Reportable Est GFR ( Amer) 62.9 ml/min Est GFR (Non-Af Amer) 54.2 ml/min BUN/Creatinine Ratio 33.7 H (10-20) Glucose 124 H (70-99(Fasting)) mg/dl Lactate 1.2 (0.4-2.0) mmol/L Calcium 8.9 (8.6-10.3) mg/dl Magnesium 1.8 (1.7-2.4) mg/dl Total Bilirubin 1.2 H (0.2-1.0) mg/dl AST 291 H (13-39) U/L ALT 236 H (7-52) U/L Alkaline Phosphatase 131 H (34-104) U/L Troponin I High Sens 9.3 (0-14) pg/ml B-Natriuretic Peptide 204 H (0-100) pg/ml Total Protein 5.7 L (6.0-8.3) gm/dl Albumin 3.6 (3.4-5.0) gm/dl Globulin 2.1 L (2.5-4.0) gm/dl Albumin/Globulin Ratio 1.7 (0.9-2) Procalcitonin 0.20 (0-0.5) ng/ml Urine Color Urine Appearance (Clear) Urine pH (4.5-7.5) Ur Specific [place] (1.000-1.030) Urine Protein (Negative) Urine Glucose (UA) (Negative) Urine Ketones (Negative) Urine Blood (Negative) Urine Nitrite (Negative) Urine Bilirubin (Negative) Urine Urobilinogen (Negative) Ur Leukocyte Esterase (Negative) Urine WBC (Auto) (0-5) /hpf Urine RBC (Auto) (0-2) /hpf U Hyaline Cast (Auto) (0-2) /lpf U Epithel Cells (Auto) (0-2) /hpf Urine Bacteria (Auto) (None Seen) Diagnostic Findings Abdomen/Pelvis CT 02/02/24 21:59 Exam(s): CT ABDOMEN + PELVIS Without Contrast EXAM: CT Abdomen and Pelvis Without Intravenous Contrast CLINICAL HISTORY: Reason for exam: vomiting. TECHNIQUE: Axial computed tomography images of the abdomen and pelvis without intravenous contrast. CTDI is 28 mGy and DLP is 1548.33 mGy-cm. Automated exposure control was utilized for the study. A dose lowering technique was utilized adhering to the principles of ALARA. COMPARISON: 06/11/2018 FINDINGS: Lung bases: Unremarkable. No mass. No consolidation. Heart: Coronary artery calcifications. Mitral valvular calcifications. Mediastinum: Moderate sized esophageal hiatal hernia. ABDOMEN: Liver: Unremarkable. Gallbladder and bile ducts: Cholelithiasis without evidence of acute cholecystitis. No ductal dilation. Pancreas: Unremarkable. No ductal dilation. Spleen: Splenomegaly. Adrenals: Unremarkable. No mass. Kidneys and ureters: Unremarkable. No obstructing stones. No hydronephrosis. Stomach and bowel: Unremarkable. No obstruction. No mucosal thickening. PELVIS: Appendix: No findings to suggest acute appendicitis. Bladder: Unremarkable. No stones. Reproductive: Uterus is surgically absent. ABDOMEN and PELVIS: Intraperitoneal space: free air or intestinal obstruction. No significant fluid collection. Bones/joints: No acute fracture. No dislocation. Soft tissues: Unremarkable. Vasculature: See above. Lymph nodes: Unremarkable. No enlarged lymph nodes. IMPRESSION: Splenomegaly unchanged since 2017 Electronically signed by: Oleg Harmon MD 02/02/24 23:36 PM Chest X-Ray 02/02/24 23:30 XR chest 1V portable HISTORY: 88 years-old Female sob acute shortness of breath COMPARISON: 07/18/2023 TECHNIQUE: AP view of the chest FINDINGS: Cardiomegaly. Hiatal hernia. Mild linear left midlung atelectasis versus scarring. The thorax, pleural effusion or pulmonary edema. Bones of the chest appear grossly intact. IMPRESSION: 1. Cardiomegaly without acute process. 2. Hiatal hernia. ACT 112: Negative or not required by law. The above report was generated using voice recognition software. It may contain grammatical, syntax or spelling errors. Electronically signed by: Frank Burgess M.D. 02/03/2024 8:20 AM (4) Asthma Asthma complication type: unspecified Asthma persistence: unspecified Asthma severity: unspecified severity Qualified Code(s): J45.909 - Unspecified asthma, uncomplicated (6) CAD (coronary artery disease) Associated angina: without angina Coronary Disease-Associated Artery/Lesion type: kiana artery [place] vs. transplanted heart: kiana heart Qualified Code(s): I25.10 - Atherosclerotic heart disease of kiana coronary artery without angina pectoris (8) Cardiomyopathy Cardiomyopathy type: unspecified Qualified Code(s): I42.9 - Cardiomyopathy, unspecified (9) Hypertension Hypertension type: essential hypertension Qualified Code(s): I10 - Essential (primary) hypertension
[2024-02-03] MEDS: FLUTICASONE/VILANTEROL 100/25MCG 14 PUFFS/INHALER INH SCH (08:14)
--- NOTE | 2024-02-03 08:21 | XRay Report ---
XR chest 1V portable HISTORY: 88 years-old Female sob acute shortness of breath COMPARISON: 07/18/2023 TECHNIQUE: AP view of the chest FINDINGS: Cardiomegaly. Hiatal hernia. Mild linear left midlung atelectasis versus scarring. The thorax, pleura l effusion or pulmonary edema. Bones of the chest appear grossly intact. IMPRESSION: 1. Cardiomegaly without acute process. 2. Hiatal hernia. ACT 112: Negative or not required by law. The above report was generated using voice recognition software. It may contain grammatical, syntax o r spelling errors. Electronically signed by: Frank Burgess M.D. 02/03/2024 8:20 AM
[2024-02-03] MEDS: PANTOprazole 40 MG in SYRINGE 0 ML IV SCH (10:07)
--- NOTE | 2024-02-03 10:30 | Gastrointestinal Consultation ---
Date of Consultation February 03, 2024 Assessment & Plan (1) Abnormal LFTs (liver function tests): She has elevated LFT's that by our knowledge is a new finding for her. It just seems to me to be a little quick for drug induced hepatitis but that is certainly possible. She had symptoms of an infectious process with chills, nausea and vomiting as well as fatigue. It is also possible she had a viral gastroenteritis and her liver was affected more as an "innocent bystander". At any rate repeat LFT's today show improvement with AST from 291-197, ALT from 236-194 and Alk phos from 131-119. This is encouraging. She does not need to stay in the hospital until her LFT's normalize since there isn't anything we can do for them. If they show continued signs of improvement over the next 24 hours and she feels better she should be able to go home to follow up with her PCP who can follow these until they return to normal. No intervention available for this. History of Present Illness Reason for Consultation: elevated LFT's Attending Physician: Trena Cleveland MD History of Present Illness 88 year old female who had a bladder infection this past week and her doctor sent in macrobid for her. She took her first pill and then the next morning she woke with chills and nausea. This progressed throughout the day and into 02/01 when she finally came to the ED. There she was noted to have an AST of 291 and ALT of 236 with alk phos of 131. She is admitted with dx "drug induced hepatitis". on Sunday when she had chills she also had nausea and vomiting. She was feeling weak and fatigued as well. She tells me that no one has ever said anything about her liver enzymes being elevated in the past. She does drink a glass of wine on occasion but nothing regularly. Her LFt's in 04/2023 were normal. She does have a history of congestive heart failure. Allergies Allergy/AdvReac Type Severity Reaction Status Date / Time Penicillins Allergy Intermediate SEVERE RASH Verified 01/24/24 09:50 cephalexin [From Keflex] Allergy Unknown Unknown Verified 01/24/24 09:50 Sulfa (Sulfonamide Allergy Unknown Unknown Verified 01/24/24 09:50 Antibiotics) Home Medications Medication Instructions Recorded Confirmed Type aspirin 81 mg tablet,delayed 81 mg PO 3XWK 06/08/18 02/03/24 History release multivitamin (Multiple Vitamins 1 tab PO DAILY 06/08/18 02/03/24 History tablet) tramadol 50 mg tablet 50 mg PO Q4 PRN Pain 01/29/19 02/03/24 History Oxygen Home #2 L 09/16/19 02/03/24 Rx allopurinol 300 mg tablet 300 mg PO DAILY 01/08/20 02/03/24 History calcium carb,cit ER 600 mg-vit D3 1 tab PO AMHS 02/19/20 02/03/24 History 12.5 mcg (500 unit) tablet,ext.rel hydroxyzine HCl 10 mg tablet 20 mg PO QID PRN Anxiety 02/19/20 02/03/24 History famotidine 40 mg tablet 40 mg PO DAILY #90 tabs 12/10/20 02/03/24 Rx nystatin 100,000 unit/gram topical 1 applic topical TID PRN Other 12/28/20 02/03/24 History powder CPAP Supplies #1 ea 09/01/21 02/03/24 Rx potassium chloride 20 mEq 20 meq PO DAILY 30 days #90 tabs 12/06/21 02/03/24 Rx tablet,extended release(part/cryst) (Klor-Con M) fluticasone 250 mcg-salmeterol 50 1 inh inhalation Q12H #180 ea 10/16/22 02/03/24 Rx mcg/dose blistr powdr for inhalation (Wixela Inhub) atorvastatin 40 mg tablet 40 mg PO HS 90 days #90 tabs 05/07/23 02/03/24 Rx furosemide 40 mg tablet 40 mg PO DAILY #110 tabs 05/07/23 02/03/24 Rx sacubitril 24 mg-valsartan 26 mg 1 tab PO BID #180 tabs 05/07/23 02/03/24 Rx tablet (Entresto) metoprolol succinate 25 mg 50 mg (2 x 25 mg) PO DAILY #180 05/30/23 02/03/24 Rx tablet,extended release 24 hr tabs levalbuterol HCl 0.63 mg/3 mL 0.63 mg (3 mL) inhalation TID PRN 01/14/24 02/03/24 Rx solution for nebulization shortness of breath or wheezing #270 mL Patient History Medical History History of osteoarthritis History of weight disorder History of edema History of asthma History of ecchymosis History of cellulitis History of tinea corporis Chronic systolic CHF (congestive heart failure) Hypokalemia NSTEMI (non-ST elevated myocardial infarction) Cellulitis Sprain of left foot Bradycardia Open wound of anterior abdominal wall (11/24/11) Surgical History History of tonsillectomy History of mastectomy History of colonoscopy Family History Father Myocardial infarction Social History Smoking Status: Never smoker Hx Alcohol Use: Yes Alcohol type: wine Hx Substance Use: No Preferred Language: Citizen Of [place] Communication Ability: Effective Visual Impairment: No Limitations Hearing Ability: Normal Bartacker Required: No Beliefs That Will Affect Care: None marital status: / Current Living Situation: Family How many Children do You have: 1 Feels Safe at Home: Yes Safety Concerns: Feels Safe At This Time Assistive Devices: Cane, CPAP, Lift Chair, Oxygen - at Night and Walker Review of Systems Review of Systems: All systems reviewed & are unremarkable except as noted in HPI & below Physical Exam Physical Exam: Pleasant and alert Constitutional: + ill appearing and + obese Neck: trachea midline, no thyromegaly Respiratory: normal respiratory effort, lungs clear to auscultation Cardiovascular: RRR, no murmur, no edema Gastrointestinal (Abdomen): normal bowel sounds, soft, nontender, no hepatosplenomegaly Results & Data Vital Signs (Past 12 Hours) Vital Signs Pulse Pulse Resp BP Pulse Ox O2 Del Method O2 Flow Rate 02/03/24 09:48 64 02/03/24 06:00 63 18 110/63 100 CPAP 02/03/24 02:29 61 21 108/63 91 CPAP 3 02/03/24 02:15 89 L CPAP 2 02/03/24 01:15 65 22 110/65 93 CPAP 2 02/03/24 01:06 65 19 94 2 02/03/24 00:48 65 02/02/24 23:00 89 L Nasal Cannula 0 02/02/24 22:49 68 21 107/63 91 Room Air Laboratory Results 02/03/24 02/03/24 02/02/24 Range/Units 04:45 03:46 22:32 WBC 5.66 (4.8-10.8) K/ul RBC 4.34 (4.20-5.40) M/uL Hgb 12.5 (12.0-16.0) g/dl Hct 38.5 (37.0-47.0) % MCV 88.7 (80.0-100.0) fL MCH 28.8 (25.0-34.0) pg MCHC 32.5 (32.0-36.0) g/dL RDW Std Deviation 52.1 H (36.4-46.3) fL RDW Coeff of Mariel 16.0 H (11.5-14.5) % Plt Count 126 L (130-400) K/uL MPV 10.5 (9.4-12.4) fL Immature Gran % (Auto) 0.5 % Neut % (Auto) 63.0 % Lymph % (Auto) 18.6 % Morton % (Auto) 10.6 % Eos % (Auto) 6.4 % Baso % (Auto) 0.9 % Neut # (Auto) 3.57 (1.40-6.50) K/uL Lymph # (Auto) 1.05 L (1.20-3.40) K/uL Morton # (Auto) 0.60 H (0.11-0.59) K/uL Eos # (Auto) 0.36 (0.00-0.50) K/uL Baso # (Auto) 0.05 (0.00-0.20) K/uL Immature Gran # (Auto) 0.03 (0.01-0.20) K/uL ESR 10 (0-30) mm/hr PT 12.0 (9.0-12.0) Seconds INR 1.1 (0.9-1.1) APTT (21-31) Seconds PTT Ratio Sodium 137 (136-145) mmol/L Potassium 3.6 (3.5-5.1) mmol/L Chloride 106 (98-107) mmol/L Carbon Dioxide 26 (21-32) mmol/L Anion Gap 5 (3-11) BUN 28 H (6-23) mg/dl Creatinine 0.95 (0.6-1.2) mg/dl Est Cr Clr Drug Dosing 51.5 Est GFR ( Amer) 62.9 ml/min Est GFR (Non-Af Amer) 54.2 ml/min BUN/Creatinine Ratio 29.5 H (10-20) Glucose 90 (70-99(Fasting)) mg/dl Lactate (0.4-2.0) mmol/L Calcium 8.5 L (8.6-10.3) mg/dl Magnesium (1.7-2.4) mg/dl Total Bilirubin 0.9 (0.2-1.0) mg/dl AST 197 H (13-39) U/L ALT 194 H (7-52) U/L Alkaline Phosphatase 119 H (34-104) U/L Troponin I High Sens (0-14) pg/ml B-Natriuretic Peptide (0-100) pg/ml Total Protein 5.2 L (6.0-8.3) gm/dl Albumin 3.2 L (3.4-5.0) gm/dl Globulin 2.0 L (2.5-4.0) gm/dl Albumin/Globulin Ratio 1.6 (0.9-2) Procalcitonin (0-0.5) ng/ml Urine Color Dark Yellow Urine Appearance Clear (Clear) Urine pH 6.0 (4.5-7.5) Ur Specific Barron 1.018 (1.000-1.030) Urine Protein 1+ H (Negative) Urine Glucose (UA) Negative (Negative) Urine Ketones 1+ H (Negative) Urine Blood Negative (Negative) Urine Nitrite Negative (Negative) Urine Bilirubin Negative (Negative) Urine Urobilinogen Negative (Negative) Ur Leukocyte Esterase Negative (Negative) Urine WBC (Auto) 0-5 (0-5) /hpf Urine RBC (Auto) 0-2 (0-2) /hpf U Hyaline Cast (Auto) 0-2 (0-2) /lpf U Epithel Cells (Auto) 0-2 (0-2) /hpf Urine Bacteria (Auto) None Seen (None Seen) 02/02/24 Range/Units 20:25 WBC 6.37 (4.8-10.8) K/ul RBC 4.70 (4.20-5.40) M/uL Hgb 13.6 (12.0-16.0) g/dl Hct 40.9 (37.0-47.0) % MCV 87.0 (80.0-100.0) fL MCH 28.9 (25.0-34.0) pg MCHC 33.3 (32.0-36.0) g/dL RDW Std Deviation 51.1 H (36.4-46.3) fL RDW Coeff of Mariel 16.0 H (11.5-14.5) % Plt Count 171 (130-400) K/uL MPV 10.4 (9.4-12.4) fL Immature Gran % (Auto) 0.3 % Neut % (Auto) 68.1 % Lymph % (Auto) 14.9 % Morton % (Auto) 8.9 % Eos % (Auto) 6.9 % Baso % (Auto) 0.9 % Neut # (Auto) 4.33 (1.40-6.50) K/uL Lymph # (Auto) 0.95 L (1.20-3.40) K/uL Morton # (Auto) 0.57 (0.11-0.59) K/uL Eos # (Auto) 0.44 (0.00-0.50) K/uL Baso # (Auto) 0.06 (0.00-0.20) K/uL Immature Gran # (Auto) 0.02 (0.01-0.20) K/uL ESR (0-30) mm/hr PT 11.8 (9.0-12.0) Seconds INR 1.1 (0.9-1.1) APTT 27 (21-31) Seconds PTT Ratio 1.0 Sodium 136 (136-145) mmol/L Potassium 4.1 (3.5-5.1) mmol/L Chloride 104 (98-107) mmol/L Carbon Dioxide 26 (21-32) mmol/L Anion Gap 6 (3-11) BUN 32 H (6-23) mg/dl Creatinine 0.95 (0.6-1.2) mg/dl Est Cr Clr Drug Dosing Not Reportable Est GFR ( Amer) 62.9 ml/min Est GFR (Non-Af Amer) 54.2 ml/min BUN/Creatinine Ratio 33.7 H (10-20) Glucose 124 H (70-99(Fasting)) mg/dl Lactate 1.2 (0.4-2.0) mmol/L Calcium 8.9 (8.6-10.3) mg/dl Magnesium 1.8 (1.7-2.4) mg/dl Total Bilirubin 1.2 H (0.2-1.0) mg/dl AST 291 H (13-39) U/L ALT 236 H (7-52) U/L Alkaline Phosphatase 131 H (34-104) U/L Troponin I High Sens 9.3 (0-14) pg/ml B-Natriuretic Peptide 204 H (0-100) pg/ml Total Protein 5.7 L (6.0-8.3) gm/dl Albumin 3.6 (3.4-5.0) gm/dl Globulin 2.1 L (2.5-4.0) gm/dl Albumin/Globulin Ratio 1.7 (0.9-2) Procalcitonin 0.20 (0-0.5) ng/ml Urine Color Urine Appearance (Clear) Urine pH (4.5-7.5) Ur Specific Barron (1.000-1.030) Urine Protein (Negative) Urine Glucose (UA) (Negative) Urine Ketones (Negative) Urine Blood (Negative) Urine Nitrite (Negative) Urine Bilirubin (Negative) Urine Urobilinogen (Negative) Ur Leukocyte Esterase (Negative) Urine WBC (Auto) (0-5) /hpf Urine RBC (Auto) (0-2) /hpf U Hyaline Cast (Auto) (0-2) /lpf U Epithel Cells (Auto) (0-2) /hpf Urine Bacteria (Auto) (None Seen) Diagnostic Findings Abdomen/Pelvis CT 02/02/24 21:59 Exam(s): CT ABDOMEN + PELVIS Without Contrast EXAM: CT Abdomen and Pelvis Without Intravenous Contrast CLINICAL HISTORY: Reason for exam: vomiting. TECHNIQUE: Axial computed tomography images of the abdomen and pelvis without intravenous contrast. CTDI is 28 mGy and DLP is 1548.33 mGy-cm. Automated exposure control was utilized for the study. A dose lowering technique was utilized adhering to the principles of ALARA. COMPARISON: 06/11/2018 FINDINGS: Lung bases: Unremarkable. No mass. No consolidation. Heart: Coronary artery calcifications. Mitral valvular calcifications. Mediastinum: Moderate sized esophageal hiatal hernia. ABDOMEN: Liver: Unremarkable. Gallbladder and bile ducts: Cholelithiasis without evidence of acute cholecystitis. No ductal dilation. Pancreas: Unremarkable. No ductal dilation. Spleen: Splenomegaly. Adrenals: Unremarkable. No mass. Kidneys and ureters: Unremarkable. No obstructing stones. No hydronephrosis. Stomach and bowel: Unremarkable. No obstruction. No mucosal thickening. PELVIS: Appendix: No findings to suggest acute appendicitis. Bladder: Unremarkable. No stones. Reproductive: Uterus is surgically absent. ABDOMEN and PELVIS: Intraperitoneal space: free air or intestinal obstruction. No significant fluid collection. Bones/joints: No acute fracture. No dislocation. Soft tissues: Unremarkable. Vasculature: See above. Lymph nodes: Unremarkable. No enlarged lymph nodes. IMPRESSION: Splenomegaly unchanged since 2018 Electronically signed by: Oleg Harmon MD 02/02/24 23:36 PM Chest X-Ray 02/02/24 23:30 XR chest 1V portable HISTORY: 88 years-old Female sob acute shortness of breath COMPARISON: 07/18/2023 TECHNIQUE: AP view of the chest FINDINGS: Cardiomegaly. Hiatal hernia. Mild linear left midlung atelectasis versus scarring. The thorax, pleural effusion or pulmonary edema. Bones of the chest appear grossly intact. IMPRESSION: 1. Cardiomegaly without acute process. 2. Hiatal hernia. ACT 112: Negative or not required by law. The above report was generated using voice recognition software. It may contain grammatical, syntax or spelling errors. Electronically signed by: Frank Burgess M.D. 02/03/2024 8:20 AM
[2024-02-03] MEDS: FUROSEMIDE 40 MG TAB PO ONE (14:18)
[2024-02-03] MEDS: METOPROLOL SUCC 50MG EXT REL TAB PO STA (14:18)
[2024-02-03] MEDS: HEPARIN SOD 5,000 UNIT/0.5 ML VIAL SQ SCH (20:18)
--- NOTE | 2024-02-03 21:15 | Electrocardiogram Report ---
Test Reason : Blood Pressure : / mmHG Vent. Rate : 072 BPM Atrial Rate : 072 BPM P-R Int : 192 ms QRS Dur : 074 ms QT Int : 380 ms P-R-T Axes : 084 028 025 degrees QTc Int : 416 ms Normal sinus rhythm Low voltage QRS Cannot rule out Anterior infarct , age undetermined Abnormal ECG When compared with ECG of 08-MAY-2023 11:03, Questionable change in QRS axis Confirmed by Marko Winn ([id number]) on 02/03/2024 9:15:00 PM Referred By: REFERRED SELF Confirmed By:Marko Winn
[2024-02-03 21:26] LABS: A calco-baum cmplx NotReported Not Detected (NotDetected); Bact fragilis Not Reported Not Detected (NotDetected); Blood Culture Id Panel See PCR Comment (NotDetected); C auris Not Reported Not Detected (NotDetected); Calbicans Not Reported Not Detected (NotDetected); Candida glabrata Not Reported Not Detected (NotDetected); Candida krusei Not Reported Not Detected (NotDetected); Cneoformans/gatti Not Reported Not Detected (NotDetected); Cparapsilosis Not Reported Not Detected (NotDetected); E cloacae compx Not Reported Not Detected (NotDetected); Efaecalis Not Reported Not Detected (NotDetected); Efaecium Not Reported Not Detected (NotDetected); Enterobacterales Not Reported Not Detected (NotDetected); Escherichia coli Not Reported Not Detected (NotDetected); H influenzae Not Reported Not Detected (NotDetected); K aerogenes Not Reported Not Detected (NotDetected); Koxytoca Not Reported Not Detected (NotDetected); Kpneumoniae grp Not Reported Not Detected (NotDetected); Lmonocyt Not Reported Not Detected (NotDetected); N meningitidis Not Reported Not Detected (NotDetected); P aeruginosa Not Reported Not Detected (NotDetected); Proteus spp Not Reported Not Detected (NotDetected); Salmonella spp Not Reported Not Detected (NotDetected); Staph lugdunensis Not Reported Not Detected (NotDetected); Staphaureus Not Reported Not Detected (NotDetected); Staphepi Not Reported Not Detected (NotDetected); Stenmaltophilia Not Reported Not Detected (NotDetected); Strep agal(GrpB) Not Reported Not Detected (NotDetected); Strep pneum Not Reported Not Detected (NotDetected); Strep pyog (GrpA) Not Reported Not Detected (NotDetected); Strep spp Not Reported Not Detected (NotDetected)
[2024-02-03 21:34] LABS: Staph spp. Not Reported DETECTED (NotDetected)
[2024-02-03 21:35] LABS: Staphylococcus spp. DETECTED (NotDetected)
[2024-02-03] MEDS: cefTRIAXone SODIUM 2,000 MG/50 ML BAG IV SCH (23:32)
[2024-02-04 06:13] LABS: Basophils # (auto) 0.05 K/uL (0.00-0.20); Basophils % (auto) 1.2 %; Eosinophils # (auto) 0.39 K/uL (0.00-0.50); Eosinophils % (auto) 9.1 %; Hematocrit (blood only) 37.8 % (37.0-47.0); Hemoglobin 12.4 g/dl (12.0-16.0); Immature Granulocytes # (auto) 0.02 K/uL (0.01-0.20); Immature Granulocytes % (auto) 0.5 %; Lymphocytes % (auto) 23.3 %; Mean Corpuscular Hemoglobin 28.9 pg (25.0-34.0); Mean Corpuscular Hgb Conc 32.8 g/dL (32.0-36.0); Mean Corpuscular Volume 88.1 fL (80.0-100.0); Mean Platelet Volume 9.6 fL (9.4-12.4); Monocytes # (auto) 0.65 K/uL (0.11-0.59); Monocytes % (auto) 15.1 %; Neutrophils # (auto) 2.19 K/uL (1.40-6.50); Neutrophils % (auto) 50.8 %; Platelet Count 127 K/uL (130-400); RDW Coefficient of Variation 16.2 % (11.5-14.5); RDW Standard Deviation 51.9 fL (36.4-46.3); Red Blood Count 4.29 M/uL (4.20-5.40)
[2024-02-04 06:28] LABS: Albumin Globulin Ratio 1.6 (0.9-2); Albumin Level 3.1 gm/dl (3.4-5.0); BUN Creatinine Ratio 21.5 (10-20); Bilirubin,Total 0.8 mg/dl (0.2-1.0); Creatinine Clr Calc Pharmacy 45.7 ml/min; Est GFR (African American) 54.4 ml/min; Magnesium 1.7 mg/dl (1.7-2.4); Potassium 3.8 mmol/L (3.5-5.1); Total Protein 5.1 gm/dl (6.0-8.3)
[2024-02-04 06:37] LABS: INR 1.1 (0.9-1.1); Partial Thromboplastin Time 28 Seconds (21-31); Prothrombin Time 11.8 Seconds (9.0-12.0)
--- NOTE | 2024-02-04 07:20 | Hospitalist Progress Note ---
Date of Service February 04, 2024 Assessment & Plan (1) Drug-induced hepatitis: (2) Acute respiratory failure with hypoxia: (3) Heart failure with mid-range ejection fraction (HFmEF): (4) Asthma: (5) KINGSLEY on CPAP: (6) CAD (coronary artery disease): (7) CKD (chronic kidney disease), stage III: (8) Cardiomyopathy: (9) Hypertension: Plan 1. Drug-induced hepatitis/adverse effect of Macrobid- Liver enzymes continue trending down. alkaline phosphatase increased to 176, total bilirubin is within normal limits at 0.8. Coagulation remains normal. Pt is reporting symptoms of chills, but nausea and vomiting has stopped. Blood cultures show 1of 2 positive for Gram+ cocci. Pt tolerating diet. Pt likely to have had a viral gastroenteritis. -Continue holding Macrobid -Continue Pantoprazole 40 mg IV daily -Instructed pt to follow up outpatient in 2 weeks for lab work to reassess LFTs 2. Acute on chronic respiratory failure with hypoxia/Asthma/KINGSLEY on CPAP She did receive a single dose of ceftriaxone 2 g IV in the ED. Pt is afebrile, WBC is normal today. Likely an element of obesity hypoventilation syndrome as well -Continue CPAP at bedtime -Continue Advair discus 3. HFmrEF/CAD/hypertension/cardiomyopathy/LBBB/ventricular ectopy- Pt has had a weight gain of 6 lbs from 01/21 until 02/02. She is down 1kg since 02/02. Chest x-ray report states pulmonary edema/effusion. Concern for increased volume. Most recent echocardiogram showed EF 45-50% in 2021 -Continue home med of furosemide 40mg qd, metoprolol succinate 50mg qd 4. CKD Stage 3 Creatinine is holding at 0.95 and electrolytes are within normal at this time. Admission and Anticipated Discharge Date Admission Date: February 03, 2024 Subjective Pt is a 88 yo female with PMedHx of HFrEF, CAD, asthma/COPD/KINGSLEY, restrictive lung disease, CKD stage 3, hypothyroidism, DM2, and HTN who presented to ED with chills, nausea, vomiting and generalized fatigued. She was recently diagnosed with UTI and taking Macrobid x 2 days. This morning, pt is reporting feeling good and feels ready to return home. Physical Exam Physical Exam: The patient is awake, alert and oriented 3, well developed and well nourished, normocephalic and atraumatic, lying in bed and in no acute distress. HEENT--PERRL, EOMI, mucous membranes and oropharynx dry. Neck--supple. No JVD noted. Heart--normal S1 and S2. No murmurs, rubs or gallops. Lungs-- No respiratory distress, no accessory muscle use. Abdomen--normal bowel sounds and soft. Nontender. Nondistended. Obese. Extremities-- Bilateral lower extremity non-pitting edema. Dermatologic--normal skin turgor, normal color, no abnormal lymph nodes, no rash. Neurologic--cranial nerves II through XII grossly intact. Rheumatologic--normal range of motion. Psychiatric--normal affect. Results & Data Results & Data Vital Signs (Past 12 Hours) Vital Signs Temp Pulse Pulse Resp BP Pulse Ox O2 Del Method 02/04/24 07:09 63 02/04/24 04:30 64 20 91 02/04/24 03:45 36.9 C 60 18 126/82 95 CPAP 02/04/24 02:52 02/03/24 23:45 64 16 92 02/03/24 23:00 36.6 C 64 18 119/76 94 CPAP 02/03/24 22:25 Room Air, CPAP 02/03/24 22:00 65 O2 Del Method O2 Flow Rate 02/04/24 07:09 02/04/24 04:30 2 02/04/24 03:45 02/04/24 02:52 Room Air 02/03/24 23:45 2 02/03/24 23:00 02/03/24 22:25 02/03/24 22:00 (4) Asthma Asthma complication type: unspecified Asthma persistence: unspecified Asthma severity: unspecified severity Qualified Code(s): J45.909 - Unspecified asthma, uncomplicated (6) CAD (coronary artery disease) Associated angina: without angina Coronary Disease-Associated Artery/Lesion type: [place] artery [place] vs. transplanted heart: [place] heart Qualified Code(s): I25.10 - Atherosclerotic heart disease of [place] coronary artery without angina pectoris (8) Cardiomyopathy Cardiomyopathy type: unspecified Qualified Code(s): I42.9 - Cardiomyopathy, unspecified (9) Hypertension Hypertension type: essential hypertension Qualified Code(s): I10 - Essential (primary) hypertension
[2024-02-04] MEDS: FUROSEMIDE 40 MG TAB PO SCH (08:10)
[2024-02-04] MEDS: METOPROLOL SUCC 50MG EXT REL TAB PO SCH (08:10)
--- NOTE | 2024-02-04 13:01 | Communication Note ---
Date of Service: February 04, 2024 By CMS guidelines, a determination that the admission or continued stay is not medically necessary has been made by a member of the UR committee and a phys ician for this hospital stay, therefore a Code 44 will be completed and the Inpatient admission will be changed to outpatient.
--- NOTE | 2024-02-04 16:28 | Discharge Summary ---
Discharge Summary Date of Service February 04, 2024 Principal Dx & Hospital Course #1 = Principal Diagnosis (1) Drug-induced hepatitis: (2) Acute respiratory failure with hypoxia: (3) Heart failure with mid-range ejection fraction (HFmEF): (4) Asthma: (5) KINGSLEY on CPAP: (6) CAD (coronary artery disease): (7) CKD (chronic kidney disease), stage III: (8) Cardiomyopathy: (9) Hypertension: Plan admitted with nausea vomiting and transaminitisdifferential being viral enteritis versus drug-induced hepatitis. Kind of impossible to rule out one versus the otherespecially given that things are getting better. Would favor viral enteritis given the time course. Did discuss with patient that with her age, would probably avoid Macrobid anyway. Safe/stable for home. Discussed anticipated time course of getting better and what to watch for as far as any worseningto seek care with any worsening. Repeat CBC/CMP in about 2 weeks, sooner with any new/changed/concerning symptoms. Notes For Next Care Provider Medication Changes From Visit none Admission HPI Per Admitting Provider The patient is a 88-year-old female with a past medical history including KINGSLEY on CPAP, CAD, morbid obesity, asthma, CKD stage III, frequent PVCs, LBBB, cardiomyopathy, hypothyroidism, COPD, breast cancer, restrictive lung disease and hypertension. She presents to the emergency department with symptoms as noted above. In the emergency department, her pulse ox was as low as 89% on room air, which improved to 94 to 95% on 2 L nasal cannula oxygen. Updated Medication List Medication Instructions Recorded Confirmed Type aspirin 81 mg tablet,delayed 81 mg PO 3XWK 06/08/18 02/03/24 History release multivitamin (Multiple Vitamins 1 tab PO DAILY 06/08/18 02/03/24 History tablet) tramadol 50 mg tablet 50 mg PO Q4 PRN Pain 01/29/19 02/03/24 History Oxygen Home #2 L 09/16/19 02/03/24 Rx allopurinol 300 mg tablet 300 mg PO DAILY 01/08/20 02/03/24 History calcium carb,cit ER 600 mg-vit D3 1 tab PO AMHS 02/19/20 02/03/24 History 12.5 mcg (500 unit) tablet,ext.rel hydroxyzine HCl 10 mg tablet 20 mg PO QID PRN Anxiety 02/19/20 02/03/24 History famotidine 40 mg tablet 40 mg PO DAILY #90 tabs 12/10/20 02/03/24 Rx nystatin 100,000 unit/gram topical 1 applic topical TID PRN Other 12/28/20 02/03/24 History powder CPAP Supplies #1 ea 09/01/21 02/03/24 Rx potassium chloride 20 mEq 20 meq PO DAILY 30 days #90 tabs 12/06/21 02/03/24 Rx tablet,extended release(part/cryst) (Klor-Con M) fluticasone 250 mcg-salmeterol 50 1 inh inhalation Q12H #180 ea 10/16/22 0 02/03/24 Rx mcg/dose blistr powdr for inhalation (Wixela Inhub) atorvastatin 40 mg tablet 40 mg PO HS 90 days #90 tabs 05/07/23 02/03/24 Rx furosemide 40 mg tablet 40 mg PO DAILY #110 tabs 05/07/23 02/03/24 Rx sacubitril 24 mg-valsartan 26 mg 1 tab PO BID #180 tabs 05/07/23 02/03/24 Rx tablet (Entresto) metoprolol succinate 25 mg 50 mg (2 x 25 mg) PO DAILY #180 05/30/23 02/03/24 Rx tablet,extended release 24 hr tabs levalbuterol HCl 0.63 mg/3 mL 0.63 mg (3 mL) inhalation TID PRN 01/14/24 02/03/24 Rx solution for nebulization shortness of breath or wheezing #270 mL Hospital Stay Data Consultations 02/02/24 23:54 ED Decision to Admit Stat 02/03/24 03:06 Consult Gastroenterology Routine Diagnostic Imagining Performed 02/02/24 21:59 CT abd pelvis wo con Stat Pending Results Patient Have Any Pending Studies at Discharge: No Discharge Instructions Given to Patient (Per Discharging Provider) You were seen in the hospital for nausea/vomiting, fevers/chills, and generally feeling unwell. You were most likely having some sort of viral gastroenteritis. Your symptoms improved, you were feeling better, no longer having fevers, and appropriate for discharge home. When we checked your blood work, your liver enzymes were elevated. This was likely because of the gastroenteritis versus a possible medication side effect from the Macrobid. These values are slowly coming back towards normal. We would recommend repeating this outpatient with your PCP in about 2 weeks. You had been started on Macrobid outpatient for a urinary tract infection. We treated you with IV antibiotics while you were here in the hospital. You have completed the antibiotic course for urinary tract infection at this time. No need for further antibiotics. You may have had a small amount of fluid overload, which we treated with one additional dose of Lasix. Continue your home dosing of Lasix upon discharge. Please reach out with any concerns Total Time Total Time Spent Total Time Spent (In Minutes): <30
--- NOTE | 2024-02-04 16:29 | Billing Data ---
Date of Service February 04, 2024 Coding Level of Care Code 35073 IN/OBS DISCH 30 MIN/LESS
== END 2024-02-04 15:06 | disposition home or self-care (01) | DRG 441 ==
LOC: ED 19:55 → SUATTDRO 02-03 00:42 → INTOOBSV 02-03 00:42 → EDINP 02-03 00:42 → 2N 02-03 15:46